=== PATIENT | female | born 1960 | race Caucasian/White ===

== ENCOUNTER → 2017-11-17 13:41 | Outpatient (POV) | payer MEDICAID, SELFPAY ==
[2017-11-17 13:54] VITALS: BP 151/100; PULSE 98; RESP 20; O2SAT 95; BMI 43.7
[2017-11-17 15:10] LABS: Amphetamine/Metha Screen,Urine Negative ng/mL (<1000); Barbiturates Screen,Urine Negative ng/mL (<200); Benzodiazepines Screen,Urine Negative ng/mL (200); Cannabinoid Screen,Urine Negative ng/mL (<50); Cocaine Screen,Urine Negative ng/g (<300); Methadone Screen,Urine Negative ng/mL (<300); Opiate Screen,Urine Positive ng/mL (<300); Phencyclidine Screen,Urine Negative ng/mL (<25)
--- NOTE | 2017-11-17 16:54 | PC.PHONENOTE ---
called in Rx for Diclofenac 75mg BID with 2 refills to [facility] in [place]
--- NOTE | 2017-11-17 17:18 | HMH.PAINSOAP ---
[facility] Pain Management SOAP Note Subjective:: Patient is a pleasant 57-year-old white female who presents today for medication refills. We are treating her for pain secondary to degenerative disc disease of the cervical spine and cervical radiculopathy symptoms. Patient currently rates her pain as 4 out of 10 today. Patient states the medication does very well for her. She does have some pain in her lower back and bilateral hips today. Patient is currently being managed with [place] 10 mg 1 p.o. 3 times daily. She states that this gives her 70-80% relief of her pain. Patient states she is having no side effects to the medication. Patient's MAY #[id number] reviewed and appropriate. Patient's UDS appropriate. She has tried and failed physical therapy and injective therapy in the past patient has not tried any anti-inflammatory recently. ROS General: no recent weight change, no fever, no sleep disturbances Respiratory: no cough, no shortness of air, no recurring pulmonary infections Cardiovascular/Peripheral Vascular: No chest pain, No palpitations, no edema, no shortness of breath. Gastrointestinal: no incontinence, normal bowel movements reported Genitourinary: no incontinence Musculoskeletal: Neck pain, back pain Psychiatric: normal mood/ affect, Neurological: [denies weakness in extremities], [denies balance issues] Objective:: Physical Exam General: Alert and oriented x3, no acute distress, pleasant and cooperative, [on room air] Lungs: Resps E/U, Symmetrical chest expansion, Eyes: PERRL Musculoskeletal: Flexion and extension of lumbar and cervical spine somewhat guarded secondary to pain, deep tendon reflexes normal, strength in upper and lower extremities [5/5], slightly antalgic gait noted Neurological: speech clear, nail making machine tender equal, no gross sensory deficits Assessment:: Degenerative disc disease of the lumbar spine with lumbar radiculopathy, degenerative disc disease of the cervical spine with cervical radiculopathy Plan:: We will refill this patient's medication [place] 10 mg 1 tab p.o. 3 times daily. We will give her 2 months worth of prescriptions. Will follow up with her in 3 months and she can orange picker her third month prescription in the interim. Patient's [place] and urine drug screen have been reviewed. Dr. Au is reviewed this chart and agrees with this plan of care. We will follow-up with her in 3 months. Patient has been prescribed a controlled substance after being counseled on the medication, medication safety, and possible side effects. MAY report has been obtained and reviewed prior to prescription and found to be appropriate. Opioid contract was reviewed and signed by the patient, and that they have agreed to all of the terms set forth by our compliance program. This note was dictated using voice recognition software may contain errors or omissions
--- NOTE | 2017-11-17 17:21 | P.CONS_ITS ---
[facility] Pain Management SOAP Note Subjective:: Patient is a pleasant 57-year-old white female who presents today for medication refills. We are treating her for pain secondary to degenerative disc disease of the cervical spine and cervical radiculopathy symptoms. Patient currently rates her pain as 4 out of 10 today. Patient states the medication does very well for her. She does have some pain in her lower back and bilateral hips today. Patient is currently being managed with [place] 10 mg 1 p.o. 3 times daily. She states that this gives her 70-80% relief of her pain. Patient states she is having no side effects to the medication. Patient' s MAY #[id number] reviewed and appropriate. Patient's UDS appropriate. She has tried and failed physical therapy and injective therapy in the past patient has not tried any anti-inflammatory recently. ROS General: no recent weight change, no fever, no sleep disturbances Respiratory: no cough, no shortness of air, no recurring pulmonary infections Cardiovascular/Peripheral Vascular: No chest pain, No palpitations, no edema, no shortness of breath. Gastrointestinal: no incontinence, normal bowel movements reported Genitourinary: no incontinence Musculoskeletal: Neck pain, back pain Psychiatric: normal mood/ affect, Neurological: [denies weakness in extremities], [denies balance issues] Objective:: Physical Exam General: Alert and oriented x3, no acute distress, pleasant and cooperative, [ on room air] Lungs: Resps E/U, Symmetrical chest expansion, Eyes: PERRL Musculoskeletal: Flexion and extension of lumbar and cervical spine somewhat guarded secondary to pain, deep tendon reflexes normal, strength in upper and lower extremities [5/5], slightly antalgic gait noted Neurological: speech clear, hack driver equal, no gross sensory deficits Assessment:: Degenerative disc disease of the lumbar spine with lumbar radiculopathy, degenerative disc disease of the cervical spine with cervical radiculopathy Plan:: We will refill this patient's medication [place] 10 mg 1 tab p.o. 3 times daily. We will give her 2 months worth of prescriptions. Will follow up with her in 3 months and she can forklift picker her third month prescription in the interim. Patient 's [place] and urine drug screen have been reviewed. Dr. Au is reviewed this chart and agrees with this plan of care. We will follow-up with her in 3 months. Patient has been prescribed a controlled substance after being counseled on the medication, medication safety, and possible side effects. MAY report has been obtained and reviewed prior to prescription and found to be appropriate. Opioid contract was reviewed and signed by the patient, and that they have agreed to all of the terms set forth by our compliance program. This note was dictated using voice recognition software may contain errors or omissions
[2017-11-21 20:12] LABS: Codeine Negative (Cutoff=100); Hydrocodone Positive (.); Hydromorphone Positive (.); Morphine Negative (Cutoff=100)
[2017-11-22 18:33] LABS: Opiates Positive (.)
== END ==
PROVIDERS: Family Provider Nurse Practitioner Family; PCP Nurse Practitioner Family; Visit Provider Clinical Nurse Specialist Family Health
DX: M54.12 Radiculopathy, cervical region (principal)
CPT/HCPCS: 80305; 80361; 80365; 99212; G0480

== ENCOUNTER → 2017-11-25 16:28 | Outpatient (CLI) | payer MEDICAID, SELFPAY ==
--- NOTE | 2017-11-25 16:32 | MM_ITS ---
MM Dig screening mamm BI w/CAD CAD Screening COMPARISON: None, this is baseline INDICATION: There is a history of breast cancer in the patient's paternal aunt before menopause and maternal cousin after menopause. TECHNIQUE: Standard CC and MLO images were obtained. R2 CAD reviewed. FINDINGS: Minimal scattered fibro glandular densities are seen throughout both breast on background of fatty breast parenchyma there is no suspicious lesion and no suspicious microcalcifications. There is a benign-appearing calcination left breast and a couple of 2 tiny benign-appearing nodular densities near the axillary tail right breast likely tiny intramammary nodes. There are fatty replaced nodes in both axilla. The intramedullary portion of the breast is not well seen due to positioning and I would suggest patient return for repeat MLO views to better demonstrate the inframammary portion of the breasts. IMPRESSION: Fatty parenchyma, recommend patient return for repeat MLO views BI-RADS Category: 0 Need Additional Imaging Evaluation RECOMMENDED FOLLOW-UP: IMM - IMMEDIATE FOLLOW-UP RECOMMENDED (A letter has been sent to the patient regarding results of the study.)
== END ==
PROVIDERS: Family Provider Nurse Practitioner Family; PCP Nurse Practitioner Family; Visit Provider Nurse Practitioner Family
DX: Z12.31 Encounter for screening mammogram for malignant neoplasm of breast (principal)
CPT/HCPCS: 77067

== ENCOUNTER → 2018-02-16 12:54 | Outpatient (POV) | payer SELFPAY ==
[2018-02-16 13:27] VITALS: BP 157/86; PULSE 94; RESP 18; O2SAT 98; BMI 36.5
--- NOTE | 2018-02-16 14:46 | HMH.PAINSOAP ---
[facility] Pain Management SOAP Note Subjective:: Patient is a pleasant 57-year-old white female who presents today for medication refills. We are currently treating her for pain secondary to degenerative disc disease of the cervical spine and cervical radiculopathy symptoms. Patient also has bilateral knee pain at times. Patient currently rates her pain a 3 out of 10 today. Patient's on [place] 10 g 1 p.o. 3 times daily. She denies any side effects to the medication she states that it helps her pain 80-90%. Patient's MAY #[id number] reviewed and appropriate. Patient would like to try gabapentin to see if this helps with her pain relief and sleeping at night. We will start the patient on gabapentin 100 mg 1 p.o. nightly. Patient's UDS has been appropriate in the past. Patient's tried and failed physical therapy and injective therapy in the past. ROS General: no recent weight change, no fever, no sleep disturbances Respiratory: no cough, no shortness of air, no recurring pulmonary infections Cardiovascular/Peripheral Vascular: No chest pain, No palpitations, no edema, no shortness of breath. Gastrointestinal: no incontinence, normal bowel movements reported Genitourinary: no incontinence Musculoskeletal: Neck pain, back pain, leg pain Psychiatric: normal mood/ affect Neurological: [denies weakness in extremities], [denies balance issues] Objective:: Physical Exam General: Alert and oriented x3, no acute distress, pleasant and cooperative, [on room air] Lungs: Resps E/U, Symmetrical chest expansion, Eyes: PERRL Musculoskeletal: Flexion and extension of lumbar and cervical spine somewhat guarded secondary to pain, deep tendon reflexes normal, strength in upper and lower extremities [5/5], slightly antalgic gait noted Neurological: speech clear, artist's manager equal, no gross sensory deficits Assessment:: Degenerative disc disease of the lumbar spine with lumbar radiculopathy, degenerative disc disease of the cervical spine with cervical radiculopathy Plan:: We will refill the patient's medication [place] 10 mg 1 tab p.o. 3 times daily we will give HER-2 months worth of prescriptions. We will also start gabapentin 100 mg 1 p.o. nightly. We will give her 1 month of this. We will increase her to 100 mg 1 p.o. 3 times daily if she has no side effects to this. Patient's [place] and urine drug screen both reviewed. Dr. Au has reviewed her chart and agrees with this plan of care. We will follow-up with her in 3 months. She Her third month prescription in the interim. Patient has been prescribed a controlled substance after being counseled on the medication, medication safety, and possible side effects. MAY report has been obtained and reviewed prior to prescription and found to be appropriate. Opioid contract was reviewed and signed by the patient, and that they have agreed to all of the terms set forth by our compliance program. This note was dictated using voice recognition software and may contain errors or omissions
--- NOTE | 2018-02-16 14:49 | P.CONS_ITS ---
[facility] Pain Management SOAP Note Subjective:: Patient is a pleasant 57-year-old white female who presents today for medication refills. We are currently treating her for pain secondary to degenerative disc disease of the cervical spine and cervical radiculopathy symptoms. Patient also has bilateral knee pain at times. Patient currently rates her pain a 3 out of 10 today. Patient's on [place] 10 g 1 p.o. 3 times daily. She denies any side effects to the medication she states that it helps her pain 80-90%. Patient's MAY #[id number] reviewed and appropriate. Patient would like to try gabapentin to see if this helps with her pain relief and sleeping at night. We will start the patient on gabapentin 100 mg 1 p.o. nightly. Patient's UDS has been appropriate in the past. Patient's tried and failed physical therapy and injective therapy in the past. ROS General: no recent weight change, no fever, no sleep disturbances Respiratory: no cough, no shortness of air, no recurring pulmonary infections Cardiovascular/Peripheral Vascular: No chest pain, No palpitations, no edema, no shortness of breath. Gastrointestinal: no incontinence, normal bowel movements reported Genitourinary: no incontinence Musculoskeletal: Neck pain, back pain, leg pain Psychiatric: normal mood/ affect Neurological: [denies weakness in extremities], [denies balance issues] Objective:: Physical Exam General: Alert and oriented x3, no acute distress, pleasant and cooperative, [ on room air] Lungs: Resps E/U, Symmetrical chest expansion, Eyes: PERRL Musculoskeletal: Flexion and extension of lumbar and cervical spine somewhat guarded secondary to pain, deep tendon reflexes normal, strength in upper and lower extremities [5/5], slightly antalgic gait noted Neurological: speech clear, slab grinder equal, no gross sensory deficits Assessment:: Degenerative disc disease of the lumbar spine with lumbar radiculopathy, degenerative disc disease of the cervical spine with cervical radiculopathy Plan:: We will refill the patient's medication [place] 10 mg 1 tab p.o. 3 times daily we will give HER-2 months worth of prescriptions. We will also start gabapentin 100 mg 1 p.o. nightly. We will give her 1 month of this. We will increase her to 100 mg 1 p.o. 3 times daily if she has no side effects to this. Patient's [place] and urine drug screen both reviewed. Dr. Au has reviewed her chart and agrees with this plan of care. We will follow-up with her in 3 months. She Her third month prescription in the interim. Patient has been prescribed a controlled substance after being counseled on the medication, medication safety, and possible side effects. MAY report has been obtained and reviewed prior to prescription and found to be appropriate. Opioid contract was reviewed and signed by the patient, and that they have agreed to all of the terms set forth by our compliance program. This note was dictated using voice recognition software and may contain errors or omissions
--- NOTE | 2018-04-15 11:04 | PC.PHONENOTE ---
called in Rx for Gabapentin 100mg Qhs with 2 refills to clinic pharmacy
== END ==
PROVIDERS: Family Provider Nurse Practitioner Family; PCP Nurse Practitioner Family; Visit Provider Clinical Nurse Specialist Family Health
DX: M54.16 Radiculopathy, lumbar region (principal); M54.12 Radiculopathy, cervical region
CPT/HCPCS: 99212

== ENCOUNTER → 2018-05-19 09:23 | Outpatient (POV) | payer MEDICARE, SELFPAY ==
--- NOTE | 2018-05-19 10:08 | HMH.PAINSOAP ---
[facility] Pain Management SOAP Note Subjective:: Patient is a pleasant 57-year-old white female who presents today for follow-up and medication refill. Patient is currently being medically managed with [place] 10 mg 1 p.o. 3 times daily and was started on gabapentin 100 mg at bedtime last visit. Patient states she is doing extremely well with this. Patient denies side effects. Patient states the medication helps up to 80%. Patient recently got out of the hospital where she was hospitalized for legionnaires. Patient's MAY #[id number] reviewed and appropriate. Patient's urine drug screen has been appropriate in the past. Patient states she is sleeping much better. Patient's tried and failed physical therapy and injective therapies in the past. Patient is continuing to do home stretching exercise. She rates her pain a 4 out of 10 today. ROS General: no recent weight change, no fever, no sleep disturbances Respiratory: no cough, no shortness of air, no recurring pulmonary infections Cardiovascular/Peripheral Vascular: No chest pain, No palpitations, no edema, no shortness of breath. Gastrointestinal: no incontinence, normal bowel movements reported Genitourinary: no incontinence Musculoskeletal: Back pain, knee pain, leg pain Psychiatric: normal mood/ affect Neurological: [denies weakness in extremities], [denies balance issues] Objective:: Physical Exam General: Alert and oriented x3, no acute distress, pleasant and cooperative, [on room air] Lungs: Resps E/U, Symmetrical chest expansion, Eyes: PERRL Musculoskeletal: Flexion and extension of lumbar cervical spine somewhat guarded secondary to pain, deep tendon reflexes normal, strength in upper and lower extremities [5/5], slightly antalgic gait noted Neurological: speech clear, line inspector equal, no gross sensory deficits Assessment:: Degenerative disc disease of lumbar spine with lumbar radiculopathy, degenerative disc disease of the cervical spine with cervical radiculopathy Plan:: We will refill the patient's medication [place] 10 mg 1 tab p.o. 3 times daily. We will give her 2 months worth of medication and she can berry picker the third month in the interim. Patient will also start gabapentin [address] Au is reviewed this chart and agrees with this plan of care. I will follow-up with the patient in 3 months. [place] and urine drug screen reviewed and appropriate. Patient has been prescribed a controlled substance after being counseled on the medication, medication safety, and possible side effects. MAY report has been obtained and reviewed prior to prescription and found to be appropriate. Opioid contract was reviewed and signed by the patient, and that they have agreed to all of the terms set forth by our compliance program. This note was dictated using voice recognition software and may contain errors or omissions
[2018-05-19 10:11] VITALS: BP 147/93; PULSE 86; RESP 18; O2SAT 98; BMI 43.3
--- NOTE | 2018-05-19 10:11 | P.CONS_ITS ---
[facility] Pain Management SOAP Note Subjective:: Patient is a pleasant 57-year-old white female who presents today for follow-up and medication refill. Patient is currently being medically managed with [place] 10 mg 1 p.o. 3 times daily and was started on gabapentin 100 mg at bedtime last visit. Patient states she is doing extremely well with this. Patient denies side effects. Patient states the medication helps up to 80%. Patient recently got out of the hospital where she was hospitalized for legionnaires. Patient's MAY #[id number] reviewed and appropriate. Patient's urine drug screen has been appropriate in the past. Patient states she is sleeping much better. Patient's tried and failed physical therapy and injective therapies in the past. Patient is continuing to do home stretching exercise. She rates her pain a 4 out of 10 today. ROS General: no recent weight change, no fever, no sleep disturbances Respiratory: no cough, no shortness of air, no recurring pulmonary infections Cardiovascular/Peripheral Vascular: No chest pain, No palpitations, no edema, no shortness of breath. Gastrointestinal: no incontinence, normal bowel movements reported Genitourinary: no incontinence Musculoskeletal: Back pain, knee pain, leg pain Psychiatric: normal mood/ affect Neurological: [denies weakness in extremities], [denies balance issues] Objective:: Physical Exam General: Alert and oriented x3, no acute distress, pleasant and cooperative, [on room air] Lungs: Resps E/U, Symmetrical chest expansion, Eyes: PERRL Musculoskeletal: Flexion and extension of lumbar cervical spine somewhat guarded secondary to pain, deep tendon reflexes normal, strength in upper and lower extremities [5/5], slightly antalgic gait noted Neurological: speech clear, take down sorter equal, no gross sensory deficits Assessment:: Degenerative disc disease of lumbar spine with lumbar radiculopathy, degenerative disc disease of the cervical spine with cervical radiculopathy Plan:: We will refill the patient's medication [place] 10 mg 1 tab p.o. 3 times daily. W e will give her 2 months worth of medication and she can machine pecan picker the third month in the interim. Patient will also start gabapentin [address] Au is reviewed this chart and agrees with this plan of care. I will follow-up with the patient in 3 months. [place] and urine drug screen reviewed and appropriate. Patient has been prescribed a controlled substance after being counseled on the medication, medication safety, and possible side effects. MAY report has been obtained and reviewed prior to prescription and found to be appropriate. Opioid contract was reviewed and signed by the patient, and that they have agreed to all of the terms set forth by our compliance program. This note was dictated using voice recognition software and may contain errors or omissions
== END ==
PROVIDERS: Family Provider Nurse Practitioner Family; PCP Nurse Practitioner Family; Visit Provider Clinical Nurse Specialist Family Health
DX: M51.16 Intervertebral disc disorders with radiculopathy, lumbar region (principal); M50.10 Cervical disc disorder with radiculopathy, unspecified cervical region
CPT/HCPCS: 99213

== ENCOUNTER → 2018-06-12 11:25 | Outpatient (CLI) | payer MEDICARE, SELFPAY | PROVIDERS: Family Provider Nurse Practitioner Family; PCP Nurse Practitioner Family; Visit Provider Nurse Practitioner Family | DX: R92.8 Other abnormal and inconclusive findings on diagnostic imaging of breast (principal) ==

== ENCOUNTER → 2018-07-14 12:17 | Outpatient (CLI) | payer MEDICARE, SELFPAY ==
[2018-07-14 12:31] LABS: Microscopic, Urine URINE MICROSCOPIC (MICROSCOPIC)
[2018-07-14 12:43] LABS: Appearance,Urine CLEAR (Clear); Bilirubin,Urine Negative (Negative); Blood, Urine 1+ (Negative); Color,Urine YELLOW (Yellow); Glucose,Urine (UA) Negative (Negative); Ketones,Urine Negative (Negative); Leukocyte Esterase,Urine Negative (Negative); Nitrate,Urine Negative (Negative); Protein,Urine Negative (Negative); Specific Gravity, Urine 1.015 (1.005-1.030); Urobilinogen,Urine 0.2 EU/dl (0.2)
[2018-07-14 13:13] LABS: Bacteria,Urine Trace /lpf
== END ==
PROVIDERS: PCP Nurse Practitioner Family; Visit Provider Clinical Nurse Specialist Family Health
DX: Z79.899 Other long term (current) drug therapy (principal)
CPT/HCPCS: 81001

== ENCOUNTER → 2018-08-05 13:31 | Outpatient (CLI) | payer MEDICARE, SELFPAY ==
[2018-08-05 14:23] LABS: Amphetamine/Metha Screen,Urine Negative ng/mL (<1000); Barbiturates Screen,Urine Negative ng/mL (<200); Benzodiazepines Screen,Urine Negative ng/mL (<200); Cannabinoid Screen,Urine Negative ng/mL (<50); Cocaine Screen,Urine Negative ng/mL (<300); Methadone Screen,Urine Negative ng/mL (<300); Opiate Screen,Urine Positive ng/mL (<300); Phencyclidine Screen,Urine Negative ng/mL (<25)
[2018-08-12 08:33] LABS: Codeine Negative (Cutoff=100); Hydrocodone Positive (.); Hydromorphone Negative (Cutoff=100); Morphine Negative (Cutoff=100)
[2018-08-12 15:59] LABS: Opiates Positive (.)
== END ==
PROVIDERS: Visit Provider Clinical Nurse Specialist Family Health
DX: Z79.899 Other long term (current) drug therapy (principal)
CPT/HCPCS: 80305; 80361; 80365; G0480

== ENCOUNTER → 2018-08-10 08:34 | Outpatient (POV) | payer MEDICARE, SELFPAY ==
[2018-08-10 08:59] VITALS: BP 150/79; PULSE 99; RESP 18; O2SAT 98; BMI 44.6
--- NOTE | 2018-08-10 09:06 | HMH.PAINSOAP ---
[facility] Pain Management SOAP Note Subjective:: Patient is a pleasant 58-year-old female who presents today for medication refills. Patient is currently being medically managed with [place] 10 mg 1 p.o. 3 times daily and gabapentin 100 mg 2 tabs p.o. at bedtime. Patient is doing extremely well with this. She denies any side effects. She states the medication helps up to 80%. MAY #[id number] reviewed and appropriate. Patient's urine drug screen has been appropriate. Patient's tried and failed physical therapy and injective therapies in the past and rates her pain today a 4 out of 10 which is her baseline. Patient states she has pain both in her neck and her back however today it is worse in her back. ROS General: no recent weight change, no fever, no sleep disturbances Respiratory: no cough, no shortness of air, no recurring pulmonary infections Cardiovascular/Peripheral Vascular: No chest pain, No palpitations, no edema, no shortness of breath. Gastrointestinal: no incontinence, normal bowel movements reported Genitourinary: no incontinence Musculoskeletal: Back pain, knee pain, leg pain Psychiatric: normal mood/ affect Neurological: [denies weakness in extremities], [denies balance issues] Objective:: Physical Exam General: Alert and oriented x3, no acute distress, pleasant and cooperative, [on room air] Lungs: Resps E/U, Symmetrical chest expansion, Eyes: PERRL Musculoskeletal: Flexion and extension of lumbar spine somewhat guarded secondary to pain, deep tendon reflexes normal, strength in upper and lower extremities [5/5], slightly antalgic gait noted Neurological: speech clear, jewelry repairer equal, no gross sensory deficits Assessment:: Degenerative disc disease lumbar spine with lumbar radiculopathy, degenerative disc disease cervical spine with cervical radiculopathy Plan:: We will refill the patient's medication [place] 10 mg 1 p.o. 3 times daily and give her 2 months worth of medication. We will also refill her gabapentin 100 mg 2 tabs p.o. nightly. She can picker and packer her third month in the interim. Dr. Au has reviewed this chart and agrees with this plan of care. I will follow-up with the patient in 3 months. Patient has been prescribed a controlled substance after being counseled on the medication, medication safety, and possible side effects. MAY report has been obtained and reviewed prior to prescription and found to be appropriate. Opioid contract was reviewed and signed by the patient, and that they have agreed to all of the terms set forth by our compliance program. This note was dictated using voice recognition software and may contain errors or omissions
--- NOTE | 2018-08-10 09:09 | P.CONS_ITS ---
[facility] Pain Management SOAP Note Subjective:: Patient is a pleasant 58-year-old female who presents today for medication refills. Patient is currently being medically managed with [place] 10 mg 1 p.o. 3 times daily and gabapentin 100 mg 2 tabs p.o. at bedtime. Patient is doing extremely well with this. She denies any side effects. She states the medication helps up to 80%. MAY #[id number] reviewed and appropriate. Patient's urine drug screen has been appropriate. Patient's tried and failed physical therapy and injective therapies in the past and rates her pain today a 4 out of 10 which is her baseline. Patient states she has pain both in her neck and her back however today it is worse in her back. ROS General: no recent weight change, no fever, no sleep disturbances Respiratory: no cough, no shortness of air, no recurring pulmonary infections Cardiovascular/Peripheral Vascular: No chest pain, No palpitations, no edema, no shortness of breath. Gastrointestinal: no incontinence, normal bowel movements reported Genitourinary: no incontinence Musculoskeletal: Back pain, knee pain, leg pain Psychiatric: normal mood/ affect Neurological: [denies weakness in extremities], [denies balance issues] Objective:: Physical Exam General: Alert and oriented x3, no acute distress, pleasant and cooperative, [on room air] Lungs: Resps E/U, Symmetrical chest expansion, Eyes: PERRL Musculoskeletal: Flexion and extension of lumbar spine somewhat guarded secondary to pain, deep tendon reflexes normal, strength in upper and lower extremities [5/5], slightly antalgic gait noted Neurological: speech clear, director advanced equal, no gross sensory deficits Assessment:: Degenerative disc disease lumbar spine with lumbar radiculopathy, degenerative disc disease cervical spine with cervical radiculopathy Plan:: We will refill the patient's medication [place] 10 mg 1 p.o. 3 times daily and give her 2 months worth of medication. We will also refill her gabapentin 100 mg 2 tabs p.o. nightly. 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 Dr. Au has reviewed this chart and agrees with this plan of care. I will follow-up with the patient in 3 months. Patient has been prescribed a controlled substance after being counseled on the medication, medication safety, and possible side effects. MAY report has been obtained and reviewed prior to prescription and found to be appropriate. Opioid contract was reviewed and signed by the patient, and that they have agreed to all of the terms set forth by our compliance program. This note was dictated using voice recognition software and may contain errors or omissions
--- NOTE | 2018-10-06 08:47 | PC.NURSE ---
gabapentin 100mg, 2 capsules at hs with 2 refills faxed to clinic pharmacy per provider order.
== END ==
PROVIDERS: PCP Nurse Practitioner Family; Visit Provider Clinical Nurse Specialist Family Health
DX: M51.16 Intervertebral disc disorders with radiculopathy, lumbar region (principal); M50.10 Cervical disc disorder with radiculopathy, unspecified cervical region
CPT/HCPCS: 99213

== ENCOUNTER → 2018-09-21 11:53 | Outpatient (CLI) | payer MEDICARE, SELFPAY ==
--- NOTE | 2018-09-21 11:58 | XR_ITS ---
XR chest 2V HISTORY: ITS.REASON: SOB, ORDERING PHYSICIAN: Phuong Owusu PATIENT AGE: 58 years COMPARISON: None FINDINGS: The cardiomediastinal silhouette and pulmonary vascularity are within normal limits. There are atelectatic or fibrotic changes in the left midlung. Increased markings are present in the right upper lobe medially probably due to overlapping vessel. On the lateral view there is a 12 mm nodular opacity overlying the T5 vertebral body and could be due to an overlying osteophyte. There are degenerative changes in the thoracic spine. A gastric lap band is present. IMPRESSION: 1. Left midlung atelectasis or fibrosis. 2. Nodular opacity overlying the upper thoracic spine possibly due to is overlying osteophyte. Cannot exclude a pulmonary nodule and follow-up is recommended
== END ==
PROVIDERS: PCP Nurse Practitioner Family; Visit Provider Nurse Practitioner Family
DX: R06.02 Shortness of breath (principal)
CPT/HCPCS: 71046

== ENCOUNTER → 2018-10-12 09:51 | Outpatient (POV) | payer MEDICARE, SELFPAY ==
[2018-10-12 09:52] VITALS: BP 148/74; PULSE 82; RESP 18; O2SAT 99; BMI 45.6
--- NOTE | 2018-10-12 10:14 | HMH.PAINSOAP ---
[facility] Pain Management SOAP Note Subjective:: Is a pleasant 58-year-old white female who presents today for medication refills. She is currently being medically managed for pain secondary to degenerative disc disease lumbar and cervical spine with radiculopathy. Patient is currently on [place] 10 mils 1 3 times daily and gabapentin 100 mg 2 tabs at bedtime. She is doing extremely well rating her pain a 5 out of 10. Patient says this is not her baseline it is higher due to the weather. She denies side effects or medication and states it helps up to 80%. MAY #[id number] reviewed and appropriate. Patient urine drug screen has been appropriate. Patient's tried and failed physical therapy and injective therapies. ROS General: no recent weight change, no fever, no sleep disturbances Respiratory: no cough, no shortness of air, no recurring pulmonary infections Cardiovascular/Peripheral Vascular: No chest pain, No palpitations, no edema, no shortness of breath. Gastrointestinal: no incontinence, normal bowel movements reported Genitourinary: no incontinence Musculoskeletal: Back pain, knee pain, leg pain Psychiatric: normal mood/ affect, [denies depression], [denies anxiety] Neurological: [denies weakness in extremities], [denies balance issues] Objective:: Physical Exam General: Alert and oriented x3, no acute distress, pleasant and cooperative, [on room air] Lungs: Resps E/U, Symmetrical chest expansion, Eyes: PERRL Musculoskeletal: Flexion and extension of cervical and lumbar spine somewhat guarded secondary to pain, deep tendon reflexes normal, strength in upper and lower extremities [5/5], [abnormal gait noted] Neurological: speech clear, breakdown man equal, no gross sensory deficits Assessment:: Degenerative disc disease cervical and lumbar spine with lumbar and cervical radiculopathy. Plan:: We will refill the patient's [place] 10 mg 1 p.o. 3 times daily and give her 2 months worth of medication. We will also refill her gabapentin 100 mg 2 tabs p.o. only. 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 She is been instructed to call the office if she has any issues prior to her next appointment. Patient has been prescribed a controlled substance after being counseled on the medication, medication safety, and possible side effects. MAY report has been obtained and reviewed prior to prescription and found to be appropriate. Opioid contract was reviewed and signed by the patient, and that they have agreed to all of the terms set forth by our compliance program. Dr. Au has reviewed this note and agrees with this plan of care. This note was dictated using voice recognition software and may contain errors or omissions
[2018-10-12 12:22] LABS: Amphetamine/Metha Screen,Urine Negative ng/mL (<1000); Barbiturates Screen,Urine Negative ng/mL (<200); Benzodiazepines Screen,Urine Negative ng/mL (<200); Cannabinoid Screen,Urine Negative ng/mL (<50); Cocaine Screen,Urine Negative ng/mL (<300); Methadone Screen,Urine Negative ng/mL (<300); Opiate Screen,Urine Positive ng/mL (<300); Phencyclidine Screen,Urine Negative ng/mL (<25)
[2018-10-16 04:10] LABS: Codeine Negative (Cutoff=100); Hydrocodone Positive (.); Hydromorphone Positive (.); Morphine Negative (Cutoff=100)
[2018-10-16 06:09] LABS: Opiates Positive (.)
== END ==
PROVIDERS: PCP Nurse Practitioner Family; Visit Provider Clinical Nurse Specialist Family Health
DX: M50.10 Cervical disc disorder with radiculopathy, unspecified cervical region (principal); Z79.899 Other long term (current) drug therapy
CPT/HCPCS: 80305; 80361; 80365; 99213; G0480

== ENCOUNTER → 2019-01-05 10:20 | Outpatient (POV) | payer MEDICARE, SELFPAY ==
[2019-01-05 10:30] VITALS: BP 148/84; PULSE 90; RESP 18; O2SAT 99; BMI 45.1
--- NOTE | 2019-01-05 10:41 | P.CONS_ITS ---
[facility] Pain Management SOAP Note Subjective:: Patient is a pleasant 58-year-old white female who presents today for medication refills. She is currently being medically managed for pain secondary to degenerative disc disease lumbar and cervical spine with radiculopathy she is currently on [place] 10 mg 1 p.o. 3 times daily and gabapentin 100 mg 2 tabs at bedtime. She rates her pain a 4 out of 10 which is her baseline. May reviewed and appropriate states her medication helps her up to 80%. Patient is tried and failed physical therapy and injective therapies. ROS General: no recent weight change, no fever, no sleep disturbances Respiratory: no cough, no shortness of air, no recurring pulmonary infections Cardiovascular/Peripheral Vascular: No chest pain, No palpitations, no edema, no shortness of breath. Gastrointestinal: no incontinence, normal bowel movements reported Genitourinary: no incontinence Musculoskeletal: Back pain, knee pain, leg pain Psychiatric: normal mood/ affect Neurological: [denies weakness in extremities], [denies balance issues] Objective:: Physical Exam General: Alert and oriented x3, no acute distress, pleasant and cooperative, [on room air] Lungs: Resps E/U, Symmetrical chest expansion, Eyes: PERRL Musculoskeletal: Flexion and extension of lumbar spine somewhat guarded secondary to pain, deep tendon reflexes normal, strength in upper and lower extremities [5/5], [abnormal gait noted] Neurological: speech clear, soft mud molder equal, no gross sensory deficits Assessment:: Degenerative disc disease cervical and lumbar spine with lumbar and cervical radiculopathy Plan:: We will refill the patient's [place] 10 mg 1 p.o. 3 times daily and give her 2 months worth of medication. We will also refill her gabapentin 100 mg 2 tabs p.o. nightly. 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 Patient has been prescribed a controlled substance after being counseled on the medication, medication safety, and possible side effects. MAY report has been obtained and reviewed prior to prescription and found to be appropriate. Opioid contract was reviewed and signed by the patient, and that they have agreed to all of the terms set forth by our compliance program. Dr. Au has reviewed this note and agrees with this plan of care. This note was dictated using voice recognition software and may contain errors or omissions
== END ==
PROVIDERS: PCP Nurse Practitioner Family; Visit Provider Clinical Nurse Specialist Family Health
DX: M50.10 Cervical disc disorder with radiculopathy, unspecified cervical region (principal)
CPT/HCPCS: 99212

== ENCOUNTER → 2019-03-03 12:51 | Outpatient (CLI) | payer MEDICARE, SELFPAY ==
[2019-03-03 14:42] LABS: Amphetamine/Metha Screen,Urine Negative ng/mL (<1000); Barbiturates Screen,Urine Negative ng/mL (<200); Benzodiazepines Screen,Urine Negative ng/mL (<200); Cannabinoid Screen,Urine Negative ng/mL (<50); Cocaine Screen,Urine Negative ng/mL (<300); Methadone Screen,Urine Negative ng/mL (<300); Opiate Screen,Urine Positive ng/mL (<300); Phencyclidine Screen,Urine Negative ng/mL (<25)
[2019-03-09 07:11] LABS: Codeine Negative (Cutoff=100); Hydrocodone Positive (.); Hydromorphone Positive (.); Morphine Negative (Cutoff=100)
[2019-03-10 17:36] LABS: Opiates Positive (.)
== END ==
PROVIDERS: Visit Provider Clinical Nurse Specialist Family Health
DX: Z79.899 Other long term (current) drug therapy (principal)
CPT/HCPCS: 80305; 80361; 80365; G0480

== ENCOUNTER → 2019-03-30 09:29 | Outpatient (POV) | payer MEDICARE, SELFPAY ==
[2019-03-30 10:09] VITALS: BP 141/72; PULSE 84; RESP 18; O2SAT 98; BMI 44.6
--- NOTE | 2019-03-30 12:31 | HMH.PAINSOAP ---
[facility] Pain Management SOAP Note Subjective:: Patient is a pleasant 58-year-old white female who presents today for medication refills. She is currently being medically managed for pain secondary to degenerative disc disease lumbar spine and cervical spine with radiculopathy. She is currently on [place] 10 mg 1 p.o. 3 times daily and gabapentin 100 mg 2 tabs at bedtime. She rates her pain a 5 out of 10 today. She says it 4 out of 10 is her baseline. And she does state that the medication is helping her about 80%. She is tried and failed physical therapy and injective therapies. May #[id number] has been reviewed and is appropriate. Patient denies any side effects to medications. Review of Systems General: No recent weight changes, no fever, no sleep disturbances Respiratory: No cough, no shortness of air, no recurring pulmonary infections Cardiovascular/peripheral vascular: No chest pain, no palpitations, no edema, no shortness of breath Gastrointestinal: No new onset incontinence, normal bowel movements reported Genitourinary: No new onset incontinence Musculoskeletal: Back pain, neck pain Psychiatric: Normal mood/affect Neurological: [Denies weakness in extremities], [denies balance issues] Objective:: Physical exam General: Alert and oriented x3, no acute distress, pleasant and cooperative, [on room air] Lungs: Respirations even and unlabored, symmetrical chest expansion Eyes: PERRL Musculoskeletal: Flexion and extension of lumbar and cervical spine somewhat guarded secondary to pain, deep tendon reflexes normal, strength in upper and lower extremities [5/5], lightly antalgic gait noted Neurological: Speech clear, clothes drier repairer equal, no gross sensory deficit Assessment:: Degenerative disc disease cervical and lumbar spine with lumbar and cervical radiculopathy Plan:: We will refill the patient's [place] 10 mg 1 p.o. 3 times daily and gabapentin 100 mg 2 tabs p.o. nightly. 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 We will schedule her follow-up in 3 months to reassess her symptoms at that time. She has been instructed to call the office if she has any concerns prior to her next appointment. Patient has been prescribed a controlled substance after being counseled on the medication, medication safety, and possible side effects. MAY report has been obtained and reviewed prior to prescription and found to be appropriate. Opioid contract was reviewed and signed by the patient, and that they have agreed to all of the terms set forth by our compliance program. Dr. Au has reviewed this note and agrees with this plan of care. This note was dictated using voice recognition software and make contain errors or omissions.
--- NOTE | 2019-03-30 12:34 | P.CONS_ITS ---
[facility] Pain Management SOAP Note Subjective:: Patient is a pleasant 58-year-old white female who presents today for medication refills. She is currently being medically managed for pain secondary to degenerative disc disease lumbar spine and cervical spine with radiculopathy. She is currently on [place] 10 mg 1 p.o. 3 times daily and gabapentin 100 mg 2 tabs at bedtime. She rates her pain a 5 out of 10 today. She says it 4 out of 10 is her baseline. And she does state that the medication is helping her about 80%. She is tried and failed physical therapy and injective therapies. May #[id number] has been reviewed and is appropriate. Patient denies any side effects to medications. Review of Systems General: No recent weight changes, no fever, no sleep disturbances Respiratory: No cough, no shortness of air, no recurring pulmonary infections Cardiovascular/peripheral vascular: No chest pain, no palpitations, no edema, no shortness of breath Gastrointestinal: No new onset incontinence, normal bowel movements reported Genitourinary: No new onset incontinence Musculoskeletal: Back pain, neck pain Psychiatric: Normal mood/affect Neurological: [Denies weakness in extremities], [denies balance issues] Objective:: Physical exam General: Alert and oriented x3, no acute distress, pleasant and cooperative, [on room air] Lungs: Respirations even and unlabored, symmetrical chest expansion Eyes: PERRL Musculoskeletal: Flexion and extension of lumbar and cervical spine somewhat guarded secondary to pain, deep tendon reflexes normal, strength in upper and lower extremities [5/5], lightly antalgic gait noted Neurological: Speech clear, muffler installer equal, no gross sensory deficit Assessment:: Degenerative disc disease cervical and lumbar spine with lumbar and cervical radiculopathy Plan:: We will refill the patient's [place] 10 mg 1 p.o. 3 times daily and gabapentin 100 mg 2 tabs p.o. nightly. 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 We will schedule her follow-up in 3 months to reassess her symptoms at that time. She has been instructed to call the office if she has any concerns prior to her next appointment. Patient has been prescribed a controlled substance after being counseled on the medication, medication safety, and possible side effects. MAY report has been obtained and reviewed prior to prescription and found to be appropriate. Opioid contract was reviewed and signed by the patient, and that they have agreed to all of the terms set forth by our compliance program. Dr. Au has reviewed this note and agrees with this plan of care. This note was dictated using voice recognition software and make contain errors or omissions.
--- NOTE | 2019-04-26 09:27 | PC.NURSE ---
GABAPENTIN 100MG, 2 CAPSULES AT BEDTIME WITH 2 REFILLS CALLED INTO CLINIC PHARMACY PER PROVIDER ORDER
== END ==
PROVIDERS: PCP Nurse Practitioner Family; Visit Provider Clinical Nurse Specialist Family Health
DX: M50.10 Cervical disc disorder with radiculopathy, unspecified cervical region (principal); M51.36 Other intervertebral disc degeneration, lumbar region
CPT/HCPCS: 99212

== ENCOUNTER → 2019-06-21 10:15 | Outpatient (POV) | payer MEDICARE, SELFPAY ==
[2019-06-21 10:25] VITALS: BP 147/77; PULSE 84; RESP 20; O2SAT 92; BMI 44.6
--- NOTE | 2019-06-21 10:40 | P.CONS_ITS ---
[facility] Pain Management SOAP Note Subjective:: Patient is a pleasant 58-year-old white female who presents today for medication refills. She is currently being medically managed for pain secondary to degenerative disc disease lumbar spine and lumbar radiculopathy. She is currently on [place] 10 mg 1 p.o. 3 times daily and gabapentin 100 mg 2 tabs at bedtime. We did briefly discuss increasing this to 3 times at nighttime. She rates her pain today 6 out of 10 which is slightly elevated however she states is because of weather related issues. Patient states that her medication helps up to 80%. May #[id number] reviewed and appropriate. Urine drug screens have been appropriate. She is denies any side effects to any medication ROS General: no recent weight change, no fever, no sleep disturbances Respiratory: no cough, no shortness of air, no recurring pulmonary infections Cardiovascular/Peripheral Vascular: No chest pain, No palpitations, no edema, no shortness of breath. Gastrointestinal: no incontinence, normal bowel movements reported Genitourinary: no incontinence Musculoskeletal: Back pain, neck pain Psychiatric: normal mood/ affect Neurological: [denies weakness in extremities], [denies balance issues] Objective:: Physical Exam General: Alert and oriented x3, no acute distress, pleasant and cooperative, [on room air] Lungs: Resps E/U, Symmetrical chest expansion, Eyes: PERRL Musculoskeletal: Flexion and extension of lumbar spine somewhat guarded secondary to pain, deep tendon reflexes normal, strength in upper and lower extremities [5/5], [abnormal gait noted] Neurological: speech clear, plastic parts designer equal, no gross sensory deficits Assessment:: Degenerative disc disease lumbar spine with lumbar radiculopathy degenerative disc disease cervical spinal cervical radiculopathy Plan:: We will refill the patient's [place] 10 mg 1 p.o. 3 times daily and gabapentin 100 mg 2 tabs p.o. nightly. 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 Patient has been prescribed a controlled substance after being counseled on the medication, medication safety, and possible side effects. MAY report has been obtained and reviewed prior to prescription and found to be appropriate. Opioid contract was reviewed and signed by the patient, and that they have agreed to all of the terms set forth by our compliance program. Dr. Au has reviewed this note and agrees with this plan of care. This note was dictated using voice recognition software and may contain errors or omissions [facility] History I have reviewed the patient's past medical history: Yes *Have you ever received a pneumonia vaccine?: No *Have you received a flu vaccine this season?: Yes - *Social History *Occupational Status:: other *Travel in the last 8 weeks: None Family Hx:: Non-contributory
[2019-06-21 13:27] LABS: Amphetamine/Metha Screen,Urine Negative ng/mL (<1000); Barbiturates Screen,Urine Negative ng/mL (<200); Benzodiazepines Screen,Urine Negative ng/mL (<200); Cannabinoid Screen,Urine Negative ng/mL (<50); Cocaine Screen,Urine Negative ng/mL (<300); Methadone Screen,Urine Negative ng/mL (<300); Opiate Screen,Urine Positive ng/mL (<300); Phencyclidine Screen,Urine Negative ng/mL (<25)
[2019-06-25 13:18] LABS: Codeine Negative (Cutoff=100); Hydrocodone Positive (.); Hydromorphone Positive (.); Morphine Negative (Cutoff=100)
[2019-06-25 17:04] LABS: Opiates Positive (.)
== END ==
PROVIDERS: PCP Nurse Practitioner Family; Visit Provider Clinical Nurse Specialist Family Health
DX: M51.16 Intervertebral disc disorders with radiculopathy, lumbar region (principal); Z79.899 Other long term (current) drug therapy; M50.10 Cervical disc disorder with radiculopathy, unspecified cervical region
CPT/HCPCS: 80305; 80361; 80365; 99212; G0480

== ENCOUNTER → 2019-09-20 09:29 | Outpatient (POV) | payer MEDICARE, SELFPAY ==
[2019-09-20 09:30] VITALS: BP 159/69; PULSE 97; RESP 18; O2SAT 98; BMI 44.6
--- NOTE | 2019-09-20 09:44 | HMH.PAINSOAP ---
[facility] Pain Management SOAP Note Subjective:: Patient is a very pleasant 59-year-old white female who presents today for medication refill she rates her pain a 4 out of 10 and is overall doing well she is on [place] 10 mg 1 p.o. 3 times daily and gabapentin 100 mg 2 tabs at bedtime. Patient denies side effects from medication. May #[id number] reviewed and appropriate. Patient's UDS is have been appropriate. She does not have any concerns at this time. She states the medication helps up to 80%. ROS General: no recent weight change, no fever, no sleep disturbances Respiratory: no cough, no shortness of air, no recurring pulmonary infections Cardiovascular/Peripheral Vascular: No chest pain, No palpitations, no edema, no shortness of breath. Gastrointestinal: no new onset incontinence, normal bowel movements reported Genitourinary: no new onset incontinence Musculoskeletal: Back pain, neck pain Psychiatric: normal mood/ affect Neurological: [denies new onset weakness in extremities], [denies new onset balance issues] Objective:: Physical Exam General: Alert and oriented x3, no acute distress, pleasant and cooperative, [on room air] Lungs: Resps E/U, Symmetrical chest expansion, Eyes: PERRL Musculoskeletal: Flexion and extension of lumbar spine somewhat guarded secondary to pain, deep tendon reflexes normal, strength in upper and lower extremities [5/5], antalgic gait noted Neurological: speech clear, engineer remote control diesel equal, no gross sensory deficits Assessment:: Degenerative disc disease lumbar spine with lumbar radiculopathy degenerative disc disease cervical spine with cervical radiculopathy Plan:: We will refill the patient's [place] 10 mg 1 p.o. 3 times daily and gabapentin 100 mg 2 tabs p.o. 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 Patient has been prescribed a controlled substance after being counseled on the medication, medication safety, and possible side effects. MAY report has been obtained and reviewed prior to prescription and found to be appropriate. Opioid contract was reviewed and signed by the patient, and that they have agreed to all of the terms set forth by our compliance program. Dr. Au has reviewed this note and agrees with this plan of care. This note was dictated using voice recognition software and may contain errors or omissions [facility] History I have reviewed the patient's past medical history: Yes *Have you ever received a pneumonia vaccine?: Yes *Have you received a flu vaccine this season?: Yes - *Social History *Occupational Status:: other *Travel in the last 8 weeks: None Family Hx:: Non-contributory
--- NOTE | 2019-11-30 15:48 | PC.NURSE ---
GABAPENTIN 100MG CAPSULES, 2 AT BEDTIME CALLED INTO CLINIC PHARMACY WITH 3 REFILLS PER PROVIDER ORDER
== END ==
PROVIDERS: PCP Nurse Practitioner Family; Visit Provider Clinical Nurse Specialist Family Health
DX: M51.16 Intervertebral disc disorders with radiculopathy, lumbar region (principal); M50.10 Cervical disc disorder with radiculopathy, unspecified cervical region
CPT/HCPCS: 99212

== ENCOUNTER → 2019-11-30 10:06 | Outpatient (CLI) | payer MEDICARE, SELFPAY ==
[2019-11-30 12:31] LABS: Amphetamine/Metha Screen,Urine Negative ng/ml (<1000); Benzodiazepines Screen,Urine Negative ng/ml (<200)
[2019-11-30 12:32] LABS: Barbiturates Screen,Urine Negative ng/ml (<200)
[2019-11-30 12:33] LABS: Cannabinoid Screen,Urine Negative ng/ml (<50); Cocaine Screen,Urine Negative ng/ml (<300)
[2019-11-30 12:34] LABS: Methadone Screen,Urine Negative ng/ml (<300)
[2019-11-30 12:35] LABS: Opiate Screen,Urine Positive ng/ml (<300); Phencyclidine Screen,Urine Negative ng/ml (<25)
[2019-12-05 15:27] LABS: Codeine Negative (Cutoff=100); Hydrocodone Positive (.); Hydromorphone Positive (.); Morphine Negative (Cutoff=100)
[2019-12-05 17:56] LABS: Opiates Positive (.)
== END ==
PROVIDERS: Visit Provider Clinical Nurse Specialist Family Health
DX: Z79.899 Other long term (current) drug therapy (principal)
CPT/HCPCS: 80305; 80361; 80365; G0480

== ENCOUNTER → 2019-12-27 09:40 | Outpatient (POV) | payer MEDICARE, SELFPAY ==
[2019-12-27 09:43] VITALS: BP 159/65; PULSE 78; RESP 18; TEMP 36.8; O2SAT 99; BMI 44.6
--- NOTE | 2019-12-27 09:59 | HMH.PAINSOAP ---
[facility] Pain Management SOAP Note Subjective:: Patient is a pleasant 59-year-old white female who presents today for medication refills. She rates her pain today 4-10 she is currently on [place] 10 mg 1 p.o. 3 times daily gabapentin 100 mg 2 tabs at bedtime. She denies side effects from her medication. May #[id number] reviewed and appropriate. Urine drug screen have been appropriate. She states that her medication helps up to 80%. ROS General: no recent weight change, no fever, no sleep disturbances Respiratory: no cough, no shortness of air, no recurring pulmonary infections Cardiovascular/Peripheral Vascular: No chest pain, No palpitations, no edema, no shortness of breath. Gastrointestinal: no new onset incontinence, normal bowel movements reported Genitourinary: no new onset incontinence Musculoskeletal: Back pain, neck pain Psychiatric: normal mood/ affect, Neurological: [denies new onset weakness in extremities], [denies new onset balance issues] Objective:: Physical Exam General: Alert and oriented x3, no acute distress, pleasant and cooperative, [on room air] Lungs: Resps E/U, Symmetrical chest expansion, Eyes: PERRL Musculoskeletal: Flexion and extension of lumbar spine somewhat guarded secondary to pain, deep tendon reflexes normal, strength in upper and lower extremities [5/5], slightly antalgic gait noted Neurological: speech clear, rental manager equal, no gross sensory deficits Assessment:: Degenerative disc disease lumbar spine with lumbar radiculopathy degenerative disc disease cervical spine with cervical radiculopathy Plan:: We specifically discussed risk factors for Covid-19 including age, heart or lung disease, diabetes, immunosuppression and travel. We also discussed that NSAIDs may worsen Covid-19 infection symptoms and that they should not be used to treat Covid-19 symptoms. Patient was also informed that corticosteroids in any form oral or injectable will decrease immune response and may increase risk of Covid-19 infections and symptoms. We will refill the patient's [place] 10 mg 1 p.o. 3 times daily and gabapentin 100 mg 2 tabs p.o. nightly. We will give her 1 month of medication and refill in 1 month. We will follow-up with her in 3 months reassess her symptoms that time she has been instructed to call the office prior to her next appointment if she has any issues. Patient has been prescribed a controlled substance after being counseled on the medication, medication safety, and possible side effects. MAY report has been obtained and reviewed prior to prescription and found to be appropriate. Opioid contract was reviewed and signed by the patient, and that they have agreed to all of the terms set forth by our compliance program.Dr. Au has reviewed this patient's chart and this note and agrees with plan of care. Patient has been instructed to call the office if they have any issues prior to the next appointment. [facility] History I have reviewed the patient's past medical history: Yes *Have you ever received a pneumonia vaccine?: Yes *Have you received a flu vaccine this season?: Yes - *Social History *Occupational Status:: other *Travel in the last 8 weeks: None Family Hx:: Non-contributory
== END ==
PROVIDERS: PCP Nurse Practitioner Family; Visit Provider Clinical Nurse Specialist Family Health
DX: M51.16 Intervertebral disc disorders with radiculopathy, lumbar region (principal); M50.10 Cervical disc disorder with radiculopathy, unspecified cervical region; Z79.899 Other long term (current) drug therapy
CPT/HCPCS: 99212

== ENCOUNTER → 2020-03-27 09:30 | Outpatient (POV) | payer MEDICARE, SELFPAY ==
--- NOTE | 2020-03-27 09:46 | HMH.PAINSOAP ---
[facility] Pain Management SOAP Note Subjective:: Patient is a pleasant 59-year-old white female who presents today for medication refills. She rates her pain today 4 out of 10 she is currently on [place] 10 mg 1 p.o. 3 times daily and gabapentin 100 mg 2 tabs at bedtime. She states that most of her pain is in her legs. We will increase her gabapentin to 100 mg 1 p.o. 3 tabs at bedtime. She denies side effects or medication. [facility] #[id number] reviewed and appropriate. Urine drug screens are appropriate. ROS General: no recent weight change, no fever, no sleep disturbances Respiratory: no cough, no shortness of air, no recurring pulmonary infections Cardiovascular/Peripheral Vascular: No chest pain, No palpitations, no edema, no shortness of breath. Gastrointestinal: no new onset incontinence, normal bowel movements reported Genitourinary: no new onset incontinence Musculoskeletal: Back pain, neck pain, leg pain Psychiatric: normal mood/ affect Neurological: [denies new onset weakness in extremities], [denies new onset balance issues] Objective:: Physical Exam General: Alert and oriented x3, no acute distress, pleasant and cooperative, [on room air] Lungs: Resps E/U, Symmetrical chest expansion, Eyes: PERRL Musculoskeletal: Flexion and extension of lumbar spine somewhat guarded secondary to pain, deep tendon reflexes normal, strength in upper and lower extremities [5/5], [abnormal gait noted] Neurological: speech clear, oil 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 3 times daily and gabapentin 100 mg will be increased to 3 tabs p.o. nightly. We will give her 2 months worth of medication we will follow-up with her in 3 months reassess her symptoms at that time she has been instructed to call the office if she has any issues prior to her next appointment. Dr. Au has reviewed this note and agrees with this plan of care. This note was dictated using voice recognition software and may contain errors or omissions [facility] History I have reviewed the patient's past medical history: Yes *Have you ever received a pneumonia vaccine?: Yes *Have you received a flu vaccine this season?: Yes - *Social History *Occupational Status:: other *Travel in the last 8 weeks: None Family Hx:: Non-contributory
[2020-03-27 09:55] VITALS: BP 133/61; PULSE 75; RESP 18; TEMP 36.8; O2SAT 98; BMI 42.1
== END ==
PROVIDERS: PCP Nurse Practitioner Family; Visit Provider Clinical Nurse Specialist Family Health
DX: M51.16 Intervertebral disc disorders with radiculopathy, lumbar region (principal); M50.10 Cervical disc disorder with radiculopathy, unspecified cervical region
CPT/HCPCS: 99212

== ENCOUNTER → 2020-06-15 09:12 | Outpatient (POV) | payer MEDICARE, SELFPAY ==
[2020-06-15 09:25] VITALS: BP 132/78; PULSE 74; RESP 18; TEMP 36.8; O2SAT 98; BMI 44.1
--- NOTE | 2020-06-15 09:46 | P.CONS_ITS ---
[facility] Pain Management SOAP Note Subjective:: Patient is a 59-year-old white female who presents today for medication refills. She is been treated for chronic low back pain with lumbar radiculopathy symptoms as well as degenerative disc disease cervical spine with cervical radiculopathy symptoms.. Patient is managed with [place] 10 mg 1 tablet p.o. 3 times daily and gabapentin 100 mg 1 tablet p.o. 3 times daily. She says she is doing well with her medication regimen. Rates pain 4 out of 10. She denies any side effects from medication. Her May #[id number] has been reviewed and is appropriate. Patient's urine drug screens have been appropriate. Her morphine equivalent is 30. Review of Systems General: No recent weight changes, no fever, no sleep disturbances Respiratory: No cough, no shortness of air, no recurring pulmonary infections Cardiovascular/peripheral vascular: No chest pain, no palpitations, no edema, no shortness of breath Gastrointestinal: No new onset incontinence, normal bowel movements reported Genitourinary: No new onset incontinence Musculoskeletal: Neck and low back pain Psychiatric: Normal mood/affect Neurological: [Denies weakness in extremities], [denies balance issues] Objective:: Physical exam General: Alert and oriented x3, no acute distress, pleasant and cooperative, [on room air] Lungs: Respirations even and unlabored, symmetrical chest expansion Eyes: PERRL Musculoskeletal: Flexion and extension of her cervical and lumbar spine somewhat guarded secondary to pain, deep tendon reflexes normal, strength in upper and lower extremities [5/5], [abnormal gait noted] Neurological: Speech clear, process supervisor equal, no gross sensory deficit Assessment:: Degenerative disc disease cervical and lumbar spine with cervical and lumbar radiculopathy symptoms Plan:: We will refill the patient's [place] 10 mg 1 tablet p.o. 3 times daily and gabapentin 100 mg 1 tablet p.o. 3 times daily. We will give her 2 months worth medication she can pick up attendant the third month in the interim. Patient has been instructed to contact clinic if she has any concerns for next morning. The patient and I specifically discussed risk factors for COVID19. These risks include, but are not limited to age greater than 60, heart or lung disease, diabetes, immunosuppression, and travel. We also discussed NSAIDs may worsen COVID19 infection or symptoms. Patient should not use NSAIDs to treat COVID19 signs or symptoms. Patient was also informed that any type of corticosteroid of any form (oral or injection) will decrease the patient's immune system response and may increase the likelihood of COVID19 infection and symptoms[address] Dr. Au has reviewed this note and agrees with this plan of care. This note was dictated using voice recognition software and make contain errors or omissions. Patient has been prescribed a controlled substance after being counseled on the medication, medication safety, and possible side effects. MAY report has been obtained and reviewed prior to prescription and found to be appropriate. Opioid contract was reviewed and signed by the patient, and that they have agreed to all of the terms set forth by our compliance program. [facility] History *Have you ever received a pneumonia vaccine?: Yes *Have you received a flu vaccine this season?: Yes - *Social History *Occupational Status:: other *Travel in the last 8 weeks: None Family Hx:: Non-contributory
== END ==
PROVIDERS: PCP Nurse Practitioner Family; Visit Provider Clinical Nurse Specialist Family Health
DX: M50.10 Cervical disc disorder with radiculopathy, unspecified cervical region (principal); M51.16 Intervertebral disc disorders with radiculopathy, lumbar region
CPT/HCPCS: 99212

== ENCOUNTER → 2020-09-21 09:02 | Outpatient (POV) | payer MEDICARE, SELFPAY ==
[2020-09-21 09:15] VITALS: BP 135/85; PULSE 85; RESP 18; TEMP 36.6; O2SAT 98; BMI 44.7
--- NOTE | 2020-09-21 09:34 | HMH.PAINSOAP ---
[facility] Pain Management SOAP Note Subjective:: Is a 60-year-old white female who presents today for medication refills. She is being treated for chronic low back pain with lumbar radiculopathy symptoms as well as degenerative disc disease cervical spine with cervical radiculopathy symptoms. She is managed with [place] 10 mg 1 tab p.o. 3 times daily and gabapentin 100 mg 1 p.o. daily. She states she is doing well with this medication regimen rates her pain a 5 out of 10. Patient denies any side effects from her medication. Her morphine equivalent is 30. May #[id number] reviewed and appropriate. ROS General: no recent weight change, no fever, no sleep disturbances Respiratory: no cough, no shortness of air, no recurring pulmonary infections Cardiovascular/Peripheral Vascular: No chest pain, No palpitations, no edema, no shortness of breath. Gastrointestinal: no new onset incontinence, normal bowel movements reported Genitourinary: no new onset incontinence Musculoskeletal: Back pain, leg pain, neck pain, arm pain Psychiatric: normal mood/ affect Neurological: [denies new onset weakness in extremities], [denies new onset balance issues] Objective:: Physical Exam General: Alert and oriented x3, no acute distress, pleasant and cooperative, [on room air] Lungs: Resps E/U, Symmetrical chest expansion, Eyes: PERRL Musculoskeletal: Flexion and extension of lumbar cervical spine somewhat guarded secondary to pain, deep tendon reflexes normal, strength in upper and lower extremities [5/5], antalgic gait noted Neurological: speech clear, acid dumper equal, no gross sensory deficits Assessment:: Degenerative disc disease cervical spine with cervical radiculopathy degenerative disc disease lumbar spine with lumbar radiculopathy symptoms Plan:: We will continue her [place] 10 mg 1 tab p.o. 3 times daily and gabapentin 100 mg daily. 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 She is been instructed to call the clinic if she has any issues prior to her next appointment. Patient has been prescribed a controlled substance after being counseled on the medication, medication safety, and possible side effects. MAY report has been obtained and reviewed prior to prescription and found to be appropriate. Opioid contract was reviewed and signed by the patient, and that they have agreed to all of the terms set forth by our compliance program. Dr. Au has reviewed this note and agrees with this plan of care. This note was dictated using voice recognition software and may contain errors or omissions [facility] History I have reviewed the patient's past medical history: Yes *Have you ever received a pneumonia vaccine?: Yes *Have you received a flu vaccine this season?: Yes - *Social History *Occupational Status:: other *Travel in the last 8 weeks: None Family Hx:: Non-contributory
== END ==
PROVIDERS: PCP Nurse Practitioner Family; Visit Provider Clinical Nurse Specialist Family Health
DX: M50.10 Cervical disc disorder with radiculopathy, unspecified cervical region (principal); M51.16 Intervertebral disc disorders with radiculopathy, lumbar region
CPT/HCPCS: 99212; G0463

== ENCOUNTER → 2020-12-21 08:57 | Outpatient (POV) | payer MEDICARE, SELFPAY ==
--- NOTE | 2020-12-21 09:28 | P.CONS_ITS ---
[facility] Pain Management SOAP Note Subjective:: Patient is a pleasant 60-year-old white female who presents today for medication refills she is currently being treated for pain secondary to degenerative disc disease cervical spine cervical radiculopathy and degenerative disc disease lumbar spine with lumbar radiculopathy. She rates her pain a 3 out of 10 overall doing extremely well on her [place] 10 mg 1 p.o. 3 times daily gabapentin 100 mg 1 p.o. daily. Patient's Hans #[id number] reviewed and appropriate. Drug screens have been appropriate. ROS General: no recent weight change, no fever, no sleep disturbances Respiratory: no cough, no shortness of air, no recurring pulmonary infections Cardiovascular/Peripheral Vascular: No chest pain, No palpitations, no edema, no shortness of breath. Gastrointestinal: no new onset incontinence, normal bowel movements reported Genitourinary: no new onset incontinence Musculoskeletal: Back pain, neck pain, leg pain Psychiatric: normal mood/ affect Neurological: [denies new onset weakness in extremities], [denies new onset balance issues] Objective:: Physical Exam General: Alert and oriented x3, no acute distress, pleasant and cooperative, [on room air] Lungs: Resps E/U, Symmetrical chest expansion, Eyes: PERRL Musculoskeletal: Flexion and extension of cervical and lumbar spine somewhat guarded secondary to pain, deep tendon reflexes normal, strength in upper and lower extremities [5/5], slightly antalgic gait noted Neurological: speech clear, clinic receptionist equal, no gross sensory deficits Assessment:: Degenerative disc disease cervical spine cervical radiculopathy, degenerative disc disease lumbar spine lumbar radiculopathy, neck pain, back pain Plan:: We will continue her [place] 10 mg 1 p.o. 3 times daily and her gabapentin 100 mg 1 p.o. daily she is not due refills at this time. We will follow up with her in 3 months reassess her symptoms at that time she has been instructed to call the office if she has any issues prior to her next appointment. Dr. Au has reviewed this note and agrees with this plan of care. This note was dictated using voice recognition software and may contain errors or omissions [facility] History I have reviewed the patient's past medical history: Yes *Have you ever received a pneumonia vaccine?: Yes *Have you received a flu vaccine this season?: Yes - *Social History *Occupational Status:: other *Travel in the last 8 weeks: None Family Hx:: Non-contributory
[2020-12-21 10:01] VITALS: BP 134/60; PULSE 96; RESP 18; O2SAT 98; BMI 44.6
== END ==
PROVIDERS: PCP Nurse Practitioner Family; Visit Provider Clinical Nurse Specialist Family Health
DX: M50.10 Cervical disc disorder with radiculopathy, unspecified cervical region (principal); M51.16 Intervertebral disc disorders with radiculopathy, lumbar region
CPT/HCPCS: 99212; G0463

== ENCOUNTER → 2021-03-22 15:11 | Outpatient (POV) | payer MEDICARE, SELFPAY ==
[2021-03-22 15:25] VITALS: BP 150/96; PULSE 83; RESP 18; O2SAT 96; BMI 43.9
--- NOTE | 2021-03-22 15:28 | HMH.PAINSOAP ---
[facility] Pain Management SOAP Note Subjective:: Patient is a 60-year-old white female who presents today for follow-up and medication refills. She has been treated for degenerative disc disease cervical spine and lumbar spine with lumbar and cervical radiculopathy symptoms as well as chronic low back pain and neck pain. Patient is doing well with her medications. Her pain is a 3 out of 10. She is managed with [place] 10 mg 1 tablet p.o. 3 times daily and gabapentin milligrams 1 tablet p.o. daily. She denies any side effects. Her May #[id number] has been reviewed and is appropriate. Drug screen is appropriate. She denies any side effects. Review of Systems General: No recent weight changes, no fever, no sleep disturbances Respiratory: No cough, no shortness of air, no recurring pulmonary infections Cardiovascular/peripheral vascular: No chest pain, no palpitations, no edema, no shortness of breath Gastrointestinal: No new onset incontinence, normal bowel movements reported Genitourinary: No new onset incontinence Musculoskeletal: [] Low back pain with radiation into bilateral lower extremities, neck pain Psychiatric: Normal mood/affect Neurological: [Denies weakness in extremities], [denies balance issues] Objective:: Physical exam General: Alert and oriented x3, no acute distress, pleasant and cooperative, [on room air] Lungs: Respirations even and unlabored, symmetrical chest expansion Eyes: PERRL Musculoskeletal: Flexion and extension of [] cervical and lumbar spine somewhat guarded secondary to pain, deep tendon reflexes normal, strength in upper and lower extremities [5/5], [abnormal gait noted] Neurological: Speech clear, assistant passenger locomotive 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 3 times daily and gabapentin 100 mg 1 tablet p.o. daily. We will give the patient a month medication see her back in the clinic in a month for reevaluation of symptoms. She has been instructed to contact clinic if she has any concerns before her next appointment. Patient has been instructed to contact the clinic with any concerns before the next appointment. Dr. Au has reviewed this note and agrees with this plan of care. This note was dictated using voice recognition software and make contain errors or omissions. Risks and benefits of the medication have been explained in detail to the patient. The patient has been advised to consult with his/her primary care provider and pharmacist regarding drug-drug interaction of medications currently prescribed. Patient has been prescribed a controlled substance after being counseled on the medication, medication safety, and possible side effects. MAY report has been obtained and reviewed prior to prescription and found to be appropriate. Opioid contract was reviewed and signed by the patient, and that they have agreed to all of the terms set forth by our compliance program. [facility] History I have reviewed the patient's past medical history: Yes *Have you ever received a pneumonia vaccine?: No *Have you received a flu vaccine this season?: No - *Social History Smoking Status: Never smoker Alcohol Intake: never *Occupational Status:: unemployed *Travel in the last 8 weeks: None Family Hx:: Non-contributory
== END ==
PROVIDERS: PCP Nurse Practitioner Family; Visit Provider Clinical Nurse Specialist Family Health
DX: M50.10 Cervical disc disorder with radiculopathy, unspecified cervical region (principal); M54.16 Radiculopathy, lumbar region; M54.2 Cervicalgia; M54.5 Low back pain
CPT/HCPCS: 99212; G0463

== ENCOUNTER → 2021-04-19 09:06 | Outpatient (POV) | payer MEDICARE, SELFPAY ==
[2021-04-19 09:22] VITALS: BP 191/82; PULSE 77; RESP 18; O2SAT 95; BMI 44.6
--- NOTE | 2021-04-19 09:29 | P.CONS_ITS ---
[facility] Pain Management SOAP Note Subjective:: Patient is a pleasant 60-year-old white female who presents today for follow-up and medication refills. She is currently being treated for degenerative disc disease of the cervical spine and lumbar spine with lumbar and cervical radiculopathy symptoms as well as chronic low back and neck pain. The patient is doing well on her current medication regimen. She is managed with [place] 10 mg 1 tablet p.o. 3 times a day and gabapentin 100 mg 1 tablet p.o. daily. She denies any side effects to this medication. She is rating her pain today a 3 out of 10. Her Hans number is [id number] she has an active morphine equivalent of 30. Objective:: Physical exam General: Alert and oriented x3 no acute distress, pleasant and cooperative, [on room air] Lungs: Respirations even and unlabored, symmetrical chest expansion Eyes: PERRL Musculoskeletal: Flexion and extension of the cervical and lumbar spine nonguarded, deep tendon reflexes normal, strength in upper and lower extremities 5 out of 5 normal gait noted Neurological: Speech clear, tax staff accountant equal, no gross sensory deficit Assessment:: Degenerative disc disease of the cervical and lumbar spine with cervical and lumbar radiculopathy, chronic neck and low back pain Plan:: We will continue the patient's [place] 10/325 3 times a day 100 mg 1 tablet daily we will provide the patient with 1 month worth of medication refills. She is welcome to contact the clinic prior to her next appointment date if she has any questions or concerns. Dr. Au has reviewed this note and agrees with this plan of care. This note was dictated using voice recognition software and make contain errors or omissions. [facility] History *Have you ever received a pneumonia vaccine?: Yes *Have you received a flu vaccine this season?: No - *Social History Smoking Status: Never smoker Alcohol Intake: never *Occupational Status:: unemployed *Travel in the last 8 weeks: None Family Hx:: Non-contributory
== END ==
PROVIDERS: Visit Provider Family Medicine
DX: M50.10 Cervical disc disorder with radiculopathy, unspecified cervical region (principal); M51.16 Intervertebral disc disorders with radiculopathy, lumbar region; G89.29 Other chronic pain
CPT/HCPCS: 99212; G0463

== ENCOUNTER → 2021-05-17 12:55 | Outpatient (POV) | payer MEDICARE, SELFPAY ==
[2021-05-17 13:05] VITALS: BP 146/82; PULSE 85; RESP 18; O2SAT 96; BMI 42.1
--- NOTE | 2021-05-17 13:05 | P.CONS_ITS ---
[facility] Pain Management SOAP Note Subjective:: Patient is a 60-year-old female who presents today for medication refill. The patient is being treated for lumbar spine with cervical symptoms. She is doing well with her medicines. She says she gets approximately 70 to 80% relief with medication regimen. She rates her pain a 3 out of 10 today. She is managed with [place] 10 mg 1 tablet p.o. 3 times daily and gabapentin milligrams 1 tablet p.o. daily. Patient's May #[id number] has been reviewed as appropriate. Morphine equivalent is 30. Drug screen is appropriate. Review of Systems General: No recent weight changes, no fever, no sleep disturbances Respiratory: No cough, no shortness of air, no recurring pulmonary infections Cardiovascular/peripheral vascular: No chest pain, no palpitations, no edema, no shortness of breath Gastrointestinal: No new onset incontinence, normal bowel movements reported Genitourinary: No new onset incontinence Musculoskeletal: [] Chronic neck and low back pain Psychiatric: [Normal mood/affect] Neurological: [Denies weakness in extremities], [denies balance issues] Objective:: Physical exam General: Alert and oriented x3, no acute distress, pleasant and cooperative, [on room air] Lungs: Respirations even and unlabored, symmetrical chest expansion Eyes: PERRL Musculoskeletal: Flexion and extension of cervical lumbar [spine] somewhat guarded secondary to pain, strength in upper and lower extremities [5/5], [antalgic gait noted] Neurological: Speech clear, [yard truck driver equal], no gross sensory deficit Assessment:: Degenerative disc disease cervical and lumbar spine with cervical and lumbar radicular symptoms Plan:: We will refill the patient's [place] 10 mg 1 tablet p.o. 3 times daily gabapentin 100 mg 1 tablet p.o. daily. We will give the patient a message back in the clinic in 1 month for reevaluation of symptoms. Patient has been instructed to contact clinic if she has any concerns before her next appointment. Risks and benefits of the medication have been explained in detail to the patient. The patient has been advised to consult with his/her primary care provider and pharmacist regarding drug-drug interaction of medications currently prescribed. Patient has been prescribed a controlled substance after being counseled on the medication, medication safety, and possible side effects. MAY report has been obtained and reviewed prior to prescription and found to be appropriate. Opioid contract was reviewed and signed by the patient, and that they have agreed to all of the terms set forth by our compliance program. Patient has been instructed to contact the clinic with any concerns before the next appointment. Dr. Au has reviewed this note and agrees with this plan of care. This note was dictated using voice recognition software and make contain errors or omissions. [facility] History I have reviewed the patient's past medical history: Yes *Have you ever received a pneumonia vaccine?: Yes *Have you received a flu vaccine this season?: No - *Social History Smoking Status: Never smoker Alcohol Intake: never *Occupational Status:: unemployed *Travel in the last 8 weeks: None Family Hx:: Non-contributory
== END ==
PROVIDERS: Visit Provider Clinical Nurse Specialist Family Health
DX: M50.10 Cervical disc disorder with radiculopathy, unspecified cervical region (principal); M51.16 Intervertebral disc disorders with radiculopathy, lumbar region
CPT/HCPCS: 99212; G0463

== ENCOUNTER → 2021-06-14 13:37 | Outpatient (POV) | payer MEDICARE, SELFPAY ==
[2021-06-14 14:03] VITALS: BP 191/81; PULSE 89; RESP 18; O2SAT 97; BMI 42.5
--- NOTE | 2021-06-14 14:09 | P.CONS_ITS ---
[facility] Pain Management SOAP Note Subjective:: Patient is a 60-year-old white female who presents today for medication refills. The patient does continue to have significant pain to her low back area. She rates her pain a 4 out of 10. She does get 70% relief with her medications prescribed in the clinic. She is on [place] 10 mg 1 tablet p.o. 3 times daily and gabapentin 100 mg 1 tablet p.o. daily. She denies any side effects to the medication. May #[id number] has been reviewed and is appropriate. Drug screen is appropriate. Morphine equivalent is 30. Review of Systems General: No recent weight changes, no fever, no sleep disturbances Respiratory: No cough, no shortness of air, no recurring pulmonary infections Cardiovascular/peripheral vascular: No chest pain, no palpitations, no edema, no shortness of breath Gastrointestinal: No new onset incontinence, normal bowel movements reported Genitourinary: No new onset incontinence Musculoskeletal: Low back pain with radiation into bilateral lower extremities Psychiatric: [Normal mood/affect] Neurological: [Denies weakness in extremities], [denies balance issues] Objective:: Physical exam General: Alert and oriented x3, no acute distress, pleasant and cooperative, [on room air] Lungs: Respirations even and unlabored, symmetrical chest expansion Eyes: PERRL Musculoskeletal: Flexion and extension of lumbar [spine] somewhat guarded secondary to pain, strength in upper and lower extremities [5/5], [antalgic gait noted] Neurological: Speech clear, [grab operator equal], no gross sensory deficit Assessment:: Degenerative disc disease lumbar spine with lumbar radiculopathy symptoms Plan:: We will refill the patient's [place] 10 mg 1 tablet p.o. 3 times daily and gabapentin 100 mg 1 tablet p.o. daily. We will give the patient a month medication she will be seen back in the clinic in 1 month for reevaluation of symptoms. Risks and benefits of the medication have been explained in detail to the patient. The patient has been advised to consult with his/her primary care provider and pharmacist regarding drug-drug interaction of medications currently prescribed. Patient has been prescribed a controlled substance after being counseled on the medication, medication safety, and possible side effects. MAY report has been obtained and reviewed prior to prescription and found to be appropriate. Opioid contract was reviewed and signed by the patient, and that they have agreed to all of the terms set forth by our compliance program. Patient has been instructed to contact the clinic with any concerns before the next appointment. Dr. Au has reviewed this note and agrees with this plan of care. This note was dictated using voice recognition software and make contain errors or omissions. [facility] History I have reviewed the patient's past medical history: Yes *Have you ever received a pneumonia vaccine?: Yes *Have you received a flu vaccine this season?: No - *Social History Smoking Status: Never smoker Alcohol Intake: never *Occupational Status:: unemployed *Travel in the last 8 weeks: None Family Hx:: Non-contributory
== END ==
PROVIDERS: Visit Provider Clinical Nurse Specialist Family Health
DX: M51.16 Intervertebral disc disorders with radiculopathy, lumbar region (principal)
CPT/HCPCS: 99212; G0463

== ENCOUNTER → 2021-07-12 13:57 | Outpatient (POV) | payer MEDICARE, SELFPAY ==
[2021-07-12 14:04] VITALS: BP 203/90; PULSE 98; RESP 18; O2SAT 96; BMI 43.2
--- NOTE | 2021-07-12 15:43 | HMH.PAINSOAP ---
[facility] Pain Management SOAP Note Subjective:: Patient is a 61-year-old white female who presents today for medication refills. The patient rates her pain a 3 out of 10 today. She is treated for low back pain with radiation into lower extremities. She is doing well overall with her medication regimen and says she gets 70 to 80% relief with her medicines. She is on [place] 10 mg 1 tablet p.o. 3 times daily and gabapentin 100 mg 1 tablet p.o. daily. She is not having any side effects to the medication. Patient's May and drug screen are appropriate. Review of Systems General: No recent weight changes, no fever, no sleep disturbances Respiratory: No cough, no shortness of air, no recurring pulmonary infections Cardiovascular/peripheral vascular: No chest pain, no palpitations, no edema, no shortness of breath Gastrointestinal: No new onset incontinence, normal bowel movements reported Genitourinary: No new onset incontinence Musculoskeletal: Low back pain Psychiatric: [Normal mood/affect] Neurological: [Denies weakness in extremities], [denies balance issues] Objective:: Physical exam General: Alert and oriented x3, no acute distress, pleasant and cooperative Lungs: Respirations even and unlabored, symmetrical chest expansion Eyes: PERRL Musculoskeletal: Flexion and extension of lumbar [spine] somewhat guarded secondary to pain, [antalgic gait noted] Neurological: Speech clear, no gross sensory deficit Assessment:: Degenerative disc disease lumbar spine with lumbar radiculopathy symptoms Plan:: We will continue the patient's [place] 10 mg 1 tablet p.o. 3 times daily and gabapentin 100 mg 1 tablet p.o. daily. Patient will get a month medication will be seen back in the clinic in 1 month for further evaluation of symptoms. Risks and benefits of the medication have been explained in detail to the patient. The patient does understand the risk of dependence on the medication when given over a prolonged period. Patient has been advised of risks of oversedation with the prescribed medication. Narcan has been offered to the paitent in the event of oversedation. Patient has been advised that a family member should also be educated regarding administration of Narcan. The patient has been advised to consult with his/her primary care provider and pharmacist regarding drug-drug interaction of medications currently prescribed. Patient has been prescribed a controlled substance after being counseled on the medication, medication safety, and possible side effects. MAY report has been obtained and reviewed prior to prescription and found to be appropriate. Opioid contract was reviewed and signed by the patient, and that they have agreed to all of the terms set forth by our compliance program. Patient has been instructed to contact the clinic with any concerns before the next appointment. Dr. Au has reviewed this note and agrees with this plan of care. This note was dictated using voice recognition software and make contain errors or omissions. [facility] History I have reviewed the patient's past medical history: Yes *Have you ever received a pneumonia vaccine?: Yes *Have you received a flu vaccine this season?: No - *Social History Smoking Status: Never smoker Alcohol Intake: never *Occupational Status:: unemployed *Travel in the last 8 weeks: None Family Hx:: Non-contributory
[2021-07-12 16:09] LABS: Benzodiazepines Screen,Urine Negative ng/ml (<200)
[2021-07-12 16:10] LABS: Amphetamine/Metha Screen,Urine Negative ng/ml (<1000); Barbiturates Screen,Urine Negative ng/ml (<200)
[2021-07-12 16:11] LABS: Cannabinoid Screen,Urine Negative ng/ml (<50)
[2021-07-12 16:12] LABS: Cocaine Screen,Urine Negative ng/ml (<300); Methadone Screen,Urine Negative ng/ml (<300)
[2021-07-12 16:13] LABS: Opiate Screen,Urine Positive ng/ml (<300); Phencyclidine Screen,Urine Negative ng/ml (<25)
[2021-07-25 02:36] LABS: Codeine Negative (Cutoff=100); Hydrocodone Positive (.); Hydromorphone Positive (.); Morphine Negative (Cutoff=100); Opiates Positive (.)
== END ==
PROVIDERS: Visit Provider Clinical Nurse Specialist Family Health
DX: M51.16 Intervertebral disc disorders with radiculopathy, lumbar region (principal); Z79.891 Long term (current) use of opiate analgesic
CPT/HCPCS: 80305; 80361; 80365; 99212; G0463; G0480

== ENCOUNTER → 2021-08-13 10:41 | Outpatient (POV) | payer MEDICARE, SELFPAY ==
[2021-08-13 10:51] VITALS: BP 157/87; PULSE 84; RESP 20; TEMP 36.5; O2SAT 94; BMI 44.6
--- NOTE | 2021-08-13 11:02 | HMH.PAINSOAP ---
[facility] Pain Management SOAP Note Subjective:: Patient is a pleasant 61-year-old female who presents today for follow-up medication refills. Patient is currently being treated for chronic low back pain that radiates into the lower extremities. She is currently being managed with [place] 10 mg 1 tablet 3 times a day and gabapentin 100 mg 1 tablet daily. She reports no side effects from any of these medications. She denies any changes to the location of the type of pain. She rates her pain today as 4 out of 10. Her May number is [id number] with an active morphine equivalent of 30. Review of Systems General: No recent weight changes, no fever, no sleep disturbances Respiratory: No cough, no shortness of air, no recurring pulmonary infections Cardiovascular/peripheral vascular: No chest pain, no palpitations, no edema, no shortness of breath Gastrointestinal: No new onset incontinence, normal bowel movements reported Genitourinary: No new onset incontinence Musculoskeletal: Low back pain Psychiatric: [Normal mood/affect] Neurological: [Denies weakness in extremities], [denies balance issues] Objective:: Physical exam General: Alert and oriented x3, no acute distress, pleasant and cooperative Lungs: Respirations even and unlabored, symmetrical chest expansion Eyes: PERRL Musculoskeletal: Flexion and extension of lumbar [spine] somewhat guarded secondary to pain, [antalgic gait noted] Neurological: Speech clear, no gross sensory deficit Assessment:: Degenerative disc disease of the lumbar spine with lumbar radiculopathy Plan:: We will continue the patient's Lucien 10 mg 1 tablet 3 times a day and gabapentin 100 mg 1 tablet a day. We will provide the patient with [1 month] of refills. We would like to see the patient back in [1 month]. Risks and benefits of the medication have been explained in detail to the patient. The patient does understand the risk of dependence on the medication when given over a prolonged period. Patient has been advised of risks of oversedation with the prescribed medication. Narcan has been offered to the paitent in the event of oversedation. Patient has been advised that a family member should also be educated regarding administration of Narcan. The patient has been advised to consult with his/her primary care provider and pharmacist regarding drug-drug interaction of medications currently prescribed. Patient has been prescribed a controlled substance after being counseled on the medication, medication safety, and possible side effects. MAY report has been obtained and reviewed prior to prescription and found to be appropriate. Opioid contract was reviewed and signed by the patient, and that they have agreed to all of the terms set forth by our compliance program. Patient has been instructed to contact the clinic with any concerns before the next appointment. Dr. Au has reviewed this note and agrees with this plan of care. This note was dictated using voice recognition software and make contain errors or omissions. [facility] History *Have you ever received a pneumonia vaccine?: Yes *Have you received a flu vaccine this season?: Yes - *Social History Smoking Status: Never smoker Alcohol Intake: never *Occupational Status:: retired *Travel in the last 8 weeks: None Family Hx:: Non-contributory
[2021-08-13 12:31] LABS: Amphetamine/Metha Screen,Urine Negative ng/ml (<1000)
[2021-08-13 12:32] LABS: Barbiturates Screen,Urine Negative ng/ml (<200); Benzodiazepines Screen,Urine Negative ng/ml (<200)
[2021-08-13 12:33] LABS: Cannabinoid Screen,Urine Negative ng/ml (<50)
[2021-08-13 12:34] LABS: Cocaine Screen,Urine Negative ng/ml (<300); Methadone Screen,Urine Negative ng/ml (<300)
[2021-08-13 12:35] LABS: Opiate Screen,Urine Positive ng/ml (<300); Phencyclidine Screen,Urine Negative ng/ml (<25)
== END ==
PROVIDERS: Visit Provider Clinical Nurse Specialist Family Health
DX: M51.16 Intervertebral disc disorders with radiculopathy, lumbar region (principal); Z79.891 Long term (current) use of opiate analgesic
CPT/HCPCS: 80305; 99212; G0463

== ENCOUNTER → 2021-09-10 10:40 | Outpatient (POV) | payer MEDICARE, SELFPAY ==
[2021-09-10 10:51] VITALS: BP 187/96; PULSE 85; RESP 18; O2SAT 95; BMI 44.6
--- NOTE | 2021-09-10 11:08 | HMH.PAINSOAP ---
[facility] Pain Management SOAP Note Subjective:: This patient is a very pleasant 61-year-old white female who presents today for follow-up and medication refills. She is currently being treated for chronic low back pain that radiates into her the lower extremities related to degenerative disc disease of the lumbar spine with lumbar radiculopathy. She is currently being managed with [place] 10 mg 1 tablet p.o. 3 times daily and gabapentin 100 mg 1 tablet p.o. 3 times daily. She denies any adverse effects to the medications. She states that the pain medication regimen she is currently on is helping keep her pain at a tolerable level and also to maintain functionality. She rates her pain today as a 5 out of 10. She is requesting refills on her medications today. Objective:: General: Alert and oriented x3, no acute distress, pleasant and cooperative Lungs: Resps E/U, symmetric chest expansion Eyes: PERRL Musculoskeletal: limited flexion and extension of the lumbar spine secondary to pain. Deep tendon reflexes were normal in bilateral lower extremities. Motor exam was grossly intact in the bilateral lower extremities, antalgic gait noted. Neurological: Speech is clear, roughing mill operator equal, no gross sensory deficits Assessment:: 1. Degenerative disease of the lumbar spine 2. Lumbar radiculopathy Plan:: I discussed with the patient that we'll continue and refill the [place] 1 tablet p.o. 3 times daily #90 for 1 month supply and gabapentin 100 mg 1 tablet p.o. 3 times daily #30 for 1 month supply. We will follow-up with this patient in 1 month for reassessment and medication refills. [facility] #[id number] and prior drug screens were reviewed and appropriate. [facility] History *Have you ever received a pneumonia vaccine?: Yes *Have you received a flu vaccine this season?: No - *Social History Smoking Status: Never smoker Alcohol Intake: never *Occupational Status:: unemployed *Travel in the last 8 weeks: None Family Hx:: Non-contributory
== END ==
PROVIDERS: Visit Provider Family Medicine
DX: M51.16 Intervertebral disc disorders with radiculopathy, lumbar region (principal)
CPT/HCPCS: 99212; G0463

== ENCOUNTER → 2021-10-11 09:55 | Outpatient (POV) | payer MEDICARE, SELFPAY ==
[2021-10-11 10:03] VITALS: BP 188/96; PULSE 87; RESP 18; O2SAT 96; BMI 43.2
--- NOTE | 2021-10-11 10:07 | P.CONS_ITS ---
[facility] Pain Management SOAP Note Subjective:: Patient is a 61-year-old white female who presents today for medication refills. We do treat the patient for chronic low back pain. She has tried injective therapy in the past along with home stretching and physical therapy with minimal relief. Manage her with [place] 10 mg 1 tablet p.o. 3 times daily and gabapentin milligrams 1 tablet p.o. daily. She does not need refills on gabapentin at this time. ORT is minimal risk [facility] #[id number] has been reviewed and is appropriate. Morphine equivalent is 30. Drug screen is appropriate.. Patient has signed and completed a pain management agreement/contract today. Review of Systems General: No recent weight changes, no fever, no sleep disturbances Respiratory: No cough, no shortness of air, no recurring pulmonary infections Cardiovascular/peripheral vascular: No chest pain, no palpitations, no edema, no shortness of breath Gastrointestinal: No new onset incontinence, normal bowel movements reported Genitourinary: No new onset incontinence Musculoskeletal: Low back pain with radiation into lower extremities Psychiatric: [Normal mood/affect] Neurological: [Denies weakness in extremities], [denies balance issues] Objective:: Physical exam General: Alert and oriented x3, no acute distress, pleasant and cooperative Lungs: Respirations even and unlabored, symmetrical chest expansion Eyes: PERRL Musculoskeletal: Flexion and extension of lumbar [spine] somewhat guarded secondary to pain, [antalgic gait noted] Neurological: Speech clear, no gross sensory deficit Assessment:: Degenerative disc disease lumbar spine with lumbar radiculopathy symptoms Plan:: We will continue the patient's gabapentin 100 mg 1 tablet p.o. daily and gabapentin 2 mg 1 tablet p.o. 3 times daily. She will get a month medication will be seen back in clinic in 1 month. Risks and benefits of the medication have been explained in detail to the patient. The patient does understand the risk of dependence on the medication when given over a prolonged period. Patient has been advised of risks of oversedation with the prescribed medication. Narcan has been offered to the paitent in the event of oversedation. Patient has been advised that a family member should also be educated regarding administration of Narcan. The patient has been advised to consult with his/her primary care provider and pharmacist regarding drug-drug interaction of medications currently prescribed. Patient has been prescribed a controlled substance after being counseled on the medication, medication safety, and possible side effects. MAY report has been obtained and reviewed prior to prescription and found to be appropriate. Opioid contract was reviewed and signed by the patient, and that they have agreed to all of the terms set forth by our compliance program. Patient has been instructed to contact the clinic with any concerns before the next appointment. Dr. Au has reviewed this note and agrees with this plan of care. This note was dictated using voice recognition software and make contain errors or omissions. [facility] History I have reviewed the patient's past medical history: Yes *Have you ever received a pneumonia vaccine?: Yes *Have you received a flu vaccine this season?: Yes - *Social History Smoking Status: Never smoker Alcohol Intake: never *Occupational Status:: unemployed *Travel in the last 8 weeks: None Family Hx:: Non-contributory
== END ==
PROVIDERS: Visit Provider Clinical Nurse Specialist Family Health
DX: M51.16 Intervertebral disc disorders with radiculopathy, lumbar region (principal)
CPT/HCPCS: 99212; G0463

== ENCOUNTER → 2021-11-08 10:08 | Outpatient (POV) | payer MEDICARE, SELFPAY ==
[2021-11-08 10:37] VITALS: BP 179/87; PULSE 96; RESP 18; O2SAT 98; BMI 50.0
[2021-11-08 11:14] LABS: Amphetamine/Metha Screen,Urine Negative ng/ml (<1000)
[2021-11-08 11:15] LABS: Barbiturates Screen,Urine Negative ng/ml (<200); Benzodiazepines Screen,Urine Negative ng/ml (<200)
[2021-11-08 11:16] LABS: Cannabinoid Screen,Urine Negative ng/ml (<50); Cocaine Screen,Urine Negative ng/ml (<300)
[2021-11-08 11:17] LABS: Methadone Screen,Urine Negative ng/ml (<300)
[2021-11-08 11:18] LABS: Opiate Screen,Urine Positive ng/ml (<300); Phencyclidine Screen,Urine Negative ng/ml (<25)
--- NOTE | 2021-11-08 12:09 | P.CONS_ITS ---
[facility] Pain Management SOAP Note Subjective:: This patient is a very pleasant 61-year-old white female who presents today for follow-up and medication refills. She is currently treated for degenerative disease of lumbar spine lumbar radiculopathy. She is currently managed with [place] 10 mg 1 tablet p.o. 3 times daily and gabapentin 300 mg 1 tablet daily. She has previously trialed injection therapy in the past as well as physical therapy and home stretching program for greater than 6 weeks with minimal pain relief. She rates her pain today as a 3 out of 10. She is requesting refills on her medications today. She denies any adverse effects to these medications. 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 Objective:: General: Alert and oriented x3, no acute distress, pleasant and cooperative Lungs: Resps E/U, symmetric chest expansion Eyes: PERRL Musculoskeletal: limited flexion and extension of the lumbar spine secondary to pain. Deep tendon reflexes were normal in bilateral lower extremities. Motor exam was grossly intact in the bilateral lower extremities, antalgic gait noted. Neurological: Speech is clear, dolly pusher equal, no gross sensory deficits Assessment:: Degenerative disease of lumbar spine with lumbar radiculopathy Plan:: I discussed with the patient that we will continue hydrocodone 10 mg 1 tablet p.o. 3 times daily #90 for 1 month supply and gabapentin 100 mg daily for 1 month supply #30. We will follow-up with this patient in 1 month for reassessment of her chronic pain symptoms and medication refills. [facility] #[id number] and prior drug screens were reviewed and appropriate. [facility] History *Have you ever received a pneumonia vaccine?: Yes *Have you received a flu vaccine this season?: Yes - *Social History Smoking Status: Never smoker Alcohol Intake: never *Occupational Status:: unemployed *Travel in the last 8 weeks: None Family Hx:: Non-contributory
[2021-11-27 00:07] LABS: Codeine Negative (Cutoff=100); Hydrocodone Positive (.); Hydromorphone Negative (Cutoff=100); Morphine Negative (Cutoff=100); Opiates Positive (.)
== END ==
LOC: SC.PAIN 10:08
PROVIDERS: Visit Provider Anesthesiology Pain Medicine
DX: M51.16 Intervertebral disc disorders with radiculopathy, lumbar region (principal); Z79.891 Long term (current) use of opiate analgesic
CPT/HCPCS: 80305; 80361; 80365; 99212; G0463; G0480

== ENCOUNTER → 2021-12-06 09:11 | Outpatient (POV) | payer MEDICARE, SELFPAY ==
[2021-12-06 09:22] VITALS: BP 146/91; PULSE 75; RESP 18; TEMP 36.6; O2SAT 95; BMI 42.1
--- NOTE | 2021-12-06 11:21 | P.CONS_ITS ---
[facility] Pain Management SOAP Note Subjective:: Patient is a pleasant 61-year-old female who is here for medication refill and follow-up. Patient is currently being treated for degenerative disc disease of the lumbar spine with lumbar radiculopathy symptoms. Patient is being managed with [place] 10 mg 3 times a day and gabapentin 300 mg daily. Patient denies any side effects from the medications. Patient denies any changes to the location and type of pain. Patient states that this is adequately helping manage their pain. Rates pain as 3 out of 10. [facility] number [id number] with an active morphine equivalent 30. Drug screens have been reviewed and appropriate. General: No recent weight changes, no fever, no sleep disturbances Respiratory: No cough, no shortness of air, no recurring pulmonary infections Cardiovascular/peripheral vascular: No chest pain, no palpitations, no edema, no shortness of breath Gastrointestinal: No new onset incontinence, normal bowel movements reported Genitourinary: No new onset incontinence Musculoskeletal: Back pain Psychiatric: [Normal mood/affect] Neurological: [Denies weakness in extremities], [denies balance issues] Objective:: General: Alert and oriented x3, no acute distress, pleasant and cooperative, [on room air] Lungs: Respirations even and unlabored, symmetrical chest expansion Eyes: PERRL Musculoskeletal: Flexion and extension of lumbar [spine] somewhat guarded secondary to pain, [antalgic gait noted] Neurological: Speech clear, no gross sensory deficit Assessment:: Degenerative disc disease of the lumbar spine with lumbar radiculopathy symptoms Plan:: We will continue the patient's gabapentin 100 mg daily and [place] 10 mg 3 times a day. We will provide the patient with a month of refills. We would like to see the patient back in 1 month for follow-up and reevaluation of chronic pain sy ndrome. Patient has been advised of risks of oversedation with the prescribed medication. Narcan has been offered to the patient in the event of oversedation. Patient has been advised that a family member should also be educated regarding administration of Narcan. Patient has been instructed to contact the clinic with any concerns before the next appointment. Dr. Au has reviewed this note and agrees with this plan of care. This note was dictated using voice recognition software and make contain errors or omissions. [facility] History *Have you ever received a pneumonia vaccine?: Yes *Have you received a flu vaccine this season?: Yes - *Social History Smoking Status: Never smoker Alcohol Intake: never *Occupational Status:: disabled *Travel in the last 8 weeks: None Family Hx:: Non-contributory
== END ==
PROVIDERS: Visit Provider Student in an Organized Health Care Education/Training Program
DX: M51.16 Intervertebral disc disorders with radiculopathy, lumbar region (principal)
CPT/HCPCS: 99212; G0463

== ENCOUNTER → 2022-01-03 09:02 | Outpatient (POV) | payer MEDICARE, SELFPAY ==
[2022-01-03 09:31] VITALS: BP 140/93; PULSE 87; RESP 18; TEMP 36.7; O2SAT 94; BMI 42.0
--- NOTE | 2022-01-03 11:16 | HMH.PAINSOAP ---
[facility] Pain Management SOAP Note Subjective:: Patient is a pleasant 61-year-old female who is here for medication refill and follow-up. Patient is currently being treated for degenerative disc disease of lumbar spine with lumbar radiculopathy symptoms. Patient is being managed with [place] 10 mg 3 times a day and gabapentin 100 mg daily. Patient denies any side effects from the medications. Patient denies any changes to the location and type of pain. Patient states that this is adequately helping manage their pain. Rates pain as 4 out of 10. [facility] number [id number] with an active morphine equivalent 30. Drug screens have been reviewed and appropriate. Review of Systems: General: No recent weight changes, no fever, no sleep disturbances Respiratory: No cough, no shortness of air, no recurring pulmonary infections Cardiovascular/peripheral vascular: No chest pain, no palpitations, no edema, no shortness of breath Gastrointestinal: No new onset incontinence, normal bowel movements reported Genitourinary: No new onset incontinence Musculoskeletal: Low back pain Psychiatric: [Normal mood/affect] Neurological: [Denies weakness in extremities], [denies balance issues] Objective:: Physical Exam: General: Alert and oriented x3, no acute distress, pleasant and cooperative, [on room air] Lungs: Respirations even and unlabored, symmetrical chest expansion Eyes: PERRL Musculoskeletal: Flexion and extension of lumbar [spine] somewhat guarded secondary to pain, [antalgic gait noted] Neurological: Speech clear, no gross sensory deficit Assessment:: Degenerative disc disease of lumbar spine with lumbar radiculopathy symptoms Plan:: We will continue the patient's [place] 10 mg 3 times a day and gabapentin 100 mg daily. We will provide the patient with 1 month of refills. We would like to see the patient back in 1 month for follow-up and reevaluation of chronic pain syndrome. Patient has been advised of risks of oversedation with the prescribed medication. Narcan has been offered to the patient in the event of oversedation. Patient has been advised that a family member should also be educated regarding administration of Narcan. Patient has been instructed to contact the clinic with any concerns before the next appointment. Dr. Au has reviewed this note and agrees with this plan of care. This note was dictated using voice recognition software and make contain errors or omissions. [facility] History *Have you ever received a pneumonia vaccine?: Yes *Have you received a flu vaccine this season?: Yes - *Social History Smoking Status: Never smoker Alcohol Intake: never *Occupational Status:: unemployed *Travel in the last 8 weeks: None Family Hx:: Non-contributory
== END ==
LOC: SC.PAIN 09:02
PROVIDERS: Visit Provider Student in an Organized Health Care Education/Training Program
DX: M51.16 Intervertebral disc disorders with radiculopathy, lumbar region (principal)
CPT/HCPCS: 99212; G0463

== ENCOUNTER → 2022-01-31 09:09 | Outpatient (POV) | payer MEDICARE, SELFPAY ==
[2022-01-31 09:41] VITALS: BP 141/78; PULSE 91; RESP 18; TEMP 36.7; O2SAT 93; BMI 42.1
--- NOTE | 2022-01-31 12:28 | P.CONS_ITS ---
[facility] Pain Management SOAP Note Subjective:: Patient is a pleasant 61-year-old female who is here for medication refill and follow-up. Patient is currently being treated for degenerative disc disease lumbar spine with lumbar radiculopathy symptoms. Patient is being managed with [place] 10 mg 3 times a day and gabapentin 100 mg daily. Patient denies any side effects from the medications. Patient denies any changes to the location and type of pain. Patient states that this is adequately helping manage their pain. Rates pain as 4 out of 10. [facility] number [id number] with an active morphine equivalent 30. Drug screens have been reviewed and appropriate. Review of Systems: General: No recent weight changes, no fever, no sleep disturbances Respiratory: No cough, no shortness of air, no recurring pulmonary infections Cardiovascular/peripheral vascular: No chest pain, no palpitations, no edema, no shortness of breath Gastrointestinal: No new onset incontinence, normal bowel movements reported Genitourinary: No new onset incontinence Musculoskeletal: Low back pain Psychiatric: [Normal mood/affect] Neurological: [Denies weakness in extremities], [denies balance issues] Objective:: Physical Exam: General: Alert and oriented x3, no acute distress, pleasant and cooperative Lungs: Respirations even and unlabored, symmetrical chest expansion Eyes: PERRL Musculoskeletal: Flexion and extension of lumbar [spine] somewhat guarded secondary to pain, [antalgic gait noted] Neurological: Speech clear, no gross sensory deficit Assessment:: Degenerative disc disease of the lumbar spine with lumbar radiculopathy symptoms Plan:: We will continue the patient's [place] 10 mg 3 times a day and gabapentin 100 mg daily. We will provide the patient with 1 month of refills. We would like to see the patient back in 1 month for follow-up and reevaluation of chronic pain syndrome. Patient has been advised of risks of oversedation with the prescribed medication. Narcan has been offered to the patient in the event of oversedation. Patient has been advised that a family member should also be educated regarding administration of Narcan. Patient has been instructed to contact the clinic with any concerns before the next appointment. Dr. Au has reviewed this note and agrees with this plan of care. This note was dictated using voice recognition software and make contain errors or omissions. [facility] History *Have you ever received a pneumonia vaccine?: Yes *Have you received a flu vaccine this season?: Yes - *Social History Smoking Status: Never smoker Alcohol Intake: never *Occupational Status:: unemployed *Travel in the last 8 weeks: None Family Hx:: Non-contributory
== END ==
PROVIDERS: Visit Provider Student in an Organized Health Care Education/Training Program
DX: M51.16 Intervertebral disc disorders with radiculopathy, lumbar region (principal)
CPT/HCPCS: 99212; G0463

== ENCOUNTER → 2022-02-28 10:34 | Outpatient (POV) | payer MEDICARE, SELFPAY ==
[2022-02-28 11:32] VITALS: BP 137/65; PULSE 90; RESP 18; TEMP 36.6; O2SAT 94; BMI 42.5
[2022-02-28 11:40] LABS: Amphetamine/Metha Screen,Urine Negative ng/ml (<1000); Barbiturates Screen,Urine Negative ng/ml (<200)
[2022-02-28 11:41] LABS: Benzodiazepines Screen,Urine Negative ng/ml (<200); Cannabinoid Screen,Urine Negative ng/ml (<50)
[2022-02-28 11:42] LABS: Cocaine Screen,Urine Negative ng/ml (<300)
[2022-02-28 11:43] LABS: Methadone Screen,Urine Negative ng/ml (<300); Opiate Screen,Urine Positive ng/ml (<300)
[2022-02-28 11:44] LABS: Phencyclidine Screen,Urine Negative ng/ml (<25)
--- NOTE | 2022-02-28 13:15 | HMH.PAINSOAP ---
[facility] Pain Management SOAP Note Subjective:: Patient is a pleasant 61-year-old female who is here for medication refill and follow-up. Patient is currently being treated for degenerative disease of lumbar spine with lumbar radiculopathy symptoms. Patient is being managed with [place] 10 mg 3 times a day and gabapentin 100 mg daily. Patient denies any side effects from the medications. Patient denies any changes to the location and type of pain. Patient states that this is adequately helping manage their pain. Rates pain as 3 out of 10. [facility] number [phone] with an active morphine equivalent 30. Drug screen on 11/08/2021 has been reviewed and appropriate. Review of Systems: General: No recent weight changes, no fever, no sleep disturbances Respiratory: No cough, no shortness of air, no recurring pulmonary infections Cardiovascular/peripheral vascular: No chest pain, no palpitations, no edema, no shortness of breath Gastrointestinal: No new onset incontinence, normal bowel movements reported Genitourinary: No new onset incontinence Musculoskeletal: Low back pain Psychiatric: [Normal mood/affect] Neurological: [Denies weakness in extremities], [denies balance issues] Objective:: Physical Exam: General: Alert and oriented x3, no acute distress, pleasant and cooperative Lungs: Respirations even and unlabored, symmetrical chest expansion Eyes: PERRL Musculoskeletal: Flexion and extension of lumbar [spine] somewhat guarded secondary to pain, [antalgic gait noted] Neurological: Speech clear, no gross sensory deficit Assessment:: Degenerative disc disease of lumbar spine with lumbar radiculopathy symptoms Plan:: We will continue the patient's gabapentin 100 mg daily and [place] 10 mg 3 times a day. We will provide the patient with 1 month of refills. We would like to see the patient back in 1 month for follow-up and reevaluation of chronic pain syndrome. Patient has been advised of risks of oversedation with the prescribed medication. Narcan has been offered to the patient in the event of oversedation. Patient has been advised that a family member should also be educated regarding administration of Narcan. Patient has been instructed to contact the clinic with any concerns before the next appointment. Dr. Au has reviewed this note and agrees with this plan of care. This note was dictated using voice recognition software and make contain errors or omissions. [facility] History *Have you ever received a pneumonia vaccine?: Yes *Have you received a flu vaccine this season?: Yes - *Social History Smoking Status: Never smoker Alcohol Intake: never *Occupational Status:: other *Travel in the last 8 weeks: None Family Hx:: Non-contributory
[2022-03-12 08:14] LABS: Codeine Negative (Cutoff=100); Hydrocodone Positive (.); Hydromorphone Negative (Cutoff=100); Morphine Negative (Cutoff=100); Opiates Positive (.)
== END ==
LOC: SC.PAIN 10:34
PROVIDERS: Visit Provider Student in an Organized Health Care Education/Training Program
DX: M51.16 Intervertebral disc disorders with radiculopathy, lumbar region (principal); Z79.891 Long term (current) use of opiate analgesic
CPT/HCPCS: 80305; 80361; 80365; 99212; G0463; G0480

== ENCOUNTER → 2022-03-28 11:07 | Outpatient (POV) | payer MEDICARE, SELFPAY ==
[2022-03-28 11:27] VITALS: BP 152/82; PULSE 82; RESP 17; TEMP 36.5; O2SAT 93; BMI 43.2
--- NOTE | 2022-03-28 14:36 | HMH.PAINSOAP ---
[facility] Pain Management SOAP Note Subjective:: Patient is a pleasant 61-year-old female who is here for medication refill and follow-up. Patient is currently being treated for degenerative disease of lumbar spine with lumbar radiculopathy symptoms. Patient is being managed with [place] 10 mg 3 times a day and gabapentin 100 mg daily. Patient denies any side effects from the medications. Patient denies any changes to the location and type of pain. Patient states that this is adequately helping manage their pain. Rates pain as 3 out of 10. [facility] number [phone] with an active morphine equivalent 30. Drug screens have been reviewed and appropriate. Review of Systems: General: No recent weight changes, no fever, no sleep disturbances Respiratory: No cough, no shortness of air, no recurring pulmonary infections Cardiovascular/peripheral vascular: No chest pain, no palpitations, no edema, no shortness of breath Gastrointestinal: No new onset incontinence, normal bowel movements reported Genitourinary: No new onset incontinence Musculoskeletal: Low back pain Psychiatric: [Normal mood/affect] Neurological: [Denies weakness in extremities], [denies balance issues] Objective:: Physical Exam: General: Alert and oriented x3, no acute distress, pleasant and cooperative Lungs: Respirations even and unlabored, symmetrical chest expansion Eyes: PERRL Musculoskeletal: Flexion and extension of lumbar [spine] somewhat guarded secondary to pain, [antalgic gait noted] Neurological: Speech clear, no gross sensory deficit Assessment:: Degenerative disease of lumbar spine with lumbar radiculopathy symptoms Plan:: We will continue the patient's [place] 10 mg 3 times a day and gabapentin 100 mg daily. We will provide the patient with 1 month of refills. We would like to see the patient back in 1 month for follow-up and reevaluation of chronic pain syndrome. Patient has been advised of risks of oversedation with the prescribed medication. Narcan has been offered to the patient in the event of oversedation. Patient has been advised that a family member should also be educated regarding administration of Narcan. Patient has been instructed to contact the clinic with any concerns before the next appointment. Dr. Au has reviewed this note and agrees with this plan of care. This note was dictated using voice recognition software and make contain errors or omissions. [facility] History *Have you ever received a pneumonia vaccine?: Yes *Have you received a flu vaccine this season?: Yes - *Social History Smoking Status: Never smoker Alcohol Intake: never *Occupational Status:: other *Travel in the last 8 weeks: None Family Hx:: Non-contributory
== END ==
PROVIDERS: Visit Provider Student in an Organized Health Care Education/Training Program
DX: M51.16 Intervertebral disc disorders with radiculopathy, lumbar region (principal)
CPT/HCPCS: 99212; G0463

== ENCOUNTER → 2022-04-25 10:42 | Outpatient (POV) | payer MEDICARE, SELFPAY ==
[2022-04-25 11:18] VITALS: BP 169/99; PULSE 78; RESP 20; BMI 42.1
--- NOTE | 2022-04-25 12:19 | P.CONS_ITS ---
[facility] Pain Management SOAP Note Subjective:: Patient is a pleasant 61-year-old female who presents today for medication refill and follow-up. 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 Today she rates her pain a 4 out of 10. She states this is all in her low back that radiates to her bilateral extremities. She describes this as a constant burning, aching, throbbing sensation that is worse with activity. We are currently managing the patient with [place] 10 mg 3 times a day and gabapentin 100 mg once a day. She denies any side effects from these medications. She denies any changes to the location or type of pain she experiences. She states these medications are adequately managing her pain. Her Hans number is [id number]. It has been reviewed and appropriate. Review of Systems: General: No recent weight changes, no fever, no sleep disturbances Respiratory: No cough, no shortness of air, no recurring pulmonary infections Cardiovascular/peripheral vascular: No chest pain, no palpitations, no edema, no shortness of breath Gastrointestinal: No new onset incontinence, normal bowel movements reported Genitourinary: No new onset incontinence Musculoskeletal: Low back pain Psychiatric: [Normal mood/affect] Neurological: [Denies weakness in extremities], [denies balance issues] Objective:: Physical Exam: General: Alert and oriented x3, no acute distress, pleasant and cooperative Lungs: Respirations even and unlabored, symmetrical chest expansion Eyes: PERRL Musculoskeletal: Flexion and extension of lumbar [spine] somewhat guarded secondary to pain, [antalgic gait noted] Neurological: Speech clear, no gross sensory deficit Assessment:: Degenerative disc disease of lumbar spine with lumbar radiculopathy symptoms Plan:: Patient is being adequately maintained with her current regimen. I will refill the patient's [place] 10 mg 3 times a day and gabapentin 100 mg once daily. I will provide a 1 month supply of this medication. Patient will follow up in 1 month. Patient will return to clinic in 1 month for follow-up, medication refill and reevaluation of symptoms. Patient has been advised of risks of oversedation with the prescribed medication. Narcan has been offered to the patient in the event of oversedation. Patient has been advised that a family member should also be educated regarding administration of Narcan. Patient has been instructed to contact the clinic with any concerns before the next appointment. Dr. Au has reviewed this note and agrees with this plan of care. This note was dictated using voice recognition software and make contain errors or omissions. [facility] History I have reviewed the patient's past medical history: Yes *Have you ever received a pneumonia vaccine?: Yes *Have you received a flu vaccine this season?: Yes - *Social History Smoking Status: Never smoker Alcohol Intake: never *Occupational Status:: other *Travel in the last 8 weeks: None Family Hx:: Non-contributory
== END ==
PROVIDERS: PCP Nurse Practitioner Family; Visit Provider Nurse Practitioner Family
DX: M51.16 Intervertebral disc disorders with radiculopathy, lumbar region (principal)
CPT/HCPCS: 99212; G0463

== ENCOUNTER → 2022-05-23 10:34 | Outpatient (POV) | payer MEDICARE, SELFPAY ==
--- NOTE | 2022-05-23 10:46 | A.OFFVIS_ITS ---
[facility] Pain Management SOAP Note Subjective:: Patient is a pleasant 61-year-old female who presents today for follow-up and medication refill. 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 Today she rates her pain a 4 out of 10. She states this pain is all in her low back that radiates into her bilateral extremities. This is a burning, aching, throbbing sensation that is worse with activity. Patient states she did clean yesterday and feels like she may have overdone it. She is currently managed with [place] 10 mg 3 times a day and gabapentin 100 mg daily. Patient denies any side effects from these medications. She states these medications are adequately managing her pain. She is requesting refills for both of these at today's visit. Her Hans is [phone] with a morphine equivalent of 30. It has been reviewed and appropriate. Review of Systems: General: No recent weight changes, no fever, no sleep disturbances Respiratory: No cough, no shortness of air, no recurring pulmonary infections Cardiovascular/peripheral vascular: No chest pain, no palpitations, no edema, no shortness of breath Gastrointestinal: No new onset incontinence, normal bowel movements reported Genitourinary: No new onset incontinence Musculoskeletal: Low back pain, bilateral leg pain Psychiatric: [Normal mood/affect] Neurological: [Denies weakness in extremities], [denies balance issues] Objective:: Physical Exam: General: Alert and oriented x3, no acute distress, pleasant and cooperative Lungs: Respirations even and unlabored, symmetrical chest expansion Eyes: PERRL Musculoskeletal: Flexion and extension of lumbar [spine] somewhat guarded secondary to pain, [antalgic gait noted] Neurological: Speech clear, no gross sensory deficit Assessment:: Degenerative disc disease of lumbar spine with lumbar radiculopathy symptoms Plan:: Patient continues to have significant pain in her low back that radiates into her bilateral extremities. I will refill the patient's gabapentin 100 mg daily and [place] 10 mg 3 times a day and provide a 1 month supply of this medication. Patient will return to clinic in 1 month for reevaluation of symptoms and medication refill. Patient has been advised of risks of oversedation with the prescribed medication. Narcan has been offered to the patient in the event of overseda tion. Patient has been advised that a family member should also be educated regarding administration of Narcan. Patient has been instructed to contact the clinic with any concerns before the next appointment. Dr. Au has reviewed this note and agrees with this plan of care. This note was dictated using voice recognition software and make contain errors or omissions. PFSH PFSH Social History Smoking Status: Never smoker alcohol intake: never current occupational status: other Travel in the last 8 weeks: None
[2022-05-23 10:49] VITALS: BP 175/87; PULSE 89; RESP 18; TEMP 36.7; O2SAT 98; BMI 42.1
== END | disposition home or self-care (01) ==
PROVIDERS: PCP Nurse Practitioner Family; Visit Provider Nurse Practitioner Family
DX: M51.16 Intervertebral disc disorders with radiculopathy, lumbar region (principal)
CPT/HCPCS: 99212; G0463

== ENCOUNTER → 2022-06-20 10:33 | Outpatient (POV) | payer MEDICARE, SELFPAY ==
--- NOTE | 2022-06-20 10:55 | A.OFFVIS_ITS ---
[facility] Pain Management SOAP Note Subjective:: Patient is a pleasant 61-year-old female who presents today for medication refill and follow-up. 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 Today the patient rates her pain a 4 out of 10. She states the pain is in her low back and does radiate into her lower extremities. This is still a aching, throbbing sensation that is worse with increased activity. Patient denies any new trauma or injury to the site. Patient denies any change in location or type of pain she experiences. She is currently managed with [place] 10 mg 3 times a day and gabapentin 100 mg once a day. Patient denies any side effects from these medications. She states these medications do adequately help manage her pain. She is requesting refill at today's visit. Her Hans is [id number]. It has been reviewed and appropriate. Review of Systems: General: No recent weight changes, no fever, no sleep disturbances Respiratory: No cough, no shortness of air, no recurring pulmonary infections Cardiovascular/peripheral vascular: No chest pain, no palpitations, no edema, no shortness of breath Gastrointestinal: No new onset incontinence, normal bowel movements reported Genitourinary: No new onset incontinence Musculoskeletal: Low back pain Psychiatric: [Normal mood/affect] Neurological: [Denies weakness in extremities], [denies balance issues] Objective:: Physical Exam: General: Alert and oriented x3, no acute distress, pleasant and cooperative Lungs: Respirations even and unlabored, symmetrical chest expansion Eyes: PERRL Musculoskeletal: Flexion and extension of lumbar [spine] somewhat guarded secondary to pain, [antalgic gait noted] Neurological: Speech clear, no gross sensory deficit Assessment:: Degenerative disc disease of lumbar spine with lumbar radiculopathy symptoms Plan:: Patient continues to have significant pain in her low back that radiates into her lower extremities however she is currently managed well with her medication regimen. I will refill the patient's [place] 10 mg 3 times a day and gabapentin 100 mg once daily and provide a 1 month supply of this medication. Patient will follow up in clinic in 1 month for reevaluation of symptoms, medication refill and follow-up. Patient has been advised of risks of oversedation with the prescribed medicatio n. Narcan has been offered to the patient in the event of oversedation. Patient has been advised that a family member should also be educated regarding administration of Narcan. Patient has been instructed to contact the clinic with any concerns before the next appointment. Dr. Au has reviewed this note and agrees with this plan of care. This note was dictated using voice recognition software and make contain errors or omissions. PFSH PFS Social History Smoking Status: Never smoker alcohol intake: never current occupational status: disabled Travel in the last 8 weeks: None
[2022-06-20 11:01] VITALS: BP 148/85; PULSE 90; RESP 18; TEMP 36.6; O2SAT 93; BMI 42.1
== END | disposition home or self-care (01) ==
PROVIDERS: PCP Nurse Practitioner Family; Visit Provider Nurse Practitioner Family
DX: M51.16 Intervertebral disc disorders with radiculopathy, lumbar region (principal)
CPT/HCPCS: 99212; G0463

== ENCOUNTER → 2022-07-22 13:14 | Outpatient (POV) | payer MEDICARE, SELFPAY ==
--- NOTE | 2022-07-22 13:42 | A.OFFVIS_ITS ---
[facility] Pain Management SOAP Note Subjective:: Patient is a pleasant 62-year-old female who presents today for follow-up and medication refill. 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 Today the patient rates her pain a 3 out of 10. Patient denies any new trauma or injury. Patient denies any change to location or type of pain she experiences. Patient is currently managed with gabapentin 100 mg once a day and [place] 10 mg 3 times a day. Patient denies any side effects from this medication. She states these medications do adequately help manage her pain symptoms. She is requesting a refill at today's visit. Her Hans is [phone]. It has been reviewed and appropriate. Review of Systems: General: No recent weight changes, no fever, no sleep disturbances Respiratory: No cough, no shortness of air, no recurring pulmonary infections Cardiovascular/peripheral vascular: No chest pain, no palpitations, no edema, no shortness of breath Gastrointestinal: No new onset incontinence, normal bowel movements reported Genitourinary: No new onset incontinence Musculoskeletal: Low back pain Psychiatric: [Normal mood/affect] Neurological: [Denies weakness in extremities], [denies balance issues] Objective:: Physical Exam: General: Alert and oriented x3, no acute distress, pleasant and cooperative Lungs: Respirations even and unlabored, symmetrical chest expansion Eyes: PERRL Musculoskeletal: Flexion and extension of lumbar [spine] somewhat guarded secondary to pain, [antalgic gait noted] Neurological: Speech clear, no gross sensory deficit Assessment:: Degenerative disc disease of lumbar spine with lumbar radiculopathy symptoms Plan:: Patient continues to experience significant pain in her low back that radiate into her bilateral lower extremities however she is managed well with her current medication regimen. I will refill the patient's gabapentin 100 mg once daily and [place] 10 mg 3 times a day and provide a 1 month supply of this medication. Patient will return to clinic in 1 month for reevaluation of symptoms, medication refill and follow-up. Patient has been advised of risks of oversedation with the prescribed medication. Narcan has been offered to the patient in the event of oversedation. Patient has been advised that a family member should also be educated regarding administration of Narcan. Patient has been instructed to contact the clinic with any concerns before the next appointment. Dr. Au has reviewed this note and agrees with this plan of care. This note was dictated using voice recognition software and make contain errors or omissions. PFSH PFSH Social History Smoking Status: Never smoker alcohol intake: never current occupational status: disabled Travel in the last 8 weeks: None
[2022-07-22 14:42] VITALS: BP 147/87; PULSE 87; RESP 18; O2SAT 95; BMI 43.2
[2022-07-22 15:04] LABS: Amphetamine/Metha Screen,Urine Negative ng/ml (<1000)
[2022-07-22 15:05] LABS: Barbiturates Screen,Urine Negative ng/ml (<200)
[2022-07-22 15:06] LABS: Benzodiazepines Screen,Urine Negative ng/ml (<200); Cannabinoid Screen,Urine Negative ng/ml (<50)
[2022-07-22 15:07] LABS: Cocaine Screen,Urine Negative ng/ml (<300)
[2022-07-22 15:08] LABS: Methadone Screen,Urine Negative ng/ml (<300)
[2022-07-22 15:10] LABS: Opiate Screen,Urine Positive ng/ml (<300)
[2022-07-22 15:11] LABS: Phencyclidine Screen,Urine Negative ng/ml (<25)
[2022-07-30 10:13] LABS: Codeine Negative (Cutoff=100); Hydrocodone Positive (.); Hydromorphone Negative (Cutoff=100); Morphine Negative (Cutoff=100); Opiates Positive (.)
== END | disposition home or self-care (01) ==
PROVIDERS: PCP Nurse Practitioner Family; Visit Provider Nurse Practitioner Family
DX: M51.16 Intervertebral disc disorders with radiculopathy, lumbar region (principal); Z79.891 Long term (current) use of opiate analgesic
CPT/HCPCS: 80305; 80361; 80365; 99212; G0463; G0480

== ENCOUNTER → 2022-08-19 13:08 | Outpatient (POV) | payer MEDICARE, SELFPAY ==
[2022-08-19 13:22] VITALS: BP 150/66; PULSE 85; RESP 18; O2SAT 94; BMI 43.2
--- NOTE | 2022-08-19 13:52 | A.OFFVIS_ITS ---
[facility] Pain Management SOAP Note Subjective:: Patient is a pleasant 62-year-old female who presents today for medication refill and follow-up. 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 Today the patient rates her pain a 4 out of 10. Patient denies any new trauma or injury. Patient denies any change location or type of pain she experiences. Patient is currently managed with gabapentin 100 mg once daily and [place] 10 mg 3 times a day. Patient denies any side effects from this medication. She states this medication does adequately help her pain symptoms. She is requesting refills at today's visit. Her Hans is [id number]. It is been reviewed and appropriate. Review of Systems: General: No recent weight changes, no fever, no sleep disturbances Respiratory: No cough, no shortness of air, no recurring pulmonary infections Cardiovascular/peripheral vascular: No chest pain, no palpitations, no edema, no shortness of breath Gastrointestinal: No new onset incontinence, normal bowel movements reported Genitourinary: No new onset incontinence Musculoskeletal: Low back pain Psychiatric: [Normal mood/affect] Neurological: [Denies weakness in extremities], [denies balance issues] Objective:: Physical Exam: General: Alert and oriented x3, no acute distress, pleasant and cooperative Lungs: Respirations even and unlabored, symmetrical chest expansion Eyes: PERRL Musculoskeletal: Flexion and extension of lumbar [spine] somewhat guarded secondary to pain, [antalgic gait noted] Neurological: Speech clear, no gross sensory deficit Assessment:: Degenerative disc disease of lumbar spine with lumbar radiculopathy symptoms Plan:: Patient continues to experience significant pain in her low back with radiating symptoms into her lower extremities however she is managed well with her current medication regimen. I will reorder the patient's [place] 10 mg 3 times a day and gabapentin 100 mg once daily and provide a 1 month supply of this medication. Patient will return to clinic in 1 month for reevaluation of symptoms, medication refill and follow-up. Patient has been advised of risks of oversedation with the prescribed medication. Narcan has been offered to the patient in the event of oversedation. Patient has been advised that a family member should also be educated regarding administration of Narcan. Patient has been instructed to contact the clinic with any concerns before the next appointment. Dr. Au has reviewed this note and agrees with this plan of care. This note was dictated using voice recognition software and make contain errors or omissions. [facility] Disclaimer: The information contained in this section may have been updated after the patient was seen, as this information can be updated by other users. Social History Smoking Status: Never smoker alcohol intake: never current occupational status: disabled Travel in the last 8 weeks: None
== END | disposition home or self-care (01) ==
PROVIDERS: PCP Nurse Practitioner Family; Visit Provider Nurse Practitioner Family
DX: M51.16 Intervertebral disc disorders with radiculopathy, lumbar region (principal); Z79.899 Other long term (current) drug therapy
CPT/HCPCS: 99212; G0463

== ENCOUNTER → 2022-09-19 11:02 | Outpatient (POV) | payer MEDICARE, SELFPAY ==
--- NOTE | 2022-09-19 11:50 | EXP.PAIN.SOA ---
[facility] Pain Management SOAP Note Subjective:: Patient is a pleasant 62-year-old female who presents today for medication refill and follow-up. 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 Today the patient rates her pain a 3 out of 10. Patient denies any new trauma or injury. Patient denies any change location or type of pain she experiences. Patient is currently managed with gabapentin 100 mg daily and [place] 10 mg 3 times a day. Patient denies any side effects from this medication. She states this medication does adequately manage her pain symptoms. She is requesting refill at today's visit. Her Hans is [id number]. Its been reviewed and appropriate. Review of Systems: General: No recent weight changes, no fever, no sleep disturbances Respiratory: No cough, no shortness of air, no recurring pulmonary infections Cardiovascular/peripheral vascular: No chest pain, no palpitations, no edema, no shortness of breath Gastrointestinal: No new onset incontinence, normal bowel movements reported Genitourinary: No new onset incontinence Musculoskeletal: Low back pain Psychiatric: [Normal mood/affect] Neurological: [Denies weakness in extremities], [denies balance issues] Objective:: Physical Exam: General: Alert and oriented x3, no acute distress, pleasant and cooperative Lungs: Respirations even and unlabored, symmetrical chest expansion Eyes: PERRL Musculoskeletal: Flexion and extension of lumbar [spine] somewhat guarded secondary to pain, [antalgic gait noted] Neurological: Speech clear, no gross sensory deficit ORT score updated with minimal risk of 0 Assessment:: Degenerative disc disease of lumbar spine with lumbar radiculopathy symptoms Plan:: Patient continues to experience significant pain in her low back and legs however she is doing well with her current medication regimen. I will refill the patient's gabapentin 100 mg daily and [place] 10 mg 3 times a day and provide a 1 month supply of this medication. Patient will return to clinic in 1 month for reevaluation of symptoms, medication refill and follow-up. Patient has been advised of risks of oversedation with the prescribed medication. Narcan has been offered to the patient in the event of oversedation. Patient has been advised that a family member should also be educated regarding administration of Narcan. Patient has been instructed to contact the clinic with any concerns before the next appointment. Dr. Au has reviewed this note and agrees with this plan of care. This note was dictated using voice recognition software and make contain errors or omissions. [facility] Disclaimer: The information contained in this section may have been updated after the patient was seen, as this information can be updated by other users. Social History Smoking Status: Never smoker alcohol intake: never current occupational status: disabled Travel in the last 8 weeks: None
[2022-09-19 12:22] VITALS: BP 141/73; PULSE 90; RESP 18; O2SAT 97; BMI 42.5
== END | disposition home or self-care (01) ==
PROVIDERS: PCP Nurse Practitioner Family; Visit Provider Nurse Practitioner Family
DX: M51.16 Intervertebral disc disorders with radiculopathy, lumbar region (principal); Z79.899 Other long term (current) drug therapy
CPT/HCPCS: 99212; G0463

== ENCOUNTER → 2022-09-19 11:34 | Outpatient (CLI) | payer MEDICARE, SELFPAY ==
[2022-09-19 13:39] LABS: Amphetamine/Metha Screen,Urine Negative ng/ml (<1000)
[2022-09-19 13:40] LABS: Barbiturates Screen,Urine Negative ng/ml (<200); Benzodiazepines Screen,Urine Negative ng/ml (<200)
[2022-09-19 13:41] LABS: Cannabinoid Screen,Urine Negative ng/ml (<50)
[2022-09-19 13:42] LABS: Cocaine Screen,Urine Negative ng/ml (<300); Methadone Screen,Urine Negative ng/ml (<300)
[2022-09-19 13:43] LABS: Opiate Screen,Urine Positive ng/ml (<300)
[2022-09-19 13:44] LABS: Phencyclidine Screen,Urine Negative ng/ml (<25)
[2022-09-23 08:10] LABS: Codeine Negative (Cutoff=100); Hydrocodone Positive (.); Hydromorphone Negative (Cutoff=100); Morphine Negative (Cutoff=100); Opiates Positive (.)
== END ==
LOC: LAB 11:35
PROVIDERS: PCP Nurse Practitioner Family; Visit Provider Nurse Practitioner Family
DX: Z79.891 Long term (current) use of opiate analgesic (principal)
CPT/HCPCS: 80305; 80361; 80365; 99212; G0463; G0480

== ENCOUNTER → 2022-10-21 10:12 | Outpatient (POV) | payer MEDICARE, SELFPAY ==
--- NOTE | 2022-10-21 10:26 | EXP.PAIN.SOA ---
[facility] Pain Management SOAP Note Subjective:: Patient is a pleasant 62-year-old female who presents today for medication refill and follow-up. We are currently treating the patient for degenerative disc disease of the lumbar spine with lumbar radiculopathy symptoms. Today she rates her pain a 3 out of 10. Patient denies any new trauma or injury. Patient denies any change location or type of pain that she experiences. Patient is currently managed with gabapentin 100 mg daily and [place] 10 mg 3 times a day. Patient denies any side effects from these medications. She states these medications do help manage her pain symptoms. Her Hans is [id number]. Its been reviewed and appropriate. Review of Systems: General: No recent weight changes, no fever, no sleep disturbances Respiratory: No cough, no shortness of air, no recurring pulmonary infections Cardiovascular/peripheral vascular: No chest pain, no palpitations, no edema, no shortness of breath Gastrointestinal: No new onset incontinence, normal bowel movements reported Genitourinary: No new onset incontinence Musculoskeletal: Low back pain Psychiatric: [Normal mood/affect] Neurological: [Denies weakness in extremities], [denies balance issues] Objective:: Physical Exam: General: Alert and oriented x3, no acute distress, pleasant and cooperative Lungs: Respirations even and unlabored, symmetrical chest expansion Eyes: PERRL Musculoskeletal: Flexion and extension of lumbar [spine] somewhat guarded secondary to pain, [antalgic gait noted] Neurological: Speech clear, no gross sensory deficit Assessment:: Degenerative disc disease of lumbar spine with lumbar radiculopathy symptoms Plan:: Patient continues to experience significant pain in her low back however she is doing well with her current medication regimen. I will refill the patient's gabapentin 100 mg daily and [place] 10 mg 3 times a day and provide a 1 month supply of this medication. Patient will return to clinic in 1 month for reevaluation of symptoms, medication refill and follow-up. Patient has been advised of risks of oversedation with the prescribed medication. Narcan has been offered to the patient in the event of oversedation. Patient has been advised that a family member should also be educated regarding administration of Narcan. Patient has been instructed to contact the clinic with any concerns before the next appointment. Dr. Au has reviewed this note and agrees with this plan of care. This note was dictated using voice recognition software and make contain errors or omissions. [facility] Disclaimer: The information contained in this section may have been updated after the patient was seen, as this information can be updated by other users. Social History Smoking Status: Never smoker alcohol intake: never current occupational status: other Travel in the last 8 weeks: None
[2022-10-21 10:28] VITALS: BP 149/77; PULSE 85; RESP 18; O2SAT 98; BMI 41.4
== END | disposition home or self-care (01) ==
PROVIDERS: PCP Nurse Practitioner Family; Visit Provider Nurse Practitioner Family
DX: M51.16 Intervertebral disc disorders with radiculopathy, lumbar region (principal)
CPT/HCPCS: 99212; G0463

== ENCOUNTER → 2022-11-25 08:57 | Outpatient (POV) | payer MEDICARE, SELFPAY ==
[2022-11-25 09:15] VITALS: BP 155/85; PULSE 76; RESP 20; BMI 41.1
--- NOTE | 2022-11-25 09:18 | EXP.PAIN.SOA ---
[facility] Pain Management SOAP Note Subjective:: Patient is a pleasant 62-year-old female who presents today for 1 month follow-up and medication refill. 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 Patient denies any new trauma or injury. Patient denies any change location or type of pain she experiences. Patient states she is currently under the weather with a sinus infection and is on antibiotics. Patient is currently managed with gabapentin 100 mg daily and [place] 10 mg 3 times a day. Patient denies any side effects from this medication. Her Hans is [id number]. Its been reviewed and appropriate. Review of Systems: General: No recent weight changes, no fever, no sleep disturbances Respiratory: No cough, no shortness of air, no recurring pulmonary infections Cardiovascular/peripheral vascular: No chest pain, no palpitations, no edema, no shortness of breath Gastrointestinal: No new onset incontinence, normal bowel movements reported Genitourinary: No new onset incontinence Musculoskeletal: Low back pain Psychiatric: [Normal mood/affect] Neurological: [Denies weakness in extremities], [denies balance issues] Objective:: Physical Exam: General: Alert and oriented x3, no acute distress, pleasant and cooperative Lungs: Respirations even and unlabored, symmetrical chest expansion Eyes: PERRL Musculoskeletal: Flexion and extension of lumbar [spine] somewhat guarded secondary to pain, [antalgic gait noted] Neurological: Speech clear, no gross sensory deficit Assessment:: Degenerative disc disease of lumbar spine with lumbar radiculopathy symptoms Plan:: Patient is doing well with her current medication regimen. I will refill her gabapentin 100 mg daily and [place] 10 mg 3 times a day and provide a 1 month supply of this medication. Patient will return to clinic in 1 month for reevaluation of symptoms, medication refill and follow-up. Patient has been advised of risks of oversedation with the prescribed medication. Narcan has been offered to the patient in the event of oversedation. Patient has been advised that a family member should also be educated regarding administration of Narcan. Patient has been instructed to contact the clinic with any concerns before the next appointment. Dr. Au has reviewed this note and agrees with this plan of care. This note was dictated using voice recognition software and make contain errors or omissions. [facility] Disclaimer: The information contained in this section may have been updated after the patient was seen, as this information can be updated by other users. Social History Smoking Status: Never smoker alcohol intake: never current occupational status: retired Travel in the last 8 weeks: None
== END | disposition home or self-care (01) ==
PROVIDERS: PCP Nurse Practitioner Family; Visit Provider Nurse Practitioner Family
DX: M51.16 Intervertebral disc disorders with radiculopathy, lumbar region (principal)
CPT/HCPCS: 99212; G0463

== ENCOUNTER → 2022-12-23 08:43 | Outpatient (POV) | payer MEDICARE, SELFPAY ==
[2022-12-23 08:55] VITALS: BP 147/68; PULSE 85; RESP 18; O2SAT 97; BMI 41.4
--- NOTE | 2022-12-23 09:05 | EXP.PAIN.SOA ---
[facility] Pain Management SOAP Note Subjective:: Patient is a pleasant 62-year-old female who presents today for medication refill and follow-up. 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 Today she rates her pain a 3 out of 10. Patient denies any new trauma or injury. Patient denies any change location or type of pain she experiences. Patient is currently managed with gabapentin 100 mg daily and [place] 10 mg 3 times a day. Patient denies any side effects from this medication. Her Hans is [id number]. Its been reviewed and appropriate. Review of Systems: General: No recent weight changes, no fever, no sleep disturbances Respiratory: No cough, no shortness of air, no recurring pulmonary infections Cardiovascular/peripheral vascular: No chest pain, no palpitations, no edema, no shortness of breath Gastrointestinal: No new onset incontinence, normal bowel movements reported Genitourinary: No new onset incontinence Musculoskeletal: Low back pain Psychiatric: [Normal mood/affect] Neurological: [Denies weakness in extremities], [denies balance issues] Objective:: Physical Exam: General: Alert and oriented x3, no acute distress, pleasant and cooperative Lungs: Respirations even and unlabored, symmetrical chest expansion Eyes: PERRL Musculoskeletal: Flexion and extension of lumbar [spine] somewhat guarded secondary to pain, [antalgic gait noted] Neurological: Speech clear, no gross sensory deficit Assessment:: Degenerative disc disease of lumbar spine with lumbar radiculopathy symptoms Plan:: Patient is doing well with her current medication regimen. I will refill her gabapentin 100 mg daily and [place] 10 mg 3 times a day and provide a 1 month supply of this medication. Patient will follow-up in clinic in 1 month for reevaluation of symptoms and plan of care. Patient has been advised of risks of oversedation with the prescribed medication. Narcan has been offered to the patient in the event of oversedation. Patient has been advised that a family member should also be educated regarding administration of Narcan. Patient has been instructed to contact the clinic with any concerns before the next appointment. Dr. Au has reviewed this note and agrees with this plan of care. This note was dictated using voice recognition software and make contain errors or omissions. [facility] Disclaimer: The information contained in this section may have been updated after the patient was seen, as this information can be updated by other users. Social History Smoking Status: Never smoker alcohol intake: never current occupational status: retired Travel in the last 8 weeks: None
== END | disposition home or self-care (01) ==
PROVIDERS: Visit Provider Nurse Practitioner Family
DX: M51.16 Intervertebral disc disorders with radiculopathy, lumbar region (principal)
CPT/HCPCS: 99212; G0463

== ENCOUNTER → 2023-01-20 09:38 | Outpatient (POV) | payer MEDICARE, SELFPAY ==
--- NOTE | 2023-01-20 09:49 | A.OFFVIS_ITS ---
[facility] Pain Management SOAP Note Subjective:: Patient is a pleasant 62-year-old female who presents today for medication refill and follow-up.? 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 Today she rates her pain a 4 out of 10.? Patient denies any new trauma or injury.? Patient denies any change location or type of pain she experiences.? She does states she had a little bit more activity over the weekend due to problem. Patient is currently managed with gabapentin 100 mg daily and [place] 10 mg 3 times a day.? Patient denies any side effects from this medication.? Her Hans is [id number].? Its been reviewed and appropriate. Review of Systems: General: No recent weight changes, no fever, no sleep disturbances Respiratory: No cough, no shortness of air, no recurring pulmonary infections Cardiovascular/peripheral vascular: No chest pain, no palpitations,? no edema, no shortness of breath Gastrointestinal: No new onset incontinence, normal bowel movements reported Genitourinary: No new onset incontinence Musculoskeletal: Low back pain Psychiatric: [Normal mood/affect] Neurological: [Denies weakness in extremities], [denies balance issues] Objective:: Physical Exam: General: Alert and oriented x3, no acute distress, pleasant and cooperative Lungs: Respirations even and unlabored, symmetrical chest expansion Eyes: PERRL Musculoskeletal: Flexion and extension of lumbar [spine] somewhat guarded secon tiny to pain, [antalgic gait noted] Neurological: Speech clear, no gross sensory deficit Assessment:: Degenerative disc disease of lumbar spine with lumbar radiculopathy symptoms Plan:: We will refill her gabapentin 100 mg daily and [place] 10 mg 3 times a day and provide a 1 month supply of this medication. Patient will return to clinic in 1 month for reevaluation of symptoms, medication refill and follow-up. Patient has been advised of risks of oversedation with the prescribed medication. Narcan has been offered to the patient in the event of oversedation. Patient has been advised that a family member should also be educated regarding administration of Narcan. Patient has been instructed to contact the clinic with any concerns before the next appointment. Dr. Au has reviewed this note and agrees with this plan of care. This note was dictated using voice recognition software and make contain errors or omissions. [facility] Disclaimer: The information contained in this section may have been updated after the patient was seen, as this information can be updated by other users. Social History Smoking Status: Never smoker alcohol intake: never current occupational status: retired Travel in the last 8 weeks: None
[2023-01-20 11:02] VITALS: BP 150/72; PULSE 74; RESP 18; O2SAT 98; BMI 41.4
== END | disposition home or self-care (01) ==
PROVIDERS: PCP Nurse Practitioner Family; Visit Provider Nurse Practitioner Family
DX: M51.16 Intervertebral disc disorders with radiculopathy, lumbar region (principal)
CPT/HCPCS: 99212; G0463

== ENCOUNTER → 2023-01-20 09:58 | Outpatient (CLI) | payer MEDICARE, SELFPAY ==
[2023-01-20 11:40] LABS: Amphetamine/Metha Screen,Urine Negative ng/ml (<1000); Barbiturates Screen,Urine Negative ng/ml (<200)
[2023-01-20 11:41] LABS: Benzodiazepines Screen,Urine Negative ng/ml (<200)
[2023-01-20 11:42] LABS: Cannabinoid Screen,Urine Negative ng/ml (<50); Cocaine Screen,Urine Negative ng/ml (<300)
[2023-01-20 11:43] LABS: Methadone Screen,Urine Negative ng/ml (<300); Opiate Screen,Urine Positive ng/ml (<300)
[2023-01-20 11:44] LABS: Phencyclidine Screen,Urine Negative ng/ml (<25)
[2023-01-27 17:47] LABS: Codeine Negative (Cutoff=100); Hydrocodone Positive (.); Hydromorphone Negative (Cutoff=100); Morphine Negative (Cutoff=100); Opiates Positive (.)
== END ==
LOC: LAB 10:00
PROVIDERS: Nurse Practitioner Family; PCP Nurse Practitioner Family; Visit Provider Anesthesiology
DX: Z79.891 Long term (current) use of opiate analgesic (principal)
CPT/HCPCS: 80305; 80361; 80365; 99212; G0463; G0480

== ENCOUNTER → 2023-02-20 09:31 | Outpatient (POV) | payer MEDICARE, SELFPAY ==
--- NOTE | 2023-02-20 09:43 | EXP.PAIN.SOA ---
[facility] Pain Management SOAP Note Subjective:: Patient is a pleasant 62-year-old female who presents today for medication refill and follow-up. 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 Today she rates her pain a 3 out of 10. Patient denies any new trauma or injury. She denies any change in location or type of pain she experiences. She is currently managed with gabapentin 100 mg daily and [place] 10 mg 3 times a day. Patient denies any side effects from this medication. Her Hans and is [id number]. Has been reviewed and appropriate. Review of Systems: General: No recent weight changes, no fever, no sleep disturbances Respiratory: No cough, no shortness of air, no recurring pulmonary infections Cardiovascular/peripheral vascular: No chest pain, no palpitations, no edema, no shortness of breath Gastrointestinal: No new onset incontinence, normal bowel movements reported Genitourinary: No new onset incontinence Musculoskeletal: Low back pain Psychiatric: [Normal mood/affect] Neurological: [Denies weakness in extremities], [denies balance issues] Objective:: Physical Exam: General: Alert and oriented x3, no acute distress, pleasant and cooperative Lungs: Respirations even and unlabored, symmetrical chest expansion Eyes: PERRL Musculoskeletal: Flexion and extension of lumbar [spine] somewhat guarded secondary to pain, [antalgic gait noted] Neurological: Speech clear, no gross sensory deficit Assessment:: Degenerative disc disease of lumbar spine with lumbar radiculopathy symptoms Plan:: I will refill the patient's gabapentin 100 mg daily and [place] 10 mg 3 times a day and provide a 1 month supply of this medication. Patient will return to clinic in 1 month for reevaluation of symptoms, medication refill and follow-up Patient has been advised of risks of oversedation with the prescribed medication. Narcan has been offered to the patient in the event of oversedation. Patient has been advised that a family member should also be educated regarding administration of Narcan. Patient has been instructed to contact the clinic with any concerns before the next appointment. Dr. Au has reviewed this note and agrees with this plan of care. This note was dictated using voice recognition software and make contain errors or omissions. [facility] Disclaimer: The information contained in this section may have been updated after the patient was seen, as this information can be updated by other users. Social History Smoking Status: Never smoker alcohol intake: never current occupational status: retired Travel in the last 8 weeks: None
[2023-02-20 10:38] VITALS: BP 151/97; PULSE 74; RESP 18; O2SAT 97; BMI 40.1
== END | disposition home or self-care (01) ==
PROVIDERS: PCP Nurse Practitioner Family; Visit Provider Nurse Practitioner Family
DX: M51.16 Intervertebral disc disorders with radiculopathy, lumbar region (principal)
CPT/HCPCS: 99212; G0463

== ENCOUNTER → 2023-03-20 10:39 | Outpatient (POV) | payer MEDICARE, SELFPAY ==
--- NOTE | 2023-03-20 11:09 | A.OFFVIS_ITS ---
[facility] Pain Management SOAP Note Subjective:: Patient is a pleasant 62-year-old female who presents today for medication refill and follow-up. 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 Today she rates her pain a 3010. She denies any change to location or type of pain she experiences or any new injuries. She is currently managed with gabapentin 100 mg daily and [place] 10 mg 3 times a day. Patient denies any side effects from this medication. She states that these do help on a day-to-day basis with her low back and leg pain. Her Hans is [id number]. Its been reviewed and appropriate. Review of Systems: General: No recent weight changes, no fever, no sleep disturbances Respiratory: No cough, no shortness of air, no recurring pulmonary infections Cardiovascular/peripheral vascular: No chest pain, no palpitations, no edema, no shortness of breath Gastrointestinal: No new onset incontinence, normal bowel movements reported Genitourinary: No new onset incontinence Musculoskeletal: Low back pain Psychiatric: [Normal mood/affect] Neurological: [Denies weakness in extremities], [denies balance issues] Objective:: Physical Exam: General: Alert and oriented x3, no acute distress, pleasant and cooperative Lungs: Respirations even and unlabored, symmetrical chest expansion Eyes: PERRL Musculoskeletal: Flexion and extension of lumbar [spine] somewhat guarded secondary to pain, [antalgic gait noted] Neurological: Speech clear, no gross sensory deficit Assessment:: Degenerative disc disease of lumbar spine with lumbar radiculopathy symptoms Plan:: I will refill the patient's gabapentin 100 mg daily and [place] 10 mg 3 times a day and provide a 1 month supply of this medication. Patient will return to clinic in 1 month for reevaluation of symptoms and medication refill. Patient has been advised of risks of oversedation with the prescribed medication. Narcan has been offered to the patient in the event of oversedation. Patient has been advised that a family member should also be educated regarding administration of Narcan. Patient has been instructed to contact the clinic with any concerns before the next appointment. Dr. Au has reviewed this note and agrees with this plan of care. This note was dictated using voice recognition software and make contain errors or omissions. [facility] Disclaimer: The information contained in this section may have been updated after the denisha ent was seen, as this information can be updated by other users. Social History Smoking Status: Never smoker alcohol intake: never current occupational status: retired Travel in the last 8 weeks: None
[2023-03-20 11:24] VITALS: BP 151/76; PULSE 82; RESP 18; O2SAT 97; BMI 41.1
== END | disposition home or self-care (01) ==
PROVIDERS: PCP Nurse Practitioner Family; Visit Provider Nurse Practitioner Family
DX: M51.16 Intervertebral disc disorders with radiculopathy, lumbar region (principal)
CPT/HCPCS: 99212; G0463

== ENCOUNTER → 2023-04-17 13:15 | Outpatient (POV) | payer MEDICARE, SELFPAY ==
--- NOTE | 2023-04-17 13:33 | EXP.PAIN.SOA ---
[facility] Pain Management SOAP Note Subjective:: Patient is a pleasant 62-year-old female who presents today for medication refill and follow-up. 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 Today she rates her pain a 3 out of 10. She denies any change to location or type of pain she experiences or any new injuries. She is currently managed with gabapentin 100 mg daily and [place] 10 mg 3 times a day. Patient denies any side effects from this medication. Her Hans is [phone]. Its been reviewed and appropriate. Review of Systems: General: No recent weight changes, no fever, no sleep disturbances Respiratory: No cough, no shortness of air, no recurring pulmonary infections Cardiovascular/peripheral vascular: No chest pain, no palpitations, no edema, no shortness of breath Gastrointestinal: No new onset incontinence, normal bowel movements reported Genitourinary: No new onset incontinence Musculoskeletal: Low back pain Psychiatric: [Normal mood/affect] Neurological: [Denies weakness in extremities], [denies balance issues] Objective:: Physical Exam: General: Alert and oriented x3, no acute distress, pleasant and cooperative Lungs: Respirations even and unlabored, symmetrical chest expansion Eyes: PERRL Musculoskeletal: Flexion and extension of lumbar [spine] somewhat guarded secondary to pain, [antalgic gait noted] Neurological: Speech clear, no gross sensory deficit Assessment:: Degenerative disc disease of lumbar spine with lumbar radiculopathy symptoms Plan:: Patient continues to do well with her current medication regimen. I will refill the patient's gabapentin 100 mg daily and [place] 10 mg 3 times a day and provide a 1 month supply of these medications. Patient will return to clinic in 1 month for reevaluation of symptoms, medication refill and follow-up. Patient has been advised of risks of oversedation with the prescribed medication. Narcan has been offered to the patient in the event of oversedation. Patient has been advised that a family member should also be educated regarding administration of Narcan. Patient has been instructed to contact the clinic with any concerns before the next appointment. Dr. Au has reviewed this note and agrees with this plan of care. This note was dictated using voice recognition software and make contain errors or omissions. [facility] Disclaimer: The information contained in this section may have been updated after the patient was seen, as this information can be updated by other users. Social History Smoking Status: Never smoker alcohol intake: never current occupational status: retired Travel in the last 8 weeks: None
[2023-04-17 14:53] VITALS: BP 122/64; PULSE 82; RESP 18; O2SAT 94; BMI 41.0
== END | disposition home or self-care (01) ==
PROVIDERS: Visit Provider Nurse Practitioner Family
DX: M51.16 Intervertebral disc disorders with radiculopathy, lumbar region (principal)
CPT/HCPCS: 99212; G0463

== ENCOUNTER → 2023-05-26 14:11 | Outpatient (POV) | payer MEDICARE, SELFPAY ==
--- NOTE | 2023-05-26 14:39 | A.OFFVIS_ITS ---
[facility] Pain Management SOAP Note Subjective:: Patient is a pleasant 62-year-old female who presents today for medication refill. 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 Today she states her pain is a 2 out of 10. She denies any new trauma or injury. She states she continues to do well with her medication of gabapentin 100 mg daily and [place] 10 mg 3 times a day. She denies any side effects. Her Hans is [id number]. Its been reviewed and appropriate. Review of Systems: General: No recent weight changes, no fever, no sleep disturbances Respiratory: No cough, no shortness of air, no recurring pulmonary infections Cardiovascular/peripheral vascular: No chest pain, no palpitations, no edema, no shortness of breath Gastrointestinal: No new onset incontinence, normal bowel movements reported Genitourinary: No new onset incontinence Musculoskeletal: Low back pain Psychiatric: [Normal mood/affect] Neurological: [Denies weakness in extremities], [denies balance issues] Objective:: Physical Exam: General: Alert and oriented x3, no acute distress, pleasant and cooperative Lungs: Respirations even and unlabored, symmetrical chest expansion Eyes: PERRL Musculoskeletal: Flexion and extension of lumbar [spine] somewhat guarded secondary to pain, [antalgic gait noted] Neurological: Speech clear, no gross sensory deficit Assessment:: Degenerative disc disease of lumbar spine with lumbar radiculopathy symptoms Plan:: Patient continues to do well with her current medication regimen. I will refill the patient's gabapentin 100 mg daily and [place] 10 mg 3 times a day and provide a 1 month supply of this medication. Patient will return to clinic in 1 month for reevaluation of symptoms and medication refill. Patient has been advised of risks of oversedation with the prescribed medication. Narcan has been offered to the patient in the event of oversedation. Patient has been advised that a family member should also be educated regarding administration of Narcan. Patient has been instructed to contact the clinic with any concerns before the next appointment. Dr. Au has reviewed this note and agrees with this plan of care. This note was dictated using voice recognition software and make contain errors or omissions. [facility] Disclaimer: The information contained in this section may have been updated after the patient was seen, as this information can be updated by other users. Social History Smoking Status: Never smoker alcohol intake: never current occupational status: retired Travel in the last 8 weeks: None
[2023-05-26 15:51] VITALS: BP 152/67; PULSE 79; RESP 18; O2SAT 97; BMI 41.0
== END | disposition home or self-care (01) ==
PROVIDERS: PCP Nurse Practitioner Family; Visit Provider Nurse Practitioner Family
DX: M51.16 Intervertebral disc disorders with radiculopathy, lumbar region (principal)
CPT/HCPCS: 99212; G0463

== ENCOUNTER → 2023-06-19 12:52 | Outpatient (POV) | payer MEDICARE, SELFPAY ==
--- NOTE | 2023-06-19 13:23 | EXP.PAIN.SOA ---
[facility] Pain Management SOAP Note Subjective:: Patient is a pleasant 62-year-old female who presents today for 1 month follow-up and medication refill. 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 Today she rates her pain a 4 out of 10. Patient denies any new issues from her last visit. She is currently prescribed gabapentin 100 mg daily and [place] 10 mg 3 times a day. She denies any side effects from this medication. Her Hans is [id number]. Its been reviewed and appropriate. Review of Systems: General: No recent weight changes, no fever, no sleep disturbances Respiratory: No cough, no shortness of air, no recurring pulmonary infections Cardiovascular/peripheral vascular: No chest pain, no palpitations, no edema, no shortness of breath Gastrointestinal: No new onset incontinence, normal bowel movements reported Genitourinary: No new onset incontinence Musculoskeletal: Low back pain Psychiatric: [Normal mood/affect] Neurological: [Denies weakness in extremities], [denies balance issues] Objective:: Physical Exam: General: Alert and oriented x3, no acute distress, pleasant and cooperative Lungs: Respirations even and unlabored, symmetrical chest expansion Eyes: PERRL Musculoskeletal: Flexion and extension of lumbar [spine] somewhat guarded secondary to pain, [antalgic gait noted] Neurological: Speech clear, no gross sensory deficit Assessment:: Degenerative disc disease of lumbar spine with lumbar radiculopathy symptoms Plan:: I will refill the patient's [place] 10 mg 3 times a day and gabapentin 100 mg daily and provide a 1 month supply of this medication. Patient will return to clinic in 1 month for reevaluation of symptoms and medication refill. Patient has been advised of risks of oversedation with the prescribed medication. Narcan has been offered to the patient in the event of oversedation. Patient has been advised that a family member should also be educated regarding administration of Narcan. Patient has been instructed to contact the clinic with any concerns before the next appointment. Dr. Au has reviewed this note and agrees with this plan of care. This note was dictated using voice recognition software and make contain errors or omissions. [facility] Disclaimer: The information contained in this section may have been updated after the patient was seen, as this information can be updated by other users. Social History Smoking Status: Never smoker alcohol intake: never current occupational status: retired Travel in the last 8 weeks: None
[2023-06-19 13:57] VITALS: BP 145/83; PULSE 88; RESP 18; O2SAT 94; BMI 41.1
== END | disposition home or self-care (01) ==
PROVIDERS: PCP Nurse Practitioner Family; Visit Provider Nurse Practitioner Family
DX: M51.16 Intervertebral disc disorders with radiculopathy, lumbar region (principal)
CPT/HCPCS: 99212; G0463

== ENCOUNTER → 2023-06-19 13:33 | Outpatient (CLI) | payer MEDICARE, SELFPAY ==
--- OUTSIDE RECORDS SUMMARY | 2023-06-19 13:36 | XMS_ITS | Clinical Summary ---
Author Name Unknown Address [address] [place] [address] Phone Organization [facility] Address [address] [place] [address] Phone Care Team Providers Care Principal Administrative Clerk Name Role Phone George Gonzalez MD [ ] Conditions or Problems Problem Name Problem Code Onset Date Status Entry Date Provider Comment Standard Description Annotate Rheumatoid arthritis, chronic 49414503 (SNOMED CT) 05/13 Active 05/13 George Gonzalez MD Rheumatoid arthritis Elevated sedimentation rate 950782705 (SNOMED CT) 05/13 Active 05/13 George Gonzalez MD Erythrocyte sedimentation rate above reference range Elevated c-reactive protein 616681482 (SNOMED CT) 05/13 Active 05/13 George Gonzalez MD C-reactive protein outside reference range Legionella pneumonia 431260904 (SNOMED CT) 05/12 Active 05/12 Nasra L Legionella pneumonia Neutrophilic leukemoid reaction D72.823 (ICD-10-CM ) 05/12
[2023-06-19 19:15] LABS: Amphetamine/Metha Screen,Urine Negative ng/ml (<1000)
[2023-06-19 19:16] LABS: Barbiturates Screen,Urine Negative ng/ml (<200); Benzodiazepines Screen,Urine Negative ng/ml (<200)
[2023-06-19 19:17] LABS: Cannabinoid Screen,Urine Negative ng/ml (<50); Cocaine Screen,Urine Negative ng/ml (<300)
[2023-06-19 22:21] LABS: Methadone Screen,Urine Negative ng/ml (<300)
[2023-06-19 22:22] LABS: Opiate Screen,Urine Positive ng/ml (<300); Phencyclidine Screen,Urine Negative ng/ml (<25)
[2023-06-26 04:09] LABS: Codeine Negative (Cutoff=100); Hydrocodone Positive (.); Hydromorphone Negative (Cutoff=100); Morphine Negative (Cutoff=100); Opiates Positive (.)
== END ==
PROVIDERS: PCP Nurse Practitioner Family; Visit Provider Nurse Practitioner Family
DX: Z79.891 Long term (current) use of opiate analgesic (principal)
CPT/HCPCS: 80305; 80361; 80365; 99212; G0463; G0480

== ENCOUNTER → 2023-07-17 13:31 | Outpatient (POV) | payer MEDICARE, SELFPAY ==
--- NOTE | 2023-07-17 13:40 | A.OFFVIS_ITS ---
[place] Pain Management SOAP Note Subjective:: Patient is a pleasant 63-year-old female who presents today for medication refill. 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 Today she rates her pain a 4 out of 10. She denies any changes from the last time she was here at our office. She is currently managed with gabapentin 100 mg daily and [place] 10 mg 3 times a day. She denies any side effects from this medication. She does state at her last visit she did have issues with her pharmacy about not having the [place] in stock. Patient states she is unsure if has changed currently. Her Hans has been reviewed and is appropriate. Review of Systems: General: No recent weight changes, no fever, no sleep disturbances Respiratory: No cough, no shortness of air, no recurring pulmonary infections Cardiovascular/peripheral vascular: No chest pain, no palpitations, no edema, no shortness of breath Gastrointestinal: No new onset incontinence, normal bowel movements reported Genitourinary: No new onset incontinence Musculoskeletal: Low back pain Psychiatric: [Normal mood/affect] Neurological: [Denies weakness in extremities], [denies balance issues] Objective:: Physical Exam: General: Alert and oriented x3, no acute distress, pleasant and cooperative Lungs: Respirations even and unlabored, symmetrical chest expansion Eyes: PERRL Musculoskeletal: Flexion and extension of lumbar [spine] somewhat guarded secondary to pain, [antalgic gait noted] Neurological: Speech clear, no gross sensory deficit Assessment:: Degenerative disc disease of lumbar spine with lumbar radiculopathy symptoms Plan:: I will refill the patient's gabapentin 100 mg daily and [place] 10 mg 3 times a day and provide a 1 month supply of these medications. Patient will return to clinic in 1 month for reevaluation of symptoms and plan of care. Patient has been advised of risks of oversedation with the prescribed medication. Narcan has been offered to the patient in the event of oversedation. Patient has been advised that a family member should also be educated regarding administration of Narcan. Patient has been instructed to contact the clinic with any concerns before the next appointment. Dr. Au has reviewed this note and agrees with this plan of care. This note was dictated using voice recognition software and make contain errors or omissions. [facility] Disclaimer: The information contained in this section may have been updated after the patient was seen, as this information can be updated by other users. Social History Smoking Status: Never smoker alcohol intake: never current occupational status: retired Travel in the last 8 weeks: None
[2023-07-17 14:04] VITALS: BP 139/71; PULSE 84; RESP 18; O2SAT 93; BMI 41.5
== END | disposition home or self-care (01) ==
PROVIDERS: PCP Nurse Practitioner Family; Visit Provider Nurse Practitioner Family
DX: M51.16 Intervertebral disc disorders with radiculopathy, lumbar region (principal)
CPT/HCPCS: 99212; G0463

== ENCOUNTER → 2023-08-14 13:14 | Outpatient (POV) | payer MEDICARE, SELFPAY ==
--- NOTE | 2023-08-14 13:56 | A.OFFVIS_ITS ---
[facility] Pain Management SOAP Note Subjective:: Patient is a pleasant 63-year-old female who presents today for 1 month follow- up and medication refill. 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 Today she rates her pain a 3 out of 10. Patient denies any new trauma or injury. She denies any change location or type of pain she experiences. She states she had a nice Thanksgiving holiday from our last visit. She also states she continues to do well with her current medication regimen of gabapentin 100 mg daily and [place] 10 mg 3 times a day. She denies any side effects. She states that her pharmacy as of last week did have the 10 mg tablets. Her Hans has been reviewed and is appropriate. Review of Systems: General: No recent weight changes, no fever, no sleep disturbances Respiratory: No cough, no shortness of air, no recurring pulmonary infections Cardiovascular/peripheral vascular: No chest pain, no palpitations, no edema, no shortness of breath Gastrointestinal: No new onset incontinence, normal bowel movements reported Genitourinary: No new onset incontinence Musculoskeletal: Low back pain Psychiatric: [Normal mood/affect] Neurological: [Denies weakness in extremities], [denies balance issues] Objective:: Physical Exam: General: Alert and oriented x3, no acute distress, pleasant and cooperative Lungs: Respirations even and unlabored, symmetrical chest expansion Eyes: PERRL Musculoskeletal: Flexion and extension of lumbar [spine] somewhat guarded secondary to pain, [antalgic gait noted] Neurological: Speech clear, no gross sensory deficit Assessment:: Degenerative disc disease of lumbar spine with lumbar radiculopathy symptoms Plan:: We will refill the patient's gabapentin 100 mg daily and [place] 10 mg 3 times a day and provide a 1 month supply of this medication. Patient will return to clinic in 1 month for reevaluation of symptoms and medication refill. Patient has been advised of risks of oversedation with the prescribed medication. Narcan has been offered to the patient in the event of oversedation. Patient has been advised that a family member should also be ed ucated regarding administration of Narcan. Patient has been instructed to contact the clinic with any concerns before the next appointment. Dr. Au has reviewed this note and agrees with this plan of care. This note was dictated using voice recognition software and make contain errors or omissions. [facility] Disclaimer: The information contained in this section may have been updated after the patient was seen, as this information can be updated by other users. Social History Smoking Status: Never smoker alcohol intake: never current occupational status: retired Travel in the last 8 weeks: None
[2023-08-14 15:20] VITALS: BP 124/71; PULSE 85; RESP 20; O2SAT 93; BMI 40.3
== END | disposition home or self-care (01) ==
PROVIDERS: PCP Nurse Practitioner Family; Visit Provider Nurse Practitioner Family
DX: M51.16 Intervertebral disc disorders with radiculopathy, lumbar region (principal)
CPT/HCPCS: 99212; G0463

== ENCOUNTER → 2023-09-09 12:46 | Outpatient (POV) | payer MEDICARE, SELFPAY ==
[2023-09-09 12:52] VITALS: BP 148/94; PULSE 87; RESP 18; O2SAT 94; BMI 41.4
--- NOTE | 2023-09-09 13:03 | A.OFFVIS_ITS ---
[facility] Pain Management SOAP Note Subjective:: Patient is a very pleasant 63-year-old female comes our clinic today for follow- up visit regarding medication refills. We are currently managing her with gabapentin 100 mg 1 p.o. daily. [place] 10 mg 1 p.o. 3 times daily. Patient has a longstanding history with us regarding chronic pain syndrome. Chronic low back pain with some bilateral hip and leg radicular symptoms at times. Patient reports the medications continue to provide her active daily living with minimal pain. She does not report any side effects or complications with that current medications. Her Hans #[id number] has been reviewed and appropriate. Objective:: Patient is awake alert [place] x 3. In no acute distress. Flexion-extension lumbar spine somewhat guarded secondary to pain. Deep tendon reflexes upper lower extremities normal. Motor strength upper and lower extremities normal. There is no gross sensory deficit. Gait is normal. Assessment:: Degenerative disc lumbar spine multilevels. Lumbar radiculopathy. Plan:: We will refill the patient's medications as noted above. She will return to see us in 1 month. [facility] Disclaimer: The information contained in this section may have been updated after the patient was seen, as this information can be updated by other users. Social History Smoking Status: Never smoker alcohol intake: never substance use type: denies use current occupational status: other Travel in the last 8 weeks: None
== END | disposition home or self-care (01) ==
PROVIDERS: PCP Nurse Practitioner Family; Visit Provider Nurse Anesthetist, Certified Registered
DX: M51.16 Intervertebral disc disorders with radiculopathy, lumbar region (principal); G89.4 Chronic pain syndrome
CPT/HCPCS: 99212; G0463

== ENCOUNTER → 2023-10-09 14:12 | Outpatient (POV) | payer MEDICARE, SELFPAY ==
--- NOTE | 2023-10-09 14:25 | EXP.PAIN.SOA ---
[facility] Pain Management SOAP Note Subjective:: Patient is a pleasant 63-year-old female who presents today for medication refill. 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 Today she rates her pain a 4 out of 10. Patient denies any new trauma or injury. She does state that the rain has made her pain a little worse today and at last week did cause a lot of aches and pains due to the cold weather. She is currently managed with gabapentin 100 mg daily and [place] 10 mg 3 times a day. She denies any side effects. Her Hans has been reviewed and is appropriate. Review of Systems: General: No recent weight changes, no fever, no sleep disturbances Respiratory: No cough, no shortness of air, no recurring pulmonary infections Cardiovascular/peripheral vascular: No chest pain, no palpitations, no edema, no shortness of breath Gastrointestinal: No new onset incontinence, normal bowel movements reported Genitourinary: No new onset incontinence Musculoskeletal: Low back pain Psychiatric: [Normal mood/affect] Neurological: [Denies weakness in extremities], [denies balance issues] Objective:: Physical Exam: General: Alert and oriented x3, no acute distress, pleasant and cooperative Lungs: Respirations even and unlabored, symmetrical chest expansion Eyes: PERRL Musculoskeletal: Flexion and extension of lumbar [spine] somewhat guarded secondary to pain, [antalgic gait noted] Neurological: Speech clear, no gross sensory deficit Assessment:: Degenerative disc disease of lumbar spine with lumbar radiculopathy symptoms Plan:: I will refill the patient's [place] 10 mg 3 times a day and gabapentin 100 mg daily and provide a 1 month supply of this medication. Patient will return to clinic in 1 month for reevaluation of symptoms and plan of care. Risks and benefits of the medication have been explained in detail to the patient. The patient does understand the risk of dependence on the medication when given over a prolonged period. Patient has been advised of risks of oversedation with the prescribed medication. Narcan has been offered to the paitent in the event of oversedation. Patient has been advised that a family member should also be educated regarding administration of Narcan. The patient has been advised to consult with his/her primary care provider and pharmacist regarding drug-drug interaction of medications currently prescribed. Patient has been prescribed a controlled substance after being counseled on the medication, medication safety, and possible side effects. Opioid contract was reviewed and signed by the patient, and that they have agreed to all of the terms set forth by our compliance program. Patient has been instructed to contact the clinic with any concerns before the next appointment. Dr. Au has reviewed this note and agrees with this plan of care. This note was dictated using voice recognition software and make contain errors or omissions. [facility] Disclaimer: The information contained in this section may have been updated after the patient was seen, as this information can be updated by other users. Social History (Updated 09/09/23 @ 13:05 by Seth Elkins CRNA) Smoking Status: Never smoker alcohol intake: never substance use type: denies use current occupational status: other Travel in the last 8 weeks: None
[2023-10-09 14:55] VITALS: BP 148/87; PULSE 87; RESP 18; O2SAT 95; BMI 40.3
== END | disposition home or self-care (01) ==
PROVIDERS: PCP Nurse Practitioner Family; Visit Provider Nurse Practitioner Family
DX: M51.16 Intervertebral disc disorders with radiculopathy, lumbar region (principal)
CPT/HCPCS: 99212; G0463

== ENCOUNTER 2023-11-20 13:18 | Outpatient (POV) | payer MEDICARE, SELFPAY ==
--- NOTE | 2023-11-20 13:24 | EXP.PAIN.SOA ---
[facility] Pain Management SOAP Note Subjective:: Patient is a pleasant 63-year-old female who presents today for medication refill. 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 Today she rates her pain a 3out of 10. Patient denies any new trauma or injury. Patient states she is dealing with her regular routine pains and that is doing overall well with her current medication. She is currently managed with gabapentin 100 mg daily and [place] 10 mg 3 times a day. She denies any side effects. Her Hans has been reviewed and is appropriate. Review of Systems: General: No recent weight changes, no fever, no sleep disturbances Respiratory: No cough, no shortness of air, no recurring pulmonary infections Cardiovascular/peripheral vascular: No chest pain, no palpitations, no edema, no shortness of breath Gastrointestinal: No new onset incontinence, normal bowel movements reported Genitourinary: No new onset incontinence Musculoskeletal: Low back pain Psychiatric: [Normal mood/affect] Neurological: [Denies weakness in extremities], [denies balance issues] Objective:: Physical Exam: General: Alert and oriented x3, no acute distress, pleasant and cooperative Lungs: Respirations even and unlabored, symmetrical chest expansion Eyes: PERRL Musculoskeletal: Flexion and extension of lumbar [spine] somewhat guarded secondary to pain, [antalgic gait noted] Neurological: Speech clear, no gross sensory deficit Assessment:: Degenerative disc disease of lumbar spine with lumbar radiculopathy symptoms Plan:: We will refill the patient's [place] 10 mg 3 times a day and gabapentin 100 mg daily and provide a 1 month supply of these medications. Patient will return to clinic in 1 month for reevaluation of symptoms and plan of care. Risks and benefits of the medication have been explained in detail to the patient. The patient does understand the risk of dependence on the medication when given over a prolonged period. Patient has been advised of risks of oversedation with the prescribed medication. Narcan has been offered to the paitent in the event of oversedation. Patient has been advised that a family member should also be educated regarding administration of Narcan. The patient has been advised to consult with his/her primary care provider and pharmacist regarding drug-drug interaction of medications currently prescribed. Patient has been prescribed a controlled substance after being counseled on the medication, medication safety, and possible side effects. Opioid contract was reviewed and signed by the patient, and that they have agreed to all of the terms set forth by our compliance program. Patient has been instructed to contact the clinic with any concerns before the next appointment. Dr. Au has reviewed this note and agrees with this plan of care. This note was dictated using voice recognition software and make contain errors or omissions. [facility] Disclaimer: The information contained in this section may have been updated after the patient was seen, as this information can be updated by other users. Social History (Updated 09/09/23 @ 13:05 by Seth Elkins CRNA) Smoking Status: Never smoker alcohol intake: never substance use type: denies use current occupational status: retired Travel in the last 8 weeks: None
[2023-11-20 13:26] VITALS: BP 139/76; PULSE 82; RESP 20; BMI 40.0
[2023-11-20 14:29] LABS: Amphetamine/Metha Screen,Urine Negative ng/ml (<1000); Barbiturates Screen,Urine Negative ng/ml (<200)
[2023-11-20 14:30] LABS: Benzodiazepines Screen,Urine Negative ng/ml (<200)
[2023-11-20 14:31] LABS: Cannabinoid Screen,Urine Negative ng/ml (<50); Cocaine Screen,Urine Negative ng/ml (<300)
[2023-11-20 14:32] LABS: Methadone Screen,Urine Negative ng/ml (<300)
[2023-11-20 14:33] LABS: Opiate Screen,Urine Positive ng/ml (<300); Phencyclidine Screen,Urine Negative ng/ml (<25)
[2023-11-24 22:20] LABS: Codeine Negative (Cutoff=100); Hydrocodone Positive (.); Hydromorphone Positive (.); Morphine Negative (Cutoff=100); Opiates Positive (.)
== END 2023-11-20 23:59 | disposition home or self-care (01) ==
PROVIDERS: PCP Nurse Practitioner Family; Visit Provider Nurse Practitioner Family
DX: Z79.891 Long term (current) use of opiate analgesic (principal); M51.16 Intervertebral disc disorders with radiculopathy, lumbar region
CPT/HCPCS: 80307; 80361; 80365; 99212; G0463; G0480

== ENCOUNTER 2023-12-22 13:05 | Outpatient (POV) | payer MEDICARE, SELFPAY ==
[2023-12-22 13:12] VITALS: BP 125/80; PULSE 86; RESP 20; O2SAT 94; BMI 41.3
--- NOTE | 2023-12-22 13:12 | A.OFFVIS_ITS ---
[facility] Pain Management SOAP Note Subjective:: Patient is a pleasant 63-year-old female who presents today for medication refill and follow-up. Today she rates her pain a 3 out of 10. She denies any new issues or injuries from her last visit. She is currently managed with gabapentin 100 mg daily and [place] 10 mg 3 times a day. She denies any side effects from this medication. Her Hans has been reviewed and is appropriate. Review of Systems: General: No recent weight changes, no fever, no sleep disturbances Respiratory: No cough, no shortness of air, no recurring pulmonary infections Cardiovascular/peripheral vascular: No chest pain, no palpitations, no edema, no shortness of breath Gastrointestinal: No new onset incontinence, normal bowel movements reported Genitourinary: No new onset incontinence Musculoskeletal: Low back pain Psychiatric: [Normal mood/affect] Neurological: [Denies weakness in extremities], [denies balance issues] Objective:: Physical Exam: General: Alert and oriented x3, no acute distress, pleasant and cooperative Lungs: Respirations even and unlabored, symmetrical chest expansion Eyes: PERRL Musculoskeletal: Flexion and extension of lumbar [spine] somewhat guarded secondary to pain, [antalgic gait noted] Neurological: Speech clear, no gross sensory deficit Assessment:: Degenerative disc disease of lumbar spine with lumbar radiculopathy symptoms Plan:: I will refill the patient's gabapentin 100 mg daily and [place] 10 mg 3 times a day and provide a 1 month supply of this medication. Patient will return to clinic in 1 month for reevaluation of symptoms and plan of care. Risks and benefits of the medication have been explained in detail to the patient. The patient does understand the risk of dependence on the medication when given over a prolonged period. Patient has been advised of risks of oversedation with the prescribed medication. Narcan has been offered to the paitent in the event of oversedation. Patient has been advised that a family member should also be educated regarding administration of Narcan. The patient has been advised to consult with his/her primary care provider and pharmacist regarding drug-drug interaction of medications currently prescribed. Patient has been prescribed a controlled substance after being counseled on the medication, medication safety, and possible side effects. Opioid contract was reviewed and signed by the patient, and that they have agreed to all of the terms set forth by our compliance program. Patient has been instructed to contact the clinic with any concerns before the next appointment. Dr. Au has reviewed this note and agrees with this plan of care. This note was dictated using voice recognition software and make contain errors or omissions. [facility] Disclaimer: The information contained in this section may have been updated after the patient was seen, as this information can be updated by other users. Social History (Updated 09/09/23 @ 13:05 by Seth Elkins CRNA) Smoking Status: Never smoker alcohol intake: never substance use type: denies use current occupational status: other Travel in the last 8 weeks: None
== END 2023-12-22 23:59 | disposition home or self-care (01) ==
PROVIDERS: PCP Nurse Practitioner Family; Visit Provider Nurse Practitioner Family
DX: M51.16 Intervertebral disc disorders with radiculopathy, lumbar region (principal)
CPT/HCPCS: 99212; G0463

== ENCOUNTER 2024-01-21 13:05 | Outpatient (POV) | payer MEDICARE, SELFPAY ==
--- NOTE | 2024-01-21 13:20 | EXP.PAIN.SOA ---
[facility] Pain Management SOAP Note Subjective:: Patient is a pleasant 63-year-old female who presents today for medication refill and follow-up. Today she rates her pain at 3 out of 10. Patient denies any new trauma or injury. Patient is currently managed with gabapentin 100 mg daily and [place] 10 mg 3 times a day. She states this medication does still help manage her overall pain symptoms and help make her more functional. Patient denies any side effects from this medication. Her Hans has been reviewed and is appropriate. Review of Systems: General: No recent weight changes, no fever, no sleep disturbances Respiratory: No cough, no shortness of air, no recurring pulmonary infections Cardiovascular/peripheral vascular: No chest pain, no palpitations, no edema, no shortness of breath Gastrointestinal: No new onset incontinence, normal bowel movements reported Genitourinary: No new onset incontinence Musculoskeletal: Low back pain Psychiatric: [Normal mood/affect] Neurological: [Denies weakness in extremities], [denies balance issues] Objective:: Physical Exam: General: Alert and oriented x3, no acute distress, pleasant and cooperative Lungs: Respirations even and unlabored, symmetrical chest expansion Eyes: PERRL Musculoskeletal: Flexion and extension of lumbar [spine] somewhat guarded secondary to pain, [antalgic gait noted] Neurological: Speech clear, no gross sensory deficit Assessment:: Degenerative disc disease of lumbar spine with lumbar radiculopathy symptoms Plan:: I will refill the patient's [place] and gabapentin and provide a 1 month supply of these medications. Patient will return to clinic in 1 month for reevaluation of symptoms and plan of care. Risks and benefits of the medication have been explained in detail to the patient. The patient does understand the risk of dependence on the medication when given over a prolonged period. Patient has been advised of risks of oversedation with the prescribed medication. Narcan has been offered to the paitent in the event of oversedation. Patient has been advised that a family member should also be educated regarding administration of Narcan. The patient has been advised to consult with his/her primary care provider and pharmacist regarding drug-drug interaction of medications currently prescribed. Patient has been prescribed a controlled substance after being counseled on the medication, medication safety, and possible side effects. Opioid contract was reviewed and signed by the patient, and that they have agreed to all of the terms set forth by our compliance program. Patient has been instructed to contact the clinic with any concerns before the next appointment. Dr. Au has reviewed this note and agrees with this plan of care. This note was dictated using voice recognition software and make contain errors or omissions. [facility] Disclaimer: The information contained in this section may have been updated after the patient was seen, as this information can be updated by other users. Social History (Updated 09/09/23 @ 13:05 by Seth Elkins CRNA) Smoking Status: Never smoker alcohol intake: never substance use type: denies use current occupational status: unemployed Travel in the last 8 weeks: None
[2024-01-21 14:23] VITALS: BP 147/84; PULSE 83; RESP 18; O2SAT 94; BMI 41.1
== END 2024-01-21 23:59 | disposition home or self-care (01) ==
PROVIDERS: PCP Nurse Practitioner Family; Visit Provider Nurse Practitioner Family
DX: M51.16 Intervertebral disc disorders with radiculopathy, lumbar region (principal)
CPT/HCPCS: 99212; G0463

== ENCOUNTER 2024-02-19 13:34 | Outpatient (POV) | payer MEDICARE, SELFPAY ==
[2024-02-19 13:50] VITALS: BP 157/76; PULSE 93; RESP 16; O2SAT 95; BMI 38.9
--- NOTE | 2024-02-19 14:18 | A.OFFVIS_ITS ---
[facility] Pain Management SOAP Note Subjective:: Patient is a pleasant 63-year-old female who presents today for medication refill and follow-up. Today she rates her pain a 3 out of 10. She states her current medications are working well. Patient is currently managed with gabapentin 100 mg daily and [place] 10 mg 3 times a day. Patient denies any side effects from this medication. Her Hans has been reviewed and is appropriate. Review of Systems: General: No recent weight changes, no fever, no sleep disturbances Respiratory: No cough, no shortness of air, no recurring pulmonary infections Cardiovascular/peripheral vascular: No chest pain, no palpitations, no edema, no shortness of breath Gastrointestinal: No new onset incontinence, normal bowel movements reported Genitourinary: No new onset incontinence Musculoskeletal: Low back Psychiatric: [Normal mood/affect] Neurological: [Denies weakness in extremities], [denies balance issues] Objective:: Physical Exam: General: Alert and oriented x3, no acute distress, pleasant and cooperative Lungs: Respirations even and unlabored, symmetrical chest expansion Eyes: PERRL Musculoskeletal: Flexion and extension of lumbar [spine] somewhat guarded secondary to pain, [antalgic gait noted] Neurological: Speech clear, no gross sensory deficit Assessment:: Degenerative disc disease of lumbar spine with lumbar radiculopathy symptoms Plan:: I will refill the patient's [place] and gabapentin and send in a 1 month supply of this medication. Patient will return to clinic in 1 month for reevaluation of symptoms and plan of care. Risks and benefits of the medication have been explained in detail to the patient. The patient does understand the risk of dependence on the medication when given over a prolonged period. Patient has been advised of risks of oversedation with the prescribed medication. Narcan has been offered to the paitent in the event of oversedation. Patient has been advised that a family member should also be educated regarding administration of Narcan. The patient has been advised to consult with his/her primary care provider and pharmacist regarding drug-drug interaction of medications currently prescribed. Patient has been prescribed a controlled substance after being counseled on the medication, medication safety, and possible side effects. Opioid contract was reviewed and signed by the patient, and that they have agreed to all of the terms set forth by our compliance program. Patient has been instructed to contact the clinic with any concerns before the next appointment. Dr. Au has reviewed this note and agrees with this plan of care. This note was dictated using voice recognition software and make contain errors or omissions. [facility] Disclaimer: The information contained in this section may have been updated after the patient was seen, as this information can be updated by other users. Social History (Updated 09/09/23 @ 13:05 by Seth Elkins CRNA) Smoking Status: Never smoker alcohol intake: never substance use type: denies use current occupational status: other Travel in the last 8 weeks: None
== END 2024-02-19 23:59 | disposition home or self-care (01) ==
PROVIDERS: PCP Nurse Practitioner Family; Visit Provider Nurse Practitioner Family
DX: M51.16 Intervertebral disc disorders with radiculopathy, lumbar region (principal)
CPT/HCPCS: 99212; G0463

== ENCOUNTER 2024-03-22 14:13 | Outpatient (POV) | payer MEDICARE, SELFPAY ==
[2024-03-22 14:34] VITALS: BP 139/79; PULSE 83; RESP 18; O2SAT 94; BMI 40.0
--- NOTE | 2024-03-22 14:37 | EXP.PAIN.SOA ---
[facility] Disclaimer: The information contained in this section may have been updated after the patient was seen, as this information can be updated by other users. Social History (Updated 09/09/23 @ 13:05 by Seth Elkins CRNA) Smoking Status: Never smoker alcohol intake: never substance use type: denies use current occupational status: disabled Travel in the last 8 weeks: None PM Subjective & Objective Subjective Subjective:: Patient is a pleasant 63-year-old female who presents today for medication refill and follow-up. Today she rates her pain 3 out of 10. She denies any new trauma or injury. Patient is currently managed with [place] 10 mg 3 times a day and gabapentin 100 mg daily. She denies any side effects. Her Hans has been reviewed and is appropriate. Review of Systems: General: No recent weight changes, no fever, no sleep disturbances Respiratory: No cough, no shortness of air, no recurring pulmonary infections Cardiovascular/peripheral vascular: No chest pain, no palpitations, no edema, no shortness of breath Gastrointestinal: No new onset incontinence, normal bowel movements reported Genitourinary: No new onset incontinence Musculoskeletal: [Low back pain psychiatric: [Normal mood/affect] Neurological: [Denies weakness in extremities], [denies balance issues] Pain at rest (0-10 scale): 3 Objective Objective:: Physical Exam: General: Alert and oriented x3, no acute distress, pleasant and cooperative Lungs: Respirations even and unlabored, symmetrical chest expansion Eyes: PERRL Musculoskeletal: Flexion and extension of lumbar [spine] somewhat guarded secondary to pain, [antalgic gait noted] Neurological: Speech clear, no gross sensory deficit Has patient had previous pain injection?: No Conservative treatment options previously tried: Prescription medications Length of treatment: Longer than 6 weeks Meds Home Medications and Allergies Home Medications Medication Instructions Recorded Confirmed Type fluoxetine 20 mg capsule 20 mg PO DAILY mood 08/13/21 03/22/24 History hydrochlorothiazide 25 mg tablet 25 mg PO DAILY fluid retention 08/13/21 03/22/24 History levothyroxine 150 mcg tablet 150 mcg PO DAILY hypothyroid 08/13/21 03/22/24 History pravastatin 40 mg tablet 40 mg PO HS Cholesterol 08/13/21 03/22/24 History valsartan 80 mg tablet 80 mg PO DAILY blood pressure 08/13/21 03/22/24 History naloxone 4 mg/actuation nasal spray 4 mg NS ONCE PRN oversedation #1 10/11/21 03/22/24 Rx mL gabapentin 100 mg capsule 100 mg PO DAILY Pain #30 caps 02/19/24 03/22/24 Rx hydrocodone 10 mg-acetaminophen 1 tab PO TID #90 tabs 02/19/24 03/22/24 Rx 325 mg tablet New Prescriptions to Start Prescriptions: Allergies Allergy/AdvReac Type Severity Reaction Status Date / Time No Known Drug Allergies Allergy Unknown Verified 06/21/19 10:27 Assessment and Plan *Assessment and plan (1) Degenerative disc disease, lumbar: Status: Acute Category: Medical Code(s): M51.36 - Other intervertebral disc degeneration, lumbar region (2) Lumbar radiculopathy: Status: Acute Category: Medical Code(s): M54.16 - Radiculopathy, lumbar region Plan I will refill the patient's [place] and gabapentin and provide a 1 month supply of this medication. Patient will return to clinic in 1 month for reevaluation of symptoms and plan of care. Risks and benefits of the medication have been explained in detail to the patient. The patient does understand the risk of dependence on the medication when given over a prolonged period. Patient has been advised of risks of oversedation with the prescribed medication. Narcan has been offered to the paitent in the event of oversedation. Patient has been advised that a family member should also be educated regarding administration of Narcan. The patient has been advised to consult with his/her primary care provider and pharmacist regarding drug-drug interaction of medications currently prescribed. Patient has been prescribed a controlled substance after being counseled on the medication, medication safety, and possible side effects. Opioid contract was reviewed and signed by the patient, and that they have agreed to all of the terms set forth by our compliance program. Patient has been instructed to contact the clinic with any concerns before the next appointment. Dr. Au has reviewed this note and agrees with this plan of care. This note was dictated using voice recognition software and make contain errors or omissions.
== END 2024-03-22 23:59 | disposition home or self-care (01) ==
PROVIDERS: PCP Nurse Practitioner Family; Visit Provider Nurse Practitioner Family
DX: M51.36 Other intervertebral disc degeneration, lumbar region (principal); M54.16 Radiculopathy, lumbar region
CPT/HCPCS: 99212; G0463

== ENCOUNTER 2024-04-21 13:20 | Outpatient (POV) | payer MEDICARE, SELFPAY ==
[2024-04-21 13:33] VITALS: BP 146/74; PULSE 77; RESP 18; O2SAT 94; BMI 40.0
--- NOTE | 2024-04-21 14:07 | EXP.PAIN.SOA ---
[facility] Disclaimer: The information contained in this section may have been updated after the patient was seen, as this information can be updated by other users. Social History (Updated 09/09/23 @ 13:05 by Seth Elkins CRNA) Smoking Status: Never smoker alcohol intake: never substance use type: denies use current occupational status: unemployed Travel in the last 8 weeks: None PM Subjective & Objective Subjective Subjective:: Patient is a pleasant 63-year-old female who presents today for medication refill. Today she rates her pain a 4 out of 10. Patient does state that she has been experience a little bit more back and leg pain but feels like she has been doing more activity. She states that there is a family member that is been in the hospital at [place] and that they have been making trips [id number]. Patient is currently managed with [place] 10 mg 3 times a day and gabapentin 100 mg daily. She denies any side effects from this medication. Her Hans has been reviewed and is appropriate. Review of Systems: General: No recent weight changes, no fever, no sleep disturbances Respiratory: No cough, no shortness of air, no recurring pulmonary infections Cardiovascular/peripheral vascular: No chest pain, no palpitations, no edema, no shortness of breath Gastrointestinal: No new onset incontinence, normal bowel movements reported Genitourinary: No new onset incontinence Musculoskeletal: Low back pain, leg pain Psychiatric: [Normal mood/affect] Neurological: [Denies weakness in extremities], [denies balance issues] Pain at rest (0-10 scale): 4 Objective Objective:: Physical Exam: General: Alert and oriented x3, no acute distress, pleasant and cooperative Lungs: Respirations even and unlabored, symmetrical chest expansion Eyes: PERRL Musculoskeletal: Flexion and extension of lumbar [spine] somewhat guarded secondary to pain, [antalgic gait noted] Neurological: Speech clear, no gross sensory deficit Has patient had previous pain injection?: No Conservative treatment options previously tried: Prescription medications Length of treatment: Longer than 6 weeks Meds Home Medications and Allergies Home Medications ?Medication ?Instructions ?Recorded ?Confirmed ?Type fluoxetine 20 mg capsule 20 mg PO DAILY mood 08/13/21 04/21/24 History hydrochlorothiazide 25 mg tablet 25 mg PO DAILY fluid retention 08/13/21 04/21/24 History levothyroxine 150 mcg tablet 150 mcg PO DAILY hypothyroid 08/13/21 04/21/24 History pravastatin 40 mg tablet 40 mg PO HS Cholesterol 08/13/21 04/21/24 History valsartan 80 mg tablet 80 mg PO DAILY blood pressure 08/13/21 04/21/24 History naloxone 4 mg/actuation nasal spray 4 mg NS ONCE PRN oversedation #1 10/11/21 04/21/24 Rx mL gabapentin 100 mg capsule 100 mg PO DAILY Pain #30 caps 03/22/24 04/21/24 Rx hydrocodone 10 mg-acetaminophen 1 tab PO TID #90 tabs 03/22/24 04/21/24 Rx 325 mg tablet New Prescriptions to Start Prescriptions: Allergies Allergy/AdvReac Type Severity Reaction Status Date / Time No Known Drug Allergies Allergy Unknown Verified 06/21/19 10:27 Assessment and Plan *Assessment and plan (1) Lumbar radiculopathy: Status: Acute Category: Medical Code(s): M54.16 - Radiculopathy, lumbar region (2) Degenerative disc disease, lumbar: Status: Acute Category: Medical Code(s): M51.36 - Other intervertebral disc degeneration, lumbar region Plan I will refill the patient's [place] and gabapentin and provide a 1 month supply of this medication. Patient will return to clinic in 1 month for reevaluation of symptoms and plan of care. Risks and benefits of the medication have been explained in detail to the patient. The patient does understand the risk of dependence on the medication when given over a prolonged period. Patient has been advised of risks of oversedation with the prescribed medication. Narcan has been offered to the paitent in the event of oversedation. Patient has been advised that a family member should also be educated regarding administration of Narcan. The patient has been advised to consult with his/her primary care provider and pharmacist regarding drug-drug interaction of medications currently prescribed. Patient has been prescribed a controlled substance after being counseled on the medication, medication safety, and possible side effects. Opioid contract was reviewed and signed by the patient, and that they have agreed to all of the terms set forth by our compliance program. Patient has been instructed to contact the clinic with any concerns before the next appointment. Dr. Au has reviewed this note and agrees with this plan of care. This note was dictated using voice recognition software and make contain errors or omissions.
== END 2024-04-21 23:59 | disposition home or self-care (01) ==
PROVIDERS: PCP Nurse Practitioner Family; Visit Provider Nurse Practitioner Family
DX: M51.16 Intervertebral disc disorders with radiculopathy, lumbar region (principal)
CPT/HCPCS: 99212; G0463

== ENCOUNTER 2024-06-28 10:55 | Outpatient (POV) | payer MEDICARE, SELFPAY ==
[2024-06-28 11:31] VITALS: BP 160/71; PULSE 99; RESP 16; O2SAT 99; BMI 51.0
--- NOTE | 2024-06-28 11:47 | EXP.PAIN.SOA ---
[facility] Disclaimer: The information contained in this section may have been updated after the patient was seen, as this information can be updated by other users. Social History (Updated 09/09/23 @ 13:05 by Seth Elkins CRNA) Smoking Status: Never smoker alcohol intake: never substance use type: denies use current occupational status: other Travel in the last 8 weeks: None PM Subjective & Objective Subjective Subjective:: Patient is a pleasant 64-year-old female who presents today for medication refill and follow-up. Today she rates her pain a 3 out of 10. She denies any new changes. She is currently prescribed [place] 10 mg 3 times a day and gabapentin 100 mg daily. She denies any side effects. Her Hans has been reviewed and is appropriate. Review of Systems: General: No recent weight changes, no fever, no sleep disturbances Respiratory: No cough, no shortness of air, no recurring pulmonary infections Cardiovascular/peripheral vascular: No chest pain, no palpitations, no edema, no shortness of breath Gastrointestinal: No new onset incontinence, normal bowel movements reported Genitourinary: No new onset incontinence Musculoskeletal: Low back pain Psychiatric: [Normal mood/affect] Neurological: [Denies weakness in extremities], [denies balance issues] Pain at rest (0-10 scale): 3 Objective Objective:: Physical Exam: General: Alert and oriented x3, no acute distress, pleasant and cooperative Lungs: Respirations even and unlabored, symmetrical chest expansion Eyes: PERRL Musculoskeletal: Flexion and extension of lumbar [spine] somewhat guarded secondary to pain, [antalgic gait noted] Neurological: Speech clear, no gross sensory deficit Has patient had previous pain injection?: No Conservative treatment options previously tried: Home exercise plan Length of treatment: Longer than 12 weeks Meds Home Medications and Allergies Home Medications ?Medication ?Instructions ?Recorded ?Confirmed ?Type fluoxetine 20 mg capsule 20 mg PO DAILY mood 08/13/21 06/28/24 History hydrochlorothiazide 25 mg tablet 25 mg PO DAILY fluid retention 08/13/21 06/28/24 History levothyroxine 150 mcg tablet 150 mcg PO DAILY hypothyroid 08/13/21 06/28/24 History pravastatin 40 mg tablet 40 mg PO HS Cholesterol 08/13/21 06/28/24 History valsartan 80 mg tablet 80 mg PO DAILY blood pressure 08/13/21 06/28/24 History naloxone 4 mg/actuation nasal spray 4 mg NS ONCE PRN oversedation #1 10/11/21 06/28/24 Rx mL gabapentin 100 mg capsule 100 mg PO DAILY #5 caps 05/05/24 06/28/24 Rx hydrocodone 10 mg-acetaminophen 1 tab PO TID #15 tabs 05/05/24 06/28/24 Rx 325 mg tablet gabapentin 100 mg capsule 100 mg PO DAILY Pain #30 caps 05/26/24 06/28/24 Rx hydrocodone 10 mg-acetaminophen 1 tab PO TID #90 tabs 05/26/24 06/28/24 Rx 325 mg tablet gabapentin 100 mg capsule 100 mg PO HS #4 caps 06/14/24 06/28/24 Rx hydrocodone 10 mg-acetaminophen 1 tab PO TID #12 tabs 06/14/24 06/28/24 Rx 325 mg tablet New Prescriptions to Start Prescriptions: Allergies Allergy/AdvReac Type Severity Reaction Status Date / Time No Known Drug Allergies Allergy Unknown Verified 06/21/19 10:27 Assessment and Plan *Assessment and plan (1) Lumbar radiculopathy: Status: Acute Category: Medical Code(s): M54.16 - Radiculopathy, lumbar region (2) Degenerative disc disease, lumbar: Status: Acute Category: Medical Code(s): M51.36 - Other intervertebral disc degeneration, lumbar region Plan I will refill the patient's [place] and gabapentin and provide a 1 month supply of this medication. Patient will return to clinic in 1 month for reevaluation of symptoms and plan of care. Risks and benefits of the medication have been explained in detail to the patient. The patient does understand the risk of dependence on the medication when given over a prolonged period. Patient has been advised of risks of oversedation with the prescribed medication. Narcan has been offered to the paitent in the event of oversedation. Patient has been advised that a family member should also be educated regarding administration of Narcan. The patient has been advised to consult with his/her primary care provider and pharmacist regarding drug-drug interaction of medications currently prescribed. Patient has been prescribed a controlled substance after being counseled on the medication, medication safety, and possible side effects. Opioid contract was reviewed and signed by the patient, and that they have agreed to all of the terms set forth by our compliance program. Patient has been instructed to contact the clinic with any concerns before the next appointment. Dr. Au has reviewed this note and agrees with this plan of care. This note was dictated using voice recognition software and make contain errors or omissions.
== END 2024-06-28 23:59 | disposition home or self-care (01) ==
PROVIDERS: PCP Nurse Practitioner Family; Visit Provider Nurse Practitioner Family
DX: M51.16 Intervertebral disc disorders with radiculopathy, lumbar region (principal)
CPT/HCPCS: 99212; G0463

== ENCOUNTER 2024-07-26 08:57 | Outpatient (POV) | payer MEDICARE, SELFPAY ==
--- NOTE | 2024-07-26 09:08 | EXP.PAIN.SOA ---
[facility] Disclaimer: The information contained in this section may have been updated after the patient was seen, as this information can be updated by other users. Social History (Updated 09/09/23 @ 13:05 by Seth Elkins CRNA) Smoking Status: Never smoker alcohol intake: never substance use type: denies use current occupational status: other Travel in the last 8 weeks: None PM Subjective & Objective Subjective Subjective:: Patient is a pleasant 64-year-old female who presents today for medication refill and 1 month follow-up. Today she rates her pain a 3 out of 10. She denies any new falls or injuries. She is currently managed with [place] 10 mg 3 times a day and gabapentin 100 mg daily. She denies any side effects from this medication. She does state today that her arthritis doctor who had done her handicap sticker in the past is now retiring and the placard is fixing to . Patient is requesting if that something that we can do. Her Hans has been reviewed and is appropriate. Review of Systems: General: No recent weight changes, no fever, no sleep disturbances Respiratory: No cough, no shortness of air, no recurring pulmonary infections Cardiovascular/peripheral vascular: No chest pain, no palpitations, no edema, no shortness of breath Gastrointestinal: No new onset incontinence, normal bowel movements reported Genitourinary: No new onset incontinence Musculoskeletal: Low back pain Psychiatric: [Normal mood/affect] Neurological: [Denies weakness in extremities], [denies balance issues] Pain at rest (0-10 scale): 3 Objective Objective:: Physical Exam: General: Alert and oriented x3, no acute distress, pleasant and cooperative Lungs: Respirations even and unlabored, symmetrical chest expansion Eyes: PERRL Musculoskeletal: Flexion and extension of lumbar [spine] somewhat guarded secondary to pain, [antalgic gait noted] Neurological: Speech clear, no gross sensory deficit Has patient had previous pain injection?: No Conservative treatment options previously tried: Home exercise plan Length of treatment: Longer than 12 weeks Meds Home Medications and Allergies Home Medications ?Medication ?Instructions ?Recorded ?Confirmed ?Type fluoxetine 20 mg capsule 20 mg PO DAILY mood 08/13/21 06/28/24 History hydrochlorothiazide 25 mg tablet 25 mg PO DAILY fluid retention 08/13/21 06/28/24 History levothyroxine 150 mcg tablet 150 mcg PO DAILY hypothyroid 08/13/21 06/28/24 History pravastatin 40 mg tablet 40 mg PO HS Cholesterol 08/13/21 06/28/24 History valsartan 80 mg tablet 80 mg PO DAILY blood pressure 08/13/21 06/28/24 History naloxone 4 mg/actuation nasal spray 4 mg NS ONCE PRN oversedation #1 10/11/21 06/28/24 Rx mL hydrocodone 10 mg-acetaminophen 1 tab PO TID #15 tabs 05/05/24 06/28/24 Rx 325 mg tablet gabapentin 100 mg capsule 100 mg PO DAILY Pain #30 caps 05/26/24 06/28/24 Rx gabapentin 100 mg capsule 100 mg PO HS #4 caps 06/14/24 06/28/24 Rx hydrocodone 10 mg-acetaminophen 1 tab PO TID #12 tabs 06/14/24 06/28/24 Rx 325 mg tablet gabapentin 100 mg capsule 100 mg PO DAILY #30 caps 06/28/24 Rx hydrocodone 10 mg-acetaminophen 1 tab PO TID #90 tabs 06/28/24 Rx 325 mg tablet New Prescriptions to Start Prescriptions: Allergies Allergy/AdvReac Type Severity Reaction Status Date / Time No Known Drug Allergies Allergy Unknown Verified 06/21/19 10:27 Assessment and Plan *Assessment and plan (1) Lumbar radiculopathy: Status: Acute Category: Medical Code(s): M54.16 - Radiculopathy, lumbar region (2) Degenerative disc disease, lumbar: Status: Acute Category: Medical Code(s): M51.36 - Other intervertebral disc degeneration, lumbar region Plan I will refill the patient's [place] and gabapentin and provide a 1 month supply of this medication. I did alcoholic counselor the patient just to go to the court house or online and there is a form that she can print off and have at [facility] Patient will return to clinic in 1 month for reevaluation of symptoms and plan of care. Risks and benefits of the medication have been explained in detail to the patient. The patient does understand the risk of dependence on the medication when given over a prolonged period. Patient has been advised of risks of oversedation with the prescribed medication. Narcan has been offered to the paitent in the event of oversedation. Patient has been advised that a family member should also be educated regarding administration of Narcan. The patient has been advised to consult with his/her primary care provider and pharmacist regarding drug-drug interaction of medications currently prescribed. Patient has been prescribed a controlled substance after being counseled on the medication, medication safety, and possible side effects. Opioid contract was reviewed and signed by the patient, and that they have agreed to all of the terms set forth by our compliance program. Patient has been instructed to contact the clinic with any concerns before the next appointment. Dr. Au has reviewed this note and agrees with this plan of care. This note was dictated using voice recognition software and make contain errors or omissions.
[2024-07-26 09:45] VITALS: BP 151/84; PULSE 76; RESP 20; O2SAT 94; BMI 38.9
== END 2024-07-26 23:59 | disposition home or self-care (01) ==
PROVIDERS: PCP Nurse Practitioner Family; Visit Provider Nurse Practitioner Family
DX: M51.16 Intervertebral disc disorders with radiculopathy, lumbar region (principal)
CPT/HCPCS: 99212; G0463

== ENCOUNTER 2024-08-23 09:31 | Outpatient (POV) | payer MEDICARE, SELFPAY ==
[2024-08-23 09:43] VITALS: BP 139/83; PULSE 111; RESP 18; O2SAT 96; BMI 40.6
--- NOTE | 2024-08-23 09:43 | EXP.PAIN.SOA ---
[facility] Disclaimer: The information contained in this section may have been updated after the patient was seen, as this information can be updated by other users. Social History (Updated 09/09/23 @ 13:05 by Seth Elkins CRNA) Smoking Status: Never smoker alcohol intake: never substance use type: denies use current occupational status: other Travel in the last 8 weeks: None PM Subjective & Objective Subjective Subjective:: Patient is a pleasant 64-year-old female who presents today for medication refill. Today she rates her pain a 4 out of 10. She denies any new falls or injuries. She states she is still doing well with her [place] 10 mg 3 times a day and gabapentin 100 mg daily. She denies any side effects. Her Hans has been reviewed and is appropriate. Review of Systems: General: No recent weight changes, no fever, no sleep disturbances Respiratory: No cough, no shortness of air, no recurring pulmonary infections Cardiovascular/peripheral vascular: No chest pain, no palpitations, no edema, no shortness of breath Gastrointestinal: No new onset incontinence, normal bowel movements reported Genitourinary: No new onset incontinence Musculoskeletal: Low back pain Psychiatric: [Normal mood/affect] Neurological: [Denies weakness in extremities], [denies balance issues] Pain at rest (0-10 scale): 4 Objective Objective:: Physical Exam: General: Alert and oriented x3, no acute distress, pleasant and cooperative Lungs: Respirations even and unlabored, symmetrical chest expansion Eyes: PERRL Musculoskeletal: Flexion and extension of lumbar [spine] somewhat guarded secondary to pain, [antalgic gait noted] Neurological: Speech clear, no gross sensory deficit Has patient had previous pain injection?: No Conservative treatment options previously tried: Prescription medications Length of treatment: Longer than 12 weeks Meds Home Medications and Allergies Home Medications ?Medication ?Instructions ?Recorded ?Confirmed ?Type fluoxetine 20 mg capsule 20 mg PO DAILY mood 08/13/21 08/23/24 History hydrochlorothiazide 25 mg tablet 25 mg PO DAILY fluid retention 08/13/21 08/23/24 History levothyroxine 150 mcg tablet 150 mcg PO DAILY hypothyroid 08/13/21 08/23/24 History pravastatin 40 mg tablet 40 mg PO HS Cholesterol 08/13/21 08/23/24 History valsartan 80 mg tablet 80 mg PO DAILY blood pressure 08/13/21 08/23/24 History naloxone 4 mg/actuation nasal spray 4 mg NS ONCE PRN oversedation #1 10/11/21 08/23/24 Rx mL hydrocodone 10 mg-acetaminophen 1 tab PO TID #15 tabs 05/05/24 08/23/24 Rx 325 mg tablet gabapentin 100 mg capsule 100 mg PO DAILY #30 caps 07/26/24 08/23/24 Rx New Prescriptions to Start Prescriptions: Allergies Allergy/AdvReac Type Severity Reaction Status Date / Time No Known Drug Allergies Allergy Unknown Verified 06/21/19 10:27 Assessment and Plan *Assessment and plan (1) Lumbar radiculopathy: Status: Acute Category: Medical Code(s): M54.16 - Radiculopathy, lumbar region (2) Degenerative disc disease, lumbar: Status: Acute Category: Medical Code(s): M51.36 - Other intervertebral disc degeneration, lumbar region Plan I will refill her [place] and gabapentin and provide a 1 month supply of this medication. Patient will return to clinic in 1 month for reevaluation of symptoms and plan of care. Risks and benefits of the medication have been explained in detail to the patient. The patient does understand the risk of dependence on the medication when given over a prolonged period. Patient has been advised of risks of oversedation with the prescribed medication. Narcan has been offered to the paitent in the event of oversedation. Patient has been advised that a family member should also be educated regarding administration of Narcan. The patient has been advised to consult with his/her primary care provider and pharmacist regarding drug-drug interaction of medications currently prescribed. Patient has been prescribed a controlled substance after being counseled on the medication, medication safety, and possible side effects. Opioid contract was reviewed and signed by the patient, and that they have agreed to all of the terms set forth by our compliance program. Patient has been instructed to contact the clinic with any concerns before the next appointment. Dr. Au has reviewed this note and agrees with this plan of care. This note was dictated using voice recognition software and make contain errors or omissions.
== END 2024-08-23 23:59 | disposition home or self-care (01) ==
PROVIDERS: PCP Nurse Practitioner Family; Visit Provider Nurse Practitioner Family
DX: M51.16 Intervertebral disc disorders with radiculopathy, lumbar region (principal)
CPT/HCPCS: 99212; G0463

== ENCOUNTER 2024-09-27 09:26 | Outpatient (POV) | payer MEDICARE, SELFPAY ==
--- NOTE | 2024-09-27 09:41 | A.OFFVIS_ITS ---
[facility] Disclaimer: The information contained in this section may have been updated after the patient was seen, as this information can be updated by other users. Social History (Updated 09/09/23 @ 13:05 by Seth Elkins CRNA) Smoking Status: Never smoker alcohol intake: never substance use type: denies use current occupational status: other Travel in the last 8 weeks: None Have you lived/traveled outside [place] in past 30 days?: No Contact w/someone who lives/traveled outside [place] past 30 days?: No Exposure to someone with infectious disease in past 14 days?: No Do you have a fever (greater than 100.4 F or 38 C)?: No Have you tested positive for COVID-19: No Exposed to someone with COVID-19 in past 14 days?: No Do you have a sore throat?: No Do you have a cough?: No Do you have any weakness?: No Do you have any diarrhea?: No Are you experiencing any unusual bleeding?: No Do you have any muscle aches/pain?: No Do you have any abdominal pain?: No Are you experiencing loss of taste or smell?: No PM Subjective & Objective Subjective Subjective:: Patient is a pleasant 64-year-old female who presents today for medication refill and 1 month follow-up. Today she rates her pain a 4 out of 10. She denies any new falls or injuries or changes from her last appointment. She is managed with [place] 10 mg 3 times a day and gabapentin 100 mg daily. She denies any side effects. Her Hans has been reviewed and is appropriate. Review of Systems: General: No recent weight changes, no fever, no sleep disturbances Respiratory: No cough, no shortness of air, no recurring pulmonary infections Cardiovascular/peripheral vascular: No chest pain, no palpitations, no edema, no shortness of breath Gastrointestinal: No new onset incontinence, normal bowel movements reported Genitourinary: No new onset incontinence Musculoskeletal: Low back pain Psychiatric: [Normal mood/affect] Neurological: [Denies weakness in extremities], [denies balance issues] Pain at rest (0-10 scale): 4 Objective Objective:: Physical Exam: General: Alert and oriented x3, no acute distress, pleasant and cooperative Lungs: Respirations even and unlabored, symmetrical chest expansion Eyes: PERRL Musculoskeletal: Flexion and extension of lumbar [spine] somewhat guarded secondary to pain, [antalgic gait noted] Neurological: Speech clear, no gross sensory deficit Has patient had previous pain injection?: No Conservative treatment options previously tried: Prescription medications Length of treatment: Longer than 12 weeks Meds Home Medications and Allergies Home Medications ?Medication ?Instructions ?Recorded ?Confirmed ?Type fluoxetine 20 mg capsule 20 mg PO DAILY mood 08/13/21 08/23/24 History hydrochlorothiazide 25 mg tablet 25 mg PO DAILY fluid retention 08/13/21 08/23/24 History levothyroxine 150 mcg tablet 150 mcg PO DAILY hypothyroid 08/13/21 08/23/24 History pravastatin 40 mg tablet 40 mg PO HS Cholesterol 08/13/21 08/23/24 History valsartan 80 mg tablet 80 mg PO DAILY blood pressure 08/13/21 08/23/24 History naloxone 4 mg/actuation nasal spray 4 mg NS ONCE PRN oversedation #1 10/11/21 08/23/24 Rx mL gabapentin 100 mg capsule 100 mg PO DAILY #30 caps 08/23/24 Rx hydrocodone 10 mg-acetaminophen 1 tab PO TID #90 tabs 08/23/24 Rx 325 mg tablet New Prescriptions to Start Prescriptions: Allergies Allergy/AdvReac Type Severity Reaction Status Date / Time No Known Drug Allergies Allergy Unknown Verified 06/21/19 10:27 Assessment and Plan *Assessment and plan (1) Lumbar radiculopathy: Status: Acute Category: Medical Code(s): M54.16 - Radiculopathy, lumbar region (2) Degenerative disc disease, lumbar: Status: Acute Category: Medical Code(s): M51.369 - Other intervertebral disc degeneration, lumbar region without mention of lumbar back pain or lower extremity pain Plan We will refill her [place] and gabapentin and provide a 1 month supply of these medications. Patient will return to clinic in 1 month for reevaluation of symptoms and plan of care. Risks and benefits of the medication have been explained in detail to the patient. The patient does understand the risk of dependence on the medication when given over a prolonged period. Patient has been advised of risks of oversedation with the prescribed medication. Narcan has been offered to the paitent in the event of oversedation. Patient has been advised that a family member should also be educated regarding administration of Narcan. The patient has been advised to consult with his/her primary care provider and pharmacist regarding drug-drug interaction of medications currently prescribed. Patient has been prescribed a controlled substance after being counseled on the medication, medication safety, and possible side effects. Opioid contract was reviewed and signed by the patient, and that they have agreed to all of the terms set forth by our compliance program. A UDS is needed to verify patient's compliance with our office pain contract. This is ordered based off specific treatments related to chronic pain with the potential to abuse certain medications. Patient has been instructed to contact the clinic with any concerns before the next appointment. Dr. Au has reviewed this note and agrees with this plan of care. This note was dictated using voice recognition software and make contain errors or omissions.
[2024-09-27 10:05] VITALS: BP 176/82; PULSE 79; RESP 14; O2SAT 92; BMI 39.4
== END 2024-09-27 23:59 | disposition home or self-care (01) ==
PROVIDERS: PCP Nurse Practitioner Family; Visit Provider Nurse Practitioner Family
DX: M51.16 Intervertebral disc disorders with radiculopathy, lumbar region (principal)
CPT/HCPCS: 99212; G0463

== ENCOUNTER 2024-10-28 09:10 | Outpatient (POV) | payer MEDICARE, SELFPAY ==
--- NOTE | 2024-10-28 09:13 | EXP.PAIN.SOA ---
[facility] Disclaimer: The information contained in this section may have been updated after the patient was seen, as this information can be updated by other users. Social History (Updated 09/09/23 @ 13:05 by Seth Elkins CRNA) Smoking Status: Never smoker alcohol intake: never substance use type: denies use current occupational status: other Travel in the last 8 weeks: None Have you lived/traveled outside [place] in past 30 days?: No Contact w/someone who lives/traveled outside [place] past 30 days?: No Exposure to someone with infectious disease in past 14 days?: No Do you have a fever (greater than 100.4 F or 38 C)?: No Have you tested positive for COVID-19: No Exposed to someone with COVID-19 in past 14 days?: No Do you have a sore throat?: No Do you have a cough?: No Do you have any weakness?: No Do you have any diarrhea?: No Are you experiencing any unusual bleeding?: No Do you have any muscle aches/pain?: No Do you have any abdominal pain?: No Are you experiencing loss of taste or smell?: No PM Subjective & Objective Subjective Subjective:: Patient is a pleasant 64-year-old female who presents today for medication refill. Today she rates her pain a 4 out of 10. She denies any new falls or injuries. She is managed with [place] 10 mg 3 times a day and gabapentin 100 mg daily. She denies any side effects. Her Hans has been reviewed and is appropriate. Review of Systems: General: No recent weight changes, no fever, no sleep disturbances Respiratory: No cough, no shortness of air, no recurring pulmonary infections Cardiovascular/peripheral vascular: No chest pain, no palpitations, no edema, no shortness of breath Gastrointestinal: No new onset incontinence, normal bowel movements reported Genitourinary: No new onset incontinence Musculoskeletal: Low back pain Psychiatric: [Normal mood/affect] Neurological: [Denies weakness in extremities], [denies balance issues] Pain at rest (0-10 scale): 4 Objective Objective:: Physical Exam: General: Alert and oriented x3, no acute distress, pleasant and cooperative Lungs: Respirations even and unlabored, symmetrical chest expansion Eyes: PERRL Musculoskeletal: Flexion and extension of lumbar [spine] somewhat guarded secondary to pain, [antalgic gait noted] Neurological: Speech clear, no gross sensory deficit Has patient had previous pain injection?: No Conservative treatment options previously tried: Prescription medications Length of treatment: Longer than 12 weeks Meds Home Medications and Allergies Home Medications ?Medication ?Instructions ?Recorded ?Confirmed ?Type fluoxetine 20 mg capsule 20 mg PO DAILY mood 08/13/21 08/23/24 History hydrochlorothiazide 25 mg tablet 25 mg PO DAILY fluid retention 08/13/21 08/23/24 History levothyroxine 150 mcg tablet 150 mcg PO DAILY hypothyroid 08/13/21 08/23/24 History pravastatin 40 mg tablet 40 mg PO HS Cholesterol 08/13/21 08/23/24 History valsartan 80 mg tablet 80 mg PO DAILY blood pressure 08/13/21 08/23/24 History naloxone 4 mg/actuation nasal spray 4 mg NS ONCE PRN oversedation #1 10/11/21 08/23/24 Rx mL gabapentin 100 mg capsule 100 mg PO DAILY #30 caps 10/28/24 Rx hydrocodone 10 mg-acetaminophen 1 tab PO TID #90 tabs 10/28/24 Rx 325 mg tablet New Prescriptions to Start Prescriptions: gabapentin Morrow,Sarah A hydrocodone-acetaminophen Morrow,Sarah A Allergies Allergy/AdvReac Type Severity Reaction Status Date / Time No Known Drug Allergies Allergy Unknown Verified 06/21/19 10:27 Assessment and Plan *Assessment and plan (1) Lumbar radiculopathy: Status: Acute Category: Medical Code(s): M54.16 - Radiculopathy, lumbar region (2) Degenerative disc disease, lumbar: Status: Acute Category: Medical Code(s): M51.369 - Other intervertebral disc degeneration, lumbar region without mention of lumbar back pain or lower extremity pain Plan I will refill her [place] and gabapentin and provide a 1 month supply of this medication. Patient will return to clinic in 1 month. Risks and benefits of the medication have been explained in detail to the patient. The patient does understand the risk of dependence on the medication when given over a prolonged period. Patient has been advised of risks of oversedation with the prescribed medication. Narcan has been offered to the paitent in the event of oversedation. Patient has been advised that a family member should also be educated regarding administration of Narcan. The patient has been advised to consult with his/her primary care provider and pharmacist regarding drug-drug interaction of medications currently prescribed. Patient has been prescribed a controlled substance after being counseled on the medication, medication safety, and possible side effects. Opioid contract was reviewed and signed by the patient, and that they have agreed to all of the terms set forth by our compliance program. A UDS is needed to verify patient's compliance with our office pain contract. This is ordered based off specific treatments related to chronic pain with the potential to abuse certain medications. Patient has been instructed to contact the clinic with any concerns before the next appointment. Dr. Au has reviewed this note and agrees with this plan of care. This note was dictated using voice recognition software and make contain errors or omissions.
[2024-10-28 09:31] VITALS: BP 133/77; PULSE 83; RESP 14; O2SAT 94; BMI 48.2
== END 2024-10-28 23:59 | disposition home or self-care (01) ==
PROVIDERS: PCP Nurse Practitioner Family; Visit Provider Nurse Practitioner Family
DX: M51.16 Intervertebral disc disorders with radiculopathy, lumbar region (principal)
CPT/HCPCS: 99212; G0463

== ENCOUNTER 2024-11-25 13:20 | Outpatient (POV) | payer MEDICARE, SELFPAY ==
--- NOTE | 2024-11-25 13:52 | EXP.PAIN.SOA ---
[facility] Disclaimer: The information contained in this section may have been updated after the patient was seen, as this information can be updated by other users. Social History (Updated 09/09/23 @ 13:05 by Seth Elkins CRNA) Smoking Status: Never smoker alcohol intake: never substance use type: denies use current occupational status: other Travel in the last 8 weeks: None Have you lived/traveled outside [place] in past 30 days?: No Contact w/someone who lives/traveled outside US past 30 days?: No Exposure to someone with infectious disease in past 14 days?: No Do you have a fever (greater than 100.4 F or 38 C)?: No Have you tested positive for COVID-19: No Exposed to someone with COVID-19 in past 14 days?: No Do you have a sore throat?: No Do you have a cough?: No Do you have any weakness?: No Do you have any diarrhea?: No Are you experiencing any unusual bleeding?: No Do you have any muscle aches/pain?: No Do you have any abdominal pain?: No Are you experiencing loss of taste or smell?: No PM Subjective & Objective Subjective Subjective:: Patient is a pleasant 64-year-old female who presents today for monthly medication refill. Today she rates her pain a 3 out of 10. She denies any new trauma or injury. Patient is currently managed with [place] 10 mg 3 times a day and gabapentin 100 mg daily. She denies any side effects. Patient did recently change her insurance and had to do a PA on her last prescription. Her Hans has been reviewed and is appropriate. Review of Systems: General: No recent weight changes, no fever, no sleep disturbances Respiratory: No cough, no shortness of air, no recurring pulmonary infections Cardiovascular/peripheral vascular: No chest pain, no palpitations, no edema, no shortness of breath Gastrointestinal: No new onset incontinence, normal bowel movements reported Genitourinary: No new onset incontinence Musculoskeletal: Low back pain Psychiatric: [Normal mood/affect] Neurological: [Denies weakness in extremities], [denies balance issues] Pain at rest (0-10 scale): 3 Objective Objective:: physical Exam: General: Alert and oriented x3, no acute distress, pleasant and cooperative Lungs: Respirations even and unlabored, symmetrical chest expansion Eyes: PERRL Musculoskeletal: Flexion and extension of lumbar [spine] somewhat guarded secondary to pain, [antalgic gait noted] Neurological: Speech clear, no gross sensory deficit Has patient had previous pain injection?: No Conservative treatment options previously tried: Prescription medications Length of treatment: Longer than 12-weeks Meds Home Medications and Allergies Home Medications ?Medication ?Instructions ?Recorded ?Confirmed ?Type fluoxetine 20 mg capsule 20 mg PO DAILY mood 08/13/21 10/28/24 History hydrochlorothiazide 25 mg tablet 25 mg PO DAILY fluid retention 08/13/21 10/28/24 History levothyroxine 150 mcg tablet 150 mcg PO DAILY hypothyroid 08/13/21 10/28/24 History pravastatin 40 mg tablet 40 mg PO HS Cholesterol 08/13/21 10/28/24 History valsartan 80 mg tablet 80 mg PO DAILY blood pressure 08/13/21 10/28/24 History naloxone 4 mg/actuation nasal spray 4 mg NS ONCE PRN oversedation #1 10/11/21 10/28/24 Rx mL gabapentin 100 mg capsule 100 mg PO DAILY #30 caps 10/28/24 Rx hydrocodone 10 mg-acetaminophen 1 tab PO TID #69 tabs 10/28/24 Rx 325 mg tablet hydrocodone 10 mg-acetaminophen 1 tab PO TID #90 tabs 10/28/24 Rx 325 mg tablet New Prescriptions to Start Prescriptions: Allergies Allergy/AdvReac Type Severity Reaction Status Date / Time No Known Drug Allergies Allergy Unknown Verified 06/21/19 10:27 Assessment and Plan *Assessment and plan (1) Lumbar radiculopathy: Status: Acute Category: Medical Code(s): M54.16 - Radiculopathy, lumbar region (2) Degenerative disc disease, lumbar: Status: Acute Category: Medical Code(s): M51.369 - Other intervertebral disc degeneration, lumbar region without mention of lumbar back pain or lower extremity pain Plan I will refill the patient's [place] and gabapentin and provide a 1 month supply of this medication. Patient will return to clinic in 1 month. Risks and benefits of the medication have been explained in detail to the patient. The patient does understand the risk of dependence on the medication when given over a prolonged period. Patient has been advised of risks of oversedation with the prescribed medication. Narcan has been offered to the paitent in the event of oversedation. Patient has been advised that a family member should also be educated regarding administration of Narcan. The patient has been advised to consult with his/her primary care provider and pharmacist regarding drug-drug interaction of medications currently prescribed. Patient has been prescribed a controlled substance after being counseled on the medication, medication safety, and possible side effects. Opioid contract was reviewed and signed by the patient, and that they have agreed to all of the terms set forth by our compliance program. A UDS is needed to verify patient's compliance with our office pain contract. This is ordered based off specific treatments related to chronic pain with the potential to abuse certain medications. Patient has been instructed to contact the clinic with any concerns before the next appointment. Dr. Au has reviewed this note and agrees with this plan of care. This note was dictated using voice recognition software and make contain errors or omissions.
[2024-11-25 14:55] VITALS: BP 154/78; BP 158/78; RESP 16; O2SAT 96; BMI 39.7
== END 2024-11-25 23:59 | disposition home or self-care (01) ==
PROVIDERS: PCP Nurse Practitioner Family; Visit Provider Nurse Practitioner Family
DX: M51.16 Intervertebral disc disorders with radiculopathy, lumbar region (principal)
CPT/HCPCS: 99212; G0463

== ENCOUNTER 2024-12-23 14:52 | Outpatient (POV) | payer MEDICARE, SELFPAY ==
--- NOTE | 2024-12-23 15:18 | EXP.PAIN.SOA ---
[facility] Disclaimer: The information contained in this section may have been updated after the patient was seen, as this information can be updated by other users. Social History (Updated 09/09/23 @ 13:05 by Seth Elkins CRNA) Smoking Status: Never smoker alcohol intake: never substance use type: denies use current occupational status: other Travel in the last 8 weeks: None Have you lived/traveled outside [place] in past 30 days?: No Contact w/someone who lives/traveled outside US past 30 days?: No Exposure to someone with infectious disease in past 14 days?: No Do you have a fever (greater than 100.4 F or 38 C)?: No Have you tested positive for COVID-19: No Exposed to someone with COVID-19 in past 14 days?: No Do you have a sore throat?: No Do you have a cough?: No Do you have any weakness?: No Do you have any diarrhea?: No Are you experiencing any unusual bleeding?: No Do you have any muscle aches/pain?: No Do you have any abdominal pain?: No Are you experiencing loss of taste or smell?: No PM Subjective & Objective Subjective Subjective:: Patient is a pleasant 64-year-old female who presents today for 1 month follow-up and medication refill. Today she rates her pain a 3 out of 10. She denies any new trauma or injury. She states overall she is doing still well with her current medicines. Patient is prescribed [place] 10 mg 3 times a day and gabapentin 100 mg daily. She denies any side effects. Her Hans has been reviewed and is appropriate. Review of Systems: General: No recent weight changes, no fever, no sleep disturbances Respiratory: No cough, no shortness of air, no recurring pulmonary infections Cardiovascular/peripheral vascular: No chest pain, no palpitations, no edema, no shortness of breath Gastrointestinal: No new onset incontinence, normal bowel movements reported Genitourinary: No new onset incontinence Musculoskeletal: Low back pain Psychiatric: [Normal mood/affect] Neurological: [Denies weakness in extremities], [denies balance issues] Pain at rest (0-10 scale): 3 Objective Objective:: Physical Exam: General: Alert and oriented x3, no acute distress, pleasant and cooperative Lungs: Respirations even and unlabored, symmetrical chest expansion Eyes: PERRL Musculoskeletal: Flexion and extension of lumbar [spine] somewhat guarded secondary to pain, [antalgic gait noted] Neurological: Speech clear, no gross sensory deficit Has patient had previous pain injection?: No Conservative treatment options previously tried: Prescription medications Length of treatment: Longer than 12 weeks Meds Home Medications and Allergies Home Medications ?Medication ?Instructions ?Recorded ?Confirmed ?Type fluoxetine 20 mg capsule 20 mg PO DAILY mood 08/13/21 11/25/24 History hydrochlorothiazide 25 mg tablet 25 mg PO DAILY fluid retention 08/13/21 11/25/24 History levothyroxine 150 mcg tablet 150 mcg PO DAILY hypothyroid 08/13/21 11/25/24 History pravastatin 40 mg tablet 40 mg PO HS Cholesterol 08/13/21 11/25/24 History valsartan 80 mg tablet 80 mg PO DAILY blood pressure 08/13/21 11/25/24 History naloxone 4 mg/actuation nasal spray 4 mg NS ONCE PRN oversedation #1 10/11/21 11/25/24 Rx mL hydrocodone 10 mg-acetaminophen 1 tab PO TID #69 tabs 10/28/24 11/25/24 Rx 325 mg tablet gabapentin 100 mg capsule 100 mg PO DAILY #30 caps 12/23/24 Rx hydrocodone 10 mg-acetaminophen 1 tab PO TID #90 tabs 12/23/24 Rx 325 mg tablet New Prescriptions to Start Prescriptions: gabapentin CristhianSarah A hydrocodone-acetaminophen CristhianSarah A Allergies Allergy/AdvReac Type Severity Reaction Status Date / Time No Known Drug Allergies Allergy Unknown Verified 06/21/19 10:27 Assessment and Plan *Assessment and plan (1) Lumbar radiculopathy: Status: Acute Category: Medical Code(s): M54.16 - Radiculopathy, lumbar region (2) Degenerative disc disease, lumbar: Status: Acute Category: Medical Code(s): M51.369 - Other intervertebral disc degeneration, lumbar region without mention of lumbar back pain or lower extremity pain Plan I will make sure she has refills on her [place] and gabapentin. Patient will return to clinic in 1 month. Risks and benefits of the medication have been explained in detail to the patient. The patient does understand the risk of dependence on the medication when given over a prolonged period. Patient has been advised of risks of oversedation with the prescribed medication. Narcan has been offered to the paitent in the event of oversedation. Patient has been advised that a family member should also be educated regarding administration of Narcan. The patient has been advised to consult with his/her primary care provider and pharmacist regarding drug-drug interaction of medications currently prescribed. Patient has been prescribed a controlled substance after being counseled on the medication, medication safety, and possible side effects. Opioid contract was reviewed and signed by the patient, and that they have agreed to all of the terms set forth by our compliance program. A UDS is needed to verify patient's compliance with our office pain contract. This is ordered based off specific treatments related to chronic pain with the potential to abuse certain medications. Patient has been instructed to contact the clinic with any concerns before the next appointment. Dr. Au has reviewed this note and agrees with this plan of care. This note was dictated using voice recognition software and make contain errors or omissions.
[2024-12-23 15:26] VITALS: BP 155/79; BP 160/79; PULSE 80; RESP 14; O2SAT 96; BMI 40.3
== END 2024-12-23 23:59 | disposition home or self-care (01) ==
PROVIDERS: PCP Nurse Practitioner Family; Visit Provider Nurse Practitioner Family
DX: M51.16 Intervertebral disc disorders with radiculopathy, lumbar region (principal)
CPT/HCPCS: 99212; G0463

== ENCOUNTER 2025-01-21 14:00 | Outpatient (POV) | payer MEDICARE, SELFPAY ==
[2025-01-21 14:06] VITALS: BP 148/69; PULSE 70; RESP 14; O2SAT 94; BMI 43.9
--- NOTE | 2025-01-21 14:08 | EXP.PAIN.SOA ---
[facility] Disclaimer: The information contained in this section may have been updated after the patient was seen, as this information can be updated by other users. Social History Smoking Status: Never smoker alcohol intake: never substance use type: denies use current occupational status: other Travel in the last 8 weeks?: None PM Subjective & Objective Subjective Subjective:: Patient is a pleasant 64-year-old female who presents today for medication refill and follow-up. Today she rates her pain a 3 out of 10. She denies any new trauma or injury. Patient is currently managed with gabapentin 100 mg daily and [place] 10 mg 3 times a day from our office. She denies any side effects. Her Hans has been reviewed and is appropriate. Review of Systems: General: No recent weight changes, no fever, no sleep disturbances Respiratory: No cough, no shortness of air, no recurring pulmonary infections Cardiovascular/peripheral vascular: No chest pain, no palpitations, no edema, no shortness of breath Gastrointestinal: No new onset incontinence, normal bowel movements reported Genitourinary: No new onset incontinence Musculoskeletal: Low back pain Psychiatric: [Normal mood/affect] Neurological: [Denies weakness in extremities], [denies balance issues] Pain at rest (0-10 scale): 3 Objective Objective:: Physical Exam: General: Alert and oriented x3, no acute distress, pleasant and cooperative Lungs: Respirations even and unlabored, symmetrical chest expansion Eyes: PERRL Musculoskeletal: Flexion and extension of lumbar [spine] somewhat guarded secondary to pain, [antalgic gait noted] Neurological: Speech clear, no gross sensory deficit Has patient had previous pain injection?: No Conservative treatment options previously tried: Home exercise plan Length of treatment: Longer than 12-week Meds Home Medications and Allergies Home Medications ?Medication ?Instructions ?Recorded ?Confirmed ?Type fluoxetine 20 mg capsule 20 mg PO DAILY mood 08/13/21 12/23/24 History hydrochlorothiazide 25 mg tablet 25 mg PO DAILY fluid retention 08/13/21 12/23/24 History levothyroxine 150 mcg tablet 150 mcg PO DAILY hypothyroid 08/13/21 12/23/24 History pravastatin 40 mg tablet 40 mg PO HS Cholesterol 08/13/21 12/23/24 History valsartan 80 mg tablet 80 mg PO DAILY blood pressure 08/13/21 12/23/24 History naloxone 4 mg/actuation nasal spray 4 mg NS ONCE PRN oversedation #1 10/11/21 12/23/24 Rx mL hydrocodone 10 mg-acetaminophen 1 tab PO TID #69 tabs 10/28/24 12/23/24 Rx 325 mg tablet gabapentin 100 mg capsule 100 mg PO DAILY #30 caps 12/23/24 Rx hydrocodone 10 mg-acetaminophen 1 tab PO TID #90 tabs 12/23/24 Rx 325 mg tablet New Prescriptions to Start Prescriptions: Allergies Allergy/AdvReac Type Severity Reaction Status Date / Time No Known Drug Allergies Allergy Unknown Verified 06/21/19 10:27 Assessment and Plan *Assessment and plan (1) Lumbar radiculopathy: Status: Acute Category: Medical Code(s): M54.16 - Radiculopathy, lumbar region (2) Degenerative disc disease, lumbar: Status: Acute Category: Medical Code(s): M51.369 - Other intervertebral disc degeneration, lumbar region without mention of lumbar back pain or lower extremity pain Plan I will refill the patient's [place] and gabapentin and provide a 1 month supply of this medication. Patient will return to clinic in 1 month for reevaluation of symptoms and plan of care. Risks and benefits of the medication have been explained in detail to the patient. The patient does understand the risk of dependence on the medication when given over a prolonged period. Patient has been advised of risks of oversedation with the prescribed medication. Narcan has been offered to the paitent in the event of oversedation. Patient has been advised that a family member should also be educated regarding administration of Narcan. The patient has been advised to consult with his/her primary care provider and pharmacist regarding drug-drug interaction of medications currently prescribed. Patient has been prescribed a controlled substance after being counseled on the medication, medication safety, and possible side effects. Opioid contract was reviewed and signed by the patient, and that they have agreed to all of the terms set forth by our compliance program. A UDS is needed to verify patient's compliance with our office pain contract. This is ordered based off specific treatments related to chronic pain with the potential to abuse certain medications. Patient has been instructed to contact the clinic with any concerns before the next appointment. Dr. Au has reviewed this note and agrees with this plan of care. This note was dictated using voice recognition software and make contain errors or omissions.
== END 2025-01-21 23:59 | disposition home or self-care (01) ==
PROVIDERS: PCP Nurse Practitioner Family; Visit Provider Nurse Practitioner Family
DX: M51.16 Intervertebral disc disorders with radiculopathy, lumbar region (principal)
CPT/HCPCS: 99212; G0463

== ENCOUNTER 2025-02-21 13:43 | Outpatient (POV) | payer MEDICARE, SELFPAY ==
--- NOTE | 2025-02-21 13:50 | EXP.PAIN.SOA ---
[facility] Disclaimer: The information contained in this section may have been updated after the patient was seen, as this information can be updated by other users. Social History Smoking Status: Never smoker alcohol intake: never substance use type: denies use current occupational status: other Travel in the last 8 weeks?: None Have you lived/traveled outside [place] in past 30 days?: No Contact w/someone who lives/traveled outside [place] past 30 days?: No Exposure to someone with infectious disease in past 14 days?: No Do you have a fever (greater than 100.4 F or 38 C)?: No Have you tested positive for COVID-19?: No Exposed to someone with COVID-19 in past 14 days?: No Do you have a sore throat?: No Do you have a cough?: No Do you have any weakness?: No Do you have any diarrhea?: No Are you experiencing any unusual bleeding?: No Do you have any muscle aches/pain?: No Do you have any abdominal pain?: No Are you experiencing loss of taste or smell?: No PM Subjective & Objective Subjective Subjective:: Patient is a pleasant 64-year-old female who presents today for her 1 month medication refill. She rates her pain at 4 out of 10. Patient does state that she is continuing to do well with her current medicines. Patient is prescribed gabapentin 100 mg daily and [place] 10 mg 3 times a day. She denies any side effects or changes to her pharmacy. Her Hans has been reviewed and is appropriate. Review of Systems: General: No recent weight changes, no fever, no sleep disturbances Respiratory: No cough, no shortness of air, no recurring pulmonary infections Cardiovascular/peripheral vascular: No chest pain, no palpitations, no edema, no shortness of breath Gastrointestinal: No new onset incontinence, normal bowel movements reported Genitourinary: No new onset incontinence Musculoskeletal: Chronic back pain Psychiatric: [Normal mood/affect] Neurological: [Denies weakness in extremities], [denies balance issues] Pain at rest (0-10 scale): 4 Objective Objective:: Physical Exam: General: Alert and oriented x3, no acute distress, pleasant and cooperative Lungs: Respirations even and unlabored, symmetrical chest expansion Eyes: PERRL Musculoskeletal: Flexion and extension of lumbar [spine] somewhat guarded secondary to pain, [antalgic gait noted] Neurological: Speech clear, no gross sensory deficit Has patient had previous pain injection?: No Conservative treatment options previously tried: Prescription medications Length of treatment: Longer than 12 weeks Meds Home Medications and Allergies Home Medications ?Medication ?Instructions ?Recorded ?Confirmed ?Type fluoxetine 20 mg capsule 20 mg PO DAILY mood 08/13/21 01/21/25 History hydrochlorothiazide 25 mg tablet 25 mg PO DAILY fluid retention 08/13/21 01/21/25 History levothyroxine 150 mcg tablet 150 mcg PO DAILY hypothyroid 08/13/21 01/21/25 History pravastatin 40 mg tablet 40 mg PO HS Cholesterol 08/13/21 01/21/25 History valsartan 80 mg tablet 80 mg PO DAILY blood pressure 08/13/21 01/21/25 History naloxone 4 mg/actuation nasal spray 4 mg NS ONCE PRN oversedation #1 10/11/21 01/21/25 Rx mL hydrocodone 10 mg-acetaminophen 1 tab PO TID #69 tabs 10/28/24 01/21/25 Rx 325 mg tablet gabapentin 100 mg capsule 100 mg PO DAILY #30 caps 02/21/25 Rx hydrocodone 10 mg-acetaminophen 1 tab PO TID #90 tabs 02/21/25 Rx 325 mg tablet New Prescriptions to Start Prescriptions: gabapentin CristhianSarah A hydrocodone-acetaminophen CristhianSarah A Allergies Allergy/AdvReac Type Severity Reaction Status Date / Time No Known Drug Allergies Allergy Unknown Verified 06/21/19 10:27 Assessment and Plan *Assessment and plan (1) Lumbar radiculopathy: Status: Acute Category: Medical Code(s): M54.16 - Radiculopathy, lumbar region (2) Degenerative disc disease, lumbar: Status: Acute Category: Medical Code(s): M51.369 - Other intervertebral disc degeneration, lumbar region without mention of lumbar back pain or lower extremity pain Plan I will refill the patient's [place] and gabapentin and provide a 1 month supply of the pain medication a 3-month supply of the gabapentin. Patient is continuing to do well with this medication regimen. She will return to clinic in 1 month for reevaluation of symptoms and plan of care. Risks and benefits of the medication have been explained in detail to the patient. The patient does understand the risk of dependence on the medication when given over a prolonged period. Patient has been advised of risks of oversedation with the prescribed medication. Narcan has been offered to the paitent in the event of oversedation. Patient has been advised that a family member should also be educated regarding administration of Narcan. The patient has been advised to consult with his/her primary care provider and pharmacist regarding drug-drug interaction of medications currently prescribed. Patient has been prescribed a controlled substance after being counseled on the medication, medication safety, and possible side effects. Opioid contract was reviewed and signed by the patient, and that they have agreed to all of the terms set forth by our compliance program. A UDS is needed to verify patient's compliance with our office pain contract. This is ordered based off specific treatments related to chronic pain with the potential to abuse certain medications. Patient has been instructed to contact the clinic with any concerns before the next appointment. Dr. Au has reviewed this note and agrees with this plan of care. This note was dictated using voice recognition software and make contain errors or omissions.
--- OUTSIDE RECORDS SUMMARY | 2025-02-21 13:53 | XMS_ITS | Data Portability ---
Author Organization [facility] [facility] Address [address] [place] [address] Care Team Providers Care Foxer Name Role Phone DARIANA CHRISTINE Primary Care Provider Unavailabl e Assessment Encounter Date Assessment Date Assessment LastModified by Organization Details LastModified Time 04/07/2023 04/07/2023 She was scheduled at last visit for mammogram and colonoscopy and no showed both appointments. She refused to weigh today. [email or web address] Not available 04/07/2023 10:28:39 Plan of Treatment Reminders Order Date Submit Date Provider Last Modified By Organization Details Last Modified Time Details Appointments None recorded. Lab CBC w/ auto diff 2024 025 [facility], [address] [place] [address], [address], 5 07:08:12 CMP, serum or plasma 2024 025 [facility], [address] [place] [address], [address], 5 07:08:13 vitamin D, 25-hydroxy, total, serum 2024 025 [facility], [address] [place] [address], [address], 5 07:08:13 TSH + free T4, serum 2024 025 [facility], [address] [place] [address], [address], 5 07:08:11 vitamin D, 25-hydroxy, total, serum 2023 024 [facility] [address] [place], [address], 4 08:12:58 CMP, serum or plasma 2023 024 [facility] [place], [address], 4 08:12:57 CBC w/ auto diff [address] [facility] [address] [place] [address], [address], 4 08:12:57 TSH + free T4, serum 2023 024 [facility] [address] [place], [address], 4 08:12:56 lipid panel, serum 2023 024 [employer] [facility], [address], [place], [address], 4 08:45:01 vitamin D, 25-hydroxy, total, serum 2023 024 [employer] [facility], [address], [place], [address], 4 08:45:03 HbA1c (hemoglobin A1c), blood 2023 024 [employer] [facility], [address], [place], [address], 4 08:45:04 TSH, serum or plasma 2023 024 [employer] [facility], [address], [place], [address], 4 08:45:03 CBC w/ auto diff 2023 024 [employer] [facility], [address], [place], [address], 4 08:45:02 CMP, serum or plasma 2023 024 [employer] [facility], [address], [place], [address], 4 08:45:02 lipid panel, serum 2022 023 [employer] [facility], [address], [place], [address], 3 05:04:12 CMP, serum or plasma 2022 023 [facility], [address], [place], [address], 3 05:04:12 CBC w/ auto diff 2022 023 [facility], [address], [place], [address], 3 05:04:13 TSH, serum or plasma 2022 023 [facility], [address], [place], [address], 3 05:04:13 Referral None recorded. Procedures None recorded. Surgeries None recorded. Imaging US, echocardiog vaibhav - Uncontrolle d HTN with Orthopnea; same day as mammo please [address] Scheduling Department -New Scheduling Process, [address], [place], [address], 4 10:58:53 MAMMO, screening, digital, bilateral - need a friday appointment [email or web address] Scheduling Department -New Scheduling Process, [address], [place], [address], 4 10:58:14 Medication Orders hydrochloro thiazide 12.5 mg capsule 2024 025 [facility], [address] [place] [address], [address], 5 09:39:38 Bactrim DS 800 mg-160 mg tablet 2024 [facility], [address] [place] [address], [address], 5 09:39:35 fluoxetine 40 mg capsule 2024 [facility], [address] [place] [address], [address], 5 09:39:37 neomycin-po lymyxin-dex ameth 3.5 mg/mL-10,00 0 unit/mL-0.1 % eye drops 2024 [facility], [address] [place] [address], [address], 5 09:39:36 omeprazole 40 mg capsule,del ayed release 2024 [facility], [address] [place] [address], [address], 5 09:39:34 levothyroxi ne 150 mcg tablet 2024 025 [facility], [address] [place] [address], [address], 5 09:39:37 ergocalcife rol (vitamin D2) 1,250 mcg (50,000 unit) capsule 2023 024 [facility], [address] [place] [address], [address], 4 11:25:58 valsartan 80 mg tablet 2023 025 [facility], [address] [place] [address], [id number], 5 13:44:19 hydrochloro thiazide 25 mg tablet 2023 025 [facility], [address] [place] [address], [address], 5 14:05:50 fluoxetine 40 mg capsule 2023 024 [facility], [address] [place] [address], [address], 4 14:04:50 omeprazole 40 mg capsule,del ayed release 2023 024 [facility], [address] [place] [address], [address], 4 12:19:27 levothyroxi ne 150 mcg tablet 2023 024 [facility], [address] [place] [address], [address], 4 14:38:16 valsartan 80 mg tablet [email or web address] [place] [address] Pharmacy, [address] [place] [address], [address], 5 13:38:53 Bactrim DS 800 mg-160 mg tablet 2023 024 [facility], [address] [place] [address], [address], 4 07:54:20 fluoxetine 40 mg capsule 2022 023 [facility], [address] [place] [address], [address], 3 12:50:24 omeprazole 40 mg capsule,del ayed release 2022 023 [facility], [address] [place] [address], [address], 3 12:50:26 valsartan 80 mg tablet [email or web address], [address] [place] [address], [address], 5 13:38:53 levothyroxi ne 150 mcg tablet 2022 023 [facility], [address] [place] [address], [address], 4 16:35:12 Patient TargetsNo targets recorded. Patient InstructionsNo instructions recorded. Reason for Referral None Reported. Results Created Date Observation Date Name Description Value Unit Range Abnormal Flag Note LastModifiedBy Organization Detail LastModifiedTime 04/07/2004/08/2023 LIPID PANEL , STAND JANET cholesterol, total 228 mg/dL <200 high Not Available [facility] [address] [place], [address], 04/08/2023 08:36:47 04/07/20 23 04/08/2023 LIPID PANEL , STAND JANET HDL cholesterol 59 mg/dL > or = 50 normal Not Available [facility] [address] [place], [address], 04/08/2023 08:36:47 04/07/20 23 04/08/2023 LIPID PANEL , STAND JANET triglyceride s 186 mg/dL <150 high Not Available [facility] [address], [place], [address], 04/08/2023 08:36:47 04/07/20 23 04/08/2023 LIPID PANEL , STAND JANET LDL-choleste rol 137 mg/dL _(hannah c) high Refer ence range : <100 Zohreh able range <100 mg/dL for prima ry preve ntion ; <70 mg/dL for patie nts with CHD or diabe tic patie nts with > or = 2 CHD risk facto rs. LDL-C is now calcu lated using the Joelle n-Hop kins calcu latio n, which is a valid ated novel mauricioo d farhanai marlon audrey r accur acy than the Fried jacob equat ion in the estim ation of LDL-C . Joelle blackwood SS et al. CYNDIE. 2013; 310(1 9): 2061- 2068 (http ://ed ucati on.Qu dainAddy. com/f aq/FA Q164) Not Available [facility] [address], [place], [address], 04/08/2023 08:36:47 04/07/2004/08/2023 LIPID PANEL , STAND JANET chol/HDLC ratio 3.9 (calc ) <5.0 normal Not Available [facility] [address], [place], [address], 04/08/2023 08:36:47 04/07/20 23 04/08/2023 LIPID PANEL , STAND JANET non HDL cholesterol 169 mg/dL _(hannah c) <130 high For patie nts with diabe dorothy plus 1 major ASCVD risk facto r, treat ing to a non-H DL-C goal of <100 mg/dL (LDL- C of <70 mg/dL ) is alexi fabiola flowers optio n. Not Available [facility] [address], [place], [address], 04/08/2023 08:36:47 04/07/20 23 04/08/2023 COMPR EHENS MENDY METAB OLIC PANEL glucose 90 mg/dL 65-99 normal Fasti ng refer ence inter adelso Not Available [facility] [address] [place], [address], 04/08/2023 08:36:47 04/07/20 23 04/08/2023 COMPR EHENS MENDY METAB OLIC PANEL urea nitrogen (BUN) 16 mg/dL 7-25 normal Not Available [facility] [address] [place], [address], 04/08/2023 08:36:47 04/07/20 23 04/08/2023 COMPR EHENS MENDY METAB OLIC PANEL creatinine 0.89 mg/dL 0.50-1 .05 normal Not Available [facility] [address] [place], [address], 04/08/2023 08:36:47 04/07/20 23 04/08/2023 COMPR EHENS MENDY METAB OLIC PANEL eGFR 73 mL/mi n/1.7 3m2 > or = 60 normal The eGFR is based on the CKD-E PI 2020 equat ion. To calcu late the new eGFR from a previ ous Creat inine or Cysta tin C resul t, go to https ://sheldon yates.o tadeo/castillo causye s/ kdoqi /gfr% 5Fcal culat or Not Available [facility] [address] [place], [address], 04/08/2023 08:36:47 04/07/20 23 04/08/2023 COMPR EHENS MENDY METAB OLIC PANEL BUN/creatini ne ratio NOT APPLIC ABLE (calc ) 6-22 Not Available [facility] [address] [place], [address], 04/08/2023 08:36:47 04/07/20 23 04/08/2023 COMPR EHENS MENDY METAB OLIC PANEL sodium 143 mmol/ L 135-14 6 normal Not Available [facility] [address] [place], [address], 04/08/2023 08:36:47 04/07/20 23 04/08/2023 COMPR EHENS MENDY METAB OLIC PANEL potassium 4.8 mmol/ L 3.5-5. 3 normal Not Available [facility] [address] [place], [address], 04/08/2023 08:36:47 04/07/20 23 04/08/2023 COMPR EHENS MENDY METAB OLIC PANEL chloride 107 mmol/ L 98-110 normal Not Available [facility] [address] [place], [address], 04/08/2023 08:36:47 04/07/20 23 04/08/2023 COMPR EHENS MENDY METAB OLIC PANEL carbon dioxide 28 mmol/ L 20-32 normal Not Available [facility] [address] [place], [address], 04/08/2023 08:36:47 04/07/20 23 04/08/2023 COMPR EHENS MENDY METAB OLIC PANEL calcium 9.4 mg/dL 8.6-10 .4 normal Not Available [facility] [address] [place], [address], 04/08/2023 08:36:47 04/07/20 23 04/08/2023 COMPR EHENS MENDY METAB OLIC PANEL protein, total 6.8 g/dL 6.1-8. 1 normal Not Available [facility] [address] [place], [address], 04/08/2023 08:36:47 04/07/20 23 04/08/2023 COMPR EHENS MENDY METAB OLIC PANEL albumin 4.3 g/dL 3.6-5. 1 normal Not Available [facility] [address] [facility] [place], [address], 04/08/2023 08:36:47 04/07/20 23 04/08/2023 COMPR EHENS MENDY METAB OLIC PANEL globulin 2.5 g/dL_ (calc ) 1.9-3. 7 normal Not Available [facility] [address] [facility] [place], [address], 04/08/2023 08:36:47 04/07/20 23 04/08/2023 COMPR EHENS MENDY METAB OLIC PANEL albumin/glob ulin ratio 1.7 (calc ) 1.0-2. 5 normal Not Available [facility] [address] [facility] [place], [address], 04/08/2023 08:36:47 04/07/20 23 04/08/2023 COMPR EHENS MENDY METAB OLIC PANEL bilirubin, total 0.6 mg/dL 0.2-1. 2 normal Not Available [facility] [address] [facility] [place], [address], 04/08/2023 08:36:47 04/07/20 23 04/08/2023 COMPR EHENS MENDY METAB OLIC PANEL alkaline phosphatase 121 U/L 37-153 normal Not Available [facility] [address] [facility] [place], [address], 04/08/2023 08:36:47 04/07/20 23 04/08/2023 COMPR EHENS MENDY METAB OLIC PANEL AST 13 U/L 10-35 normal Not Available [facility] [facility] [place], [address], 04/08/2023 08:36:47 04/07/20 23 04/08/2023 COMPR EHENS MENDY METAB OLIC PANEL ALT 12 U/L 6-29 normal Not Available [facility] [place], [address], 04/08/2023 08:36:47 04/07/2004/08/2023 CBC (INCL UDES DIFF/ PLT) white blood cell count 10.2 thous and/u L 3.8-10 .8 normal Not Available [facility] [address] [facility] [place], [address], 04/08/2023 05:04:13 04/07/2004/08/2023 CBC (INCL UDES DIFF/ PLT) red blood cell count 4.34 nahomy on/uL 3.80-5 .10 normal Not Available [facility] [address] [facility] [place], [address], 04/08/2023 05:04:13 04/07/2004/08/2023 CBC (INCL UDES DIFF/ PLT) hemoglobin 13.2 g/dL 11.7-1 5.5 normal Not Available [facility] [address] [facility] [place], [address], 04/08/2023 05:04:13 04/07/2004/08/2023 CBC (INCL UDES DIFF/ PLT) hematocrit 41.1 % 35.0-4 5.0 normal Not Available [facility] [address] [facility] [place], [address], 04/08/2023 05:04:13 04/07/2004/08/2023 CBC (INCL UDES DIFF/ PLT) MCV 94.7 fL 80.0-1 00.0 normal Not Available [facility] [address] [place], [address], 04/08/2023 05:04:13 04/07/2004/08/2023 CBC (INCL UDES DIFF/ PLT) MCH 30.4 pg 27.0-3 3.0 normal Not Available [facility] [address] [facility] [place], [address], 04/08/2023 05:04:13 04/07/2004/08/2023 CBC (INCL UDES DIFF/ PLT) MCHC 32.1 g/dL 32.0-3 6.0 normal Not Available [facility] [address] [facility] [place], [address], 04/08/2023 05:04:13 04/07/2004/08/2023 CBC (INCL UDES DIFF/ PLT) RDW 14.4 % 11.0-1 5.0 normal Not Available [facility] [address] [facility] [place], [address], 04/08/2023 05:04:13 04/07/2004/08/2023 CBC (INCL UDES DIFF/ PLT) platelet count 281 thous and/u L 140-40 0 normal Not Available [facility] [address] [facility] [place], [address], 04/08/2023 05:04:13 04/07/2004/08/2023 CBC (INCL UDES DIFF/ PLT) MPV 11.4 fL 7.5-12 .5 normal Not Available [facility] [address] [facility] [place], [address], 04/08/2023 05:04:13 04/07/2004/08/2023 CBC (INCL UDES DIFF/ PLT) absolute neutrophils 7273 cells /uL 1500-7 800 normal Not Available [facility] [address] [facility] [place], [address], 04/08/2023 05:04:13 04/07/2004/08/2023 CBC (INCL UDES DIFF/ PLT) absolute lymphocytes 1979 cells /uL 850-39 00 normal Not Available [facility] [address] [facility] [place], [address], 04/08/2023 05:04:13 04/07/20 23 04/08/2023 CBC (INCL UDES DIFF/ PLT) absolute monocytes 653 cells /uL 200-95 0 normal Not Available [facility] [address], [place], [address], 04/08/2023 05:04:13 04/07/20 23 04/08/2023 CBC (INCL UDES DIFF/ PLT) absolute eosinophils 204 cells /uL 15-500 normal Not Available [facility] [address], [place], [address], 04/08/2023 05:04:13 04/07/20 23 04/08/2023 CBC (INCL UDES DIFF/ PLT) absolute basophils 92 cells /uL 0-200 normal Not Available [facility] [address] [facility], [place], [address], 04/08/2023 05:04:13 04/07/20 23 04/08/2023 CBC (INCL UDES DIFF/ PLT) neutrophils 71.3 % normal Not Available [facility] [address], [place], [address], 04/08/2023 05:04:13 04/07/20 23 04/08/2023 CBC (INCL UDES DIFF/ PLT) lymphocytes 19.4 % normal Not Available [facility] [address], [place], [address], 04/08/2023 05:04:13 04/07/20 23 04/08/2023 CBC (INCL UDES DIFF/ PLT) monocytes 6.4 % normal Not Available [facility] [address], [place], [address], 04/08/2023 05:04:13 04/07/20 23 04/08/2023 CBC (INCL UDES DIFF/ PLT) eosinophils 2.0 % normal Not Available [facility] [address] [place], [address], 04/08/2023 05:04:13 04/07/2004/08/2023 CBC (INCL UDES DIFF/ PLT) basophils 0.9 % normal Not Available [facility] [address] [place], [address], 04/08/2023 05:04:13 04/07/2004/08/2023 TSH W/REF SIRISHA TO FT4 TSH w/reflex to FT4 0.65 mIU/L 0.40-4 .50 normal Not Available [facility] [address] [place], [address], 04/08/2023 07:13:37 10/25/19 24 10/26/2023 LIPID PANEL , STAND JANET cholesterol, total 225 mg/dL <200 high Not Available [facility] [address] [place], [address], 10/26/2023 09:45:40 10/25/19 24 10/26/2023 LIPID PANEL , STAND JANET HDL cholesterol 52 mg/dL > or = 50 normal Not Available [facility] [address] [place], [address], 10/26/2023 09:45:40 10/25/19 24 10/26/2023 LIPID PANEL , STAND JANET triglyceride s 178 mg/dL <150 high Not Available [facility] [address] [place], [address], 10/26/2023 09:45:40 10/25/19 24 10/26/2023 LIPID PANEL , STAND JANET LDL-choleste rol 142 mg/dL _(hannah c) high Refer ence range : <100 Zohreh able range <100 mg/dL for prima ry preve ntion ; <70 mg/dL for patie nts with CHD or diabe tic patie nts with > or = 2 CHD risk facto rs. LDL-C is now calcu lated using the Joelle n-Hop kins calcu mark n, which is a valid ated novel claudia jacobsen than the Fried jacob samy ion in the estim ation of LDL-C . Joelle blackwood SS et al. CYNDIE. 2013; 310(1 9): 2061- 2068 (http ://ed ucati on.Qu estDi Satmexs. com/f aq/FA Q164) Not Available [facility] [address] [facility], [place], [address], 10/26/2023 09:45:40 10/25/19 24 10/26/2023 LIPID PANEL , STAND JANET chol/HDLC ratio 4.3 (calc ) <5.0 normal Not Available [facility] [address] [facility] [place], [address], 10/26/2023 09:45:40 10/25/19 24 10/26/2023 LIPID PANEL , STAND JANET non HDL cholesterol 173 mg/dL _(hannah c) <130 high For patie nts with diabe dorothy plus 1 major ASCVD risk facto r, treat ing to a non-H DL-C goal of <100 mg/dL (LDL- C of <70 mg/dL ) is consi markd a wilfredo flowers optio n. Not Available [facility] [address], [place], [address], 10/26/2023 09:45:40 10/25/19 24 10/26/2023 COMPR EHENS MENDY METAB OLIC PANEL glucose 76 mg/dL 65-99 normal Fasti ng refer ence inter adelso Not Available [facility] [address], [place], [address], 10/26/2023 09:45:40 10/25/19 24 10/26/2023 COMPR EHENS MENDY METAB OLIC PANEL urea nitrogen (BUN) 14 mg/dL 7-25 normal Not Available [facility] [address] [place], [address], 10/26/2023 09:45:40 10/25/19 24 10/26/2023 COMPR EHENS MENDY METAB OLIC PANEL creatinine 0.72 mg/dL 0.50-1 .05 normal Not Available [facility] [address] [place], [address], 10/26/2023 09:45:40 10/25/19 24 10/26/2023 COMPR EHENS MENDY METAB OLIC PANEL eGFR 94 mL/mi n/1.7 3m2 > or = 60 normal Not Available [facility] [address] [place], [address], 10/26/2023 09:45:40 10/25/19 24 10/26/2023 COMPR EHENS MENDY METAB OLIC PANEL BUN/creatini ne ratio SEE NOTE: (calc ) 6-22 Not Repor elizabeth: BUN and Creat inine are withi n refer ence range . Not Available [facility] [address] [place], [address], 10/26/2023 09:45:40 10/25/19 24 10/26/2023 COMPR EHENS MENDY METAB OLIC PANEL sodium 144 mmol/ L 135-14 6 normal Not Available [facility] [address] [place], [address], 10/26/2023 09:45:40 10/25/19 24 10/26/2023 COMPR EHENS MENDY METAB OLIC PANEL potassium 4.4 mmol/ L 3.5-5. 3 normal Not Available [facility] [address] [place], [address], 10/26/2023 09:45:40 10/25/19 24 10/26/2023 COMPR EHENS MENDY METAB OLIC PANEL chloride 110 mmol/ L 98-110 normal Not Available [facility] [address] [facility] [place], [address], 10/26/2023 09:45:40 10/25/19 24 10/26/2023 COMPR EHENS MENDY METAB OLIC PANEL carbon dioxide 23 mmol/ L 20-32 normal Not Available [facility] [address] [place], [address], 10/26/2023 09:45:40 10/25/19 24 10/26/2023 COMPR EHENS MENDY METAB OLIC PANEL calcium 9.1 mg/dL 8.6-10 .4 normal Not Available [facility] [address] [facility] [place], [address], 10/26/2023 09:45:40 10/25/19 24 10/26/2023 COMPR EHENS MENDY METAB OLIC PANEL protein, total 6.7 g/dL 6.1-8. 1 normal Not Available [facility] [address] [facility] [place], [address], 10/26/2023 09:45:40 10/25/19 24 10/26/2023 COMPR EHENS MENDY METAB OLIC PANEL albumin 4.2 g/dL 3.6-5. 1 normal Not Available [facility] [address] [place], [address], 10/26/2023 09:45:40 10/25/19 24 10/26/2023 COMPR EHENS MENDY METAB OLIC PANEL globulin 2.5 g/dL_ (calc ) 1.9-3. 7 normal Not Available [facility] [address] [facility] [place], [address], 10/26/2023 09:45:40 10/25/19 24 10/26/2023 COMPR EHENS MENDY METAB OLIC PANEL albumin/glob ulin ratio 1.7 (calc ) 1.0-2. 5 normal Not Available [facility] [address] [place], [address], 10/26/2023 09:45:40 10/25/19 24 10/26/2023 COMPR EHENS MENDY METAB OLIC PANEL bilirubin, total 0.7 mg/dL 0.2-1. 2 normal Not Available [facility] [address] [place], [address], 10/26/2023 09:45:40 10/25/19 24 10/26/2023 COMPR EHENS MENDY METAB OLIC PANEL alkaline phosphatase 122 U/L 37-153 normal Not Available [facility] [address] [place], [address], 10/26/2023 09:45:40 10/25/19 24 10/26/2023 COMPR EHENS MENDY METAB OLIC PANEL AST 13 U/L 10-35 normal Not Available [facility] [address] [place], [address], 10/26/2023 09:45:40 10/25/19 24 10/26/2023 COMPR EHENS MENDY METAB OLIC PANEL ALT 11 U/L 6-29 normal Not Available [facility] [address] [facility] [place], [address], 10/26/2023 09:45:40 10/25/19 24 10/26/2023 CBC (INCL UDES DIFF/ PLT) white blood cell count 10.2 thous and/u L 3.8-10 .8 normal Not Available [facility] [address] [place], [address], 10/26/2023 08:45:02 10/25/19 24 10/26/2023 CBC (INCL UDES DIFF/ PLT) red blood cell count 4.55 nahomy on/uL 3.80-5 .10 normal Not Available [facility] [address] [place], [address], 10/26/2023 08:45:02 10/25/19 24 10/26/2023 CBC (INCL UDES DIFF/ PLT) hemoglobin 13.8 g/dL 11.7-1 5.5 normal Not Available [facility] [address] [place], [address], 10/26/2023 08:45:02 10/25/19 24 10/26/2023 CBC (INCL UDES DIFF/ PLT) hematocrit 41.9 % 35.0-4 5.0 normal Not Available [facility] [address] [place], [address], 10/26/2023 08:45:02 10/25/19 24 10/26/2023 CBC (INCL UDES DIFF/ PLT) MCV 92.1 fL 80.0-1 00.0 normal Not Available [facility] [address] [facility] [place], [address], 10/26/2023 08:45:02 10/25/19 24 10/26/2023 CBC (INCL UDES DIFF/ PLT) MCH 30.3 pg 27.0-3 3.0 normal Not Available [facility] [address] [place] [address], [id number], 10/26/2023 08:45:02 10/25/19 24 10/26/2023 CBC (INCL UDES DIFF/ PLT) MCHC 32.9 g/dL 32.0-3 6.0 normal Not Available [facility] [address] [place], [address], 10/26/2023 08:45:02 10/25/19 24 10/26/2023 CBC (INCL UDES DIFF/ PLT) RDW 14.5 % 11.0-1 5.0 normal Not Available [facility] [address] [facility] [place], [address], 10/26/2023 08:45:02 10/25/19 24 10/26/2023 CBC (INCL UDES DIFF/ PLT) platelet count 282 thous and/u L 140-40 0 normal Not Available [facility] [address], [place], [address], 10/26/2023 08:45:02 10/25/19 24 10/26/2023 CBC (INCL UDES DIFF/ PLT) MPV 11.7 fL 7.5-12 .5 normal Not Available [facility] [address], [place], [address], 10/26/2023 08:45:02 10/25/19 24 10/26/2023 CBC (INCL UDES DIFF/ PLT) absolute neutrophils 7436 cells /uL 1500-7 800 normal Not Available [facility] [address], [place], [address], 10/26/2023 08:45:02 10/25/19 24 10/26/2023 CBC (INCL UDES DIFF/ PLT) absolute lymphocytes 1826 cells /uL 850-39 00 normal Not Available [facility] [address], [place], [address], 10/26/2023 08:45:02 10/25/19 24 10/26/2023 CBC (INCL UDES DIFF/ PLT) absolute monocytes 632 cells /uL 200-95 0 normal Not Available [facility] [address], [place], [address], 10/26/2023 08:45:02 10/25/19 24 10/26/2023 CBC (INCL UDES DIFF/ PLT) absolute eosinophils 235 cells /uL 15-500 normal Not Available [facility] [address], [place], [address], 10/26/2023 08:45:02 02/10/20 24 10/26/2023 CBC (INCL UDES DIFF/ PLT) absolute basophils 71 cells /uL 0-200 normal Not Available [facility] [place] [facility] [address] [facility] [place], [address], 10/26/2023 08:45:02 10/25/19 24 10/26/2023 CBC (INCL UDES DIFF/ PLT) neutrophils 72.9 % normal Not Available [facility] [place] [facility] [address] [facility], [address], 10/26/2023 08:45:02 10/25/19 24 10/26/2023 CBC (INCL UDES DIFF/ PLT) lymphocytes 17.9 % normal Not Available [facility] [place] [facility] [address] [facility] [place], [address], 10/26/2023 08:45:02 10/25/19 24 10/26/2023 CBC (INCL UDES DIFF/ PLT) monocytes 6.2 % normal Not Available [facility] [place] [facility] [address] [facility] [place], [address], 10/26/2023 08:45:02 10/25/19 24 10/26/2023 CBC (INCL UDES DIFF/ PLT) eosinophils 2.3 % normal Not Available [facility] [place] [facility] [address] [facility] [place], [address], 10/26/2023 08:45:02 10/25/19 24 10/26/2023 CBC (INCL UDES DIFF/ PLT) basophils 0.7 % normal Not Available [facility] [place] [facility] [address] [facility] [place], [address], 10/26/2023 08:45:02 10/25/19 24 10/26/2023 TSH W/REF SIRISHA TO FT4 TSH w/reflex to FT4 0.42 mIU/L 0.40-4 .50 normal Not Available [facility] [place] [facility] [address] [place], [address], 10/26/2023 10:37:05 10/25/19 24 10/26/2023 VITAM IN D,25- OH,TO BERTHA,I A vitamin D,25-oh,tota l,ia 7 NG/mL 30-100 low Vitam in D Statu s 25-OH Vitam in D: Defic iency : <20 ng/mL Insuf ficie ncy: 20 - 29 ng/mL Optim al: > or = 30 ng/mL For 25-OH Vitam in D testi ng on patie nts on D2-santos pplem entat ion and patie nts for whom quant itati on of D2 and D3 fract ions is requi red, the [facility] Assur eD(TM ) 25-OH VIT D, (D2,D 3), LC/MS /MS is recom janeen d: order code 10582 (denisha ents >2yrs ). See Note 1 Note 1 For addit ional infor lety peterson refer to http: //[email or web address] jonathan [email or web address] stDia gnost ics.c om/fa q/FAQ 199 (This link is being provi ded for infor goldie lee/ rafiq oliveira purpo ses only. ) Not Available [facility] [place] [facility] [address] [facility], [place], [address], 10/26/2023 10:37:05 10/25/19 24 10/26/2023 HEMOG LOBIN A1C hemoglobin A1C 5.1 %_of_ total _HGB <5.7 normal For the purpo se of screperfecto willsg for the prese nce of diabe dorothy: <5.7% Consi stent with the absen ce of diabe dorothy 5.7-6 .4% Consi stent with incre ased risk for diabe dorothy (pred iabet es) > or =6.5% Consi stent with diabe dorothy This assay resul t is consi stent with a decre ased risk of diabe dorothy. Curre ntly, no conse nsus exist s regar ding use of hemog lobin A1c for diagn osis of diabe dorothy in child avinash. Accor ding to Ameri can Diabe dorothy Assoc iatio n (ADA) guide lines , hemog lobin A1c <7.0% repre sents optim al contr ol in non-p regna nt diabe tic patie nts. Diffe rent metri cs may apply to speci fic patie nt popul ation s. Stand ards of Medic al Care in Diabe dorothy(A DA). HbA1c perfo rmed on Abbot t platf orm. Not Available [facility] [place] [facility] [address] [facility], [place], [address], 10/26/2023 10:56:56 04/23/2004/24/2024 TSH+F REE T4 TSH 0.890 uIU/m L 0.450- 4.500 normal Not Available [facility] ([facility]) [address] [place], [address], 04/24/2024 08:12:56 04/23/2004/24/2024 TSH+F REE T4 T4,free(dire ct) 1.46 NG/dL 0.82-1 .77 normal Not Available [facility] ([facility]) [address] [place], [address], 04/24/2024 08:12:56 04/23/2004/24/2024 CBC WITH DIFFE RENTI AL/PL ATELE T WBC 10.8 x10e3 /uL 3.4-10 .8 normal Not Available [facility] ([facility]) [address] [place], [address], 04/24/2024 08:12:57 04/23/2004/24/2024 CBC WITH DIFFE RENTI AL/PL ATELE T RBC 4.54 x10e6 /uL 3.77-5 .28 normal Not Available [facility] ([facility]) [address] [place], [address], 04/24/2024 08:12:57 04/23/20 24 04/24/2024 CBC WITH DIFFE RENTI AL/PL ATELE T hemoglobin 14.0 g/dL 11.1-1 5.9 normal Not Available [facility] ([facility]) [address] [place], [address], 04/24/2024 08:12:57 04/23/20 24 04/24/2024 CBC WITH DIFFE RENTI AL/PL ATELE T hematocrit 44.5 % 34.0-4 6.6 normal Not Available [facility] ([facility]) [address] [place], [address], 04/24/2024 08:12:57 04/23/2004/24/2024 CBC WITH DIFFE RENTI AL/PL ATELE T MCV 98 fL 79-97 above high normal Not Available [facility] ([facility]) [address] [place], [address], 04/24/2024 08:12:57 04/23/2004/24/2024 CBC WITH DIFFE RENTI AL/PL ATELE T MCH 30.8 pg 26.6-3 3.0 normal Not Available [facility] ([facility]) [address] [place], [address], 04/24/2024 08:12:57 04/23/2004/24/2024 CBC WITH DIFFE RENTI AL/PL ATELE T MCHC 31.5 g/dL 31.5-3 5.7 normal Not Available [facility] ([facility]) [address] [place], [address], 04/24/2024 08:12:57 04/23/2004/24/2024 CBC WITH DIFFE RENTI AL/PL ATELE T RDW 14.8 % 11.7-1 5.4 Not Available [facility] ([facility]) [address] [place], [address], 04/24/2024 08:12:57 04/23/20 24 04/24/2024 CBC WITH DIFFE RENTI AL/PL ATELE T platelets 283 x10e3 /uL 150-45 0 normal Not Available [facility] ([facility]) [address] [facility], [place], [address], 04/24/2024 08:12:57 04/23/20 24 04/24/2024 CBC WITH DIFFE RENTI AL/PL ATELE T neutrophils 71 % not estab. normal Not Available [facility] ([facility]) [address] [facility], [place], [address], 04/24/2024 08:12:57 04/23/20 24 04/24/2024 CBC WITH DIFFE RENTI AL/PL ATELE T lymphs 19 % not estab. normal Not Available [facility] ([facility]) [address] [facility], [place], [address], 04/24/2024 08:12:57 04/23/20 24 04/24/2024 CBC WITH DIFFE RENTI AL/PL ATELE T monocytes 7 % not estab. normal Not Available [facility] ([facility]) [address] [facility], [place], [address], 04/24/2024 08:12:57 04/23/20 24 04/24/2024 CBC WITH DIFFE RENTI AL/PL ATELE T eos 2 % not estab. normal Not Available [facility] ([facility]) [address] [facility], [place], [address], 04/24/2024 08:12:57 04/23/20 24 04/24/2024 CBC WITH DIFFE RENTI AL/PL ATELE T basos 1 % not estab. normal Not Available [facility] ([facility]) [address] [facility], [place], [address], 04/24/2024 08:12:57 04/23/20 24 04/24/2024 CBC WITH DIFFE RENTI AL/PL ATELE T immature cells CRITICAL POWER INSTALL TECHNICIAN Not Available [facility] ([facility]) [address] [facility], [place], [address], 04/24/2024 08:12:57 04/23/20 24 04/24/2024 CBC WITH DIFFE RENTI AL/PL ATELE T neutrophils (absolute) 7.6 x10e3 /uL 1.4-7. 0 above high normal Not Available [facility] ([facility]) [address] [place], [address], 04/24/2024 08:12:57 04/23/20 24 04/24/2024 CBC WITH DIFFE RENTI AL/PL ATELE T lymphs (absolute) 2.0 x10e3 /uL 0.7-3. 1 normal Not Available [facility] ([facility]) [address] [facility], [place], [address], 04/24/2024 08:12:57 04/23/20 24 04/24/2024 CBC WITH DIFFE RENTI AL/PL ATELE T monocytes(ab solute) 0.7 x10e3 /uL 0.1-0. 9 normal Not Available [facility] ([facility]) [address] [place], [address], 04/24/2024 08:12:57 04/23/20 24 04/24/2024 CBC WITH DIFFE RENTI AL/PL ATELE T eos (absolute) 0.3 x10e3 /uL 0.0-0. 4 normal Not Available [facility] ([facility]) [address] [place], [address], 04/24/2024 08:12:57 04/23/20 24 04/24/2024 CBC WITH DIFFE RENTI AL/PL ATELE T baso (absolute) 0.1 x10e3 /uL 0.0-0. 2 normal Not Available [facility] ([facility]) [address] [place], [address], 04/24/2024 08:12:57 04/23/20 24 04/24/2024 CBC WITH DIFFE RENTI AL/PL ATELE T immature granulocytes 0 % not estab. Not Available [facility] ([facility]) [address] [facility], [place], [address], 04/24/2024 08:12:57 04/23/20 24 04/24/2024 CBC WITH DIFFE RENTI AL/PL ATELE T immature grans (abs) 0.0 x10e3 /uL 0.0-0. 1 Not Available [facility] ([facility]) [address] [facility], [place], [address], 04/24/2024 08:12:57 04/23/2004/24/2024 CBC WITH DIFFE RENTI AL/PL ATELE T NRBC CRITICAL POWER INSTALL TECHNICIAN Not Available [facility] ([facility]) [address] [facility], [place], [address], 04/24/2024 08:12:57 04/23/20 24 04/24/2024 CBC WITH DIFFE RENTI AL/PL ATELE T hematology comments: CRITICAL POWER INSTALL TECHNICIAN Not Available [facility] ([facility]) [address] [facility], [place], [address], 04/24/2024 08:12:57 04/23/20 24 04/24/2024 COMP. METAB OLIC PANEL (14) glucose 93 mg/dL 70-99 normal Not Available [facility] ([facility]) [address] [facility], [place], [address], 04/24/2024 08:12:57 04/23/20 24 04/24/2024 COMP. METAB OLIC PANEL (14) BUN 12 mg/dL 8-27 normal Not Available [facility] ([facility]) [address] [facility], [place], [address], 04/24/2024 08:12:57 04/23/20 24 04/24/2024 COMP. METAB OLIC PANEL (14) creatinine 0.76 mg/dL 0.57-1 .00 normal Not Available [facility] ([facility]) [address] [place], [id number], 04/24/2024 08:12:57 04/23/20 24 04/24/2024 COMP. METAB OLIC PANEL (14) eGFR 88 mL/mi n/1.7 3 >59 normal Not Available [facility] ([facility]) [address] [place], [id number], 04/24/2024 08:12:57 04/23/20 24 04/24/2024 COMP. METAB OLIC PANEL (14) BUN/creatini ne ratio 16 12-28 normal Not Available [facility] ([facility]) [address] [place], [address], 04/24/2024 08:12:57 04/23/20 24 04/24/2024 COMP. METAB OLIC PANEL (14) sodium 142 mmol/ L 134-14 4 normal Not Available [facility] ([facility]) [address] [place], [address], 04/24/2024 08:12:57 04/23/20 24 04/24/2024 COMP. METAB OLIC PANEL (14) potassium 4.6 mmol/ L 3.5-5. 2 normal Not Available [facility] ([facility]) [address] [place], [address], 04/24/2024 08:12:57 04/23/20 24 04/24/2024 COMP. METAB OLIC PANEL (14) chloride 106 mmol/ L 96-106 normal Not Available [facility] ([facility]) [address] [place], [address], 04/24/2024 08:12:57 04/23/20 24 04/24/2024 COMP. METAB OLIC PANEL (14) carbon dioxide, total 22 mmol/ L 20-29 normal Not Available [facility] ([facility]) [address] [place], [address], 04/24/2024 08:12:57 04/23/20 24 04/24/2024 COMP. METAB OLIC PANEL (14) calcium 9.3 mg/dL 8.7-10 .3 normal Not Available [facility] ([facility]) [address] [place], [address], 04/24/2024 08:12:57 04/23/20 24 04/24/2024 COMP. METAB OLIC PANEL (14) protein, total 6.6 g/dL 6.0-8. 5 normal Not Available [facility] ([facility]) [address] [place], [id number], 04/24/2024 08:12:57 04/23/20 24 04/24/2024 COMP. METAB OLIC PANEL (14) albumin 4.2 g/dL 3.9-4. 9 normal Not Available [facility] ([facility]) [address] [place], [id number], 04/24/2024 08:12:57 04/23/20 24 04/24/2024 COMP. METAB OLIC PANEL (14) globulin, total 2.4 g/dL 1.5-4. 5 Not Available [facility] ([facility]) [address] [place], [id number], 04/24/2024 08:12:57 04/23/20 24 04/24/2024 COMP. METAB OLIC PANEL (14) bilirubin, total 0.5 mg/dL 0.0-1. 2 normal Not Available [facility] ([facility]) [address] [place], [id number], 04/24/2024 08:12:57 04/23/20 24 04/24/2024 COMP. METAB OLIC PANEL (14) alkaline phosphatase 141 IU/L 44-121 above high normal Not Available [facility] ([facility]) [address] [place], [id number], 04/24/2024 08:12:57 04/23/20 24 04/24/2024 COMP. METAB OLIC PANEL (14) AST (SGOT) 16 IU/L 0-40 normal Not Available [facility] ([facility]) [address] [facility], [place], [address], 04/24/2024 08:12:57 04/23/20 24 04/24/2024 COMP. METAB OLIC PANEL (14) ALT (SGPT) 13 IU/L 0-32 normal Not Available [facility] ([facility]) [address] [facility], [place], [address], 04/24/2024 08:12:57 04/23/20 24 04/24/2024 VITAM IN D, 25-HY DROXY vitamin D, 25-hydroxy 9.1 NG/mL 30.0-1 00.0 below low normal Vitam in D defic iency has been defin ed by the Insti tute of Medic ine and an Endoc rine Socie ty pract ice guide line as a level of serum 25-OH vitam in D less than 20 ng/mL (1,2) . The Endoc rine Socie ty went on to furth er defin e vitam in D insuf ficie ncy as a level betwe en 21 and 29 ng/mL (2). 1. IOM (Inst itute of Medic ine). 2010. Dieta ry refer ence stevie es for calci um and D. Jt kong [place]: The Natio nal [facility] Press . 2. Kalli mathur MF, Segundo ey [place], Gelacio off-F errar i STEELE, et al. Evalu ation , treat ment, and preve ntion of vitam in D defic iency : an Endoc rine Socie ty clini hannah pract ice guide line. JCEM. 2010; 96(7) :1911 -30. Not Available [facility] ([facility]) [address] [facility], [place], [address], 04/24/2024 08:12:58 11/23/1911/23/2024 TSH+F REE T4 TSH 0.286 uIU/m L 0.450- 4.500 below low normal Not Available [facility] ([facility]) [address] [place], [address], 11/23/2024 07:08:11 11/23/1911/23/2024 TSH+F REE T4 T4,free(dire ct) 1.45 NG/dL 0.82-1 .77 normal Not Available [facility] ([facility]) [address] [place], [address], 11/23/2024 07:08:11 11/23/1911/23/2024 CBC WITH DIFFE RENTI AL/PL ATELE T WBC 9.8 x10e3 /uL 3.4-10 .8 normal Not Available [facility] ([facility]) [address] [place], [address], 11/23/2024 07:08:12 11/23/1911/23/2024 CBC WITH DIFFE RENTI AL/PL ATELE T RBC 4.35 x10e6 /uL 3.77-5 .28 normal Not Available [facility] ([facility]) [address] [place], [address], 11/23/2024 07:08:12 11/23/1911/23/2024 CBC WITH DIFFE RENTI AL/PL ATELE T hemoglobin 13.3 g/dL 11.1-1 5.9 normal Not Available [facility] ([facility]) [address] [place], [address], 11/23/2024 07:08:12 11/23/1911/23/2024 CBC WITH DIFFE RENTI AL/PL ATELE T hematocrit 42.0 % 34.0-4 6.6 normal Not Available [facility] ([facility]) [address] [place], [address], 11/23/2024 07:08:12 11/23/19 25 11/23/2024 CBC WITH DIFFE RENTI AL/PL ATELE T MCV 97 fL 79-97 normal Not Available [facility] ([facility]) [address] [facility], [place], [address], 11/23/2024 07:08:12 11/23/19 25 11/23/2024 CBC WITH DIFFE RENTI AL/PL ATELE T MCH 30.6 pg 26.6-3 3.0 normal Not Available [facility] ([facility]) [address] [facility], [place], [address], 11/23/2024 07:08:12 11/23/19 25 11/23/2024 CBC WITH DIFFE RENTI AL/PL ATELE T MCHC 31.7 g/dL 31.5-3 5.7 normal Not Available [facility] ([facility]) [address] [place], [address], 11/23/2024 07:08:12 11/23/19 25 11/23/2024 CBC WITH DIFFE RENTI AL/PL ATELE T RDW 14.2 % 11.7-1 5.4 Not Available [facility] ([facility]) [address] [facility], [place], [address], 11/23/2024 07:08:12 11/23/19 25 11/23/2024 CBC WITH DIFFE RENTI AL/PL ATELE T platelets 280 x10e3 /uL 150-45 0 normal Not Available [facility] ([facility]) [address] [facility], [place], [address], 11/23/2024 07:08:12 11/23/19 25 11/23/2024 CBC WITH DIFFE RENTI AL/PL ATELE T neutrophils 69 % not estab. normal Not Available [facility] ([facility]) [address] [facility], [place], [address], 11/23/2024 07:08:12 11/23/19 25 11/23/2024 CBC WITH DIFFE RENTI AL/PL ATELE T lymphs 19 % not estab. normal Not Available [facility] ([facility]) [address] [place], [address], 11/23/2024 07:08:12 11/23/19 25 11/23/2024 CBC WITH DIFFE RENTI AL/PL ATELE T monocytes 7 % not estab. normal Not Available [facility] ([facility]) [address] [facility], [place], [address], 11/23/2024 07:08:12 11/23/19 25 11/23/2024 CBC WITH DIFFE RENTI AL/PL ATELE T eos 3 % not estab. normal Not Available [facility] ([facility]) [address] [facility], [place], [address], 11/23/2024 07:08:12 11/23/19 25 11/23/2024 CBC WITH DIFFE RENTI AL/PL ATELE T basos 1 % not estab. normal Not Available [facility] ([facility]) [address] [place], [address], 11/23/2024 07:08:12 11/23/19 25 11/23/2024 CBC WITH DIFFE RENTI AL/PL ATELE T immature cells CRITICAL POWER INSTALL TECHNICIAN Not Available [facility] ([facility]) [address] [place], [address], 11/23/2024 07:08:12 11/23/19 25 11/23/2024 CBC WITH DIFFE RENTI AL/PL ATELE T neutrophils (absolute) 6.8 x10e3 /uL 1.4-7. 0 normal Not Available [facility] ([facility]) [address] [place], [address], 11/23/2024 07:08:12 11/23/19 25 11/23/2024 CBC WITH DIFFE RENTI AL/PL ATELE T lymphs (absolute) 1.9 x10e3 /uL 0.7-3. 1 normal Not Available [facility] ([facility]) [address] [facility], [place], [address], 11/23/2024 07:08:12 11/23/19 25 11/23/2024 CBC WITH DIFFE RENTI AL/PL ATELE T monocytes(ab solute) 0.7 x10e3 /uL 0.1-0. 9 normal Not Available [facility] ([facility]) [address] [facility], [place], [address], 11/23/2024 07:08:12 11/23/1911/23/2024 CBC WITH DIFFE RENTI AL/PL ATELE T eos (absolute) 0.3 x10e3 /uL 0.0-0. 4 normal Not Available [facility] ([facility]) [address] [facility], [place], [address], 11/23/2024 07:08:12 11/23/19 25 11/23/2024 CBC WITH DIFFE RENTI AL/PL ATELE T baso (absolute) 0.1 x10e3 /uL 0.0-0. 2 normal Not Available [facility] ([facility]) [address] [facility], [place], [address], 11/23/2024 07:08:12 11/23/19 25 11/23/2024 CBC WITH DIFFE RENTI AL/PL ATELE T immature granulocytes 1 % not estab. Not Available [facility] ([facility]) [address] [facility], [place], [address], 11/23/2024 07:08:12 11/23/19 25 11/23/2024 CBC WITH DIFFE RENTI AL/PL ATELE T immature grans (abs) 0.1 x10e3 /uL 0.0-0. 1 Not Available [facility] ([facility]) [address] [facility], [place], [address], 11/23/2024 07:08:12 11/23/19 25 11/23/2024 CBC WITH DIFFE RENTI AL/PL ATELE T NRBC CRITICAL POWER INSTALL TECHNICIAN Not Available [facility] ([facility]) [address] [facility], [place], [address], 11/23/2024 07:08:12 11/23/19 25 11/23/2024 CBC WITH DIFFE RENTI AL/PL ATELE T hematology comments: CRITICAL POWER INSTALL TECHNICIAN Not Available [facility] ([facility]) [address] [facility], [place], [address], 11/23/2024 07:08:12 11/23/19 25 11/23/2024 COMP. METAB OLIC PANEL (14) glucose 89 mg/dL 70-99 normal Not Available [facility] ([facility]) [address] [facility], [place], [address], 11/23/2024 07:08:13 11/23/19 25 11/23/2024 COMP. METAB OLIC PANEL (14) BUN 14 mg/dL 8-27 normal Not Available [facility] ([facility]) [address] [facility], [place], [address], 11/23/2024 07:08:13 11/23/19 25 11/23/2024 COMP. METAB OLIC PANEL (14) creatinine 0.77 mg/dL 0.57-1 .00 normal Not Available [facility] ([facility]) [address] [facility], [place], [address], 11/23/2024 07:08:13 11/23/19 25 11/23/2024 COMP. METAB OLIC PANEL (14) eGFR 86 mL/mi n/1.7 3 >59 normal Not Available [facility] ([facility]) [address] [facility], [place], [address], 11/23/2024 07:08:13 11/23/19 25 11/23/2024 COMP. METAB OLIC PANEL (14) BUN/creatini ne ratio 18 12-28 normal Not Available [facility] ([facility]) [address] [place], [id number], 11/23/2024 07:08:13 11/23/19 25 11/23/2024 COMP. METAB OLIC PANEL (14) sodium 144 mmol/ L 134-14 4 normal Not Available [facility] ([facility]) [address] [place], [address], 11/23/2024 07:08:13 11/23/19 25 11/23/2024 COMP. METAB OLIC PANEL (14) potassium 4.8 mmol/ L 3.5-5. 2 normal Not Available [facility] ([facility]) [address] [place], [address], 11/23/2024 07:08:13 11/23/19 25 11/23/2024 COMP. METAB OLIC PANEL (14) chloride 108 mmol/ L 96-106 above high normal Not Available [facility] ([facility]) [address] [place], [address], 11/23/2024 07:08:13 11/23/19 25 11/23/2024 COMP. METAB OLIC PANEL (14) carbon dioxide, total 23 mmol/ L 20-29 normal Not Available [facility] ([facility]) [address] [place], [address], 11/23/2024 07:08:13 11/23/19 25 11/23/2024 COMP. METAB OLIC PANEL (14) calcium 9.0 mg/dL 8.7-10 .3 normal Not Available [facility] ([facility]) [address] [place], [address], 11/23/2024 07:08:13 11/23/19 25 11/23/2024 COMP. METAB OLIC PANEL (14) protein, total 6.7 g/dL 6.0-8. 5 normal Not Available [facility] ([facility]) [address] [place], [address], 11/23/2024 07:08:13 11/23/19 25 11/23/2024 COMP. METAB OLIC PANEL (14) albumin 4.2 g/dL 3.9-4. 9 normal Not Available [facility] ([facility]) [address] [place], [id number], 11/23/2024 07:08:13 11/23/19 25 11/23/2024 COMP. METAB OLIC PANEL (14) globulin, total 2.5 g/dL 1.5-4. 5 Not Available [facility] ([facility]) [address] [place], [id number], 11/23/2024 07:08:13 11/23/19 25 11/23/2024 COMP. METAB OLIC PANEL (14) bilirubin, total 0.5 mg/dL 0.0-1. 2 normal Not Available [facility] ([facility]) [address] [place], [id number], 11/23/2024 07:08:13 11/23/19 25 11/23/2024 COMP. METAB OLIC PANEL (14) alkaline phosphatase 129 IU/L 44-121 above high normal Not Available [facility] ([facility]) [address] [place], [id number], 11/23/2024 07:08:13 11/23/19 25 11/23/2024 COMP. METAB OLIC PANEL (14) AST (SGOT) 14 IU/L 0-40 normal Not Available [facility] ([facility]) [address] [place], [id number], 11/23/2024 07:08:13 11/23/19 25 11/23/2024 COMP. METAB OLIC PANEL (14) ALT (SGPT) 13 IU/L 0-32 normal Not Available [facility] ([facility]) [address] [place], [id number], 11/23/2024 07:08:13 11/23/19 25 11/23/2024 VITAM IN D, 25-HY DROXY vitamin D, 25-hydroxy 22.3 NG/mL 30.0-1 00.0 below low normal Vitam in D defic iency has been defin ed by the Insti tute of Medic ine and an Endoc rine Socie ty pract ice guide line as a level of serum 25-OH vitam in D less than 20 ng/mL (1,2) . The Endoc rine Socie ty went on to fur er defin e vitam in D insuf ficie ncy as a level betwe en 21 and 29 ng/mL (2). 1. IOM (Inst itute of Medic ine). 2009. Dian ry refer ence intak es for calci um and D. Jt kong [place]: [facility] . 2. Kalli mathur MF, Segundo flores [place], Gelacio off-F errar i STEELE, et al. Evalu ation , treat ment, and preve ntion of vitam in D defic iency : an Endoc rine Socie ty clini hannah pract ice guide line. JCEM. 2010; 96(7) :1911 -30. Not Available [facility] ([facility]) [address], [place], [address], 11/23/2024 07:08:13 Result Notes None recorded. Problems Name Problem SNOMED Code Status Onset Date Resolution Date Notes Provider Name and Address Organization Details Recorded Time [facility] hyperten rona 90838955 Active 2023 Dariana Christine APRN [address] [place], [address] , [employer] 4 09:57:38 Obstruct mendy sleep apnea syndrome 33643820 Active 2023 Dariana Christine APRN [address] [place], [address] , [employer] 4 17:20:08 Hypothyr oidism 90572953 Active 2016 Problem Code: E03.8; Problem Code Type: ICD-10; Not Available [facility] 2 22:07:46 Severe obesity 60384935349 104 Active 2016 Problem Code: E66.01; Problem Code Type: ICD-10; Not Available [facility] 2 22:07:46 Mixed hyperlip idemia 968769175 Active 2018 Problem Code: E78.2; Problem Code Type: ICD-10; Not Available [facility] 2 22:07:47 Dysthymi a 61096180 Completed 201609/23/2022 Problem Code: F34.1; Problem Code Type: ICD-10; LYNETTE MYNEAR null, [employer] 3 15:34:56 Restless legs 15743430 Completed 201709/23/2022 Problem Code: G25.81; Problem Code Type: ICD-10; LYNETTE MYNEAR null, [employer] 3 15:34:56 Restless legs 23889143 Completed 201609/12/2017 Problem Code: G25.81; Problem Code Type: ICD-10; LYNETTE MYNEAR null, [employer] 3 15:34:56 Impacted cerumen in left ear [id number] 40708 Completed 201910/03/2020 Problem Code: H61.22; Problem Code Type: ICD-10; Not Available [facility] 2 22:07:47 Impacted cerumen of bilatera l ears 50561114893 95038 Completed 201610/24/2017 Problem Code: H61.23; Problem Code Type: ICD-10; Not Available [facility] 2 22:07:47 Acute non-supp urative serous otitis media 075648924 Completed 201909/23/2022 Problem Code: H65.01; Problem Code Type: ICD-10; LYNETTE KALYANNEAR null, [employer] 3 15:34:56 Acute serous otitis media of bilatera l ears 48670496969 22981 Completed 201909/23/2022 Problem Code: H65.03; Problem Code Type: ICD-10; LYNETTE whitfield [facility]. 3 15:34:56 Acute suppurat mendy otitis media 413342567 Completed 201702/14/2018 Not Available [facility] 2 22:07:48 Hyperten sive disorder 98575346 Active 2020 Problem Code: I10; Problem Code Type: ICD-10; Not Available [facility] 2 22:07:48 Hyperten sive disorder 50786360 Completed 201707/16/2019 Problem Code: I10; Problem Code Type: ICD-10; Not Available [facility] 2 22:07:48 Acute sinusiti s 34759309 Completed 201904/16/2020 Problem Code: J01.90; Problem Code Type: ICD-10; Not Available [facility] 2 22:07:48 Cellulit is of toe of right foot 72032078973 506079 Completed 201807/16/2019 Problem Code: L03.031; Problem Code Type: ICD-10; Not Available [facility] 2 22:07:48 Pain in right foot 94373411971 9107 Completed 201602/14/2018 Problem Code: M79.671; Problem Code Type: ICD-10; Not Available [facility] 2 22:07:48 Postmeno pausal bleeding 98325409 Completed 201807/16/2019 Problem Code: N95.0; Problem Code Type: ICD-10; Not Available [facility] 2 22:07:49 Adjustme nt disorder with mixed anxiety and depresse d mood 453755445 Active 2020 Problem Code: F43.23; Problem Code Type: ICD-10; Not Available [facility] 2 22:07:49 Elevated blood-pr essure reading without diagnosi s of hyperten rona 229524721 Completed 201702/14/2018 Not Available [facility] 2 22:07:49 Elevated blood-pr essure reading without diagnosi s of hyperten rona 009909383 Completed 201608/24/2017 Not Available [facility] 2 22:07:49 Snoring 16317807 Completed 202009/23/2022 Problem Code: R06.83; Problem Code Type: ICD-10; LYNETTE BIGGSNEAR null, [employer] 3 15:34:56 Sleep disorder 16127191 Completed 201710/03/2020 Not Available [facility] 2 22:07:49 Dizzines s and giddines s 733971137 Completed 201702/14/2018 Problem Code: R42; Problem Code Type: ICD-10; Not Available [facility] 2 22:07:49 Abnormal findings on diagnost ic imaging of breast 962241843 Completed 201707/16/2019 Not Available [facility] 2 22:07:50 [place] lesion of lung 356116672 Completed 201810/03/2020 Problem Code: R91.1; Problem Code Type: ICD-10; Not Available [facility] 2 22:07:50 General examinat ion of patient Active 2021 Not Available [facility] 2 22:07:50 Screenin g for malignan t neoplasm of colon Completed 201809/23/2022 LYNETTE BIGGSNEAR null, [employer] 3 15:34:56 Screenin g mammogra phy Completed 201810/03/2020 Problem Code: Z12.31; Problem Code Type: ICD-10; LYNETTE BIGGSNEAR null, [employer] 3 15:34:56 Screenin g mammogra phy Completed 201809/23/2022 Problem Code: Z12.31; Problem Code Type: ICD-10; LYNETTE BIGGSNEAR null, [employer] 3 15:34:56 Breast neoplasm screenin g status 364019421 Completed 201701/18/2018 Problem Code: Z12.39; Problem Code Type: ICD-10; Not Available [facility] 2 22:07:52 Influenz a vaccine needed 23069334874 06 Completed 201809/23/2022 Problem Code: Z23; Problem Code Type: ICD-10; LYNETTE whitfield [place] [employer]. 3 15:34:56 Bronchop neumonia 708434716 Completed 201708/04/2018 Problem Code: J18.0; Problem Code Type: ICD-10; Not Available [facility] 2 22:07:52 Acute bronchit is 97347033 Completed 201610/24/2017 Problem Code: J20.9; Problem Code Type: ICD-10; Not Available [facility] 2 22:07:52 Body mass index 30+ - obesity 111960138 Active 2020 Problem Code: Z68.43; Problem Code Type: ICD-10; Not Available [facility] 2 22:07:52 Body mass index 40+ - severely obese 686017902 Active 2017 Not Available [facility] 2 22:07:52 Acquired hypothyr oidism 009837691 Completed 201611/21/2017 Problem Code: 244.8; Problem Code Type: ICD-9; Not Available [facility] 2 22:07:53 Morbid obesity 473974869 Completed 201612/20/2017 Problem Code: 278.01; Problem Code Type: ICD-9; Not Available [facility] 2 22:07:54 Acute suppurat mendy otitis media without spontane ous rupture of ear drum 62696057 Completed 201702/14/2018 Problem Code: 382.00; Problem Code Type: ICD-9; Not Available [facility] 2 22:07:54 Impacted cerumen 87412383 Completed 201610/24/2017 Problem Code: 380.4; Problem Code Type: ICD-9; Not Available [facility] 2 22:07:55 Extrapyr amidal disease 93923238 Completed 201609/12/2017 Problem Code: 333.99; Problem Code Type: ICD-9; LYNETTE whitfield, [employer] 3 15:34:56 Elevated blood-pr essure reading without diagnosi s of kevinen rona 005897002 Completed 201702/14/2018 Not Available [facility] 2 22:07:55 Cough 13811603 Completed 201609/08/2017 Problem Code: R05; Problem Code Type: ICD-10; Not Available [facility] 2 22:07:56 Dyspnea 601648598 Completed 201810/02/2018 Problem Code: R06.02; Problem Code Type: ICD-10; Not Available [facility] 2 22:07:56 Benign essentia l hyperten rona 5973380 Active 2017 Problem Code: 401.1; Problem Code Type: ICD-9; Not Available [facility] 2 22:07:56 Pain in limb 03038806 Completed 201602/14/2018 Problem Code: 729.5; Problem Code Type: ICD-9; Not Available [facility] 2 22:07:57 Screenin g for malignan t neoplasm of breast Completed 201701/18/2018 Problem Code: V76.10; Problem Code Type: ICD-9; Not Available [facility] 2 22:07:57 Body mass index 40+ - severely obese 781001332 Completed 201810/03/2020 Not Available [facility] 2 22:07:59 Extrapyr amidal disease 65367571 Completed 201709/23/2022 Problem Code: 333.99; Problem Code Type: ICD-9; LYNETTE KALYANMELITON whitfield, [employer] 3 15:34:56 Problem Notes None recorded. Procedures Surgical History Date Name Laterality Status Provider Name and Address Organization Details Recorded Time 11/01/20 19 dilation and curettage completed Not Available [facility] 05/21/2022 22:56:07 thyroidectomy completed Dariana jefferson, TI[employer] AP[employer]IC[employer] [address], [place], [place], [address], [facility] [employer], [facility]. 10/25/2023 09:41:55 Imaging Results None recorded. Procedure Notes None recorded. Medical Equipment None Reported. Allergies No known drug allergies Medications Name Sig Start Date Stop Date Status Note LastModified by Organization Details LastModified Time fluoxetine 40 mg capsule TAKE ONE CAPSULE BY MOUTH EVERY DAY active Not Available Not Available No t Available Augmentin 875 mg-125 mg tablet take 1 tablet by oral route every 12 hours 10/03 completed Not Available Not Available Not Available Bromfed DM 2 mg-30 mg-10 mg/5 mL oral syrup Take 1 teaspoon by mouth q4h prn 11/17 completed Not Available Not Available Not Available promethazin e-DM 6.25 mg-15 mg/5 mL oral syrup Take 1 teaspoonf ul by mouth every 6 hours as needed. 10/24 completed Not Available Not Available Not Available doxycycline hyclate 100 mg capsule Take 1 capsule(s ) by mouth bid 07/16 completed Not Available Not Available Not Available ropinirole 1 mg tablet Take 1 tablets at bedtime. 10/03 completed Not Available Not Available Not Available albuterol sulfate 2.5 mg/3 mL (0.083 %) solution for nebulizatio n 1 vial(s) by nebulizer every 4-6 hours as needed 09/23 completed Not Available Not Available Not Available azithromyci n 250 mg tablet Take 2 tablet(s) by mouth on day 1 then 1 tablet every day for the next 4 days. 10/24 completed Not Available Not Available Not Available pravastatin 40 mg tablet TAKE ONE TABLET BY MOUTH EVERY DAY AT BEDTIME 09/23 completed Not Available Not Available Not Available Keflex 500 mg capsule 2 capsules bid 05/04 completed Not Available Not Available Not Available ondansetron HCl 4 mg tablet Take 2 tablets twice a day by oral route as needed. 04/07 completed Not Available Not Available Not Available Synthroid 125 mcg tablet Take 1 tablet(s) by mouth daily 11/26 completed Not Available Not Available Not Available valsartan 80 mg tablet TAKE ONE TABLET BY MOUTH EVERY DAY FOR BLOOD PRESSURE 11/22 completed Not Available Not Available Not Available meclizine 12.5 mg tablet 1 pill TID prn dizziness 03/10 completed Not Available Not Available Not Available hydroxyzine HCl 50 mg tablet Take 1 tab by mouth 1 hour Prior to Cat scan for sedation. 11/21 completed Not Available Not Available Not Available sulfamethox azole 800 mg-trimetho prim 160 mg tablet TAKE ONE TABLET BY MOUTH TWICE DAILY FOR 10 DAYS active Not Available Not Available No t Available hydrocodone 10 mg-acetamin ophen 325 mg tablet TAKE ONE TABLET BY MOUTH THREE TIMES DAILY MAY CAUSE DROWSINES S active Not Available Not Available No t Available omeprazole 40 mg capsule,del ayed release TAKE ONE CAPSULE BY MOUTH EVERY DAY active Not Available Not Available No t Available neomycin-po lymyxin-dex ameth 3.5 mg/mL-10,00 0 unit/mL-0.1 % eye drops INSTILL 1 DROP INTO AFFECTED EYE(S) BY OPHTHALMI C ROUTE EVERY 3-4 HOURS 2024 active Not Available Not Available Not Avai lable promethazin e 25 mg tablet Take 1 tablet every 6-8 hours by oral route as needed, for vomiting. 11/22 completed Not Available Not Available Not Available levothyroxi ne 150 mcg tablet TAKE ONE TABLET BY MOUTH EVERY DAY ON an EMPTY stomach 30 minutes BEFORE breakfast active Not Available Not Available No t Available hydrochloro thiazide 12.5 mg capsule TAKE ONE CAPSULE BY MOUTH EVERY DAY IN THE MORNING FOR BLOOD PRESSURE active Not Available Not Available No t Available hydrochloro thiazide 25 mg tablet TAKE ONE TABLET BY MOUTH EVERY DAY 11/22 completed Not Available Not Available Not Available diclofenac sodium 50 mg tablet,frankie yed release Take 1 tablet(s) by mouth bid as needed 01/08 completed Not Available Not Available Not Available gabapentin 100 mg capsule TAKE ONE CAPSULE BY MOUTH EVERY DAY MAY CAUSE DROWSINES S active Not Available Not Available No t Available Vitamin D2 1,250 mcg (50,000 unit) capsule Take one capsule once daily on Mondays. active Not Available Not Available No t Available ondansetron 4 mg disintegrat ing tablet place 1 tablet (4 mg) and place on top of the tongue where it will dissolve, then swallow by transling ual route 4 times per day 10/16 completed Not Available Not Available Not Available cefdinir 300 mg capsule Give 1 capsule every 12 hrs x 10 days 11/01 completed Not Available Not Available Not Available neomycin 3.5 mg-polymyxi n 10,000 unit-hydroc ort 10 mg/mL eye drop,susp INSTILL 1 DROP INTO AFFECTED EYE(S) BY OPHTHALMI C ROUTE EVERY 3-4 HOURS active Not Available Not Available No t Available fluoxetine 20 mg capsule TAKE ONE CAPSULE BY MOUTH EVERY DAY IN THE MORNING 09/12 completed Not Available Not Available Not Available fluticasone propionate 50 mcg/actuati on nasal spray,suspe nsion INSTILL 1 SPRAY IN EACH NOSTRIL TWICE DAILY 09/23 completed Not Available Not Available Not Available diazepam 5 mg tablet take 1 tablet approx 1 hour prior to test and then an additiona l tab if needed by mouth. 07/16 completed Not Available Not Available Not Available amoxicillin 500 mg-franku m clavulanate 125 mg tablet take 1 tablet by oral route every 12 hours 04/12 completed Not Available Not Available Not Available hydrochloro thiazide 12.5 mg tablet one tablet po in the a.m. for blood pressure 06/05 completed Not Available Not Available Not Available levothyroxi ne 150 mcg capsule take 1 capsule (150 mcg) by oral route once daily on an empty [id number] minutes before breakfast 12/01 completed Not Available Not Available Not Available Saxenda 3 mg/0.5 mL (18 mg/3 mL) subcutaneou s pen injector Inject 0.6mg SQ QD x 1 week, then inject 1.2mg SQ QD daily 01/09 completed Not Available Not Available Not Available Vitals Date Recorded Body height Body temperature Heart rate Oxygen saturation Oxygen saturation in Arterial blood by Pulse oximetry Systolic blood pressure Diastolic blood pressure Systolic blood pressure Diastolic blood pressure Provider Name and Address Organization Details Last Updated DateTime 4 170.18 cm 98.2 [degF] 88 /min 92 % 92 % 151 mm[Hg] 71 mm[Hg] 137 mm[Hg] 74 mm[Hg] [employer] 4 17:30:37 Date Recorded Body height Heart rate Oxygen saturation Oxygen saturation in Arterial blood by Pulse oximetry Systolic blood pressure Diastolic blood pressure Provider Name and Address Organization Details Last Updated DateTime 4 170.18 cm 88 /min 94 % 94 % 124 mm[Hg] 83 mm[Hg] Nancy William [employer]. 4 08:50:08 Date Recorded Body height Body temperature Heart rate Oxygen saturation Oxygen saturation in Arterial blood by Pulse oximetry Systolic blood pressure Diastolic blood pressure Systolic blood pressure Diastolic blood pressure Systolic blood pressure Diastolic blood pressure Provider Name and Address Organization Details Last Updated DateTime 5 170.18 cm 98 [degF] 92 /min 90 % 90 % 152 mm[Hg] 61 mm[Hg] 159 mm[Hg] 70 mm[Hg] 154 mm[Hg] 69 mm[Hg] [employer] 5 13:23:42 Date Recorded Body height Body temperature Heart rate Oxygen saturation Oxygen saturation in Arterial blood by Pulse oximetry Systolic blood pressure Diastolic blood pressure Systolic blood pressure Diastolic blood pressure Systolic blood pressure Diastolic blood pressure Provider Name and Address Organization Details Last Updated DateTime 3 170.18 cm 98.2 [degF] 82 /min 92 % 92 % 180 mm[Hg] 66 mm[Hg] 152 mm[Hg] 85 mm[Hg] 162 mm[Hg] 80 mm[Hg] [employer] 3 10:22:08 Date Recorded Body height Body temperature Heart rate Oxygen saturation Oxygen saturation in Arterial blood by Pulse oximetry Systolic blood pressure Diastolic blood pressure Systolic blood pressure Diastolic blood pressure Systolic blood pressure Diastolic blood pressure Provider Name and Address Organization Details Last Updated DateTime 4 170.18 cm 98 [degF] 94 /min 94 % 94 % 176 mm[Hg] 73 mm[Hg] 164 mm[Hg] 89 mm[Hg] 170 mm[Hg] 80 mm[Hg] LYNETTE [employer] 09:54:26 Social History Question Answer Notes LastModified by Organizat ion Details LastModified Time Tobacco Smoking Status Never Smoker Cyndy Wood whitfield, [employer] 11/06/2022 09:41:31 Do You Have An Advance Directive? No Information n ot available 09/23/2022 Is Your Home Air Conditioned? Yes Information not available 09/23/2022 Are You Blind Or Do You Have Difficulty Seeing? No Information n ot available 09/23/2022 In The 14 Days Before Symptom Onset, Have You Had Close Contact With A Laboratory-confirm ed COVID-19 While That Case Was Ill? No Information n ot available 09/23/2022 In The 14 Days Before Symptom Onset, Have You Had Close Contact With A Person Who Is Under Investigation For COVID-19 While That Person Was Ill? No Information not available 09/23/2022 Have You Been To An Area Known To Be High Risk For COVID-19? No Information not available 09/23/2022 Are You Deaf Or Do You Have Serious Difficulty Hearing? No Information not available 09/23/2022 What Type Of Diet Are You Following? REGULAR Information n ot available 09/23/2022 Have There Been Any Changes To Your Family Or Social Situation? No Information no t available 09/23/2022 Are There Any Guns Present In Your Home? No Information not available 09/23/2022 Do You Have A Medical Power Of Etl Tester? No Information not available 09/23/2022 What Was The Date Of Your Most Recent Tobacco Screening? 11/22/2024 Information not available 11/22/2024 What Is Your Relationship Status? Information not available 09/23/2022 Do You Use Your Seat Belt Or Car Seat Routinely? Yes Information not available 09/23/2022 Do You Have Smoke And Carbon Monoxide Detectors In Your Home? Yes Information not available 09/23/2022 Are You Passively Exposed To Smoke? No Information no t available 09/23/2022 Are There Any Smokers In Your House? No Information not available 09/23/2022 Do You Use Sunscreen Routinely? No Information not available 09/23/2022 Has Tobacco Cessation Counseling Been Provided? No Information not available 09/23/2022 Have You Recently Traveled Abroad? No Information not available 09/23/2022 Do You Have Difficulty Walking Or Climbing Stairs? No Information not available 09/23/2022 Are You Currently In School? No Information not available 09/23/2022 Do You Have Any Dietary Restrictions? No Information not available 09/23/2022 Sex: Female Functional Status Question Answer Note LastModified by Organizat ion Details LastModified Time Do you use any illicit or recreational drugs? No Information not available 09/23/2022 Do you or have you ever used any other forms of tobacco or nicotine? No Information not available 09/23/2022 What is your level of alcohol consumption? None Information not available 09/23/2022 Are you currently employed? No Information not available 09/23/2022 Do you have transportation difficulties? Yes Information not available 09/23/2022 Do you have difficulty doing errands alone? No Information not available 09/23/2022 Are you able to care for yourself? Yes Information not available 09/23/2022 Do you have difficulty dressing or bathing? No Information not available 09/23/2022 Mental Status Question Answer Note LastModified by Organization D etails LastModified Time Do you have difficulty concentrating, remembering or making decisions? No Information no t available 09/23/2022 Family History Relationship Description Onset Age of this Age Resolved Age Notes LastModified by Organization Details LastModified Time Unspecified Relation Family history of Hypertension [email or web address] Not available 09:41:08 Unspecified Relation Family history of transient ischemic attack [email or web address] Not available 2022 09:41:12 Unspecified Relation Family history of diabetes mellitus type 2 [email or web address] Not available 2022 09:41:16 Unspecified Relation Family history of congestive heart failure [email or web address] Not available 2022 09:41:19 Medical History Condition Response Obesity Y Hypothyroidism Y High Cholesterol Y Gynecological History Statement/Question Response Date of Last Pap Smear Most Recent Mammogram Obstetrics History GPAL:G 0 P 0 0 0 0 Immunizations Vaccine Type Date Status Note Provider Nam e and Address Organization Details Recorded Time Influenza, split virus, quadrivalent, preservative 8 completed LYNETTE MYNEAR null, [employer] 09/23/2022 15:32:11 Influenza, split virus, quadrivalent, PF 2 completed LYNETTE MYNEAR null, [employer] 09/23/2022 15:32:11 Influenza, MDCK, quadrivalent, preservative 9 completed LYNETTE MYNEAR null, [employer] 09/23/2022 15:32:11 pneumococcal polysaccharide PPV23 8 completed LYNETTE MYNEAR null, [employer] 09/23/2022 15:32:11 Tdap 9 completed LYNETTE MYNEAR null, [employer] 09/23/2022 15:32:11 Influenza, split virus, trivalent, PF 4 completed LYNETTE MYNEAR null, [employer] 09/23/2022 15:32:11 Past Encounters Encounter ID Performer Location Encounter Start Date Encounter Closed Date Diagnosis/Indication Diagnosis SNOMED-CT Code Diagnosis ICD10 Code Diagnosis Note [id number] Dariana Christine APRN [address] [address] 09/23/2022 15:15:11 09/23/2022 16:08:45 Benign essential hypertension 5604335 I10 Hypothyroidism 28577887 E03.8 Mixed hyperlipidemia 267 706701 E78.2 Adjustment disorder with mixed anxiety and depressed mood 684079000 F43.23 Continue Prozac Diabetes m ellitus screening 666140418 Z13.1 Gastroesop hageal reflux disease without esophagitis 244382993 K21.9 GERD measures explained. Snoring 15193639 R06.83 Screening mammography of bilateral breasts 1361495613 86527 Z12.31 Screening for malignant neoplasm of colon 639413784 Z12.11 Generalize d anxiety disorder 93397555 F41.1 [id number] Dariana Christine [place] [phone] 04/07/2023 10:06:48 04/07/2023 10:56:47 Benign essential hypertension 9359507 I10 Restart Valsartan at 80 mg daily. Hypothyroidism 95971384 E03.8 Mixed hyperlipidemia 267 068954 E78.2 Statin and Zetia refused again by patient. Adjustment disorder with mixed anxiety and depressed mood 930001135 F43.23 Continue Prozac Obstructiv e sleep apnea syndrome 01187406 G47.33 Will repeat over for CPAP for another compliance trial. Patient no ncompliance - general 748690441 Z91.199 Gastroesop hageal reflux disease without esophagitis 988075052 K21.9 GERD measures explained. [id number] Dariana Christine [place] [id number] 09/23/2023 17:20:03 09/24/2023 08:34:54 Cellulitis and abscess of axilla 844081988 L02.411 Wash BID with soap and water, apply warm compresses , handwashin g, complete antx. She is to RTC if sx failure to resolve or progress. [id number] [place] [id number] 10/25/2023 08:38:54 10/25/2023 09:59:38 Benign essential hypertension 9693704 I10 DASH diet, exercise, and weight loss encouraged . Hypothyroidism 05369674 E03.8 Continue Synthroid Mixed hyperlipidemia 267 124354 E78.2 Statin and Zetia refused again by patient. Vitamin D deficiency 347 78484 E55.9 Diabetes m ellitus screening [id number] Z13.1 Adjustment disorder with mixed anxiety and depressed mood [id number] F43.23 Continue Prozac Gastroesop hageal reflux disease without esophagitis [id number] K21.9 GERD measures explained. Adult heal th examination [id number] Z00.00 Patient presented to office today for their Medicare Annual Wellness Visit. Education was provided on healthy nutrition, including a diet rich in fruits and vegetables , minimizing simple carbohydra dorothy, salt, and saturated fats. Encouraged regular cardiovasc ular exercise such as walking at least 30 minutes daily, 5 times per week. Emphasized preventive health measures and educated pt on fall prevention and community- based lifestyle interventi ons to help reduce health risks and promote healthy living. Morbid obesity 664603136 E66.01 [id number] [place] [address] 04/23/2024 09:37:22 04/23/2024 11:22:38 Hypothyroidism 28846852 E03.8 Continue Synthroid, check levels today on labs. Essential hypertension 94936393 I10 Restart HTN meds, obtain labs and ECHO. Vitamin D deficiency 347 08797 E55.9 Start ergocal Noncomplia nce with medication regimen [id number] Z91.148 Screening mammography of bilateral breasts [id number] 95259 Z12.31 Obstructiv e sleep apnea syndrome 01457218 G47.33 Encouraged compliance with CPAP. REIsks of untreated VARSHA again d/w her. [id number] [place] [id number] 11/22/2024 12:46:13 11/22/2024 14:05:14 Hypertensive disorder 96384031 I10 Decrease HCTZ to 12.5 mg daily due to hypotensio n Hypothyroidism 60321915 E03.8 Continue Synthroid, check levels today on labs. Vitamin D deficiency 347 07411 E55.9 Cellulitis and abscess of axilla 244464024 L02.411 Wash BID with soap and water, apply warm compresses , handwashin g, complete antx. She is to RTC if sx failure to resolve or progress. Acute conj unctivitis of right eye [id number] 96432 H10.31 Gastroesop hageal reflux disease without esophagitis 992221933 K21.9 GERD measures explained. Adjustment disorder with mixed anxiety and depressed mood 397253427 F43.23 Continue Prozac Health Concerns Section Related Observation LastModified by Organization Detai ls LastModified Time None Recorded Concern Status LastModified by Organization Details LastModified Time None Recorded Advance Directives Directive N: Payers Insurance Date Sequence Insurance Name Policy Number Policy Graff Covered Member ID Graff Member ID Guarantor Name 11/22/2024 1 [place]MED[place]PLAC[place]/AD VANTAGE - PPO) [id number] Rae Mohr [id number] Rae Mohr 12/14/2024 MED[place] [facility] Rae Mohr [id number] Rae Mohr 12/14/2024 1 [employer] (MEDICARE REPLACEMENT/AD VANTAGE - HMO) Rae Mohr [id number] Rae Mohr Notes Date Note Type Note Provider Name and Address Organization Details Recorded Time 04/07/20 23 text/htm l Anxiety/DepressionReported bypatient.Severity:denies suicidal ideations; able to maintain relationships; does not interfere with activities of daily living; symptoms improved; stabilizing Duration:chronic Onset/Timing:gradual Context:major life stressors;family problems;bereavement Modifying Factors:social support; medications as directed; selective serotonin reuptake inhibitor (SSRI) Associated Symptoms:denies homicidal ideations;anxiety;depression;gr ievingHyperlipidemiaReported bypatient.Duration:chronic Control:not at goal Adherence to Treatment Plan:does not follow recommended diet;does not exercise;does not take medications as prescribed Complications:xanthomas Risk Factors:family history of premature arteriosclerotic cardiovascular disease;hypertension;obesityNot es:She again today declined statin therapy although it was again today recommended.Hypertension F/UReported bypatient.Medications:not taking medications as directed; says she stopped med months ago when she felt dizzy with position change. Lifestyle:not exercising regularly;does not adhere to low sodium diet Associated Symptoms:no chest pain; no shortness of breath; no palpitations; no edema; no calf pain with exertion; no headacheNotes:I had previously prescribed her at least 2 different antihypertensives and she states that the pharmacy just never filled it so she has not been taking it.HypothyroidReported bypatient.Reason for Visit:TSH check/labs Duration:>12 months Associated Symptoms:weakness;fatigue;cold intolerance;weight gain lbs.;depressed mood;dry/coarse skin Treatment:taking medication as prescribedObstructive Sleep Apnea F/UReported bypatient.Quality:loud snoring;gasping for air;witnessed apnea;frequent breathing through the mouth;snoring with apnea Onset/Timing:chronic Duration:long standing Severity:severe;limits daily activities;difficulty getting going in the morning; severity of snoring does not sleep with partner; severity of VARSHA on PSG:severe Location:no enlarged tonsils; no nasal passage blockage; no throat pain; no feeling of tightness in throat;dryness of mouth Context:lack of adequate sleep;recent weight gain (more than 10 pounds);hypertension;irregular sleep hours; sleep hours per night:4 Alleviating factors:relief with CPAP Aggravating factors:not worse during an upper respiratory infection (a cold); not worse when allergies are active; recent weight gain; worse with excess fatigue; worse with certain sleeping positions; irregular sleep hours Associated Symptoms:awakening at night short of breath;excessive sleepiness during the day;excess napping;memory lapses or loss;irritability;impaired work performance Prior Tests:thyroid panel; home sleep study Prior TreatmentCPAP Prior opinionPCPNotes:Patient was positive for severe sleep apnea on home sleep study earlier this year. Her sleep apnea is complicated by obesity and hypertension. She states that she received her CPAP machine and she used it for 4 hours each night and felt like it was very helpful and she felt less sleepy and more energized and was not napping through the day and felt like her cognition was improved. She states that the DME provider took her CPAP away because she only used it 4 hours per night but she states that she only sleeps 4 hours every night. I told her that we all need a minimum of 6 to 8 hours of sleep per night and I will reorder the CPAP to see if she is eligible to have a secondary trial of use. Again I discussed with her both the short and long-term consequences of untreated sleep apnea including . dementia, and decreased lifespan. Dariana Christine APRN [address] [place], [address], [facility] [employer] 04/07/2023 12:49:41 09/23/19 24 text/htm l Skin LesionReported bypatient.Location:bilaterally axillae and right breast Quality:painful; tender; sore; drainage Severity:moderate Duration:started 1 week(s) ago Onset/Timing:gradual; occurred 1 times; identified by self Context:no known trigger Aggravating Factors:shaving under arms Associated Symptoms:no fever; no cold symptoms; no nausea; no vomiting; no diarrhea; no urinary symptoms; no skin flakes; no scabbing; no bruising; no lesions multiplying; no lesions spreading;draining Dariana Christine, RENETTA [address] [place], [address], [facility] [employer]. 09/23/2023 18:03:33 10/25/19 24 text/htm l Anxiety/DepressionReported bypatient.Severity:denies suicidal ideations; able to maintain relationships; does not interfere with activities of daily living; symptoms improved; stabilizing Duration:chronic Onset/Timing:gradual Context:major life stressors;family problems;bereavement Modifying Factors:social support; medications as directed; selective serotonin reuptake inhibitor (SSRI) Associated Symptoms:denies homicidal ideations;anxiety;depression;gr ieving;fatigue;HTNHyperlipidemi aReported bypatient.Duration:chronic Control:not at goal Adherence to Treatment Plan:does not follow recommended diet;does not exercise;does not take medications as prescribed Complications:xanthomas Risk Factors:family history of premature arteriosclerotic cardiovascular disease;hypertension;obesityNot es:She again today declined statin therapy although it was again today recommended.Hypertension F/UReported bypatient.Medications:taking medications as directed; no side effects from medication Lifestyle:not exercising regularly;does not adhere to low sodium diet Associated Symptoms:no dizziness; no lightheadedness; no chest pain; no shortness of breath; no palpitations; no edema; no calf pain with exertion; no headacheHypothyroidReported bypatient.Reason for Visit:TSH check/labs Duration:>12 months Associated Symptoms:no weakness; no lightheadedness; no constipation; no weight gain; no involuntary weight loss;fatigue;cold intolerance;depressed mood;dry/coarse skin Treatment:taking medication as prescribedMedicare Annual Wellness VisitReported bypatient.Diet and Nutrition:diet is high in fat, low in fiber;high carbohydrate meals; discussed vitamin and supplement use; discussed portion control; discussed maintaining calcium balance; discussed diet improvement Fracture Risk:no history of fractures; no recent explained fracture Physical Activity:does not exercise on a regular basis;deconditioned due to sedentary lifestyle; discussed weightbearing activities Depression Risk:no loss of interest in activities; no significant changes in weight; no sleep disturbances or insomnia; no agitation; no thoughts of suicide;loss of energy;history of depression Orientation:no disorientation to time; no disorientation to date; no disorientation to place Concentration and Memory:no decreased concentrating ability; no memory lapses or loss; does not forget words Speech/Motor difficulties:no speech difficulties; no difficulty expressing formulated concepts; no difficulty with fine manipulative tasks; no difficulty writing/copying; no slowed reaction time; does not knock things over when trying to pick them up Hearing:no loss of hearing Vision:no vision problems Activities of Daily Living:able to bathe with limited or no assistance; able to contol urination and bowels; able to dress with limited or no assistance; able to feed self with limited or no assistance; able to get out of chair or bed with limited or no assistance; able to groom with limited or no assistance; able to toilet with limited or no assistance Instrumental Activities of Daily Living:able to do house work with limited or no assistance; able to grocery shop with limited or no assistance; able to manage medications with limited or no assistance; able to manage money with limited or no assistance; able to prepare meals with limited or no assistance; able to use the phone with limited or no assistance Falls Risk Assessment:no frequent falls while walking; no fall in the past year; no fall since last visit; no dizziness/vertigo Home Safety:reviewed sun protection; no unsafe monika hazzards; no unsafe gas appliances; working smoke/CO detectors; use of seatbelts; no vision or hearing loss while driving; has hand bars in the bathroom/shower; good lighting in the home; number of motor vehicle accidents 0Reflux/GERDReported bypatient.Quality:burning Severity:moderate Duration:present 5 or more years; symptoms last >60 minutes; symptoms last until Rx taken Onset/Timing:gradual onset; occasional; occurs immediately after meals Context:non-smoker; no drug/alcohol abuse; no drug alcohol withdrawal;related to caffeine;related to spicy foods Alleviating Factors:proton pump inhibitors Aggravating Factors:lying down; acidic foods Associated Symptoms:belching/burping;heart burn;with acid / burning taste Risk Factorsobesity Hx Vit D deficiency- has not been taking any Vit D supplementation Dariana Christine APRN [address] [place], [address], [employer]. 10/26/2023 19:18:04 04/23/20 24 text/htm l Hypertension F/UReported bypatient.Medications:not taking medications as directed Lifestyle:not exercising regularly;does not adhere to low sodium diet Associated Symptoms:no dizziness; no lightheadedness; no chest pain; no palpitations; no calf pain with exertion; no headache;shortness of breath;edemaNotes:She has not taken her BP meds in several months - she was not aware she wasn't taking them.HypothyroidReported bypatient.Reason for Visit:new symptom(s); worsening symptoms Onset/Timing:worse/new symptoms since 1 months ago Associated Symptoms:fatigue;weight gain lbs.;edema; generalized pain with BHATT Treatment:taking medication as prescribed Vitamin D was 7 at last labs, she has not taken any Vit D. She also has severe VARSHA and is not compliant with CPAP. Dariana Christine APRN [address] [facility], [place], [place], [address], [employer]. 04/26/2024 17:20:54 11/23/19 25 text/htm l Anxiety/DepressionReported bypatient.Severity:denies suicidal ideations; able to maintain relationships; does not interfere with activities of daily living; symptoms improved; stabilizing Duration:chronic Onset/Timing:gradual Context:major life stressors;family problems;bereavement Modifying Factors:social support; medications as directed; selective serotonin reuptake inhibitor (SSRI) Associated Symptoms:denies homicidal ideations;anxiety;depression;gr ieving;fatigue;HTNHyperlipidemi aReported bypatient.Duration:chronic Control:not at goal Adherence to Treatment Plan:does not follow recommended diet;does not exercise;does not take medications as prescribed Complications:xanthomas Risk Factors:family history of premature arteriosclerotic cardiovascular disease;hypertension;obesityNot es:She again today declined statin therapy although it was again today recommended.Hypertension F/UReported bypatient.Medications:taking medications as directed; no side effects from medication Lifestyle:not exercising regularly;does not adhere to low sodium diet Associated Symptoms:no dizziness; no lightheadedness; no chest pain; no shortness of breath; no palpitations; no edema; no calf pain with exertion; no headacheHypothyroidReported bypatient.Reason for Visit:TSH check/labs Duration:>12 months Associated Symptoms:no weakness; no lightheadedness; no constipation; no weight gain; no involuntary weight loss;fatigue;cold intolerance;depressed mood;dry/coarse skin Treatment:taking medication as prescribedReflux/GERDReported bypatient.Quality:burning Severity:moderate Duration:present 5 or more years; symptoms last >60 minutes; symptoms last until Rx taken Onset/Timing:gradual onset; occasional; occurs immediately after meals Context:non-smoker; no drug/alcohol abuse; no drug alcohol withdrawal;related to caffeine;related to spicy foods Alleviating Factors:proton pump inhibitors Aggravating Factors:lying down; acidic foods Associated Symptoms:belching/burping;heart burn;with acid / burning taste Risk Factorsobesity States she had near syncope due to hypotension and stopped HCTZ. Has recurrence of abscess under axilla. Has itchy burning irritation with purulent drainage right eye x 3 days. Hx Vit D deficiency- has not been taking any Vit D supplementation Dariana Christine APRN [address] [facility], [place], [place], [address], [facility] [employer] 12/13/2024 21:52:19 OBGyn Episode No OBEpisode recorded.
--- OUTSIDE RECORDS SUMMARY | 2025-02-21 13:53 | XMS_ITS | Clinical Summary ---
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 Name Role Phone George Gonzalez MD [ ] Conditions or Problems Problem Name Problem Code Onset Date Status Entry Date Provider Comment Standard Description Annotate Rheumatoid arthritis, chronic 29290760 (SNOMED CT) 05/13 Active 05/13 George Gonzalez MD Rheumatoid arthritis Elevated sedimentation rate 184732834 (SNOMED CT) 05/13 Active 05/13 George Gonzalez MD Erythrocyte sedimentation rate above reference range Elevated c-reactive protein 587133980 (SNOMED CT) 05/13 Active 05/13 George Gonzalez MD C-reactive protein outside reference range Legionella pneumonia 005631767 (SNOMED CT) 05/12 Active 05/12 Nasra Dedrick Legionella pneumonia 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 05/12 Nasra Dedrick Leukemoid reaction Anemia in chronic diseases(docu ment disease) D63.8 (ICD-10-CM ) 05/12 Active 05/12 Nasra Dedrick Anemia in other chronic diseases classified elsewhere History of thyroid cancer 412036588 (SNOMED CT) 05/12 Active 05/12 Nasrapaty Tse History of malignant neoplasm of thyroid Staph epi infection B95.7 (ICD-10-CM ) 10/26 Inactive 10/26 Nasrapaty Tse Other staphylococcus as the cause of diseases classified elsewhere Diarrhea, acute 68356275 (SNOMED CT) 01/01 Inactive 01/01 Nasrapaty Tse Diarrhea Thyroid cancer 573278882 (SNOMED CT) 10/27 Inactive 10/27 Nasra Dedrick Malignant tumor of thyroid gland Postoperative wound infection, initial encounter T81.4xxA (ICD-10-CM ) 10/26 Inactive 10/26 Nasra Dedrick Infection following a procedure, initial encounter Abscess, neck 9545043 (SNOMED CT) 10/26 Inactive 10/26 Nasra Dedrick Abscess of neck Cellulitis, neck 20252367 (SNOMED CT) 10/26 Inactive 10/26 Nasra Dedrick Cellulitis of neck MDR infection Z16.24 (ICD-10-CM ) 10/26 Inactive 10/26 Nasra Dedrick Resistance to multiple antibiotics Diarrhea, acute 27926704 (SNOMED CT) 01/01 Removed 01/01 George Gonzalez MD Diarrhea Thyroid cancer 695038431 (SNOMED CT) 10/27 Removed 10/27 George Gonzalez MD Malignant tumor of thyroid gland Postoperative wound infection, initial encounter T81.4xxA (ICD-10-CM ) 10/26 Removed 10/26 Nasra Dedrick Infection following a procedure, initial encounter Staph epi infection B95.7 (ICD-10-CM ) 10/26 Removed 10/26 Nasra Dedrick Other staphylococcus as the cause of diseases classified elsewhere MDR infection Z16.24 (ICD-10-CM ) 10/26 Removed 10/26 Nasra Dedrick Resistance to multiple antibiotics Cellulitis, neck 19982717 (SNOMED CT) 10/26 Removed 10/26 Nasra Dedrick Cellulitis of neck Morbid obesity due to excess calories E66.01 (ICD-10-CM ) 10/26 Active 10/26 Nasra Dedrick Morbid (severe) obesity due to excess calories Abscess, neck 2735219 (SNOMED CT) 10/26 Removed 10/26 Nasra Dedrick Abscess of neck Medications Medication Instructions Start Date Stop Date Generic Name NDC Provider ZOFRAN 4 MG ORAL TABLET 1 tab every 6 hours as needed 05/13 ONDANSETRON HCL 50568569682 George Gonzalez MD OCEAN NASAL SPRAY 0.65 % SOLN 2 sprays each nostril as needed 05/11 SALINE 37577562013 Madeline Blackmonemer ZOFRAN 4 MG ORAL TABLET 1 tab every 6 hours as needed 05/11 ONDANSETRON HCL 60451437555 Madeline Ashrafr HYDROCODONE-ACETAMIN OPHEN 10-325 MG TABS 1 po tid 10/02 HYDROCODONE-ACETAMIN OPHEN 63602799124 Madeline Blackmonemer LEVAQUIN 750 MG ORAL TABLET 1 tab daily 05/11 LEVOFLOXACIN 24603661519 Madeline Blackmonemer RISAQUAD CAPS 1 cap daily 05/11 PROBIOTIC PRODUCT 04889515574 Madeline Min NORCO 10-325 MG ORAL TABLET 1 tab every 8 hours as needed 05/11 HYDROCODONE-ACETAMIN OPHEN 33963221588 Madeline Ashrafr TUSSIONEX PENNKINETIC ER 10-8 MG/5ML ORAL SUSPENSION EXTENDED RELEASE 5ml every 12 hours as needed 05/11 HYDROCOD POLST-CHLORPHEN POLST 79219523416 Madeline Min GABAPENTIN 100 MG CAPS 1 tab nightly 05/11 GABAPENTIN 04324384401 Madeline Blackmonemer FUROSEMIDE 20 MG TABS 1 tab as needed 05/11 FUROSEMIDE 69641744608 Madeline Ashrafr FLONASE 50 MCG/ACT NASAL SUSPENSION 2 sprays in each nostril daily 05/11 FLUTICASONE PROPIONATE 95212047241 Madeline Ashrafr DIFLUCAN 100 MG TABS 1 tab daily 05/11 FLUCONAZOLE 18536118740 Madeline Ashrafr ZYRTEC ALLERGY 10 MG TABS 1 tab nightly 05/11 CETIRIZINE HCL 39989820287 Madeline Blackmonemer ACETAMINOPHEN 325 MG TABS 2 tab every 4 hours as needed 05/11 ACETAMINOPHEN 78659786247 Madeline Ashrafr AVELOX 400 MG ORAL TABLET 1 by mouth daily 02/12 MOXIFLOXACIN HCL 05969982304 George Gonzalez MD MOXIFLOXACIN HCL 400 MG TABS 1 tab Po daily x 30 days 11/27 MOXIFLOXACIN HCL 89531420256 George Gonzalez MD SULFAMETHOXAZOLE-TRI METHOPRIM 800-160 MG TABS one tab twice daily. 10/27 SULFAMETHOXAZOLE-TRI METHOPRIM 60514694062 George Gonzalez MD TRAMADOL HCL 50 MG TABS 1 po qid 10/27 TRAMADOL HCL 62921303544 Sarah Kam TRAMADOL HCL 50 MG TABS 1 po qid 10/27 TRAMADOL HCL 26724798129 Griselda G LEVOTHYROXINE SODIUM 150 MCG TABS 1 po qd 11/05 LEVOTHYROXINE SODIUM 48986320637 Griselda G MEDROXYPROGESTERONE ACETATE 10 MG TABS 09/26 MEDROXYPROGESTERONE ACETATE 14746993973 Griselda G HYDROCODONE-ACETAMIN OPHEN 10-325 MG TABS 1 po tid 10/02 HYDROCODONE-ACETAMIN OPHEN 06013304544 Griselda G Medications Administered No information available. Allergies, Adverse Reactions, Alerts No information available. Results Date Name Value Unit Range Flag Description Lab Report: CBC With Differe ntial/Platelet, Comp. Metabolic Panel (14), ... FT4 INDEX 3.6 1.4-5.2 Thyroxine ( T4) free index in Serum or Plasma by calculation T3RU 29.9 % 23.0-37.0 triiodothyr onine resin uptake T4, TOTAL 12.1 ug/dL 4.7-11.4 H Thyroxine (T4) [Mass/volume] in Serum or Plasma TSH 0.471 u[iU]/mL 0.350-5.3 50 Thyrotropin [Units/volume] in Serum or Plasma Lab Report: Basic Metabolic Panel GFR EST 65 mL/min estimated stefani merular filtration rate Office Visit: rm10 SMOK ADVICE yes Smoking c essation education (procedure) Lab Report: Culture AFB w Sm ear CULTURE Specimen/So urce: Wound/Neck culture, comment Lab Report: C-Reactive Prote in CRPCARDRISK 15.9 mg/L 0.000-10. 0 H C reactive protein [Mass/volume] in Serum or Plasma Lab Report: Comprehensive Me tabolic Panel ANIONGAP 6 mmol/L 3-11 N anion gap, s edu GFRC 69 mL/min/1. 73m2 Glomerular Filtration Rate Calculation ALBUMIN 4.2 g/dL 3.2-4.8 N Albumin [Mass/volume] in Serum or Plasma PROTEIN, TOT 6.8 g/dL 5.7-8.2 N Protein [Mass/volume] in Serum or Plasma BILI TOTAL 0.6 mg/dL 0.3-1.2 N Bilirubin. total [Mass/volume] in Serum or Plasma SGPT (ALT) 19 U/L 7-40 N Alanine aminotransferase [Enzymatic activity/volume] in Serum or Plasma SGOT (AST) 19 U/L 0-33 N Aspartate aminotransferase [Enzymatic activity/volume] in Serum or Plasma ALK PHOS 107 U/L 46-116 N Alkaline marie sphatase [Enzymatic activity/volume] in Blood CALCIUM 9.7 mg/dL 8.7-10.4 N Calcium [Moles/volume] in Serum or Plasma CO2 30 mmol/L 20-31 N Carbon dioxid e, total [Moles/volume] in Venous blood CHLORIDE 106 mmol/L 99-109 N Chloride [Moles/volume] in Serum or Plasma POTASSIUM 4.8 mmol/L 3.5-5.5 N Potassium [Moles/volume] in Serum or Plasma SODIUM 142 mmol/L 132-146 N Sodium [Moles/volume] in Serum or Plasma CREATININE 0.9 mg/dL 0.6-1.3 N Creatinine [Mass/volume] in Serum or Plasma BUN 18 mg/dL 9-23 N Urea nitrogen [Mass/volume] in Serum or Plasma GLUCOSE SER 83 mg/dL 70-100 N Glucose [Mass/volume] in Serum or Plasma Lab Report: CBC w Auto Diff IMM GRANU % 0.4 % 0.0-0.6 N Immature granulocytes/100 leukocytes in Blood BASOPHIL % 0.7 % 0.0-1.0 N Basophils/ 100 leukocytes in Blood by Manual count % EOS AUTO 2.7 % 0.0-3.0 N Eosinophil s/100 leukocytes in Blood by Automated count MONOCYTE BF 8.0 % 0.0-12.0 N monocyte s as percent of body fluid leukocytes LYMPHOCY BF 22.9 % 24.0-44.0 L lymphoc ytes as percent of body fluid leukocytes NEUTROP BF 65.3 % 41.0-71.0 N Neutroph ils/100 leukocytes in Body fluid [id number]-GE-unk 0.0 GE use only - for [employer] import when terms are not otherwise specified BASOABSOLMAN 0.06 K/MCL {Cells}/u L 0.00-0.20 N basophils, absolute, manual EOS ABSLT 0.23 10*3/uL 0.10-0.30 N Eosinophi ls [#/volume] in Blood MONOCYTABMAN 0.68 K/MCL {Cells}/u L 0.00-1.00 N monocytes, absolute, manual LYMPHSABSMAN 1.94 K/MCL {Cells}/u L 0.60-4.80 N lymphocytes, absolute, manual ABS NEUTROPH 5.53 10*3/uL 1.50-8.30 N Neutro phils [#/volume] in Blood PLATELETS 257 10*3/mm3 150-450 N Platelets [#/volume] in Blood by Automated count RDW_ 15.9 11.3-14.5 H RDW, no uni ts MCHC 31.9 G/DL 32.0-36.0 L MCHC [Mass/ volume] by Automated count MCH 29.3 pg 27.0-31.0 N MCH [Entiti c mass] by Automated count MCV 91.8 fL 80.0-99.0 N MCV [Entiti c volume] by Automated count HCT 42.6 % 34.5-44.0 N Hematocrit [Volume Fraction] of Blood by Automated count HGB 13.6 g/dL 11.5-15.5 N Hemoglobin [Mass/volume] in Blood RBC 4.64 M/MCL 10*6/mm3 3.89-5.14 N Erythro cytes [#/volume] in Blood by Automated count WBC 8.47 10*3/mm3 3.50-10.8 0 N Leukocytes [#/volume] in Blood by Automated count Lab Report: ESR (Sed Rate) ESR 18 mm/h 0-30 N Erythrocyte sedimentation rate by Westergren method Lab Report: CBC With Differe ntial/Platelet, Comp. Metabolic Panel (14), ... EGFR NOT AFA 69 mL/min/1. 73m2 Glomerular filtration rate/1.73 sq M.predicted among non-blacks [Volume Rate/Area] in Serum, Plasma or Blood by Creatinine-based formula (MDRD) BG RANDOM 83 mg/dL 70-100 Glucose [Mass/volume] in Blood IMMATUREGRAN 0.4 K/MCL 0.0-0.6 Immatu re granulocytes [#/volume] in Blood BASO# 0.06 K/mcL 0.00-0.20 Basophil s [#/volume] in Blood MONOSCT AUTO 0.68 10*3/uL 0.00-1.00 Monocy dorothy [#/volume] in Blood by Automated count LYMPHCT AUTO 1.94 10*3/mm3 0.60-4.80 Lymph ocytes [#/volume] in Blood by Automated count MONOCYTE % 8.0 % 0.0-12.0 Monocytes /100 leukocytes in Blood by Automated count LYMPHS % 22.9 % 24.0-44.0 L Lymphocyte s/100 leukocytes in Blood by Automated count PMN % 65.3 % 41.0-71.0 Neutrophils /100 leukocytes in Blood by Automated count RDW 15.9 % 11.3-14.5 H Erythrocyte distribution width [Ratio] by Automated count Office Visit: rm13 MEDS REVIEW Done Documenta tion of current medications (procedure) ORALTOBACUSE Never Tobacco smoking status CIGARET SMKG yes Tobacco smoking status SMOK STATUS Former smoker Tobacco smoking status Plan of Care Type Date Detail Pending order Continue oral an tibiotics Pending order Hepatitis C Atb: (ICD 10 Code: Z11.59) Pending order CMP Pending order CBC with Differe ntial Pending order C- reactive prot ein Pending order Sedimentation Ra te (ESR) Pending order Continue oral an tibiotics Pending order CMP Pending order CBC with Differe ntial Pending order C- reactive prot ein Pending order Sedimentation Ra te (ESR) Pending order C-Diff PCR Pending order New Oral Antibio tic Pending order BMP Pending order CBC with Differe ntial Pending order C- reactive prot ein Pending order Sedimentation Ra te (ESR) Pending order Wound Culture an d Sensitivity Pending order AFB Culture & Se nsitivity Pending order New Oral Antibio tic Pending order CMP Pending order CBC with Differe ntial Pending order C- reactive prot ein Pending order Sedimentation Ra te (ESR) Patient education WEIGHT%20MANAG EMENT Procedures Code Procedure Name Date Entry Date CPT-43942 CMP [id number] CBC with Differential 2015 CPT-53077 C- reactive protein CPT-02655 Sedimentation Rate (ESR) 201 02/17/31 CPT-Cooral Continue oral antibiotics 20 29/12/18 CPT-67001 CMP [id number] CBC with Differential 2015 CPT-30165 C- reactive protein CPT-07341 Sedimentation Rate (ESR) 201 02/16/19 CPT-cdpcr C-Diff PCR CPT-nette New Oral Antibiotic CPT-28906 BMP [id number] CBC with Differential 2015 CPT-77150 C- reactive protein CPT-63436 Sedimentation Rate (ESR) 201 02/15/15 CPT-83887 Wound Culture and Sensitivity CPT-AFBC AFB Culture & Sensitivity 20 28/11/14 CPT-nette New Oral Antibiotic CPT-16262 CMP [id number] CBC with Differential 2015 CPT-93593 C- reactive protein CPT-24508 Sedimentation Rate (ESR) 201 02/15/12 Vital Signs Date Name Value Unit Description BMI (Body Mass Index) 44.35 kg/m2 Bod y Mass Index (Ratio) Body Temperature 97.7 [degF] temperat ure E&M BP Diastolic 70 mm[Hg] blood pressu re, diastolic BP Systolic 140 mm[Hg] blood pressur e, systolic Heart Rate 86 /min pulse rate Height 71 [in_us] height E&M Respiratory Rate 14 /min respirat ory rate E&M Weight Measured 318 [lb_av] weight E& M Weight Measured 318 [lb_av] weight E& M Immunizations No information available. Advance Directives No information available.
[2025-02-21 15:08] VITALS: BP 148/76; PULSE 96; RESP 14; O2SAT 96; BMI 39.4
== END 2025-02-21 23:59 | disposition home or self-care (01) ==
PROVIDERS: PCP Nurse Practitioner Family; Visit Provider Nurse Practitioner Family
DX: M51.16 Intervertebral disc disorders with radiculopathy, lumbar region (principal); Z79.891 Long term (current) use of opiate analgesic; Z79.899 Other long term (current) drug therapy
CPT/HCPCS: 99212; G0463

== ENCOUNTER 2025-03-21 15:02 | Outpatient (POV) | payer MEDICARE, SELFPAY ==
--- OUTSIDE RECORDS SUMMARY | 2025-03-21 15:04 | XMS_ITS | Clinical Summary ---
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 Name Role Phone George Gonzalez MD [ ] Conditions or Problems Problem Name Problem Code Onset Date Status Entry Date Provider Comment Standard Description Annotate Rheumatoid arthritis, chronic 10142088 (SNOMED CT) 05/13 Active 05/13 George Gonzalez MD Rheumatoid arthritis Elevated sedimentation rate 866649844 (SNOMED CT) 05/13 Active 05/13 George Gonzalez MD Erythrocyte sedimentation rate above reference range Elevated c-reactive protein 872180495 (SNOMED CT) 05/13 Active 05/13 George Gonzalez MD C-reactive protein outside reference range Legionella pneumonia 995582837 (SNOMED CT) 05/12 Active 05/12 Nasra Dedrick Legionella pneumonia 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 05/12 Nasra Dedrick Leukemoid reaction Anemia in chronic diseases(docu ment disease) D63.8 (ICD-10-CM ) 05/12 Active 05/12 Nasra Dedrick Anemia in other chronic diseases classified elsewhere History of thyroid cancer 412538549 (SNOMED CT) 05/12 Active 05/12 Nasrapaty Tse History of malignant neoplasm of thyroid Staph epi infection B95.7 (ICD-10-CM ) 10/26 Inactive 10/26 [place]rapaty Tse Other staphylococcus as the cause of diseases classified elsewhere Diarrhea, acute 83842592 (SNOMED CT) 01/01 Inactive 01/01 Nasrapaty Tse Diarrhea Thyroid cancer 411645748 (SNOMED CT) 10/27 Inactive 10/27 Nasra Dedrick Malignant tumor of thyroid gland Postoperative wound infection, initial encounter T81.4xxA (ICD-10-CM ) 10/26 Inactive 10/26 Nasra Dedrick Infection following a procedure, initial encounter Abscess, neck 5420800 (SNOMED CT) 10/26 Inactive 10/26 Nasra Dedrick Abscess of neck Cellulitis, neck 49509623 (SNOMED CT) 10/26 Inactive 10/26 Nasra Dedrick Cellulitis of neck MDR infection Z16.24 (ICD-10-CM ) 10/26 Inactive 10/26 Nasra Dedrick Resistance to multiple antibiotics Diarrhea, acute 87948293 (SNOMED CT) 01/01 Removed 01/01 George Gonzalze MD Diarrhea Thyroid cancer 992017727 (SNOMED CT) 10/27 Removed 10/27 George Gonzalez [...] Dedrick Resistance to multiple antibiotics Cellulitis, neck 93270308 (SNOMED CT) 10/26 Removed 10/26 Nasra Dedrick Cellulitis of neck Morbid obesity due to excess calories E66.01 (ICD-10-CM ) 10/26 Active 10/26 Nasra Dedrick Morbid (severe) obesity due to excess calories Abscess, neck 9617253 (SNOMED CT) 10/26 Removed 10/26 Nasra Dedrick Abscess of neck Medications Medication Instructions Start Date Stop Date Generic Name NDC Provider ZOFRAN 4 MG ORAL TABLET 1 tab every 6 hours as needed 05/13 ONDANSETRON HCL 98553584180 George Gonzalez MD OCEAN NASAL SPRAY 0.65 % SOLN 2 sprays each nostril as needed 05/11 SALINE 01064019967 Madeline Blackmonemer ZOFRAN 4 MG ORAL TABLET 1 tab every 6 hours as needed 05/11 ONDANSETRON HCL 59822283671 Madeline Ashrafr HYDROCODONE-ACETAMIN OPHEN 10-325 MG TABS 1 po tid 10/02 HYDROCODONE-ACETAMIN OPHEN 34211319068 Madeline Blackmonemer LEVAQUIN 750 MG ORAL TABLET 1 tab daily 05/11 LEVOFLOXACIN 92176470022 Madeline Blackmonemer RISAQUAD CAPS 1 cap daily 05/11 PROBIOTIC PRODUCT 17767968099 Madeline Min NORCO 10-325 MG ORAL TABLET 1 tab every 8 hours as needed 05/11 HYDROCODONE-ACETAMIN OPHEN 97885353174 Madeline Ashrafr TUSSIONEX PENNKINETIC ER 10-8 MG/5ML ORAL SUSPENSION EXTENDED RELEASE 5ml every 12 hours as needed 05/11 HYDROCOD POLST-CHLORPHEN POLST 06383376858 Madeline Min GABAPENTIN 100 MG CAPS 1 tab nightly 05/11 GABAPENTIN 02105482133 Madeline Blackmonemer FUROSEMIDE 20 MG TABS 1 tab as needed 05/11 FUROSEMIDE 52380550691 Madeline Ashrafr FLONASE 50 MCG/ACT NASAL SUSPENSION 2 sprays in each nostril daily 05/11 FLUTICASONE PROPIONATE 81402060755 Madeline Ashrafr DIFLUCAN 100 MG TABS 1 tab daily 05/11 FLUCONAZOLE 55136492296 Madeline Ashrafr ZYRTEC ALLERGY 10 MG TABS 1 tab nightly 05/11 CETIRIZINE HCL 53984727640 Madeline Blackmonemer ACETAMINOPHEN 325 MG TABS 2 tab every 4 hours as needed 05/11 ACETAMINOPHEN 22062393965 Madeline Ashrafr AVELOX 400 MG ORAL TABLET 1 by mouth daily 02/12 MOXIFLOXACIN HCL 50831517788 George Gonzalez MD MOXIFLOXACIN HCL 400 MG TABS 1 tab Po daily x 30 days 11/27 MOXIFLOXACIN HCL 07743682286 George Gonzalez MD SULFAMETHOXAZOLE-TRI METHOPRIM 800-160 MG TABS one tab twice daily. 10/27 SULFAMETHOXAZOLE-TRI METHOPRIM 30440566964 George Gonzalez MD TRAMADOL HCL 50 MG TABS 1 po qid 10/27 TRAMADOL HCL 17078250793 Sarah Kam TRAMADOL HCL 50 MG TABS 1 po qid 10/27 TRAMADOL HCL 57396908840 Griselda G LEVOTHYROXINE SODIUM 150 MCG TABS 1 po qd 11/05 LEVOTHYROXINE SODIUM 82433540938 Griselda G MEDROXYPROGESTERONE ACETATE 10 MG TABS 09/26 MEDROXYPROGESTERONE ACETATE 23768077876 Griselda G HYDROCODONE-ACETAMIN OPHEN 10-325 MG TABS 1 po tid 10/02 HYDROCODONE-ACETAMIN OPHEN 15050369611 Griselda G Medications Administered No information available. [...] Procedures Code Procedure Name Date Entry Date CPT-43731 CMP [id number] CBC with Differential 2015 CPT-28693 C- reactive protein CPT-43504 Sedimentation Rate (ESR) 201 02/17/31 CPT-Cooral Continue oral antibiotics 20 29/12/18 CPT-38594 CMP [id number] CBC with Differential 2015 CPT-13682 C- reactive protein CPT-32054 Sedimentation Rate (ESR) 201 02/16/19 CPT-cdpcr C-Diff PCR CPT-nette New Oral Antibiotic CPT-80150 BMP [id number] CBC with Differential 2015 CPT-65113 C- reactive protein CPT-20013 Sedimentation Rate (ESR) 201 02/15/15 CPT-91074 Wound Culture and Sensitivity CPT-AFBC AFB Culture & Sensitivity 20 28/11/14 CPT-nette New Oral Antibiotic CPT-28510 CMP [id number] CBC with Differential 2015 CPT-02528 C- reactive protein CPT-47653 Sedimentation Rate (ESR) 201 02/15/12 Vital Signs [...]
--- OUTSIDE RECORDS SUMMARY | 2025-03-21 15:05 | XMS_ITS | Data Portability ---
Author Organization [facility] - MSE Address [address] [place] [address] Care Team Providers Care Medical Manager Name Role Phone CHRISTINE DARIANA Primary Care Provider Unavailabl e Assessment Encounter [...] Lab CBC w/ auto diff 2024 025 [facility], [address] [place] [address], [address], 5 07:08:12 CMP, serum or plasma 2024 025 [facility], [address] [place] [address], [address], 5 07:08:13 vitamin D, 25-hydroxy, total, serum 2024 025 [facility], [address] [place] [address], [address], 5 07:08:13 TSH + free T4, serum 2024 025 [facility], [address] [place] [address], [place], [address], 5 07:08:11 vitamin D, 25-hydroxy, total, serum 2023 024 [facility]), [address] [place] [address], [address], 4 08:12:58 CMP, serum or plasma 2023 024 [facility]), [address] [place] [address], [address], 4 08:12:57 CBC w/ auto diff 2023 024 [facility]), [address] [place] [address], [address], 4 08:12:57 TSH + free T4, serum 2023 024 [facility]), [address] [place] [address], [address], 4 08:12:56 lipid panel, serum 2023 024 [employer] [facility], [address], [place], [address], 4 08:45:01 vitamin D, 25-hydroxy, total, serum 2023 024 [employer] [facility], [address], [place], [address], 4 08:45:03 HbA1c (hemoglobin A1c), blood 2023 024 [employer] [facility], [address], [place], [address], 4 08:45:04 TSH, serum or plasma 2023 024 [employer] [facility], [address], [place], [address], 4 08:45:03 CBC w/ auto diff 2023 024 [employer] [facility], [address], [place], [address], 4 08:45:02 CMP, serum or plasma 2023 024 [employer] [facility], [address], [place], [address], 4 08:45:02 lipid panel, serum 2022 023 [employer] [facility], [address], [place], [address], 3 05:04:12 CMP, serum or plasma 2022 023 [facility], [address], [place], [address], 3 05:04:12 CBC w/ auto diff 2022 023 [facility], [address], [place], [address], 3 05:04:13 TSH, serum or plasma 2022 023 [facility], [address], [place], [address], 3 05:04:13 Referral None recorded. Procedures None recorded. Surgeries None recorded. Imaging US, echocardiog vaibhav - Uncontrolle d HTN with Orthopnea; same day as mammo please [address] Scheduling Department -New Scheduling Process, [address], [place], [address], 4 10:58:53 MAMMO, screening, digital, bilateral - need a friday appointment [address] Scheduling Department -New Scheduling Process, [address], [place], [address], 4 10:58:14 Medication Orders hydrochloro thiazide 12.5 mg capsule 2024 025 [facility], [address] [place] [address], [address], 5 13:49:47 Bactrim DS 800 mg-160 mg tablet 2024 [facility], [address] [place] [address], [address], 5 09:39:35 fluoxetine 40 mg capsule 2024 [facility], [address] [place] [address], [address], 5 13:49:50 neomycin-po lymyxin-dex ameth 3.5 mg/mL-10,00 0 unit/mL-0.1 % eye drops 2024 [facility], [address] [place] [address], [address], 5 09:39:36 omeprazole 40 mg capsule,del ayed release 2024 025 [facility], [address] [place] [address], [address], 5 13:49:48 levothyroxi ne 150 mcg tablet 2024 025 [facility], [address] [place] [address], [address], 5 13:49:50 ergocalcife rol (vitamin D2) 1,250 mcg (50,000 unit) capsule 2023 024 [facility], [address] [place] [address], [address], 4 11:25:58 valsartan 80 mg tablet 2023 025 [facility], [address] [place] [address], [id number], 5 13:44:19 hydrochloro thiazide 25 mg tablet 2023 025 [facility], [address] [place] [address], [address], 5 14:05:50 fluoxetine 40 mg capsule 2023 024 [facility], [address] [place] [address], [address], 4 14:04:50 omeprazole 40 mg capsule,del ayed release 2023 024 [facility], [address] [place] [address], [address], 4 12:19:27 levothyroxi ne 150 mcg tablet 2023 024 [facility], [address] [place] [address], [address], 4 14:38:16 valsartan 80 mg tablet [email or web address], [address] [place] [address], [address], 5 13:38:53 Bactrim DS 800 mg-160 mg tablet 2023 024 [facility], [address] [place] [address], [address], 4 07:54:20 fluoxetine 40 mg capsule 2022 023 [facility], [address] [place] [address], [address], 3 12:50:24 omeprazole 40 mg capsule,del ayed release 2022 023 [facility], [address] [place] [address], [address], 3 12:50:26 valsartan 80 mg tablet [email or web address], [address] [place] [address], [address], 5 13:38:53 levothyroxi ne 150 mcg tablet 2022 023 [facility], [address] [place] [address], [address], 4 16:35:12 Patient TargetsNo targets recorded. Patient InstructionsNo instructions recorded. Reason for Referral None Reported. Results Created Date Observation Date Name Description Value Unit Range Abnormal Flag Note LastModifiedBy Organization Detail LastModifiedTime 04/07/2004/08/2023 LIPID PANEL , STAND JANET cholesterol, total 228 mg/dL <200 high Not Available [facility] [address] [place], [address], 04/08/2023 08:36:47 04/07/20 23 04/08/2023 LIPID PANEL , STAND JANET HDL cholesterol 59 mg/dL > or = 50 normal Not Available [facility] [address] [place], [address], 04/08/2023 08:36:47 04/07/20 23 04/08/2023 LIPID PANEL , STAND JANET triglyceride s 186 mg/dL <150 high Not Available [facility] [address], [place], [address], 04/08/2023 08:36:47 04/07/2004/08/2023 LIPID PANEL , STAND JANET LDL-choleste rol [...] which is a valid ated novel claudia mason audrey r accur acy than the Fried jacob equat ion in the estim ation of LDL-C . Joelle blackwood SS et al. CYNDIE. 2013; 310(1 9): 2061- 2068 (http ://ed ucati on.Qu Adal Via6. com/f aq/FA Q164) Not Available [facility] [address], [place], [address], 04/08/2023 08:36:47 04/07/2004/08/2023 LIPID PANEL , STAND JANET chol/HDLC ratio 3.9 (calc ) <5.0 normal Not Available [facility] [address], [place], [address], 04/08/2023 08:36:47 04/07/20 23 04/08/2023 LIPID PANEL , STAND JANET non HDL cholesterol 169 mg/dL _(hannah c) <130 high For patie nts with diabe dorothy plus 1 major ASCVD risk facto r, treat ing to a non-H DL-C goal of <100 mg/dL (LDL- C of <70 mg/dL ) is consi dered a wilfredo flowers optio n. Not Available [facility] [address], [place], [address], 04/08/2023 08:36:47 04/07/20 23 04/08/2023 COMPR EHENS MENDY METAB OLIC PANEL glucose 90 mg/dL 65-99 normal Fasti ng refer ence inter adelso Not Available [facility] [address] [place], [address], 04/08/2023 08:36:47 04/07/20 23 04/08/2023 COMPR EHENS MENDY METAB OLIC PANEL urea nitrogen (BUN) 16 mg/dL 7-25 normal Not Available [facility] [address] [place], [address], 04/08/2023 08:36:47 04/07/20 23 04/08/2023 COMPR EHENS MENDY METAB OLIC PANEL creatinine 0.89 mg/dL 0.50-1 .05 normal Not Available [facility] [address] [place], [address], 04/08/2023 08:36:47 04/07/20 23 04/08/2023 COMPR EHENS MENDY METAB OLIC PANEL eGFR 73 mL/mi n/1.7 3m2 > or = 60 normal The eGFR is based on the CKD-E PI 2020 equat ion. To calcu late the new eGFR from a previ ous Creat inine or Cysta tin C resul t, go to https ://sheldon yates.huong piedra/castillo causey s/ kdoqi /gfr% 5Fcal culat or Not Available [facility] [address] [place], [address], 04/08/2023 08:36:47 04/07/20 23 04/08/2023 COMPR EHENS MENDY METAB OLIC PANEL BUN/creatini ne ratio NOT APPLIC ABLE (calc ) 6-22 Not Available [facility] [address] [place], [address], 04/08/2023 08:36:47 04/07/20 23 04/08/2023 COMPR EHENS MENDY METAB OLIC PANEL sodium 143 mmol/ L 135-14 6 normal Not Available [facility] [address] [facility] [place], [address], 04/08/2023 08:36:47 04/07/20 23 04/08/2023 COMPR EHENS MENDY METAB OLIC PANEL potassium 4.8 mmol/ L 3.5-5. 3 normal Not Available [facility] [address] [place], [address], 04/08/2023 08:36:47 04/07/20 23 04/08/2023 COMPR EHENS MENDY METAB OLIC PANEL chloride 107 mmol/ L 98-110 normal Not Available [facility] [address] [place], [address], 04/08/2023 08:36:47 04/07/20 23 04/08/2023 COMPR EHENS MENDY METAB OLIC PANEL carbon dioxide 28 mmol/ L 20-32 normal Not Available [facility] [address] [place], [address], 04/08/2023 08:36:47 04/07/20 23 04/08/2023 COMPR EHENS MENDY METAB OLIC PANEL calcium 9.4 mg/dL 8.6-10 .4 normal Not Available [facility] [address] [place], [address], 04/08/2023 08:36:47 04/07/20 23 04/08/2023 COMPR EHENS MENDY METAB OLIC PANEL protein, total 6.8 g/dL 6.1-8. 1 normal Not Available [facility] [address] [place], [address], 04/08/2023 08:36:47 04/07/20 23 04/08/2023 COMPR EHENS MENDY METAB OLIC PANEL albumin 4.3 g/dL 3.6-5. 1 normal Not Available [facility] [address] [facility] [place], [address], 04/08/2023 08:36:47 04/07/20 23 04/08/2023 COMPR EHENS MENDY METAB OLIC PANEL globulin 2.5 g/dL_ (calc ) 1.9-3. 7 normal Not Available [facility] [address] [facility] [place], [address], 04/08/2023 08:36:47 04/07/20 23 04/08/2023 COMPR EHENS MENDY METAB OLIC PANEL albumin/glob ulin ratio 1.7 (calc ) 1.0-2. 5 normal Not Available [facility] [address] [facility] [place], [address], 04/08/2023 08:36:47 04/07/20 23 04/08/2023 COMPR EHENS MENDY METAB OLIC PANEL bilirubin, total 0.6 mg/dL 0.2-1. 2 normal Not Available [facility] [address] [facility] [place], [address], 04/08/2023 08:36:47 04/07/20 23 04/08/2023 COMPR EHENS MENDY METAB OLIC PANEL alkaline phosphatase 121 U/L 37-153 normal Not Available [facility] [address] [facility] [place], [address], 04/08/2023 08:36:47 04/07/20 23 04/08/2023 COMPR EHENS MENDY METAB OLIC PANEL AST 13 U/L 10-35 normal Not Available [facility] [facility] [place], [address], 04/08/2023 08:36:47 04/07/20 23 04/08/2023 COMPR EHENS MENDY METAB OLIC PANEL ALT 12 U/L 6-29 normal Not Available [facility] [address] [facility] [place], [address], 04/08/2023 08:36:47 04/07/2004/08/2023 CBC (INCL UDES DIFF/ PLT) white blood cell count 10.2 thous and/u L 3.8-10 .8 normal Not Available [facility] [address] [facility] [place], [address], 04/08/2023 05:04:13 04/07/2004/08/2023 CBC (INCL UDES DIFF/ PLT) red blood cell count 4.34 nahomy on/uL 3.80-5 .10 normal Not Available [facility] [address] [facility] [place], [address], 04/08/2023 05:04:13 04/07/2004/08/2023 CBC (INCL UDES DIFF/ PLT) hemoglobin 13.2 g/dL 11.7-1 5.5 normal Not Available [facility] [address] [facility] [place], [address], 04/08/2023 05:04:13 04/07/2004/08/2023 CBC (INCL UDES DIFF/ PLT) hematocrit 41.1 % 35.0-4 5.0 normal Not Available [facility] [place], [address], 04/08/2023 05:04:13 04/07/2004/08/2023 CBC (INCL UDES DIFF/ PLT) MCV 94.7 fL 80.0-1 00.0 normal Not Available [facility] [facility] [place], [address], 04/08/2023 05:04:13 04/07/20 23 04/08/2023 CBC (INCL UDES DIFF/ PLT) MCH 30.4 pg 27.0-3 3.0 normal Not Available [facility] [address] [facility] [place], [address], 04/08/2023 05:04:13 04/07/2004/08/2023 CBC (INCL UDES DIFF/ PLT) MCHC 32.1 g/dL 32.0-3 6.0 normal Not Available [facility] [address] [facility] [place], [address], 04/08/2023 05:04:13 04/07/2004/08/2023 CBC (INCL UDES DIFF/ PLT) RDW 14.4 % 11.0-1 5.0 normal Not Available [facility] [address] [facility], [place], [address], 04/08/2023 05:04:13 04/07/2004/08/2023 CBC (INCL UDES DIFF/ PLT) platelet count 281 thous and/u L 140-40 0 normal Not Available [facility] [address] [facility], [place], [address], 04/08/2023 05:04:13 04/07/2004/08/2023 CBC (INCL UDES DIFF/ PLT) MPV 11.4 fL 7.5-12 .5 normal Not Available [facility] [address] [facility] [place], [address], 04/08/2023 05:04:13 04/07/2004/08/2023 CBC (INCL UDES DIFF/ PLT) absolute neutrophils 7273 cells /uL 1500-7 800 normal Not Available [facility] [address] [facility], [place], [address], 04/08/2023 05:04:13 04/07/2004/08/2023 CBC (INCL UDES DIFF/ PLT) absolute lymphocytes 1979 cells /uL 850-39 00 normal Not Available [facility] [address] [facility] [place], [address], 04/08/2023 05:04:13 04/07/20 23 04/08/2023 CBC (INCL UDES DIFF/ PLT) absolute monocytes 653 cells /uL 200-95 0 normal Not Available [facility] [address], [place], [address], 04/08/2023 05:04:13 04/07/20 23 04/08/2023 CBC (INCL UDES DIFF/ PLT) absolute eosinophils 204 cells /uL 15-500 normal Not Available [facility] [address], [place], [address], 04/08/2023 05:04:13 04/07/20 23 04/08/2023 CBC (INCL UDES DIFF/ PLT) absolute basophils 92 cells /uL 0-200 normal Not Available [facility] [address], [place], [address], 04/08/2023 05:04:13 04/07/20 23 04/08/2023 CBC (INCL UDES DIFF/ PLT) neutrophils 71.3 % normal Not Available [facility] [address], [place], [address], 04/08/2023 05:04:13 04/07/20 23 04/08/2023 CBC (INCL UDES DIFF/ PLT) lymphocytes 19.4 % normal Not Available [facility] [address], [place], [address], 04/08/2023 05:04:13 04/07/20 23 04/08/2023 CBC (INCL UDES DIFF/ PLT) monocytes 6.4 % normal Not Available [facility] [address], [place], [address], 04/08/2023 05:04:13 04/07/20 23 04/08/2023 CBC (INCL UDES DIFF/ PLT) eosinophils 2.0 % normal Not Available [facility] [address] [place], [address], 04/08/2023 05:04:13 04/07/2004/08/2023 CBC (INCL UDES DIFF/ PLT) basophils 0.9 % normal Not Available [facility] [address] [place], [address], 04/08/2023 05:04:13 04/07/2004/08/2023 TSH W/REF SIRISHA TO FT4 TSH w/reflex to FT4 0.65 mIU/L 0.40-4 .50 normal Not Available [facility] [address] [facility], [place], [address], 04/08/2023 07:13:37 10/25/19 24 10/26/2023 LIPID PANEL , STAND JANET cholesterol, total 225 mg/dL <200 high Not Available [facility] [address] [facility], [place], [address], 10/26/2023 09:45:40 10/25/19 24 10/26/2023 LIPID PANEL , STAND JANET HDL cholesterol 52 mg/dL > or = 50 normal Not Available [facility] [address] [place], [address], 10/26/2023 09:45:40 10/25/19 24 10/26/2023 LIPID PANEL , STAND JANET triglyceride s 178 mg/dL <150 high Not Available [facility] [address] [place], [address], 10/26/2023 09:45:40 10/25/19 24 10/26/2023 LIPID PANEL [...] calcu lated using the Joelle n-Hop kins francy flores n, which is a valid ated novel claudia jacobsen than the Fried jacob pablo ion in the estim ation of LDL-C . Joelle blackwood SS et al. CYNDIE. 2013; 310(1 9): 2061- 2068 (http ://ed ucati on.Qu estDi Biolex Therapeuticss. com/f aq/FA Q164) Not Available [facility] [address] [facility], [place], [address], 10/26/2023 09:45:40 10/25/19 24 10/26/2023 LIPID PANEL , STAND JANET chol/HDLC ratio 4.3 (calc ) <5.0 normal Not Available [facility] [address], [place], [address], 10/26/2023 09:45:40 10/25/19 24 10/26/2023 LIPID PANEL , STAND JANET non HDL cholesterol 173 mg/dL _(hannah c) <130 high For patie nts with diabe dorothy plus 1 major ASCVD risk facto r, treat ing to a non-H DL-C goal of <100 mg/dL (LDL- C of <70 mg/dL ) is consi markd a wilfredo flowers optio n. Not Available [facility] [address], [place], [address], 10/26/2023 09:45:40 10/25/19 24 10/26/2023 COMPR EHENS MENDY METAB OLIC PANEL glucose 76 mg/dL 65-99 normal Fasti ng refer ence inter adelso Not Available [facility] [address], [place], [address], 10/26/2023 09:45:40 10/25/19 24 10/26/2023 COMPR EHENS MENDY METAB OLIC PANEL urea nitrogen (BUN) 14 mg/dL 7-25 normal Not Available [facility] [address] [place], [address], 10/26/2023 09:45:40 10/25/19 24 10/26/2023 COMPR EHENS MENDY METAB OLIC PANEL creatinine 0.72 mg/dL 0.50-1 .05 normal Not Available [facility] [address] [place], [address], 10/26/2023 09:45:40 10/25/19 24 10/26/2023 COMPR EHENS MENDY METAB OLIC PANEL eGFR 94 mL/mi n/1.7 3m2 > or = 60 normal Not Available [facility] [address] [place], [address], 10/26/2023 09:45:40 10/25/19 24 10/26/2023 COMPR EHENS MENDY METAB OLIC PANEL BUN/creatini ne ratio SEE NOTE: (calc ) 6-22 Not Repor elizabeth: BUN and Creat inine are withi n refer ence range . Not Available [facility] [address] [place], [address], 10/26/2023 09:45:40 10/25/19 24 10/26/2023 COMPR EHENS MENDY METAB OLIC PANEL sodium 144 mmol/ L 135-14 6 normal Not Available [facility] [address] [place], [address], 10/26/2023 09:45:40 10/25/19 24 10/26/2023 COMPR EHENS MENDY METAB OLIC PANEL potassium 4.4 mmol/ L 3.5-5. 3 normal Not Available [facility] [address] [place], [address], 10/26/2023 09:45:40 10/25/19 24 10/26/2023 COMPR EHENS MENDY METAB OLIC PANEL chloride 110 mmol/ L 98-110 normal Not Available [facility] [address] [place], [address], 10/26/2023 09:45:40 10/25/19 24 10/26/2023 COMPR EHENS MENDY METAB OLIC PANEL carbon dioxide 23 mmol/ L 20-32 normal Not Available [facility] [address] [place], [address], 10/26/2023 09:45:40 10/25/19 24 10/26/2023 COMPR EHENS MENDY METAB OLIC PANEL calcium 9.1 mg/dL 8.6-10 .4 normal Not Available [facility] [address] [place], [address], 10/26/2023 09:45:40 10/25/19 24 10/26/2023 COMPR EHENS MENDY METAB OLIC PANEL protein, total 6.7 g/dL 6.1-8. 1 normal Not Available [facility] [address] [place], [address], 10/26/2023 09:45:40 10/25/19 24 10/26/2023 COMPR EHENS MENDY METAB OLIC PANEL albumin 4.2 g/dL 3.6-5. 1 normal Not Available [facility] [address] [place], [address], 10/26/2023 09:45:40 10/25/19 24 10/26/2023 COMPR EHENS MENDY METAB OLIC PANEL globulin 2.5 g/dL_ (calc ) 1.9-3. 7 normal Not Available [facility] [address] [place], [address], 10/26/2023 09:45:40 10/25/19 24 10/26/2023 COMPR EHENS MENDY METAB OLIC PANEL albumin/glob ulin ratio 1.7 (calc ) 1.0-2. 5 normal Not Available [facility] [address] [facility] [place], [address], 10/26/2023 09:45:40 10/25/19 24 10/26/2023 COMPR EHENS MENDY METAB OLIC PANEL bilirubin, total 0.7 mg/dL 0.2-1. 2 normal Not Available [facility] [address] [facility] [place], [address], 10/26/2023 09:45:40 10/25/19 24 10/26/2023 COMPR EHENS MENDY METAB OLIC PANEL alkaline phosphatase 122 U/L 37-153 normal Not Available [facility] [address] [facility] [place], [address], 10/26/2023 09:45:40 10/25/19 24 10/26/2023 COMPR EHENS MENDY METAB OLIC PANEL AST 13 U/L 10-35 normal Not Available [facility] [address] [facility] [place], [address], 10/26/2023 09:45:40 10/25/19 24 10/26/2023 COMPR EHENS MENDY METAB OLIC PANEL ALT 11 U/L 6-29 normal Not Available [facility] [address] [facility] [place], [address], 10/26/2023 09:45:40 10/25/19 24 10/26/2023 CBC (INCL UDES DIFF/ PLT) white blood cell count 10.2 thous and/u L 3.8-10 .8 normal Not Available [facility] [address] [facility] [place], [address], 10/26/2023 08:45:02 10/25/19 24 10/26/2023 CBC (INCL UDES DIFF/ PLT) red blood cell count 4.55 nahomy on/uL 3.80-5 .10 normal Not Available [facility] [address] [facility] [place], [address], 10/26/2023 08:45:02 10/25/19 24 10/26/2023 CBC (INCL UDES DIFF/ PLT) hemoglobin 13.8 g/dL 11.7-1 5.5 normal Not Available [facility] [address] [facility] [place], [address], 10/26/2023 08:45:02 10/25/19 24 10/26/2023 CBC (INCL UDES DIFF/ PLT) hematocrit 41.9 % 35.0-4 5.0 normal Not Available [facility] [address] [facility] [place], [address], 10/26/2023 08:45:02 10/25/19 24 10/26/2023 CBC (INCL UDES DIFF/ PLT) MCV 92.1 fL 80.0-1 00.0 normal Not Available [facility] [address] [facility] [place], [address], 10/26/2023 08:45:02 10/25/19 24 10/26/2023 CBC (INCL UDES DIFF/ PLT) MCH 30.3 pg 27.0-3 3.0 normal Not Available [facility] [address] [place], [place] [address], [address], 10/26/2023 08:45:02 10/25/19 24 10/26/2023 CBC (INCL UDES DIFF/ PLT) MCHC 32.9 g/dL 32.0-3 6.0 normal Not Available [facility] [address] [facility] [place], [address], 10/26/2023 08:45:02 10/25/19 24 10/26/2023 CBC (INCL UDES DIFF/ PLT) RDW 14.5 % 11.0-1 5.0 normal Not Available [facility] [address] [facility] [place], [address], 10/26/2023 08:45:02 10/25/19 24 10/26/2023 CBC (INCL UDES DIFF/ PLT) platelet count 282 thous and/u L 140-40 0 normal Not Available [facility] [place] [facility] [address], [place], [address], 10/26/2023 08:45:02 10/25/19 24 10/26/2023 CBC (INCL UDES DIFF/ PLT) MPV 11.7 fL 7.5-12 .5 normal Not Available [facility] [place] [facility] [address] Magalil Melo, [place], [address], 10/26/2023 08:45:02 10/25/19 24 10/26/2023 CBC (INCL UDES DIFF/ PLT) absolute neutrophils 7436 cells /uL 1500-7 800 normal Not Available [facility] [place] [facility] [address], [place], [address], 10/26/2023 08:45:02 10/25/19 24 10/26/2023 CBC (INCL UDES DIFF/ PLT) absolute lymphocytes 1826 cells /uL 850-39 00 normal Not Available [facility] [address], [place], [address], 10/26/2023 08:45:02 10/25/19 24 10/26/2023 CBC (INCL UDES DIFF/ PLT) absolute monocytes 632 cells /uL 200-95 0 normal Not Available [facility] [address], [place], [address], 10/26/2023 08:45:02 10/25/19 24 10/26/2023 CBC (INCL UDES DIFF/ PLT) absolute eosinophils 235 cells /uL 15-500 normal Not Available [facility] [address], [place], [address], 10/26/2023 08:45:02 10/25/19 24 10/26/2023 CBC (INCL UDES DIFF/ PLT) absolute basophils 71 cells /uL 0-200 normal Not Available [facility] [address] [facility] [place], [address], 10/26/2023 08:45:02 10/25/19 24 10/26/2023 CBC (INCL UDES DIFF/ PLT) neutrophils 72.9 % normal Not Available [facility] [address] [facility] [place], [address], 10/26/2023 08:45:02 10/25/19 24 10/26/2023 CBC (INCL UDES DIFF/ PLT) lymphocytes 17.9 % normal Not Available [facility] [address] [facility] [place], [address], 10/26/2023 08:45:02 10/25/19 24 10/26/2023 CBC (INCL UDES DIFF/ PLT) monocytes 6.2 % normal Not Available [facility] [place] [address] [facility] [place], [address], 10/26/2023 08:45:02 10/25/19 24 10/26/2023 CBC (INCL UDES DIFF/ PLT) eosinophils 2.3 % normal Not Available [facility] [place] [address] [facility] [place], [address], 10/26/2023 08:45:02 10/25/19 24 10/26/2023 CBC (INCL UDES DIFF/ PLT) basophils 0.7 % normal Not Available [facility] [place] [address] [facility] [place], [address], 10/26/2023 08:45:02 10/25/19 24 10/26/2023 TSH W/REF SIRISHA TO FT4 TSH w/reflex to FT4 0.42 mIU/L 0.40-4 .50 normal Not Available [facility] [address] [place], [address], 10/26/2023 10:37:05 10/25/19 24 10/26/2023 VITAM IN [...] /MS is recom janeen d: order code 82586 (denisha ents >2yrs ). See Note 1 Note 1 For addit ional infor lety peterson refer to http: //[facility] jonathan Rodriguez stDia gnost ics.c om/fa q/FAQ 199 (This link is being provi ded for infor goldie lee/ rafiq oliveira purpo ses only. ) Not Available [facility] [place] [facility] [address] [place], [address], 10/26/2023 10:37:05 10/25/19 24 10/26/2023 HEMOG LOBIN A1C hemoglobin A1C 5.1 %_of_ total _HGB <5.7 normal For the purpo se of scree go for the prese nce of diabe dorothy: [...] platf orm. Not Available [facility] [place] [facility] [address] [facility], [place], [address], 10/26/2023 10:56:56 04/23/2004/24/2024 TSH+F REE T4 TSH 0.890 uIU/m L 0.450- 4.500 normal Not Available [facility]) [address] [place], [address], 04/24/2024 08:12:56 04/23/2004/24/2024 TSH+F REE T4 T4,free(dire ct) 1.46 NG/dL 0.82-1 .77 normal Not Available [facility] ([facility]) [address] [place], [address], 04/24/2024 08:12:56 04/23/2004/24/2024 CBC WITH DIFFE RENTI AL/PL ATELE T WBC 10.8 x10e3 /uL 3.4-10 .8 normal Not Available [facility] ([facility]) [address] [place], [address], 04/24/2024 08:12:57 04/23/2004/24/2024 CBC WITH DIFFE RENTI AL/PL ATELE T RBC 4.54 x10e6 /uL 3.77-5 .28 normal Not Available [facility] ([facility]) [address] [place], [address], 04/24/2024 08:12:57 04/23/20 24 04/24/2024 CBC WITH DIFFE RENTI AL/PL ATELE T hemoglobin 14.0 g/dL 11.1-1 5.9 normal Not Available [facility] ([facility]) [address] [place], [address], 04/24/2024 08:12:57 04/23/2004/24/2024 CBC WITH DIFFE RENTI AL/PL ATELE T hematocrit 44.5 % 34.0-4 6.6 normal Not Available [facility] ([facility]) [address] [place], [address], 04/24/2024 08:12:57 04/23/2004/24/2024 CBC WITH DIFFE RENTI AL/PL ATELE T MCV 98 fL 79-97 above high normal Not Available [facility] ([facility]) [address] [place], [address], 04/24/2024 08:12:57 04/23/2004/24/2024 CBC WITH DIFFE RENTI AL/PL ATELE T MCH 30.8 pg 26.6-3 3.0 normal Not Available [facility] ([facility]) [address] [place], [address], 04/24/2024 08:12:57 04/23/2004/24/2024 CBC WITH DIFFE RENTI AL/PL ATELE T MCHC 31.5 g/dL 31.5-3 5.7 normal Not Available [facility] ([facility]) [address] [place], [address], 04/24/2024 08:12:57 04/23/2004/24/2024 CBC WITH DIFFE RENTI AL/PL ATELE T RDW 14.8 % 11.7-1 5.4 Not Available [facility] ([facility]) [address] [place], [address], 04/24/2024 08:12:57 04/23/20 24 04/24/2024 CBC WITH DIFFE RENTI AL/PL ATELE T platelets 283 x10e3 /uL 150-45 0 normal Not Available [facility] ([facility]) [address], [place], [address], 04/24/2024 08:12:57 04/23/20 24 04/24/2024 CBC WITH DIFFE RENTI AL/PL ATELE T neutrophils 71 % not estab. normal Not Available [facility] ([facility]) [address], [place], [address], 04/24/2024 08:12:57 04/23/20 24 04/24/2024 CBC WITH DIFFE RENTI AL/PL ATELE T lymphs 19 % not estab. normal Not Available [facility] ([facility]) [address], [place], [address], 04/24/2024 08:12:57 04/23/20 24 04/24/2024 CBC WITH DIFFE RENTI AL/PL ATELE T monocytes 7 % not estab. normal Not Available [facility] ([facility]) [address] [place], [address], 04/24/2024 08:12:57 04/23/20 24 04/24/2024 CBC WITH DIFFE RENTI AL/PL ATELE T eos 2 % not estab. normal Not Available [facility] ([facility]) [address], [place], [address], 04/24/2024 08:12:57 04/23/20 24 04/24/2024 CBC WITH DIFFE RENTI AL/PL ATELE T basos 1 % not estab. normal Not Available [facility] ([facility]) [address], [place], [address], 04/24/2024 08:12:57 04/23/20 24 04/24/2024 CBC WITH DIFFE RENTI AL/PL ATELE T immature cells [employer] Not Available [facility] ([facility]) [address] [place], [address], 04/24/2024 08:12:57 04/23/2004/24/2024 CBC WITH DIFFE RENTI AL/PL ATELE T neutrophils (absolute) 7.6 x10e3 /uL 1.4-7. 0 above high normal Not Available [facility] ([facility]) [address] [place], [address], 04/24/2024 08:12:57 04/23/20 24 04/24/2024 CBC WITH DIFFE RENTI AL/PL ATELE T lymphs (absolute) 2.0 x10e3 /uL 0.7-3. 1 normal Not Available [facility] ([facility]) [address], [place], [address], 04/24/2024 08:12:57 04/23/20 24 04/24/2024 CBC WITH DIFFE RENTI AL/PL ATELE T monocytes(ab solute) 0.7 x10e3 /uL 0.1-0. 9 normal Not Available [facility] ([facility]) [address] [place], [address], 04/24/2024 08:12:57 04/23/20 24 04/24/2024 CBC WITH DIFFE RENTI AL/PL ATELE T eos (absolute) 0.3 x10e3 /uL 0.0-0. 4 normal Not Available [facility] ([facility]) [address] [place], [address], 04/24/2024 08:12:57 04/23/20 24 04/24/2024 CBC WITH DIFFE RENTI AL/PL ATELE T baso (absolute) 0.1 x10e3 /uL 0.0-0. 2 normal Not Available [facility] ([facility]) [address] [place], [address], 04/24/2024 08:12:57 08/09/20 24 04/24/2024 CBC WITH DIFFE RENTI AL/PL ATELE T immature granulocytes 0 % not estab. Not Available [facility] ([facility]) [address], [place], [address], 04/24/2024 08:12:57 04/23/20 24 04/24/2024 CBC WITH DIFFE RENTI AL/PL ATELE T immature grans (abs) 0.0 x10e3 /uL 0.0-0. 1 Not Available [facility] ([facility]) [address], [place], [address], 04/24/2024 08:12:57 04/23/20 24 04/24/2024 CBC WITH DIFFE RENTI AL/PL ATELE T NRBC [employer] Not Available [facility] ([facility]) [address], [place], [address], 04/24/2024 08:12:57 04/23/20 24 04/24/2024 CBC WITH DIFFE RENTI AL/PL ATELE T hematology comments: [employer] Not Available [facility] ([facility]) [address], [place], [address], 04/24/2024 08:12:57 04/23/20 24 04/24/2024 COMP. METAB OLIC PANEL (14) glucose 93 mg/dL 70-99 normal Not Available [facility] ([facility]) [address], [place], [address], 04/24/2024 08:12:57 04/23/20 24 04/24/2024 COMP. METAB OLIC PANEL (14) BUN 12 mg/dL 8-27 normal Not Available [facility] ([facility]) [address], [place], [address], 04/24/2024 08:12:57 04/23/20 24 04/24/2024 COMP. METAB OLIC PANEL (14) creatinine 0.76 mg/dL 0.57-1 .00 normal Not Available [facility] ([facility]) [address] [place], [address], 04/24/2024 08:12:57 04/23/20 24 04/24/2024 COMP. METAB OLIC PANEL (14) eGFR 88 mL/mi n/1.7 3 >59 normal Not Available [facility] ([facility]) [address] [place], [address], 04/24/2024 08:12:57 04/23/20 24 04/24/2024 COMP. METAB OLIC PANEL (14) BUN/creatini ne ratio 16 12-28 normal Not Available [facility] ([facility]) [address] [place], [address], 04/24/2024 08:12:57 04/23/20 24 04/24/2024 COMP. METAB OLIC PANEL (14) sodium 142 mmol/ L 134-14 4 normal Not Available [facility] ([facility]) [address] [place], [address], 04/24/2024 08:12:57 04/23/20 24 04/24/2024 COMP. METAB OLIC PANEL (14) potassium 4.6 mmol/ L 3.5-5. 2 normal Not Available [facility] ([facility]) [address] [place], [address], 04/24/2024 08:12:57 04/23/20 24 04/24/2024 COMP. METAB OLIC PANEL (14) chloride 106 mmol/ L 96-106 normal Not Available [facility] ([facility]) [address] [place], [address], 04/24/2024 08:12:57 04/23/20 24 04/24/2024 COMP. METAB OLIC PANEL (14) carbon dioxide, total 22 mmol/ L 20-29 normal Not Available [facility] ([facility]) [address] [place], [address], 04/24/2024 08:12:57 04/23/20 24 04/24/2024 COMP. METAB OLIC PANEL (14) calcium 9.3 mg/dL 8.7-10 .3 normal Not Available [facility] ([facility]) [address] [place], [address], 04/24/2024 08:12:57 04/23/20 24 04/24/2024 COMP. METAB OLIC PANEL (14) protein, total 6.6 g/dL 6.0-8. 5 normal Not Available [facility] ([facility]) [address] [place], [address], 04/24/2024 08:12:57 04/23/20 24 04/24/2024 COMP. METAB OLIC PANEL (14) albumin 4.2 g/dL 3.9-4. 9 normal Not Available [facility] ([facility]) [address] [place], [address], 04/24/2024 08:12:57 04/23/20 24 04/24/2024 COMP. METAB OLIC PANEL (14) globulin, total 2.4 g/dL 1.5-4. 5 Not Available [facility] ([facility]) [address] [place], [address], 04/24/2024 08:12:57 04/23/20 24 04/24/2024 COMP. METAB OLIC PANEL (14) bilirubin, total 0.5 mg/dL 0.0-1. 2 normal Not Available [facility] ([facility]) [address] [place], [address], 04/24/2024 08:12:57 04/23/20 24 04/24/2024 COMP. METAB OLIC PANEL (14) alkaline phosphatase 141 IU/L 44-121 above high normal Not Available [facility] ([facility]) [address] [place], [address], 04/24/2024 08:12:57 04/23/20 24 04/24/2024 COMP. METAB OLIC PANEL (14) AST (SGOT) 16 IU/L 0-40 normal Not Available [facility] ([facility]) [address], [place], [address], 04/24/2024 08:12:57 04/23/20 24 04/24/2024 COMP. METAB OLIC PANEL (14) ALT (SGPT) 13 IU/L 0-32 normal Not Available [facility] ([facility]) [address], [place], [address], 04/24/2024 08:12:57 04/23/20 24 04/24/2024 VITAM IN [...] IOM (Inst itute of Medic ine). 2010. Dian ry refer ence stevie es for calci um and D. Jt kong DC: The [facility] Press . 2. Kalli mathur MF, Binneema ey [place], Gelacio off-F errar i STEELE, et al. Evalu ation , treat ment, and preve ntion of vitam in D defic iency : an Endoc rine Socie ty clini hannah pract ice guide line. JCEM. 2010; 96(7) :1911 -30. Not Available [facility] ([facility]) [address], [place], [address], 04/24/2024 08:12:58 11/23/1911/23/2024 TSH+F REE T4 TSH 0.286 uIU/m L 0.450- 4.500 below low normal Not Available [facility] ([facility]) [address] [place], [address], 11/23/2024 07:08:11 11/23/19 25 11/23/2024 TSH+F REE T4 T4,free(dire ct) 1.45 NG/dL 0.82-1 .77 normal Not Available [facility] ([facility]) [address] [place], [address], 11/23/2024 07:08:11 11/23/1911/23/2024 CBC WITH DIFFE RENTI AL/PL ATELE T WBC 9.8 x10e3 /uL 3.4-10 .8 normal Not Available [facility] ([facility]) [address] [place], [address], 11/23/2024 07:08:12 11/23/1911/23/2024 CBC WITH DIFFE RENTI AL/PL ATELE T RBC 4.35 x10e6 /uL 3.77-5 .28 normal Not Available [facility] ([facility]) [address] [place], [address], 11/23/2024 07:08:12 11/23/1911/23/2024 CBC WITH DIFFE RENTI AL/PL ATELE T hemoglobin 13.3 g/dL 11.1-1 5.9 normal Not Available [facility] ([facility]) [address] [place], [address], 11/23/2024 07:08:12 11/23/1911/23/2024 CBC WITH DIFFE RENTI AL/PL ATELE T hematocrit 42.0 % 34.0-4 6.6 normal Not Available [facility] ([facility]) [address] [place], [address], 11/23/2024 07:08:12 11/23/19 25 11/23/2024 CBC WITH DIFFE RENTI AL/PL ATELE T MCV 97 fL 79-97 normal Not Available [facility] ([facility]) [address], [place], [address], 11/23/2024 07:08:12 11/23/19 25 11/23/2024 CBC WITH DIFFE RENTI AL/PL ATELE T MCH 30.6 pg 26.6-3 3.0 normal Not Available [facility] ([facility]) [address], [place], [address], 11/23/2024 07:08:12 11/23/19 25 11/23/2024 CBC WITH DIFFE RENTI AL/PL ATELE T MCHC 31.7 g/dL 31.5-3 5.7 normal Not Available [facility] ([facility]) [address], [place], [address], 11/23/2024 07:08:12 11/23/19 25 11/23/2024 CBC WITH DIFFE RENTI AL/PL ATELE T RDW 14.2 % 11.7-1 5.4 Not Available [facility] ([facility]) [address], [place], [address], 11/23/2024 07:08:12 11/23/19 25 11/23/2024 CBC WITH DIFFE RENTI AL/PL ATELE T platelets 280 x10e3 /uL 150-45 0 normal Not Available [facility] ([facility]) [address], [place], [address], 11/23/2024 07:08:12 11/23/19 25 11/23/2024 CBC WITH DIFFE RENTI AL/PL ATELE T neutrophils 69 % not estab. normal Not Available [facility] ([facility]) [address], [place], [address], 11/23/2024 07:08:12 11/23/19 25 11/23/2024 CBC WITH DIFFE RENTI AL/PL ATELE T lymphs 19 % not estab. normal Not Available [facility] ([facility]) [address], [place], [address], 11/23/2024 07:08:12 11/23/19 25 11/23/2024 CBC WITH DIFFE RENTI AL/PL ATELE T monocytes 7 % not estab. normal Not Available [facility] ([facility]) [address], [place], [address], 11/23/2024 07:08:12 11/23/19 25 11/23/2024 CBC WITH DIFFE RENTI AL/PL ATELE T eos 3 % not estab. normal Not Available [facility] ([facility]) [address], [place], [address], 11/23/2024 07:08:12 11/23/19 25 11/23/2024 CBC WITH DIFFE RENTI AL/PL ATELE T basos 1 % not estab. normal Not Available [facility] ([facility]) [address], [place], [address], 11/23/2024 07:08:12 11/23/19 25 11/23/2024 CBC WITH DIFFE RENTI AL/PL ATELE T immature cells [employer]PER[employer] WR[employer] ROOM Not Available [facility] ([facility]) [address], [place], [address], 11/23/2024 07:08:12 11/23/19 25 11/23/2024 CBC WITH DIFFE RENTI AL/PL ATELE T neutrophils (absolute) 6.8 x10e3 /uL 1.4-7. 0 normal Not Available [facility] ([facility]) [address], [place], [address], 11/23/2024 07:08:12 11/23/19 25 11/23/2024 CBC WITH DIFFE RENTI AL/PL ATELE T lymphs (absolute) 1.9 x10e3 /uL 0.7-3. 1 normal Not Available [facility] ([facility]) [address], [place], [address], 11/23/2024 07:08:12 11/23/19 25 11/23/2024 CBC WITH DIFFE RENTI AL/PL ATELE T monocytes(ab solute) 0.7 x10e3 /uL 0.1-0. 9 normal Not Available [facility] ([facility]) [address], [place], [address], 11/23/2024 07:08:12 11/23/1911/23/2024 CBC WITH DIFFE RENTI AL/PL ATELE T eos (absolute) 0.3 x10e3 /uL 0.0-0. 4 normal Not Available [facility] ([facility]) [address] [place], [address], 11/23/2024 07:08:12 11/23/19 25 11/23/2024 CBC WITH DIFFE RENTI AL/PL ATELE T baso (absolute) 0.1 x10e3 /uL 0.0-0. 2 normal Not Available [facility] ([facility]) [address] [place], [address], 11/23/2024 07:08:12 11/23/19 25 11/23/2024 CBC WITH DIFFE RENTI AL/PL ATELE T immature granulocytes 1 % not estab. Not Available [facility] ([facility]) [address] [place], [address], 11/23/2024 07:08:12 11/23/1911/23/2024 CBC WITH DIFFE RENTI AL/PL ATELE T immature grans (abs) 0.1 x10e3 /uL 0.0-0. 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 METAB OLIC PANEL (14) glucose 89 mg/dL 70-99 normal Not Available [facility] ([facility]) [address], [place], [address], 11/23/2024 07:08:13 11/23/19 25 11/23/2024 COMP. METAB OLIC PANEL (14) BUN 14 mg/dL 8-27 normal Not Available [facility] ([facility]) [address] [place], [address], 11/23/2024 07:08:13 11/23/19 25 11/23/2024 COMP. METAB OLIC PANEL (14) creatinine 0.77 mg/dL 0.57-1 .00 normal Not Available [facility] ([facility]) [address], [place], [address], 11/23/2024 07:08:13 11/23/19 25 11/23/2024 COMP. METAB OLIC PANEL (14) eGFR 86 mL/mi n/1.7 3 >59 normal Not Available [facility] ([facility]) [address], [place], [address], 11/23/2024 07:08:13 11/23/19 25 11/23/2024 COMP. METAB OLIC PANEL (14) BUN/creatini ne ratio 18 12-28 normal Not Available [facility] ([facility]) [address] [place], [address], 11/23/2024 07:08:13 11/23/19 25 11/23/2024 COMP. METAB OLIC PANEL (14) sodium 144 mmol/ L 134-14 4 normal Not Available [facility] ([facility]) [address] [place], [address], 11/23/2024 07:08:13 11/23/19 25 11/23/2024 COMP. METAB OLIC PANEL (14) potassium 4.8 mmol/ L 3.5-5. 2 normal Not Available [facility] ([facility]) [address] [place], [address], 11/23/2024 07:08:13 11/23/19 25 11/23/2024 COMP. METAB OLIC PANEL (14) chloride 108 mmol/ L 96-106 above high normal Not Available [facility] ([facility]) [address] [place], [address], 11/23/2024 07:08:13 11/23/19 25 11/23/2024 COMP. METAB OLIC PANEL (14) carbon dioxide, total 23 mmol/ L 20-29 normal Not Available [facility] ([facility]) [address] [place], [address], 11/23/2024 07:08:13 11/23/19 25 11/23/2024 COMP. METAB OLIC PANEL (14) calcium 9.0 mg/dL 8.7-10 .3 normal Not Available [facility] ([facility]) [address] [place], [address], 11/23/2024 07:08:13 11/23/19 25 11/23/2024 COMP. METAB OLIC PANEL (14) protein, total 6.7 g/dL 6.0-8. 5 normal Not Available [facility] ([facility]) [address] [place], [address], 11/23/2024 07:08:13 11/23/19 25 11/23/2024 COMP. METAB OLIC PANEL (14) albumin 4.2 g/dL 3.9-4. 9 normal Not Available [facility] ([facility]) [address] [place], [address], 11/23/2024 07:08:13 11/23/19 25 11/23/2024 COMP. METAB OLIC PANEL (14) globulin, total 2.5 g/dL 1.5-4. 5 Not Available [facility] ([facility]) [address] [place], [address], 11/23/2024 07:08:13 11/23/19 25 11/23/2024 COMP. METAB OLIC PANEL (14) bilirubin, total 0.5 mg/dL 0.0-1. 2 normal Not Available [facility] ([facility]) [address] [place], [address], 11/23/2024 07:08:13 11/23/19 25 11/23/2024 COMP. METAB OLIC PANEL (14) alkaline phosphatase 129 IU/L 44-121 above high normal Not Available [facility] ([facility]) [address] [place], [address], 11/23/2024 07:08:13 11/23/19 25 11/23/2024 COMP. METAB OLIC PANEL (14) AST (SGOT) 14 IU/L 0-40 normal Not Available [facility] ([facility]) [address] [place], [address], 11/23/2024 07:08:13 11/23/19 25 11/23/2024 COMP. METAB OLIC PANEL (14) ALT (SGPT) 13 IU/L 0-32 normal Not Available [facility] ([facility]) [address] [place], [address], 11/23/2024 07:08:13 11/23/19 25 11/23/2024 VITAM IN [...] um and D. Jt kong DC: The [facility] Press . 2. Kalli mathur MF, Segundo flores [place], Gelacio off-F nickar i STEELE, et al. Evalu ation , treat ment, and preve ntion of vitam in D defic iency : an Endoc rine Socie ty clini hannah pract ice guide line. JCEM. 2010; 96(7) :1911 -30. Not Available [facility] ([facility]) [address], [place], [address], 11/23/2024 07:08:13 Result Notes None recorded. Problems Name Problem SNOMED Code Status Onset Date Resolution Date Notes Provider Name and Address Organization Details Recorded Time Esssheba l hyperten rona 70646372 Active 2023 Dariana Christine APRN [address] [place], [address] , [employer] 4 09:57:38 Obstruct mendy sleep apnea syndrome 02845341 Active 2023 Dariana Christine APRN [address] [place], [address] , [employer] 4 17:20:08 Hypothyr oidism 73215628 Active 2016 Problem Code: E03.8; Problem Code Type: ICD-10; Not Available [facility] 2 22:07:46 Severe obesity [id number] Active 2016 Problem Code: E66.01; Problem Code Type: ICD-10; Not Available [facility] 2 22:07:46 Mixed hyperlip idemia 250514497 Active 2018 Problem Code: E78.2; Problem Code Type: ICD-10; Not Available [facility] 2 22:07:47 Dysthymi a [id number] Completed 201609/23/2022 Problem Code: F34.1; Problem Code Type: ICD-10; LYNETTE whitfield, [employer] 3 15:34:56 Restless legs 09609945 Completed 201709/23/2022 Problem Code: G25.81; Problem Code Type: ICD-10; LYNETTE KALYANMELITON null, [employer] 3 15:34:56 Restless legs 15734813 Completed 201609/12/2017 Problem Code: G25.81; Problem Code Type: ICD-10; LYNETTE KALYANMELITON null, [employer] 3 15:34:56 Impacted cerumen in left ear [id number] Completed 201910/03/2020 Problem Code: H61.22; Problem Code Type: ICD-10; Not Available [facility] 2 22:07:47 Impacted cerumen of bilatera l ears [id number] 18757 Completed 201610/24/2017 Problem Code: H61.23; Problem Code Type: ICD-10; Not Available [facility] 2 22:07:47 Acute non-supp urative serous otitis media 415213112 Completed 201909/23/2022 Problem Code: H65.01; Problem Code Type: ICD-10; LYNETTE PRABHAKAR null, [employer] 3 15:34:56 Acute serous otitis media of bilatera l ears [id number] 13869 Completed 201909/23/2022 Problem Code: H65.03; Problem Code Type: ICD-10; LYNETTE whitfield [facility] [employer] 3 15:34:56 Acute suppurat mendy otitis media 063769580 Completed 201702/14/2018 Not Available [facility] [facility] 2 22:07:48 Hyperten sive disorder 09249938 Active 2020 Problem Code: I10; Problem Code Type: ICD-10; Not Available [facility] 2 22:07:48 Hyperten sive disorder 28754400 Completed 201707/16/2019 Problem Code: I10; Problem Code Type: ICD-10; Not Available [facility] 2 22:07:48 Acute sinusiti s 29562497 Completed 201904/16/2020 Problem Code: J01.90; Problem Code Type: ICD-10; Not Available [facility] 2 22:07:48 Cellulit is of toe of right foot [id number] 235743 Completed 201807/16/2019 Problem Code: L03.031; Problem Code Type: ICD-10; Not Available [facility] 2 22:07:48 Pain in right foot 14110747405 9107 Completed 201602/14/2018 Problem Code: M79.671; Problem Code Type: ICD-10; Not Available [facility] 2 22:07:48 Postmeno pausal bleeding 87331310 Completed 201807/16/2019 Problem Code: N95.0; Problem Code Type: ICD-10; Not Available [facility] 2 22:07:49 Adjustme nt disorder with mixed anxiety and depresse d mood 964862002 Active 2020 Problem Code: F43.23; Problem Code Type: ICD-10; Not Available [facility] 2 22:07:49 Elevated blood-pr essure reading without diagnosi s of hyperten rona 432328525 Completed 201702/14/2018 Not Available [facility] 2 22:07:49 Elevated blood-pr essure reading without diagnosi s of hyperten rona 740071997 Completed 201608/24/2017 Not Available [facility] 2 22:07:49 Snoring 61016865 Completed 202009/23/2022 Problem Code: R06.83; Problem Code Type: ICD-10; LYNETTE PRABHAKAR null, [employer] 3 15:34:56 Sleep disorder 10774514 Completed 201710/03/2020 Not Available [facility] 2 22:07:49 Dizzines s and giddines s 386140896 Completed 201702/14/2018 Problem Code: R42; Problem Code Type: ICD-10; Not Available [facility] 2 22:07:49 Abnormal findings on diagnost ic imaging of breast 266600782 Completed 201707/16/2019 Not Available [facility] 2 22:07:50 [place] lesion of lung 909633478 Completed 201810/03/2020 Problem Code: R91.1; Problem Code Type: ICD-10; Not Available [facility] 2 22:07:50 General examinat ion of patient Active 2021 Not Available [facility] 2 22:07:50 Screenin g for malignan t neoplasm of colon Completed 201809/23/2022 LYNETTE TRUONGR null, [employer] 3 15:34:56 Screenin g mammogra phy Completed 201810/03/2020 Problem Code: Z12.31; Problem Code Type: ICD-10; LYNETTE BIGGSNEAR null, [employer] 3 15:34:56 Screenin g mammogra phy Completed 201809/23/2022 Problem Code: Z12.31; Problem Code Type: ICD-10; LYNETTE BIGGSNEAR null, [employer] 3 15:34:56 Breast neoplasm screenin g status 432712767 Completed 201701/18/2018 Problem Code: Z12.39; Problem Code Type: ICD-10; Not Available [facility] 2 22:07:52 Influenz a vaccine needed 23847765965 06 Completed 201809/23/2022 Problem Code: Z23; Problem Code Type: ICD-10; [facility] 3 15:34:56 Bronchop neumonia 234300523 Completed 201708/04/2018 Problem Code: J18.0; Problem Code Type: ICD-10; Not Available [facility] 2 22:07:52 Acute bronchit is 69451897 Completed 201610/24/2017 Problem Code: J20.9; Problem Code Type: ICD-10; Not Available [facility] 2 22:07:52 Body mass index 30+ - obesity 092921466 Active 2020 Problem Code: Z68.43; Problem Code Type: ICD-10; Not Available [facility] 2 22:07:52 Body mass index 40+ - severely obese 062123438 Active 2017 Not Available [facility] 2 22:07:52 Acquired hypothyr oidism 601290613 Completed 201611/21/2017 Problem Code: 244.8; Problem Code Type: ICD-9; Not Available [facility] 2 22:07:53 Morbid obesity 219418640 Completed 201612/20/2017 Problem Code: 278.01; Problem Code Type: ICD-9; Not Available [facility] 2 22:07:54 Acute suppurat mendy otitis media without spontane ous rupture of ear drum 35021090 Completed 201702/14/2018 Problem Code: 382.00; Problem Code Type: ICD-9; Not Available [facility] 2 22:07:54 Impacted cerumen 29044463 Completed 201610/24/2017 Problem Code: 380.4; Problem Code Type: ICD-9; Not Available [facility] 2 22:07:55 Extrapyr amidal disease 90968340 Completed 201609/12/2017 Problem Code: 333.99; Problem Code Type: ICD-9; LYNETTE VANNA whitfield, [employer] 3 15:34:56 Elevated blood-pr essure reading without diagnosi s of hyperten rona 679090685 Completed 201702/14/2018 Not Available [facility] 2 22:07:55 Cough 30117389 Completed 201609/08/2017 Problem Code: R05; Problem Code Type: ICD-10; Not Available [facility] 2 22:07:56 Dyspnea 857661933 Completed 201810/02/2018 Problem Code: R06.02; Problem Code Type: ICD-10; Not Available [facility] 2 22:07:56 Benign essentia l hyperten rona 6435195 Active 2017 Problem Code: 401.1; Problem Code Type: ICD-9; Not Available [facility] 2 22:07:56 Pain in limb 31177526 Completed 201602/14/2018 Problem Code: 729.5; Problem Code Type: ICD-9; Not Available [facility] 2 22:07:57 Screenin g for malignan t neoplasm of breast Completed 201701/18/2018 Problem Code: V76.10; Problem Code Type: ICD-9; Not Available [facility] 2 22:07:57 Body mass index 40+ - severely obese 668784761 Completed 201810/03/2020 Not Available [facility] 2 22:07:59 Extrapyr amidal disease 42085090 Completed 201709/23/2022 Problem Code: 333.99; Problem Code Type: ICD-9; LYNETTE KALYANMELITON whitfield, [employer] 3 15:34:56 Problem Notes None recorded. Procedures Surgical History Date Name Laterality Status Provider Name and Address Organization Details Recorded Time 07/16/20 dilation and curettage completed Not Available [facility] 05/21/2022 22:56:07 thyroidectomy completed Dariana jefferson, [employer] [address] [facility], [place], [address], [facility] [employer] 10/25/2023 09:41:55 Imaging Results None recorded. Procedure [...] Available Not Available Not Available amoxicillin 500 mg-dipti buck clavulanate 125 mg tablet take 1 tablet by oral route every 12 hours 04/12 completed Not Available Not Available Not Available hydrochloro thiazide 12.5 mg tablet one tablet po in the a.m. for blood pressure 06/05 completed Not Available Not Available Not Available levothyroxi ne 150 mcg capsule take 1 capsule (150 mcg) by oral route once daily on an empty [id number] minutes before breakfast 12/01 completed Not Available Not Available Not Available Saxenda 3 mg/0.5 mL (18 mg/3 mL) subcutaneou s pen injector Inject 0.6mg SQ QD x 1 week, then inject 1.2mg SQ QD daily 01/09 completed Not Available Not Available Not Available Vitals Date Recorded Body height Body temperature Heart rate Oxygen saturation Oxygen saturation in Arterial blood by Pulse oximetry Systolic And Diastolic Systolic And Diastolic Provider Name and Address Organization Details Last Updated DateTime 4 170.18 cm 98.2 [degF] 88 /min 92 % 92 % 151/71 mm[Hg] 137/74 mm[Hg] [employer] 4 17:30:37 Date Recorded Body height Heart rate Oxygen saturation Oxygen saturation in Arterial blood by Pulse oximetry Systolic And Diastolic Provider Name and Address Organization Details Last Updated DateTime 4 170.18 cm 88 /min 94 % 94 % 124/83 mm[Hg] [place] [employer] 4 08:50:08 Date Recorded Body height Body temperature Heart rate Oxygen saturation Oxygen saturation in Arterial blood by Pulse oximetry Systolic And Diastolic Systolic And Diastolic Systolic And Diastolic Provider Name and Address Organization Details Last Updated DateTime 5 170.18 cm 98 [degF] 92 /min 90 % 90 % 152/61 mm[Hg] 159/70 mm[Hg] 154/69 mm[Hg] [employer] 5 13:23:42 Date Recorded Body height Body temperature Heart rate Oxygen saturation Oxygen saturation in Arterial blood by Pulse oximetry Systolic And Diastolic Systolic And Diastolic Systolic And Diastolic Provider Name and Address Organization Details Last Updated DateTime 3 170.18 cm 98.2 [degF] 82 /min 92 % 92 % 180/66 mm[Hg] 152/85 mm[Hg] 162/80 mm[Hg] [employer] 3 10:22:08 Date Recorded Body height Body temperature Heart rate Oxygen saturation Oxygen saturation in Arterial blood by Pulse oximetry Systolic And Diastolic Systolic And Diastolic Systolic And Diastolic Provider Name and Address Organization Details Last Updated DateTime 4 170.18 cm 98 [degF] 94 /min 94 % 94 % 176/73 mm[Hg] 164/89 mm[Hg] 170/80 mm[Hg] [employer] 4 09:54:26 Social History Question Answer Notes LastModified by Organizat ion Details LastModified Time Tobacco Smoking Status Never Smoker Cyndy whitfield, [facility] [employer] 11/06/2022 09:41:31 Do You Have An [...] Do You Have A Medical Power Of Branch Or Department Chief Librarian? No Information not available 09/23/2022 What Was [...] quadrivalent, preservative 8 completed LYNETTE MYNEAR null, [employer] 09/23/2022 15:32:11 Influenza, split virus, quadrivalent, PF 2 completed LYNETTE MYNEAR null, [employer] 09/23/2022 15:32:11 Influenza, MDCK, quadrivalent, preservative 9 completed LYNETTE MYNEAR null, [employer] 09/23/2022 15:32:11 pneumococcal polysaccharide PPV23 8 completed LYNETTE MYNEAR null, [employer] 09/23/2022 15:32:11 Tdap 9 completed LYNETTE MYNEAR null, [employer] 09/23/2022 15:32:11 Influenza, split virus, trivalent, PF 4 completed LYNETTE MYNEAR null, [employer] 09/23/2022 15:32:11 Past Encounters Encounter ID Performer Location Encounter Start Date Encounter Closed Date Diagnosis/Indication Diagnosis SNOMED-CT Code Diagnosis ICD10 Code Diagnosis Note [id number] Dariana Nanci [employer] [address] [address] 09/23/2022 15:15:11 09/23/2022 16:08:45 Benign essential hypertension 9261449 I10 Hypothyroidism 25957095 E03.8 Mixed hyperlipidemia 267 983934 E78.2 Adjustment disorder with mixed anxiety and depressed mood 810976161 F43.23 Continue Prozac Diabetes m ellitus screening 089115624 Z13.1 Gastroesop hageal reflux disease without esophagitis 043488825 K21.9 GERD measures explained. Snoring 50099700 R06.83 Screening mammography of bilateral breasts 0577201235 43673 Z12.31 Screening for malignant neoplasm of colon 469650995 Z12.11 Generalize d anxiety disorder 77027724 F41.1 [id number] Dariana Christine [address] 04/07/2023 10:06:48 04/07/2023 10:56:47 Benign essential hypertension 0537213 I10 Restart Valsartan at 80 mg daily. Hypothyroidism 34805594 E03.8 Mixed hyperlipidemia 267 758468 E78.2 Statin and Zetia refused again by patient. Adjustment disorder with mixed anxiety and depressed mood 875937226 F43.23 Continue Prozac Obstructiv e sleep apnea syndrome 64725216 G47.33 Will repeat over for CPAP for another compliance trial. Patient no ncompliance - general 868202680 Z91.199 Gastroesop hageal reflux disease without esophagitis 906901761 K21.9 GERD measures explained. [id number] Dariana Christine [place] [address] 09/23/2023 17:20:03 09/24/2023 08:34:54 Cellulitis and abscess of axilla 624983579 L02.411 Wash BID with soap and water, apply warm compresses , handwashin g, complete antx. She is to RTC if sx failure to resolve or progress. [id number] [place] [address] 10/25/2023 08:38:54 10/25/2023 09:59:38 Benign essential hypertension 8757822 I10 DASH diet, exercise, and weight loss encouraged . Hypothyroidism 67136137 E03.8 Continue Synthroid Mixed hyperlipidemia 267 619622 E78.2 Statin and Zetia refused again by patient. Vitamin D deficiency 347 88231 E55.9 Diabetes m ellitus screening 047686043 Z13.1 Adjustment disorder with mixed anxiety and depressed mood 388677141 F43.23 Continue Prozac Gastroesop hageal reflux disease without esophagitis 151956837 K21.9 GERD measures explained. Adult heal th examination 306039967 Z00.00 Patient presented to office today for [...] risks and promote healthy living. Morbid obesity 613353741 E66.01 [id number] [place] [phone] 04/23/2024 09:37:22 04/23/2024 11:22:38 Hypothyroidism 16384424 E03.8 Continue Synthroid, check levels today on labs. Essential hypertension 66108315 I10 Restart HTN meds, obtain labs and ECHO. Vitamin D deficiency 347 63009 E55.9 Start ergocal Noncomplia nce with medication regimen 626920406 Z91.148 Screening mammography of bilateral breasts 6952318551 67716 Z12.31 Obstructiv e sleep apnea syndrome 75443571 G47.33 Encouraged compliance with CPAP. REIsks of untreated VARSHA again d/w her. [id number] [place] [phone] 11/22/2024 12:46:13 11/22/2024 14:05:14 Hypertensive disorder 20713512 I10 Decrease HCTZ to 12.5 mg daily due to hypotensio n Hypothyroidism 34441356 E03.8 Continue Synthroid, check levels today on labs. Vitamin D deficiency 347 62191 E55.9 Cellulitis and abscess of axilla 857627238 L02.411 Wash BID with soap and water, apply warm compresses , handwashin g, complete antx. She is to RTC if sx failure to resolve or progress. Acute conj unctivitis of right eye 0885165381 99521 H10.31 Gastroesop hageal reflux disease without esophagitis 069304577 K21.9 GERD measures explained. Adjustment disorder with mixed anxiety and depressed mood 676439855 F43.23 Continue Prozac Health Concerns Section Related Observation LastModified by Organization Detai ls LastModified Time None Recorded Concern Status LastModified by Organization Details LastModified Time None Recorded Advance Directives Directive N: Payers Insurance Date Sequence Insurance Name Policy Number Policy Graff Covered Member ID Graff Member ID Guarantor Name 02/28/2025 1 [place]MEDICARE [place]PLAC[place]/AD VANTAGE - PPO) [id number] Rae Mohr [id number] Rae Mohr 02/28/2025 MED[place] [facility] Rae Mohr [id number] Rae Mohr 02/28/2025 1 [employer] (MEDICARE REPLACEMENT/AD VANTAGE - HMO) Rae Mohr [id number] Rae Mohr Notes Date Note Type Note [...] and decreased lifespan. Dariana Christine APRN [address] [place], [address], [facility] [employer] 04/07/2023 12:49:41 09/23/19 24 text/htm l [...] no lesions multiplying; no lesions spreading;draining Dariana Christine APRN [address] [place], [address], [facility] [employer] 09/23/2023 18:03:33 10/25/19 24 text/htm l Anxiety/DepressionReported [...] any Vit D supplementation Dariana Christine APRN [address] [place] [address], [phone], [place] [employer] 10/26/2023 19:18:04 04/23/20 24 text/htm l Hypertension [...] and is not compliant with CPAP. Dariana Christine, [employer] [address] [place], [address], [facility] [employer] 04/26/2024 17:20:54 11/23/19 25 text/htm l Anxiety/DepressionReported [...] Vit D supplementation Dariana Christine APRN [address] [place], [address], [facility] [employer] 12/13/2024 21:52:19 OBGyn Episode No OBEpisode recorded.
--- NOTE | 2025-03-21 15:18 | A.OFFVIS_ITS ---
[facility] Disclaimer: The information contained in this section may have been updated after the patient was seen, as this information can be updated by other users. Social History Smoking Status: Never smoker alcohol intake: never substance use type: denies use current occupational status: other Travel in the last 8 weeks?: None PM Subjective & Objective Subjective Subjective:: patient is a pleasant 64-year-old female who presents today for her monthly medication refill. She states overall she continues to do well with her current medications of gabapentin 100 mg daily and Stonewall 10 mg 3 times a day. She denies any side effects. Her Hans has been reviewed and is appropriate. Review of Systems: General: No recent weight changes, no fever, no sleep disturbances Respiratory: No cough, no shortness of air, no recurring pulmonary infections Cardiovascular/peripheral vascular: No chest pain, no palpitations, no edema, no shortness of breath Gastrointestinal: No new onset incontinence, normal bowel movements reported Genitourinary: No new onset incontinence Musculoskeletal: Chronic back pain Psychiatric: [Normal mood/affect] Neurological: [Denies weakness in extremities], [denies balance issues] Pain at rest (0-10 scale): 3 Objective Objective:: Physical Exam: General: Alert and oriented x3, no acute distress, pleasant and cooperative Lungs: Respirations even and unlabored, symmetrical chest expansion Eyes: PERRL Musculoskeletal: Flexion and extension of lumbar [spine] somewhat guarded secondary to pain, [antalgic gait noted] Neurological: Speech clear, no gross sensory deficit Has patient had previous pain injection?: No Conservative treatment options previously tried: Prescription medications Length of treatment: Longer than 12 weeks Meds Home Medications and Allergies Home Medications ?Medication ?Instructions ?Recorded ?Confirmed ?Type fluoxetine 20 mg capsule 20 mg PO DAILY mood 08/13/21 02/21/25 History hydrochlorothiazide 25 mg tablet 25 mg PO DAILY fluid retention 08/13/21 02/21/25 History levothyroxine 150 mcg tablet 150 mcg PO DAILY hypothyr oid 08/13/21 02/21/25 History pravastatin 40 mg tablet 40 mg PO HS Cholesterol 07/1702/21/25 History valsartan 80 mg tablet 80 mg PO DAILY blood pressur e 08/13/21 02/21/25 History naloxone 4 mg/actuation nasal spray 4 mg NS ONCE PRN o versedation #1 10/11/02/21/25 Rx mL gabapentin 100 mg capsule 100 mg PO DAILY #30 caps 06/09 Rx hydrocodone 10 mg-acetaminophen 1 tab PO TID #90 tabs 02/21/25 Rx 325 mg tablet hydrocodone 10 mg-acetaminophen 1 tab PO TID #90 tabs 03/21/25 Rx 325 mg tablet New Prescriptions to Start Prescriptions: hydrocodone-acetaminophen Sarah Morrow Allergies Allergy/AdvReac Type Severity Reaction Status Date / Time No Known Drug Allergies Allergy Unknown Verified 06/21/19 10:27 Assessment and Plan *Assessment and plan (1) Lumbar radiculopathy: Status: Acute Category: Medical Code(s): M54.16 - Radiculopathy, lumbar region (2) Degenerative disc disease, lumbar: Status: Acute Category: Medical Code(s): M51.369 - Other intervertebral disc degeneration, lumbar region without mention of lumbar back pain or lower extremity pain Plan I will refill her Stonewall and provide a 1 month supply of these medications. Patient has continued to do well on this regimen and will return to clinic in 1 month. Risks and benefits of the medication have been explained in detail to the patient. The patient does understand the risk of dependence on the medication when given over a prolonged period. Patient has been advised of risks of oversedation with the prescribed medication. Narcan has been offered to the paitent in the event of oversedation. Patient has been advised that a family member should also be educated regarding administration of Narcan. The patient has been advised to consult with his/her primary care provider and pharmacist regarding drug-drug interaction of medications currently prescribed. Patient has been prescribed a controlled substance after being counseled on the medication, medication safety, and possible side effects. Opioid contract was reviewed and signed by the patient, and that they have agreed to all of the terms set forth by our compliance program. A UDS is needed to verify patient's compliance with our office pain contract. This is ordered based off specific treatments related to chronic pain with the potential to abuse certain medications. Patient has been instructed to contact the clinic with any concerns before the next appointment. Dr. Au has reviewed this note and agrees with this plan of care. This note was dictated using voice recognition software and make contain errors or omissions.
[2025-03-21 15:23] VITALS: BP 139/68; PULSE 85; RESP 14; O2SAT 94; BMI 39.2
== END 2025-03-21 23:59 | disposition home or self-care (01) ==
PROVIDERS: PCP Nurse Practitioner Family; Visit Provider Nurse Practitioner Family
DX: M51.360 Other intervertebral disc degeneration, lumbar region with discogenic back pain only (principal); M54.16 Radiculopathy, lumbar region; Z79.891 Long term (current) use of opiate analgesic; Z79.899 Other long term (current) drug therapy
CPT/HCPCS: 99212; G0463

== ENCOUNTER 2025-04-25 10:56 | Outpatient (POV) | payer MEDICARE, SELFPAY ==
--- OUTSIDE RECORDS SUMMARY | 2025-04-25 11:06 | XMS_ITS | Clinical Summary ---
Author Organization [facility] Address [address] [place] [address] Care Team Providers Care Flatbed Stitcher Name Role Phone Lina Christine APRN Primary Care Provider [phone] Allergies No known active allergies Medications HYDROcodone-renny taminophen (NORCO) 10-325 MG per tablet Take 1 tablet by mouth Every 8 (Eight) Hours As Needed for Moderate Pain (4-6). Active gabapentin (NEURONTIN) 100 MG capsule Take 100 mg by mouth Every Night. Active levothyroxine (SYNTHROID, LEVOTHROID) 150 MCG tablet Take 150 mcg by mouth Every Morning. Active acetaminophen (TYLENOL) 325 MG tablet Take 2 tablets by mouth Every 4 (Four) Hours As Needed for Mild Pain . 05/08/2018 Active cetirizine (zyrTEC) 10 MG tablet Take 1 tablet by mouth Every Night. 05/08/2018 Active fluticasone (FLONASE) 50 MCG/ACT nasal spray 2 sprays by Each Nare route Daily. 05/08/2018 Active Active Problems Problem Noted Date Diagnosed Date Precordial pain 04/15/2019 Mixed hyperlipidemia 04/15/2019 PNA (pneumonia) 05/04/2018 History of thyroid cancer, s/p thyroidectomy, on synthroid 05/04/2018 Morbid obesity with BMI of 45.0-49.9, adult Fatigue Dyspepsia Dyspnea on exertion Hypothyroidism Overview (05/29/2017): s/p thyroidectomy Thyroid cancer Overview (05/29/2017): s/p total thyroidectomy, no additional tx required, no oncology f/up required Chronic narcotic use Overview (05/29/2017): Lortab 10mg TID - follows w/ [facility] Chronic back pain Overview (05/29/2017): w/ DDD, on Lortab OAB (overactive bladder) Overview (05/29/2017): w/ urgency, on Lasix to help w/ nocturia Resolved Problems Problem Noted Date Diagnosed Date Resolved Date Acute respiratory failure with hypoxia 05/04/2018 05/08/2018 Sepsis 05/04/2018 05/08/2018 Family History Medical History Relation Name Comments Hypertension Father Stroke Father Diabetes Maternal Grandfather Heart disease Maternal Grandfather Obesity Maternal Grandfather Diabetes Maternal Grandmother Heart disease Maternal Grandmother Obesity Maternal Grandmother Diabetes Mother Heart attack Mother Hypertension Mother Obesity Paternal Grandfather Obesity Paternal Grandmother Relation Name Status Comments Father Maternal Grandfather Maternal Grandmother Mother Alive Paternal Grandfather Paternal Grandmother Social History Tobacco Use Types Packs/Day Years Used Date Smoking Tobacco: Never Smokeless Tobacco: Never Comments:exposure to second/ lath hand smoke from parent when she was a child Alcohol Use Standard Drinks/Week Comments No 0 (1 standard drink = 0.6 oz pur e alcohol) Abuse Screen Answer Date Recorded Unsafe at Home or Work/School Not on file Feels Threatened by Someone? Not on file 05/2023 Does Anyone Keep You from Co ntacting Others or Doint Things Outside the Home? Not on file 06/23/2023 Physical Sign of Abuse Present Not on file 1 Housing Stability Answer Date Recorded Current Living Arrangements Not on file 05/2023 Potentially Unsafe Housing Conditions Not on vasquez e 06/23/2023 Family and Community Support Answer Elie e Recorded Help with Day-to-Day Activities Not on file 06/23/2023 Lonely or Isolated Not on file 06/23/2023 Employment Answer Date Recorded Do you want help finding or keeping work or a cheikh b? Not on file 06/23/2023 Disabilities Answer Date Recorded Concentrating, Remembering, or Making Decisions Difficulty Not on file 06/23/2023 Doing Errands Independently Difficulty Not on fi le 06/23/2023 Education Answer Date Recorded Help with school or training? Not on file Preferred Language Not on file 06/23/2023 Comments No Sex and Gender Information Value Date Recorded Sex Assigned at Not on file Legal Sex Female 1:07 PM EDT Gender Identity Not on file Sexual Orientation Not on file Occupation Industry Job Start Date Job End Date Disabled Not on file Not on file Not on file Last Filed Vital Signs Vital Sign Reading Time Taken Comments Blood Pressure 157/76 04/15/2019 8:35 AM EDT Pulse 92 04/15/2019 8:35 AM EDT regul ar Temperature 36.1 C (97 F) 04/15/2019 8:32 AM EDT Respiratory Rate 16 04/15/2019 8:32 AM EDT Oxygen Saturation 95% 04/15/2019 8:35 AM EDT Inhaled Oxygen Concentration - - Weight 152 kg (336 lb 2 oz) 04/15/2019 8:32 AM E DT Height 162.6 cm (5' 4 ) 04/15/2019 8:32 AM EDT Body Mass Index 57.7 04/15/2019 8:32 AM EDT Plan of Treatment Health Maintenance Due Date Last Done Comments Annual Gynecologic Pelvic and Breast Exam 1960 LIPID PANEL 1960 TDAP/TD VACCINES (1 - Tdap) 1979 MAMMOGRAM 2000 COLOGUARD 2005 COLON CANCER SCREENING 5 YEAR SIGMOIDOSCOPY 2005 COLONOSCOPY [address] SCREENING [address] COLONOGRAPHY 2005 FECAL OCCULT BLOOD TEST 2005 FIT Testing (1 year) 2005 Pneumococcal Vaccine 50+ (1 of 1 - PCV) 2010 ZOSTER VACCINE (1 of 2) 2010 ANNUAL PHYSICAL 04/09/2017 HEPATITIS C SCREENING 04/09/2017 COVID-19 Vaccine ( season) 2024 INFLUENZA VACCINE 06/15/2025 Insurance [facility] MEDICARE ADVANTAGE Advance Directives * CPR (Attempt to Resuscitate) (Latest Code Status on File) Date Activated Date Inactivated Comments 05/04/2018 10:27 PM 05/08/2018 5:55 PM Question Answer Comments Code Status (Patient has no pulse and is not breathing): CPR (Attempt to Resuscitate) Medical Interventions (Patie nt has pulse or is breathing): Full Level Of Support Discussed With: Patient Care Teams Flatbed Stitcher Relationship Specialty Start Date End Date Lina Christine APRN [address] [place] [address] PCP - General Nurse Practitioner 05/04/18
--- OUTSIDE RECORDS SUMMARY | 2025-04-25 11:06 | XMS_ITS | Clinical Summary ---
Author Organization [facility] Address [address] [place] [address] Phone Care Team Providers Care Administrative Services Coordinator Name Role Phone George Gonzalez MD [ ] Conditions or Problems Problem Name Problem Code Onset Date Status Entry Date Provider Comment Standard Description Annotate Rheumatoid arthritis, chronic 13205656 (SNOMED CT) 05/13 Active 05/13 George Gonzalez MD Rheumatoid arthritis Elevated sedimentation rate 292168877 (SNOMED CT) 05/13 Active 05/13 George Gonzalez MD Erythrocyte sedimentation rate above reference range Elevated c-reactive protein 153268280 (SNOMED CT) 05/13 Active 05/13 George Gonzalez MD C-reactive protein outside reference range Legionella pneumonia 765144223 (SNOMED CT) 05/12 Active 05/12 Nasra Dedrick Legionella pneumonia 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 05/12 Nasra Dedrick Leukemoid reaction Anemia in chronic diseases(docu ment disease) D63.8 (ICD-10-CM ) 05/12 Active 05/12 Nasra Dedrick Anemia in other chronic diseases classified elsewhere History of thyroid cancer 633797336 (SNOMED CT) 05/12 Active 05/12 Nasrapaty Tse History of malignant neoplasm of thyroid Staph epi infection B95.7 (ICD-10-CM ) 10/26 Inactive 10/26 Nasrapaty Tse Other staphylococcus as the cause of diseases classified elsewhere Diarrhea, acute 44446955 (SNOMED CT) 01/01 Inactive 01/01 Nasrapaty Tse Diarrhea Thyroid cancer 034282671 (SNOMED CT) 10/27 Inactive 10/27 Nasra Dedrick Malignant tumor of thyroid gland Postoperative wound infection, initial encounter T81.4xxA (ICD-10-CM ) 10/26 Inactive 10/26 Nasra Dedrick Infection following a procedure, initial encounter Abscess, neck 8954121 (SNOMED CT) 10/26 Inactive 10/26 Nasra Dedrick Abscess of neck Cellulitis, neck 28934022 (SNOMED CT) 10/26 Inactive 10/26 Nasra Dedrick Cellulitis of neck MDR infection Z16.24 (ICD-10-CM ) 10/26 Inactive 10/26 Nasra Dedrick Resistance to multiple antibiotics Diarrhea, acute 29163929 (SNOMED CT) 01/01 Removed 01/01 George Gonzalez MD Diarrhea Thyroid cancer 667756448 (SNOMED CT) 10/27 Removed 10/27 George Gonzalez [...] Dedrick Resistance to multiple antibiotics Cellulitis, neck 23298324 (SNOMED CT) 10/26 Removed 10/26 Nasra Dedrick Cellulitis of neck Morbid obesity due to excess calories E66.01 (ICD-10-CM ) 10/26 Active 10/26 Nasra Dedrick Morbid (severe) obesity due to excess calories Abscess, neck 8564491 (SNOMED CT) 10/26 Removed 10/26 Nasra Dedrick Abscess of neck Medications Medication Instructions Start Date Stop Date Generic Name NDC Provider ZOFRAN 4 MG ORAL TABLET 1 tab every 6 hours as needed 05/13 ONDANSETRON HCL 60443692097 George Gonzalez MD OCEAN NASAL SPRAY 0.65 % SOLN 2 sprays each nostril as needed 05/11 SALINE 44448073945 Madeline Blackmonemer ZOFRAN 4 MG ORAL TABLET 1 tab every 6 hours as needed 05/11 ONDANSETRON HCL 03435192786 Madeline Ashrafr HYDROCODONE-ACETAMIN OPHEN 10-325 MG TABS 1 po tid 10/02 HYDROCODONE-ACETAMIN OPHEN 03617360481 Madeline Blackmonemer LEVAQUIN 750 MG ORAL TABLET 1 tab daily 05/11 LEVOFLOXACIN 43743937796 Madeline Blackmonemer RISAQUAD CAPS 1 cap daily 05/11 PROBIOTIC PRODUCT 47882249305 Madeline Min NORCO 10-325 MG ORAL TABLET 1 tab every 8 hours as needed 05/11 HYDROCODONE-ACETAMIN OPHEN 63618912630 Madeline Ashrafr TUSSIONEX PENNKINETIC ER 10-8 MG/5ML ORAL SUSPENSION EXTENDED RELEASE 5ml every 12 hours as needed 05/11 HYDROCOD POLST-CHLORPHEN POLST 59525934337 Madeline Min GABAPENTIN 100 MG CAPS 1 tab nightly 05/11 GABAPENTIN 96260723411 Madeline Blackmonemer FUROSEMIDE 20 MG TABS 1 tab as needed 05/11 FUROSEMIDE 77402437842 Madeline Ashrafr FLONASE 50 MCG/ACT NASAL SUSPENSION 2 sprays in each nostril daily 05/11 FLUTICASONE PROPIONATE 08686901150 Madeline Ashrafr DIFLUCAN 100 MG TABS 1 tab daily 05/11 FLUCONAZOLE 02334719519 Madeline Ashrafr ZYRTEC ALLERGY 10 MG TABS 1 tab nightly 05/11 CETIRIZINE HCL 92949801090 Madeline Blackmonemer ACETAMINOPHEN 325 MG TABS 2 tab every 4 hours as needed 05/11 ACETAMINOPHEN 38627056294 Madeline Ashrafr AVELOX 400 MG ORAL TABLET 1 by mouth daily 02/12 MOXIFLOXACIN HCL 22909589142 George Gonzalez MD MOXIFLOXACIN HCL 400 MG TABS 1 tab Po daily x 30 days 11/27 MOXIFLOXACIN HCL 74959378715 George Gonzalez MD SULFAMETHOXAZOLE-TRI METHOPRIM 800-160 MG TABS one tab twice daily. 10/27 SULFAMETHOXAZOLE-TRI METHOPRIM 95338891400 George Gonzalez MD TRAMADOL HCL 50 MG TABS 1 po qid 10/27 TRAMADOL HCL 97878105329 Sarah Kam TRAMADOL HCL 50 MG TABS 1 po qid 10/27 TRAMADOL HCL 61282034119 Griselda G LEVOTHYROXINE SODIUM 150 MCG TABS 1 po qd 11/05 LEVOTHYROXINE SODIUM 06874121568 Griselda G MEDROXYPROGESTERONE ACETATE 10 MG TABS 09/26 MEDROXYPROGESTERONE ACETATE 29421398062 Griselda G HYDROCODONE-ACETAMIN OPHEN 10-325 MG TABS 1 po tid 10/02 HYDROCODONE-ACETAMIN OPHEN 71414080537 Griselda G Medications Administered No information available. [...] Procedures Code Procedure Name Date Entry Date CPT-18278 CMP [id number] CBC with Differential 2015 CPT-25220 C- reactive protein CPT-19621 Sedimentation Rate (ESR) 201 02/17/31 CPT-Cooral Continue oral antibiotics 20 29/12/18 CPT-48483 CMP [id number] CBC with Differential 2015 CPT-39437 C- reactive protein CPT-99053 Sedimentation Rate (ESR) 201 02/16/19 CPT-cdpcr C-Diff PCR CPT-nette New Oral Antibiotic CPT-96570 BMP [id number] CBC with Differential 2015 CPT-52438 C- reactive protein CPT-83029 Sedimentation Rate (ESR) 201 02/15/15 CPT-17122 Wound Culture and Sensitivity CPT-AFBC AFB Culture & Sensitivity 20 28/11/14 CPT-nette New Oral Antibiotic CPT-15306 CMP [id number] CBC with Differential 2015 CPT-61523 C- reactive protein CPT-80276 Sedimentation Rate (ESR) 201 02/15/12 Vital Signs [...]
--- NOTE | 2025-04-25 11:12 | EXP.PAIN.SOA ---
[facility] Disclaimer: The information contained in this section may have been updated after the patient was seen, as this information can be updated by other users. Social History Smoking Status: Never smoker alcohol intake: never substance use type: denies use current occupational status: other Travel in the last 8 weeks?: None Have you lived/traveled outside US in past 30 days?: No Contact w/someone who lives/traveled outside US past 30 days?: No Exposure to someone with infectious disease in past 14 days?: No Do you have a fever (greater than 100.4 F or 38 C)?: No Have you tested positive for COVID-19?: No Exposed to someone with COVID-19 in past 14 days?: No Do you have a sore throat?: No Do you have a cough?: No Do you have any weakness?: No Do you have any diarrhea?: No Are you experiencing any unusual bleeding?: No Do you have any muscle aches/pain?: No Do you have any abdominal pain?: No Are you experiencing loss of taste or smell?: No PM Subjective & Objective Subjective Subjective:: Patient is a pleasant 54-year-old female who presents today for her medication refill. She rates her pain today at 3 out of 10. She denies any new trauma or injury. She is currently managed with gabapentin 100 mg daily and Oronoco 10 mg 3 times a day. Her Hans has been reviewed and is appropriate. Review of Systems: General: No recent weight changes, no fever, no sleep disturbances Respiratory: No cough, no shortness of air, no recurring pulmonary infections Cardiovascular/peripheral vascular: No chest pain, no palpitations, no edema, no shortness of breath Gastrointestinal: No new onset incontinence, normal bowel movements reported Genitourinary: No new onset incontinence Musculoskeletal: Low back pain Psychiatric: [Normal mood/affect] Neurological: [Denies weakness in extremities], [denies balance issues] Pain at rest (0-10 scale): 3 Objective Objective:: Physical Exam: General: Alert and oriented x3, no acute distress, pleasant and cooperative Lungs: Respirations even and unlabored, symmetrical chest expansion Eyes: PERRL Musculoskeletal: Flexion and extension of lumbar [spine] somewhat guarded secondary to pain, [antalgic gait noted] Neurological: Speech clear, no gross sensory deficit Has patient had previous pain injection?: No Conservative treatment options previously tried: Home exercise plan Length of treatment: Longer than 12 Meds Home Medications and Allergies Home Medications ?Medication ?Instructions ?Recorded ?Confirmed ?Type fluoxetine 20 mg capsule 20 mg PO DAILY mood 08/13/21 03/21/25 History hydrochlorothiazide 25 mg tablet 25 mg PO DAILY fluid retention 08/13/21 03/21/25 History levothyroxine 150 mcg tablet 150 mcg PO DAILY hypothyroid 08/13/21 03/21/25 History pravastatin 40 mg tablet 40 mg PO HS Cholesterol 08/13/21 03/21/25 History valsartan 80 mg tablet 80 mg PO DAILY blood pressure 08/13/21 03/21/25 History naloxone 4 mg/actuation nasal spray 4 mg NS ONCE PRN oversedation #1 10/11/21 03/21/25 Rx mL gabapentin 100 mg capsule 100 mg PO DAILY #30 caps 02/21/25 03/21/25 Rx hydrocodone 10 mg-acetaminophen 1 tab PO TID #90 tabs 02/21/25 03/21/25 Rx 325 mg tablet hydrocodone 10 mg-acetaminophen 1 tab PO TID #90 tabs 03/21/25 Rx 325 mg tablet New Prescriptions to Start Prescriptions: Allergies Allergy/AdvReac Type Severity Reaction Status Date / Time No Known Drug Allergies Allergy Unknown Verified 06/21/19 10:27 Assessment and Plan *Assessment and plan (1) Lumbar radiculopathy: Status: Acute Category: Medical Code(s): M54.16 - Radiculopathy, lumbar region (2) Degenerative disc disease, lumbar: Status: Acute Category: Medical Code(s): M51.369 - Other intervertebral disc degeneration, lumbar region without mention of lumbar back pain or lower extremity pain Plan I will refill the patient's Oronoco and gabapentin and provide a 1 month supply of this medication. Patient will return to clinic in 1 month for reevaluation of symptoms and plan of care. Risks and benefits of the medication have been explained in detail to the patient. The patient does understand the risk of dependence on the medication when given over a prolonged period. Patient has been advised of risks of oversedation with the prescribed medication. Narcan has been offered to the paitent in the event of oversedation. Patient has been advised that a family member should also be educated regarding administration of Narcan. The patient has been advised to consult with his/her primary care provider and pharmacist regarding drug-drug interaction of medications currently prescribed. Patient has been prescribed a controlled substance after being counseled on the medication, medication safety, and possible side effects. Opioid contract was reviewed and signed by the patient, and that they have agreed to all of the terms set forth by our compliance program. A UDS is needed to verify patient's compliance with our office pain contract. This is ordered based off specific treatments related to chronic pain with the potential to abuse certain medications. Patient has been instructed to contact the clinic with any concerns before the next appointment. Dr. Au has reviewed this note and agrees with this plan of care. This note was dictated using voice recognition software and make contain errors or omissions.
[2025-04-25 11:28] VITALS: BP 140/86; PULSE 84; RESP 18; O2SAT 95; BMI 39.2
== END 2025-04-25 23:59 | disposition home or self-care (01) ==
PROVIDERS: PCP Nurse Practitioner Family; Visit Provider Nurse Practitioner Family
DX: M51.16 Intervertebral disc disorders with radiculopathy, lumbar region (principal); Z79.891 Long term (current) use of opiate analgesic; Z79.899 Other long term (current) drug therapy
CPT/HCPCS: 99212; G0463